=== PATIENT | female | born 1930 | race African-American/Black ===

== ENCOUNTER → 2016-08-26 | Outpatient (CLI) | payer MEDICARE, OTHER ==
--- NOTE | 2016-08-27 07:06 | US ---
EXAMINATION TYPE: US kidneys/renal and bladder DATE OF EXAM: 08/26/2016 4:49 PM COMPARISON: NONE CLINICAL HISTORY: ABN RENAL FUNCTIONS R94.4. EXAM MEASUREMENTS: Right Kidney: 10.4 x 5.1 x 5.6 cm Left Kidney: 10.2 x 5.6 x 5.0 cm TECHNOLOGIST IMPRESSION: wnl Right Kidney: multiple cysts, largest is complex, midpole measuring 4.4 x 4.6 x 3.4 cm Left Kidney: multiple cysts, largest is lateral and measures 3.1 x 2.6 x 2.4 cm Bladder: wnl There is no evidence for hydronephrosis at this point in time. The urinary bladder is anechoic. Jorge L ateral ureteral jets are not seen. There are multiple cysts of varying size and shape scattered throu ghout both kidneys, some have thin septations. No suspicious solid component or nodularity is clearly seen. Some loss of normal cortical echogenicity is present. IMPRESSION: No hydronephrosis is evident bilaterally. 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
== END | disposition home or self-care (01) ==
LOC: RADUSWWP 16:34
PROVIDERS: ATTEND Internal Medicine Geriatric Medicine
DX: R94.4 Abnormal results of kidney function studies (principal)
CPT/HCPCS: 76770

== ENCOUNTER 2018-01-08 12:42 | Inpatient (IN) | payer MEDICARE, OTHER ==
[2018-01-08] MEDS ORDERED: SODIUM CHLORIDE 0.9% 500 ML IV STA (13:03)
--- NOTE | 2018-01-08 13:07 | ED ---
General Adult HPI - General Chief complaint: Dizziness Stated complaint: Confusion Time Seen by Provider: 01/08/18 12:45 Source: family, RN notes reviewed Mode of arrival: wheelchair Limitations: altered mental status - History of Present Illness Initial comments: This is an 87-year-old female presents emergency department with altered mental status and a sensation of lightheadedness. Patient complained of being lightheaded her caregiver and she was then brought to the emergency department. Nephew came with her and nephew stated that she was slow to respond and not acting like herself. Patient denies any chest pain patient denies shortness of breath patient denies any visual disturbance. Patient denies headache. Patient states she just feels cloudy in her head. Patient denies abdominal pain patient denies nausea vomiting diarrhea. Patient denies any recent fever chills or cough. - Related Data Home Medications Medication Instructions Recorded Confirmed Atenolol [Tenormin] 50 mg PO BID 02/21/15 01/08/18 Gabapentin [Neurontin] 300 mg PO BID 02/21/15 01/08/18 Potassium Chloride [Klor-Con 10] 10 meq PO DAILY 02/21/15 01/08/18 amLODIPine BESYLATE [Norvasc] 10 mg PO DAILY 02/21/15 01/08/18 glipiZIDE XL [Glucotrol XL] 2.5 mg PO AC-BID 02/22/15 01/08/18 Multivitamins, Thera [Multivitamin] 1 tab PO DAILY 01/23/16 01/08/18 Oxybutynin Chloride 5 mg PO HS 01/23/16 01/08/18 Furosemide [Lasix] 20 mg PO BID 05/09/16 01/08/18 Citalopram Hydrobromide [CeleXA] 20 mg PO DAILY 01/08/18 01/08/18 Lisinopril [Zestril] 20 mg PO DAILY 01/08/18 01/08/18 Omeprazole 20 mg PO DAILY 01/08/18 01/08/18 cloNIDine HCL [Catapres] 0.1 mg PO DAILY 01/08/18 01/08/18 Allergies Allergy/AdvReac Type Severity Reaction Status Date / Time aspirin Allergy Unknown Verified 01/08/18 12:52 milk AdvReac Unknown Verified 01/08/18 12:52 Review of Systems ROS Statement: Those systems with pertinent positive or pertinent negative responses have been documented in the HPI. ROS Other: All systems not noted in ROS Statement are negative. Past Medical History Past Medical History: Heart Failure, Diabetes Mellitus, Hypertension History of Any Multi-Drug Resistant Organisms: None Reported Past Surgical History: Orthopedic Surgery Additional Past Surgical History / Comment(s): Rt Shoulder, brain stent Past Psychological History: No Psychological Hx Reported Smoking Status: Former smoker Past Alcohol Use History: None Reported Past Drug Use History: None Reported General Exam - General Exam Comments Initial Comments: GENERAL: Patient is well-developed and well-nourished. Patient is nontoxic and well- hydrated and is in no acute distress. ENT: Neck is soft and supple. No significant lymphadenopathy is noted. Oropharynx is clear. Moist mucous membranes. Neck has full range of motion without eliciting any pain. EYES: The sclera were anicteric and conjunctiva were pink and moist. Extraocular movements were intact and pupils were equal round and reactive to light. Eyelids were unremarkable. PULMONARY: Unlabored respirations. Good breath sounds bilaterally. No audible rales rhonchi or wheezing was noted. CARDIOVASCULAR: Patient is bradycardic down to 35 beats a minute ABDOMEN: Soft and nontender with normal bowel sounds. No palpable organomegaly was noted. There is no palpable pulsatile mass. SKIN: Skin is clear with no lesions or rashes and otherwise unremarkable. NEUROLOGIC: Patient is alert and oriented 2. Cranial nerves II through XII are grossly intact. Motor and sensory are also intact. Normal speech, volume and content. Symmetrical smile. MUSCULOSKELETAL: Normal extremities with adequate strength and full range of motion. No lower extremity swelling or edema. No calf tenderness. LYMPHATICS: No significant lymphadenopathy is noted PSYCHIATRIC: Normal psychiatric evaluation. Limitations: altered mental status Course Vital Signs 01/08/18 01/08/18 01/08/18 12:46 12:54 13:49 Temperature 97.6 F Pulse Rate 32 L 47 L 60 Respiratory 18 18 18 Rate Blood Pressure 183/77 180/80 O2 Sat by Pulse 98 100 100 Oximetry Medical Decision Making - Medical Decision Making EKG shows sinus bradycardia at 47 bpm LA interval is 180 QRSs 86 QT interval is 526 QTC is 465. EKG shows no ST segment elevation however there is some inverted T waves in V6 and leads 3 and aVF there is no old EKG to compare. Chest x-ray shows an enlarged heart. Patient's heart rate would dip down to 30 beats a minute. Patient did respond to atropine however. I spoke with Dr. Roe she accepts the patient I admitted the patient I wrote admitting orders I kept the patient based on the patient atropine by the bedside and I consult to cardiology. - Lab Data Result diagrams: 01/08/18 13:01 01/08/18 13:01 Lab Results 01/08/18 01/08/18 01/08/18 Range/Units 13: 13: 13:01 WBC 5.5 (3.8-10.6) k/uL RBC 3.18 L (3.80-5.40) m/uL Hgb 9.5 L (11.4-16.0) gm/dL Hct 30.2 L (34.0-46.0) % MCV 94.9 (80.0-100.0) fL MCH 30.0 (25.0-35.0) pg MCHC 31.6 (31.0-37.0) g/dL RDW 16.3 H (11.5-15.5) % Plt Count 206 (150-450) k/uL Neutrophils % 52 % Lymphocytes % 30 % Monocytes % 7 % Eosinophils % 6 % Basophils % 1 % Neutrophils # 2.9 (1.3-7.7) k/uL Lymphocytes # 1.7 (1.0-4.8) k/uL Monocytes # 0.4 (0-1.0) k/uL Eosinophils # 0.3 (0-0.7) k/uL Basophils # 0.0 (0-0.2) k/uL Anisocytosis Slight PT (9.0-12.0) sec INR (<1.2) APTT (22.0-30.0) sec Sodium 142 (137-145) mmol/L Potassium 5.0 (3.5-5.1) mmol/L Chloride 108 H (98-107) mmol/L Carbon Dioxide 23 (22-30) mmol/L Anion Gap 11 mmol/L BUN 34 H (7-17) mg/dL Creatinine 2.26 H (0.52-1.04) mg/dL Est GFR (CKD-EPI)AfAm 22 (>60 ml/min/1.73 sqM) Est GFR (CKD-EPI)NonAf 19 (>60 ml/min/1.73 sqM) Glucose 169 H (74-99) mg/dL Calcium 10.8 H (8.4-10.2) mg/dL Magnesium 2.0 (1.6-2.3) mg/dL Total Bilirubin 0.3 (0.2-1.3) mg/dL AST 14 (14-36) U/L ALT 23 (9-52) U/L Alkaline Phosphatase 131 H (38-126) U/L Total Creatine Kinase 49 (30-135) U/L CK-MB (CK-2) 0.3 (0.0-2.4) ng/mL CK-MB (CK-2) Rel Index 0.6 Troponin I 0.026 (0.000-0.034) ng/mL Total Protein 7.1 (6.3-8.2) g/dL Albumin 4.0 (3.5-5.0) g/dL 01/08/18 Range/Units 13:01 WBC (3.8-10.6) k/uL RBC (3.80-5.40) m/uL Hgb (11.4-16.0) gm/dL Hct (34.0-46.0) % MCV (80.0-100.0) fL MCH (25.0-35.0) pg MCHC (31.0-37.0) g/dL RDW (11.5-15.5) % Plt Count (150-450) k/uL Neutrophils % % Lymphocytes % % Monocytes % % Eosinophils % % Basophils % % Neutrophils # (1.3-7.7) k/uL Lymphocytes # (1.0-4.8) k/uL Monocytes # (0-1.0) k/uL Eosinophils # (0-0.7) k/uL Basophils # (0-0.2) k/uL Anisocytosis PT 10.4 (9.0-12.0) sec INR 1.1 (<1.2) APTT 20.8 L (22.0-30.0) sec Sodium (137-145) mmol/L Potassium (3.5-5.1) mmol/L Chloride (98-107) mmol/L Carbon Dioxide (22-30) mmol/L Anion Gap mmol/L BUN (7-17) mg/dL Creatinine (0.52-1.04) mg/dL Est GFR (CKD-EPI)AfAm (>60 ml/min/1.73 sqM) Est GFR (CKD-EPI)NonAf (>60 ml/min/1.73 sqM) Glucose (74-99) mg/dL Calcium (8.4-10.2) mg/dL Magnesium (1.6-2.3) mg/dL Total Bilirubin (0.2-1.3) mg/dL AST (14-36) U/L ALT (9-52) U/L Alkaline Phosphatase (38-126) U/L Total Creatine Kinase (30-135) U/L CK-MB (CK-2) (0.0-2.4) ng/mL CK-MB (CK-2) Rel Index Troponin I (0.000-0.034) ng/mL Total Protein (6.3-8.2) g/dL Albumin (3.5-5.0) g/dL Critical Care Time Critical Care Time: Yes Total Critical Care Time: 35 Disposition Clinical Impression: Light headed, Symptomatic bradycardia Disposition: ADMITTED IP TO THIS HOSP Referrals: Chad Guzmán MD [Primary Care Provider] - 1-2 days Time of Disposition: 14:47
[2018-01-08] MEDS ORDERED: ATROPINE SULFATE 0.1 MG/ML 10ML SYRINGE IV STA (13:26)
--- NOTE | 2018-01-08 13:36 | XR ---
EXAMINATION TYPE: XR chest 2V DATE OF EXAM: 01/08/2018 COMPARISON: NONE HISTORY: Chest pain, hypotension TECHNIQUE: Frontal and lateral views of the chest are obtained. FINDINGS: There is no focal air space opacity, pleural effusion, or pneumothorax seen. The cardiac silhouette size is possibly accentuated due to patient rotation. 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 Aorta is dense. There are overlying cardiac leads. The osseo us structures are intact. IMPRESSION: Heart may be borderline enlarged. Rotated exam. Postprocedural changes. Follow-up as ind icated.
[2018-01-08 13:37] LABS: Calcium 10.8 mg/dL (8.4-10.2); Total Bilirubin 0.3 mg/dL (0.2-1.3); Total Protein 7.1 g/dL (6.3-8.2)
[2018-01-08 13:40] LABS: Anisocytosis Slight; Basophils % (A) 1 %; Eosinophils # (A) 0.3 k/uL (0-0.7); Eosinophils % (A) 6 %; HCT 30.2 % (34.0-46.0); HGB 9.5 gm/dL (11.4-16.0); Lymphocytes # (A) 1.7 k/uL (1.0-4.8); Lymphocytes % (A) 30 %; MCHC 31.6 g/dL (31.0-37.0); MCV 94.9 fL (80.0-100.0); Mean Platelet Volume 6.7; Monocytes # (A) 0.4 k/uL (0-1.0); Monocytes % (A) 7 %; Neutrophils # (A) 2.9 k/uL (1.3-7.7); Neutrophils % (A) 52 %; Platelet Count 206 k/uL (150-450); RBC 3.18 m/uL (3.80-5.40); RDW 16.3 % (11.5-15.5); WBC 5.5 k/uL (3.8-10.6)
[2018-01-08 14:03] LABS: Creatine Kinase MB 0.3 ng/mL (0.0-2.4); Troponin I 0.026 ng/mL (0.000-0.034)
[2018-01-08 14:04] LABS: INR 1.1 (<1.2); Prothrombin Time 10.4 sec (9.0-12.0)
[2018-01-08 14:22] LABS: Partial Thromboplastin Time 20.8 sec (22.0-30.0)
[2018-01-08] MEDS ORDERED: NITROGLYCERIN SL TABS 0.4 MG TAB SUBLINGUAL PRN (14:47)
[2018-01-08 17:06] LABS: Glucose,Whole Blood 163 mg/dL (75-99)
--- NOTE | 2018-01-08 19:12 | P.HPIM ---
History of Present Illness H&P Date: 01/08/18 Chief Complaint: Weakness found to be significantly bradycardic This is an 87-year-old pleasant lady patient of Dr. Guzmán. She has underlying history of diabetes mellitus type 2, CK D stage III, GERD, anemia, gout, hyperparathyroidism, admitted to the emergency room secondary to weakness. Also mentioned as per the caregiver nephew that the patient was not acting her usual baseline self, was sleeping more. Patient denies any vagovagal spells, no chest pain or palpitations no lightheadedness, no dysuria however other symptoms are difficult to address to the patient secondary to advanced age. He was subsequently sent to the emergency room she was found to be profoundly bradycardic, patient is on metoprolol and was discontinued, atropine was given, with good response to this. Heart rate came up from the low 30s to 60, we've discussed this with Dr. Hylton ER physician, patient deemed stable to be in the selective medical floor rather in ICU. Consult to cardiology, metoprolol is currently held. Creatinine is also elevated at 2.26, from a baseline of 1.May Review of Systems Constitutional: Reports as per HPI, Reports anorexia, Reports poor appetite, Reports weakness, Denies chills, Denies chronic headaches, Denies chronic pain, Denies daytime sleepiness, Denies fatigue, Denies fever, Denies lethargy, Denies malaise, Denies night sweats, Denies sweats, Denies weight gain, Denies weight loss Ears, nose, mouth and throat: Reports as per HPI Cardiovascular: Reports as per HPI, Reports decreased exercise tolerance, Reports lightheadedness Respiratory: Reports as per HPI, Denies congestion, Denies cough, Denies cough with sputum, Denies dyspnea, Denies excessive sputum, Denies hemoptysis, Denies home oxygen, Denies pain, Denies pain on inspiration, Denies pleurisy, Denies respiratory infections, Denies sleep apnea, Denies snoring, Denies wheezing Gastrointestinal: Reports as per HPI Genitourinary: Reports as per HPI Menstruation: Reports as per HPI, Reports postmenopausal Musculoskeletal: Reports as per HPI, Reports gait dysfunction Integumentary: Reports as per HPI, Denies acne, Denies boils, Denies brittle nails, Denies change in hair/nails, Denies color changes, Denies darkening of skin, Denies depigmentation, Denies dryness, Denies foot/leg ulcers, Denies growths, Denies hirsutism, Denies lesions, Denies onychomycosis, Denies pruritus , Denies rash, Denies sores, Denies striae, Denies unusual bruising, Denies wounds Neurological: Reports as per HPI, Denies aphasia, Denies ataxia, Denies balance difficulties, Denies burning pain, Denies change in mentation, Denies change in smell/taste, Denies change in speech, Denies confusion, Denies convulsions, Denies double vision, Denies gait dysfunction, Denies head injury, Denies headaches, Denies hearing difficulties, Denies lack of coordination, Denies loss of vision, Denies memory loss, Denies migraines, Denies motor disturbance, Denies numbness, Denies paralysis, Denies paresthesias, Denies seizures, Denies sensory deficit, Denies spasticity, Denies syncope, Denies tic, Denies tingling , Denies transient paralysis, Denies tremors, Denies vertigo, Denies weakness, Denies visual changes Psychiatric: Reports as per HPI Endocrine: Reports as per HPI, Denies cold intolerance, Denies deepening of the voice, Denies excessive sweating, Denies excessive thirst, Denies fatigue, Denies flushing, Denies heat intolerance, Denies high blood sugars, Denies increase in ring/shoe/hat size, Denies low blood sugars, Denies nocturia, Denies palpitations, Denies polydipsia, Denies polyphagia, Denies polyuria, Denies proptosis, Denies recent glucocorticoid use, Denies thyroid mass, Denies weight change Hematologic/Lymphatic: Reports as per HPI Allergic/Immunologic: Reports as per HPI Past Medical History Past Medical History: Heart Failure, Dementia, Diabetes Mellitus, Eye Disorder, GERD/Reflux, Hypertension, Memory Impairment, Renal Disease Additional Past Medical History / Comment(s): macular degeneration, incont of urine wears a depends, occ gout, past fall, concussion History of Any Multi-Drug Resistant Organisms: None Reported Past Surgical History: Orthopedic Surgery Additional Past Surgical History / Comment(s): Rt Shoulder, "brain shunt", lesion on labia removed. Past Anesthesia/Blood Transfusion Reactions: No Reported Reaction Smoking Status: Former smoker - Past Family History Mother History Unknown: Yes Father Additional Family Medical History / Comment(s): " young- had heart disease Medications and Allergies Home Medications Medication Instructions Recorded Confirmed Type Atenolol [Tenormin] 50 mg PO BID 02/21/15 01/08/18 History Gabapentin [Neurontin] 300 mg PO BID 02/21/15 01/08/18 History Potassium Chloride [Klor-Con 10] 10 meq PO DAILY 02/21/15 01/08/18 History amLODIPine BESYLATE [Norvasc] 10 mg PO DAILY 02/21/15 01/08/18 History glipiZIDE XL [Glucotrol XL] 2.5 mg PO AC-BID 02/22/15 01/08/18 History Multivitamins, Thera [Multivitamin] 1 tab PO DAILY 01/23/16 01/08/18 History Oxybutynin Chloride 5 mg PO HS 01/23/16 01/08/18 History Furosemide [Lasix] 20 mg PO BID 05/09/16 01/08/18 History Citalopram Hydrobromide [CeleXA] 20 mg PO DAILY 01/08/18 01/08/18 History Lisinopril [Zestril] 20 mg PO DAILY 01/08/18 01/08/18 History Omeprazole 20 mg PO DAILY 01/08/18 01/08/18 History cloNIDine HCL [Catapres] 0.1 mg PO DAILY 01/08/18 01/08/18 History Allergies Allergy/AdvReac Type Severity Reaction Status Date / Time aspirin Allergy Unknown Verified 01/08/18 12:52 milk AdvReac Unknown Verified 01/08/18 12:52 Physical Exam Vitals: Vital Signs Temp Pulse Resp BP Pulse Ox 01/08/18 16:00 97.6 F 01/08/18 15:22 52 L 18 177/79 100 01/08/18 14:48 48 L 18 167/76 98 01/08/18 13:49 60 18 180/80 100 01/08/18 12:54 47 L 18 183/77 100 01/08/18 12:46 97.6 F 32 L 18 98 Intake and Output 01/08/18 01/08/18 01/08/18 06:59 14:59 22:59 Other: Weight 66.678 kg - Constitutional General appearance: average body habitus, cooperative, no acute distress - EENT Eyes: anicteric sclerae, EOMI, PERRLA, dentition normal - Neck Neck: normal ROM - Respiratory Respiratory: bilateral: CTA, negative: diminished, dullness, wheezing - Cardiovascular Heart rate: 52 (Bradycardic regular) Heart sounds: normal: S1 Abnormal Heart Sounds: systolic murmur, no diastolic murmur, no rub, no S3 Gallop, no S4 Gallop, no click, no other - Gastrointestinal General gastrointestinal: decreased bowel sounds, soft - Integumentary Integumentary: decreased turgor, normal - Neurologic Neurologic: CNII-XII intact - Musculoskeletal Musculoskeletal: gait normal - Psychiatric Psychiatric: A&O x's 3, appropriate affect, intact judgment & insight Results CBC & Chem 7: 01/08/18 13:01/08/18 13:01 Labs: Abnormal Lab Results - Last 24 Hours (Table) 01/08/18 01/08/18 01/08/18 Range/Units 13:01 13:01 13:01 RBC 3.18 L (3.80-5.40) m/uL Hgb 9.5 L (11.4-16.0) gm/dL Hct 30.2 L (34.0-46.0) % RDW 16.3 H (11.5-15.5) % APTT 20.8 L (22.0-30.0) sec Chloride 108 H (98-107) mmol/L BUN 34 H (7-17) mg/dL Creatinine 2.26 H (0.52-1.04) mg/dL Glucose 169 H (74-99) mg/dL POC Glucose (mg/dL) (75-99) mg/dL Calcium 10.8 H (8.4-10.2) mg/dL Alkaline Phosphatase 131 H (38-126) U/L 01/08/18 Range/Units 17:05 RBC (3.80-5.40) m/uL Hgb (11.4-16.0) gm/dL Hct (34.0-46.0) % RDW (11.5-15.5) % APTT (22.0-30.0) sec Chloride (98-107) mmol/L BUN (7-17) mg/dL Creatinine (0.52-1.04) mg/dL Glucose (74-99) mg/dL POC Glucose (mg/dL) 163 H (75-99) mg/dL Calcium (8.4-10.2) mg/dL Alkaline Phosphatase (38-126) U/L Laboratory Results WBC 5.5 k/uL (3.8-10.6) 01/08/18 13:01 RBC 3.18 m/uL (3.80-5.40) L 01/08/18 13:01 Hgb 9.5 gm/dL (11.4-16.0) L 01/08/18 13:01 Hct 30.2 % (34.0-46.0) L 01/08/18 13:01 MCV 94.9 fL (80.0-100.0) 01/08/18 13:01 MCH 30.0 pg (25.0-35.0) 01/08/18 13:01 MCHC 31.6 g/dL (31.0-37.0) 01/08/18 13:01 RDW 16.3 % (11.5-15.5) H 01/08/18 13:01 Plt Count 206 k/uL (150-450) 01/08/18 13:01 Neutrophils % 52 % 01/08/18 13:01 Lymphocytes % 30 % 01/08/18 13:01 Monocytes % 7 % 01/08/18 13:01 Eosinophils % 6 % 01/08/18 13:01 Basophils % 1 % 01/08/18 13:01 Neutrophils # 2.9 k/uL (1.3-7.7) 01/08/18 13:01 Lymphocytes # 1.7 k/uL (1.0-4.8) 01/08/18 13:01 Monocytes # 0.4 k/uL (0-1.0) 01/08/18 13:01 Eosinophils # 0.3 k/uL (0-0.7) 01/08/18 13:01 Basophils # 0.0 k/uL (0-0.2) 01/08/18 13:01 Anisocytosis Slight 01/08/18 13:01 PT 10.4 sec (9.0-12.0) 01/08/18 13:01 INR 1.1 (<1.2) 01/08/18 13:01 APTT 20.8 sec (22.0-30.0) L 01/08/18 13:01 Sodium 142 mmol/L (137-145) 01/08/18 13:01 Potassium 5.0 mmol/L (3.5-5.1) 01/08/18 13:01 Chloride 108 mmol/L (98-107) H 01/08/18 13:01 Carbon Dioxide 23 mmol/L (22-30) 01/08/18 13:01 Anion Gap 11 mmol/L 01/08/18 13:01 BUN 34 mg/dL (7-17) H 01/08/18 13:01 Creatinine 2.26 mg/dL (0.52-1.04) H 01/08/18 13:01 Est GFR (CKD-EPI)AfAm 22 (>60 ml/min/1.73 sqM) 01/08/18 13:01 Est GFR (CKD-EPI)NonAf 19 (>60 ml/min/1.73 sqM) 01/08/18 13:01 Glucose 169 mg/dL (74-99) H 01/08/18 13:01 POC Glucose (mg/dL) 163 mg/dL (75-99) H 01/08/18 17:05 POC Glu [employer] Operator Enma Hanna 01/08/18 17:05 Calcium 10.8 mg/dL (8.4-10.2) H 01/08/18 13:01 Magnesium 2.0 mg/dL (1.6-2.3) 01/08/18 13:01 Total Bilirubin 0.3 mg/dL (0.2-1.3) 01/08/18 13:01 AST 14 U/L (14-36) 01/08/18 13:01 ALT 23 U/L (9-52) 01/08/18 13:01 Alkaline Phosphatase 131 U/L (38-126) H 01/08/18 13:01 Total Creatine Kinase 49 U/L (30-135) 01/08/18 13:01 CK-MB (CK-2) 0.3 ng/mL (0.0-2.4) 01/08/18 13:01 CK-MB (CK-2) Rel Index 0.6 01/08/18 13:01 Troponin I 0.026 ng/mL (0.000-0.034) 01/08/18 13:01 Total Protein 7.1 g/dL (6.3-8.2) 01/08/18 13:01 Albumin 4.0 g/dL (3.5-5.0) 01/08/18 13:01 Thrombosis Risk Factor Assmnt - Choose All That Apply Each Risk Factor Represents 3 Points: Age 75 years or older Thrombosis Risk Factor Assessment Total Risk Factor Score: 3 Thrombosis Risk Factor Assessment Level: Moderate Risk Assessment and Plan Plan: 1. Symptomatic bradycardia possibly from Tenormin, other malignant arrhythmias would be entertained, secondary to her multiple risk Tenormin is discontinued, patient would have a thyroid function test to be done with a TSH free T4, troponins to be done and consult with cardiology. Patient would be in a telemetry unit, echocardiogram requested 2. Diabetes mellitus type 2 on Glucotrol 2.5 mg twice a day, monitor for Accu- Cheks before meals and at bedtime, 3. Hypertension on amlodipine 10 mg daily 4. History of hyperparathyroidism this was investigated in the past, monitor for calcium, currently stable calcium at 10.8 5. CK D stage III on the basis off ATN, mild dehydration, monitor creatinine avoid nephrotoxins 6.. History of gout asymptomatic 6. Anemia, iron levels be obtained, no acute symptoms of GI losses DVT prophylaxis next GI prophylaxis
[2018-01-08 19:56] LABS: Creatine Kinase MB 0.4 ng/mL (0.0-2.4); Troponin I 0.023 ng/mL (0.000-0.034)
[2018-01-08 20:54] LABS: Glucose,Whole Blood 147 mg/dL (75-99)
[2018-01-08] MEDS: OXYBUTYNIN CHLORIDE 5 MG TAB PO SCH (21:27)
[2018-01-09 02:19] LABS: Creatine Kinase MB 0.3 ng/mL (0.0-2.4); Troponin I 0.024 ng/mL (0.000-0.034)
[2018-01-09 05:24] LABS: Appearance,Urine Clear (Clear); Bilirubin,Urine Negative (Negative); Blood,Urine Negative (Negative); Color,Urine Light Yellow; Glucose,Urine (UA) Negative (Negative); Ketones,Urine Negative (Negative); Leukocyte Esterase,Urine Negative (Negative); Mucus,Urine Rare /hpf; Nitrite,Urine Negative (Negative); PH, Urine 5.5 (5.0-8.0); Protein,Urine 1+ (Negative); RBC,Urine <1 /hpf (0-5); Urobilinogen,Urine <2.0 mg/dL (<2.0)
[2018-01-09 06:06] LABS: Glucose,Whole Blood 158 mg/dL (75-99)
[2018-01-09] MEDS: PANTOPRAZOLE 40 MG TABLET PO SCH (06:29)
[2018-01-09 08:12] LABS: Calcium 10.7 mg/dL (8.4-10.2); Potassium 4.8 mmol/L (3.5-5.1)
[2018-01-09] MEDS: amLODIPine 10 MG TAB PO SCH (09:13)
[2018-01-09] MEDS: CITALOPRAM HYDROBROMIDE 20 MG TAB PO SCH (09:13)
[2018-01-09] MEDS: POTASSIUM CITRATE 10 MEQ TABLET.ER PO SCH (09:13)
[2018-01-09] MEDS: ASPIRIN 325 MG TAB PO SCH (09:13)
[2018-01-09] MEDS: MULTIVITAMINS, THERA 1 EACH TAB PO SCH (09:14)
[2018-01-09] MEDS: GABAPENTIN 300 MG CAP PO SCH (09:14)
--- NOTE | 2018-01-09 11:10 | P.CRDCN ---
History of Present Illness Consult date: 01/09/18 Requesting physician: Jen Roe Reason for Consult (text): Bradycardia Chief complaint: Weakness, mental status changes History of present illness: This is a pleasant 87-year-old female who has a known history of diabetes, chronic kidney disease, anemia, GERD, hyperparathyroidism, hypertension, admitted to the hospital because of weakness and mental status changes. According to the patient, she couldn't remember things that she normally does, and she was feeling weak and tired. She denies any dizziness or lightheadedness, no chest discomfort. Her caregiver was concerned about these symptoms, and for this reason recommended she come to the hospital for further evaluation. Home medications include Glucotrol 2-1/2 mg twice a day, Catapres 0.1 mg daily, Norvasc 10 mg daily, potassium 10 mEq daily, omeprazole 20 mg daily, multivitamin, Zestril 20 mg daily, Neurontin 300 mg twice a day, Lasix 20 mg twice a day, Celexa 20 mg daily, atenolol 50 mg IV. Her EKG on arrival here showed a sinus bradycardia with 2 second positive and nonspecific ST-T wave changes. Blood pressure on arrival here 182/70, heart rate in the 40s, 100 % on 2 L of oxygen. Blood pressure this morning 192/90 with a heart rate in the 40s, 99% on 2 L of oxygen. Chest x-ray on admission revealed borderline heart enlargement. White blood cell count 5.5, hemoglobin 9.5, platelet count 206. Sodium 143, potassium 4.8, BUN 34, creatinine 2.0. BUN on admission 34 and creatinine 2.2, magnesium 2.0, troponins 0.026, 0.0-3, 0.024. TSH 1.8. At the time of my examination this morning, patient does state that she feels stronger, she also feels more like herself. She denies any dizziness or lightheadedness. EKG performed this morning showed a sinus bradycardia with nonspecific ST-T wave changes in the inferior leads. Catapres and atenolol have been placed on hold. Past Medical History Past Medical History: Heart Failure, Dementia, Diabetes Mellitus, Eye Disorder, GERD/Reflux, Hypertension, Memory Impairment, Renal Disease Additional Past Medical History / Comment(s): macular degeneration, incont of urine wears a depends, occ gout, past fall, concussion History of Any Multi-Drug Resistant Organisms: None Reported Past Surgical History: Orthopedic Surgery Additional Past Surgical History / Comment(s): Rt Shoulder, "brain shunt", lesion on labia removed. Past Anesthesia/Blood Transfusion Reactions: No Reported Reaction Smoking Status: Former smoker - Past Family History Mother History Unknown: Yes Father Additional Family Medical History / Comment(s): " young- had heart disease Medications and Allergies Home Medications Medication Instructions Recorded Confirmed Type Atenolol [Tenormin] 50 mg PO BID 02/21/15 01/08/18 History Gabapentin [Neurontin] 300 mg PO BID 02/21/15 01/08/18 History Potassium Chloride [Klor-Con 10] 10 meq PO DAILY 02/21/15 01/08/18 History amLODIPine BESYLATE [Norvasc] 10 mg PO DAILY 02/21/15 01/08/18 History glipiZIDE XL [Glucotrol XL] 2.5 mg PO AC-BID 02/22/15 01/08/18 History Multivitamins, Thera [Multivitamin] 1 tab PO DAILY 01/23/16 01/08/18 History Oxybutynin Chloride 5 mg PO HS 01/23/16 01/08/18 History Furosemide [Lasix] 20 mg PO BID 05/09/16 01/08/18 History Citalopram Hydrobromide [CeleXA] 20 mg PO DAILY 01/08/18 01/08/18 History Lisinopril [Zestril] 20 mg PO DAILY 01/08/18 01/08/18 History Omeprazole 20 mg PO DAILY 01/08/18 01/08/18 History cloNIDine HCL [Catapres] 0.1 mg PO DAILY 01/08/18 01/08/18 History Allergies Allergy/AdvReac Type Severity Reaction Status Date / Time aspirin Allergy Unknown Verified 01/08/18 12:52 milk AdvReac Unknown Verified 01/08/18 12:52 Physical Exam Vitals: Vital Signs Temp Pulse Pulse Pulse Resp BP BP 01/09/18 08:40 98.6 F 42 L 18 193/91 01/09/18 03:40 98.3 F 57 L 18 181/65 01/09/18 00:00 98.3 F 52 L 18 188/67 01/08/18 20:20 98.2 F 46 L 16 171/73 01/08/18 16:00 98 F 63 16 172/61 01/08/18 15:22 52 L 18 177/79 01/08/18 14:48 48 L 18 167/76 01/08/18 13:49 60 18 180/80 01/08/18 12:54 47 L 18 183/77 01/08/18 12:46 97.6 F 32 L 18 Pulse Ox 01/09/18 08:40 99 01/09/18 03:40 100 01/09/18 00:00 96 01/08/18 20:20 100 01/08/18 16:00 94 L 01/08/18 15:22 100 01/08/18 14:48 98 01/08/18 13:49 100 01/08/18 12:54 100 01/08/18 12:46 98 Intake and Output 01/08/18 01/09/18 01/09/18 22:59 06:59 14:59 Intake Total 240 Balance 240 Intake: Oral 240 Other: Voiding Method Bedside Commode Bedside Commode Bedside Commode Diaper Diaper Diaper Incontinent Incontinent Incontinent # Voids 1 Weight 64.1 kg PHYSICAL EXAMINATION: GENERAL: 87-year-old -[place] female in no acute distress at the time of my examination HEENT: Head is atraumatic, normocephalic. Pupils equal, round. Sclera anicteric. Conjunctiva are clear. Mucous membranes of the mouth are moist. Neck is supple. There is no elevated jugular venous pressure.] Bilateral carotid bruit is heard. HEART EXAMINATION: Heart S1, S2 normal. No murmur or gallop heard. CHEST EXAMINATION: Lungs are clear to auscultation and precussion. No chest wall tenderness is noted on palpation or with deep breathing. ABDOMEN: Soft, nontender. Bowel sounds are heard. No organomegaly noted. EXTREMITIES: 2+ peripheral pulses with no evidence of peripheral edema and no calf tenderness noted. NEUROLOGIC patient is awake, alert and oriented OX3. . Results 01/08/18 13:01 01/09/18 05:59 Cardiac Enzymes 01/08/18 01/08/18 01/08/18 Range/Units 13:01 13:01 19:01 AST 14 (14-36) U/L CK-MB (CK-2) 0.3 0.4 (0.0-2.4) ng/mL Troponin I 0.026 0.023 (0.000-0.034) ng/mL 01/09/18 Range/Units 01:20 AST (14-36) U/L CK-MB (CK-2) 0.3 (0.0-2.4) ng/mL Troponin I 0.024 (0.000-0.034) ng/mL Coagulation 01/08/18 Range/Units 13:01 PT 10.4 (9.0-12.0) sec APTT 20.8 L (22.0-30.0) sec Lipids 01/09/18 Range/Units 05:59 Triglycerides 125 (<150) mg/dL Cholesterol 189 (<200) mg/dL HDL Cholesterol 26 L (40-60) mg/dL CBC 01/08/18 Range/Units 13:01 WBC 5.5 (3.8-10.6) k/uL RBC 3.18 L (3.80-5.40) m/uL Hgb 9.5 L (11.4-16.0) gm/dL Hct 30.2 L (34.0-46.0) % Plt Count 206 (150-450) k/uL Comprehensive Metabolic Panel 01/08/18 01/09/18 Range/Units 13:01 05:59 Sodium 142 143 (137-145) mmol/L Potassium 5.0 4.8 (3.5-5.1) mmol/L Chloride 108 H 110 H (98-107) mmol/L Carbon Dioxide 23 24 (22-30) mmol/L BUN 34 H 34 H (7-17) mg/dL Creatinine 2.26 H 2.05 H (0.52-1.04) mg/dL Glucose 169 H 149 H (74-99) mg/dL Calcium 10.8 H 10.7 H (8.4-10.2) mg/dL AST 14 (14-36) U/L ALT 23 (9-52) U/L Alkaline Phosphatase 131 H (38-126) U/L Total Protein 7.1 (6.3-8.2) g/dL Albumin 4.0 (3.5-5.0) g/dL Current Medications Generic Name Dose Route Start Last Admin Trade Name Freq PRN Reason Stop Dose Admin Amlodipine Besylate 10 mg 01/09/18 09:00 01/09/18 09:13 Norvasc PO 10 mg DAILY RIANA Administration Aspirin 325 mg 01/09/18 09:00 01/09/18 09:13 Aspirin PO 325 mg DAILY RIANA Administration Citalopram Hydrobromide 20 mg 01/09/18 09:00 01/09/18 09:13 Celexa PO 20 mg DAILY RIANA Administration Gabapentin 300 mg 01/09/18 09:00 01/09/18 09:14 Neurontin PO 300 mg DAILY RIANA Administration Glipizide 2.5 mg 01/09/18 07:30 01/09/18 06:29 Glucotrol PO 2.5 mg AC-BID RIANA Administration Multivitamins 1 each 01/09/18 12:00 01/09/18 09:14 Theragran PO 1 each DAILY@1200 RIANA Administration Nitroglycerin 0.4 mg 01/08/18 14:47 Nitrostat SUBLINGUAL Q5M PRN Chest Pain Oxybutynin Chloride 5 mg 01/08/18 21:00 01/08/18 21:27 Ditropan PO 5 mg HS RIANA Administration Pantoprazole Sodium 40 mg 01/09/18 07:30 01/09/18 06:29 Protonix PO 40 mg AC-BRKFST RIANA Administration Potassium Citrate 10 meq 01/09/18 09:00 01/09/18 09:13 Urocit-K PO 10 meq DAILY RIANA Administration Intake and Output 01/08/18 01/09/18 01/09/18 22:59 06:59 14:59 Intake Total 240 Balance 240 Intake: Oral 240 Other: Voiding Method Bedside Commode Bedside Commode Bedside Commode Diaper Diaper Diaper Incontinent Incontinent Incontinent # Voids 1 Weight 64.1 kg 01/08/18 13:01 01/09/18 05:59 EKG Interpretations (text) EKG on admission showed a sinus bradycardia with [address]-T wave changes Assessment and Plan Plan: Assessment and plan #1 bradycardia, patient had been on Tenormin and Catapres at home which are both currently on hold. TSH normal. #2 diabetes, type2 #3 hypertension, uncontrolled #4 chronic kidney disease stage III #5 anemia #6 history of hyperparathyroidism Plan We will obtain an echocardiogram with Doppler study, continue to hold Tenormin and Catapres, continue to monitor for any significant bradycardia or pauses. Add hydralazine to her current medication regime for more optimal blood pressure control. Further recommendations to follow. DNP note has been reviewed, I agree with a documented findings and plan of care. Patient was seen and examined.
[2018-01-09 11:49] LABS: Glucose,Whole Blood 278 mg/dL (75-99)
[2018-01-09] MEDS: hydrALAZINE HCL 50 MG TAB PO SCH ×3 (12:26→20:54)
[2018-01-09] MEDS: diphenhydrAMINE 2% CREAM 28.4 GM TUBE TOPICAL SCH ×3 (12:26→20:54)
[2018-01-09 13:59] LABS: Hemoglobin A1C 6.9 % (4.0-6.0)
[2018-01-09] MEDS: SODIUM CHLORIDE 0.9% 1,000 ML IV SCH ×2 (14:21→20:53)
--- NOTE | 2018-01-09 14:26 | ECHOF ---
Referral Reason:bradycarida, weakness MEASUREMENTS -------- HEIGHT: 160.0 cm WEIGHT: 64.0 kg BP: RVIDd: 3.0 cm (< 3.3) IVSd: 1.1 cm (0.6 - 1.1) LVIDd: 5.3 cm (3.9 - 5.3) LVPWd: 1.3 cm (0.6 - 1.1) IVSs: 1.4 cm LVIDs: 3.8 cm LVPWs: 1.6 cm LAESV Index (A-L): 50.97 ml/m Ao Diam: 3.0 cm (2.0 - 3.7) AV Cusp: 1.6 cm (1.5 - 2.6) LA Diam: 3.6 cm (2.7 - 3.8) MV E Johnathan: 1.21 m/s MV DecT: 204 ms MV A Johnathan: 1.55 m/s MV E/A Ratio: 0.78 RAP: 5.00 mmHg RVSP: 34.78 mmHg FINDINGS -------- Resting bradycardia (HR<60bpm). This was a technically good study. The left ventricular size is normal. There is mild concentric left ventricular hypertrophy. Overa ll left ventricular systolic function is normal with, an EF between 55 - 60 %. The right ventricle is normal in size and function. LA is severely dilated >40 ml/m2 The right atrium is normal in size. Aortic valve is trileaflet and is mildly thickened. There is no evidence of aortic regurgitation. There is no evidence of aortic stenosis. The mitral valve leaflets are mildly thickened. [id number] mitral regurgitation is present. Mild tricuspid regurgitation present. There is borderline pulmonary hypertension. The right ventr icular systolic pressure, as measured by Doppler, is 34.78mmHg. The pulmonic valve was not well visualized. The aortic root size is normal. Normal inferior vena cava with normal inspiratory collapse consistent with estimated right atrial pre ssure of 5 mmHg. There is no pericardial effusion. CONCLUSIONS -------- 1. Resting bradycardia (HR<60bpm). 2. This was a technically good study. 3. The left ventricular size is normal. 4. There is mild concentric left ventricular hypertrophy. 5. Overall left ventricular systolic function is normal with, an EF between 55 - 60 %. 6. LA is severely dilated >40 ml/m2 7. Aortic valve is trileaflet and is mildly thickened. 8. The mitral valve leaflets are mildly thickened. 9. Aket-vz-jusazznf mitral regurgitation is present. 10. Mild tricuspid regurgitation present. 11. There is borderline pulmonary hypertension. 12. The right ventricular systolic pressure, as measured by Doppler, is 34.78mmHg. 13. The pulmonic valve was not well visualized. 14. The aortic root size is normal. 15. There is no pericardial effusion. PARTNER CCO: Armand Weaver RDCS
--- NOTE | 2018-01-09 14:52 | P.PN ---
Subjective Progress Note Date: 01/09/18 This is an 87-year-old pleasant lady patient of Dr. Guzmán. She has underlying history of diabetes mellitus type 2, CK D stage III, GERD, anemia, gout, hyperparathyroidism, admitted to the emergency room secondary to weakness. Also mentioned as per the caregiver nephew that the patient was not acting her usual baseline self, was sleeping more. Patient denies any vagovagal spells, no chest pain or palpitations no lightheadedness, no dysuria however other symptoms are difficult to address to the patient secondary to advanced age. He was subsequently sent to the emergency room she was found to be profoundly bradycardic, patient is on metoprolol and was discontinued, atropine was given, with good response to this. Heart rate came up from the low 30s to 60, we've discussed this with Dr. Hylton ER physician, patient deemed stable to be in the selective medical floor rather in ICU. Consult to cardiology, metoprolol is currently held. Creatinine is also elevated at 2.26, from a baseline of 1.May01/09 patient examined bedside. Complains of knee and no significant abnormality. Blood pressure 195/87 with pulse 42 and stop hold Catapres and atenolol. No plan for pacemaker placement. Echocardiogram pending. EKG with sinus bradycardia with nonspecific ST or T-wave changes. Objective - Vital Signs Vital signs: Vital Signs Temp 97.9 F 01/09/18 12:00 Pulse 63 01/09/18 12:00 Resp 18 01/09/18 12:00 BP 195/87 01/09/18 12:00 Pulse Ox 100 01/09/18 12:00 Intake & Output 01/08/18 01/09/18 01/09/18 18:59 06:59 18:59 Intake Total 480 Balance 480 Weight 66.678 kg 64.1 kg Intake: Oral 480 Other: Voiding Method Bedside Commode Bedside Commode Bedside Commode Diaper Diaper Diaper Incontinent Incontinent Incontinent # Voids 1 - Exam - Constitutional General appearance: cooperative, no acute distress, thin-appearing oriented 2 - EENT Eyes: anicteric sclerae, PERRLA, normal appearance ENT: hearing grossly normal - Neck Neck: no lymphadenopathy, normal ROM, no other, no rigidity, no stridor, no thyromegaly - Respiratory Respiratory: bilateral: CTA, negative: diminished, dullness, rales, rhonchi - Cardiovascular Rhythm: regular Heart sounds: normal: S1, S2 Abnormal Heart Sounds: no systolic murmur, no diastolic murmur - Gastrointestinal General gastrointestinal: normal bowel sounds, soft, nontender - Integumentary Integumentary: Right ankle with signs of itching - Neurologic Neurologic: CNII-XII intact - Musculoskeletal Musculoskeletal: strength equal bilaterally - Psychiatric Psychiatric: A&O x's 2, appropriate affect - Labs CBC & Chem 7: 01/08/18 13:01 01/09/18 05:59 Labs: Abnormal Lab Results - Last 24 Hours (Table) 01/08/18 01/08/18 01/09/18 Range/Units 17:05 20:52 04:26 Chloride (98-107) mmol/L BUN (7-17) mg/dL Creatinine (0.52-1.04) mg/dL Glucose (74-99) mg/dL POC Glucose (mg/dL) 163 H 147 H (75-99) mg/dL Calcium (8.4-10.2) mg/dL LDL Cholesterol, Calc (0-99) mg/dL HDL Cholesterol (40-60) mg/dL Urine Protein 1+ H (Negative) Urine Mucus Rare H (None) /hpf 01/09/18 01/09/18 01/09/18 Range/Units 05:59 05:59 06:02 Chloride 110 H (98-107) mmol/L BUN 34 H (7-17) mg/dL Creatinine 2.05 H (0.52-1.04) mg/dL Glucose 149 H (74-99) mg/dL POC Glucose (mg/dL) 158 H (75-99) mg/dL Calcium 10.7 H (8.4-10.2) mg/dL LDL Cholesterol, Calc 138 H (0-99) mg/dL HDL Cholesterol 26 L (40-60) mg/dL Urine Protein (Negative) Urine Mucus (None) /hpf 01/09/18 Range/Units 11:26 Chloride (98-107) mmol/L BUN (7-17) mg/dL Creatinine (0.52-1.04) mg/dL Glucose (74-99) mg/dL POC Glucose (mg/dL) 278 H (75-99) mg/dL Calcium (8.4-10.2) mg/dL LDL Cholesterol, Calc (0-99) mg/dL HDL Cholesterol (40-60) mg/dL Urine Protein (Negative) Urine Mucus (None) /hpf Microbiology - Last 24 Hours (Table) 01/09/18 04:26 Urine Culture - Preliminary Urine,Voided Assessment and Plan Plan: 1. Symptomatic bradycardia possibly from Tenormin, and Catapres o patient would have a thyroid function test to be done with a TSH free T4, troponins to be done and consult with cardiology. Patient would be in a telemetry unit, echocardiogram requested 2. Diabetes mellitus type 2 on Glucotrol 2.5 mg twice a day, monitor for Accu- Cheks before meals and at bedtime, 3. Hypertension on amlodipine 10 mg daily and hydralazine 50 mg 3 times a day added by cardiology 4. History of hyperparathyroidism this was investigated in the past, monitor for calcium, currently stable calcium at 10.8. Continue fluids at 100 mL per hour for dehydration. PTH and vitamin D level ordered 5. CK D stage III on the basis off ATN, mild dehydration, monitor creatinine avoid nephrotoxins 6.. History of gout asymptomatic 6. Anemia, iron levels be obtained, no acute symptoms of GI losses DVT prophylaxis heparin every 12 GI prophylaxis Protonix 40 mg with breakfast Disposition likely discharge tomorrow
[2018-01-09 16:46] LABS: Glucose,Whole Blood 176 mg/dL (75-99)
[2018-01-09] MEDS: HEPARIN SODIUM,PORCINE 5,000 UNIT/ML 1 ML VIAL SQ SCH (20:52)
[2018-01-09] MEDS: OXYBUTYNIN CHLORIDE 5 MG TAB PO SCH (20:53)
[2018-01-09 21:27] LABS: Glucose,Whole Blood 140 mg/dL (75-99)
[2018-01-10 05:41] LABS: Glucose,Whole Blood 148 mg/dL (75-99)
[2018-01-10] MEDS: SODIUM CHLORIDE 0.9% 1,000 ML IV SCH (06:55)
[2018-01-10] MEDS: PANTOPRAZOLE 40 MG TABLET PO SCH (06:55)
[2018-01-10 07:42] LABS: Calcium 10.7 mg/dL (8.4-10.2); Potassium 4.4 mmol/L (3.5-5.1)
[2018-01-10] MEDS: diphenhydrAMINE 2% CREAM 28.4 GM TUBE TOPICAL SCH ×3 (09:03→21:40)
[2018-01-10] MEDS: amLODIPine 10 MG TAB PO SCH (09:04)
[2018-01-10] MEDS: ASPIRIN 325 MG TAB PO SCH (09:04)
[2018-01-10] MEDS: POTASSIUM CITRATE 10 MEQ TABLET.ER PO SCH (09:04)
[2018-01-10] MEDS: hydrALAZINE HCL 50 MG TAB PO SCH ×3 (09:04→21:40)
[2018-01-10] MEDS: HEPARIN SODIUM,PORCINE 5,000 UNIT/ML 1 ML VIAL SQ SCH ×2 (09:04→21:40)
[2018-01-10] MEDS: GABAPENTIN 300 MG CAP PO SCH (09:05)
[2018-01-10] MEDS: MULTIVITAMINS, THERA 1 EACH TAB PO SCH (09:05)
[2018-01-10] MEDS: CITALOPRAM HYDROBROMIDE 20 MG TAB PO SCH (09:05)
--- NOTE | 2018-01-10 09:44 | P.PN ---
Subjective Progress Note Date: 01/10/18 Principal diagnosis: Symptomatic bradycardia This is a pleasant 87-year-old female patient with a past medical history significant for hypertension who was admitted to the hospital with symptomatic bradycardia. She was receiving as an outpatient atenolol as well as Coumadin. Both were stopped and the patient was started on Norvasc. I'll follow with her today, she is feeling overall better. Denies having any chest pain or discomfort or shortness of breath. No dizziness or lightheadedness. She continues to be severe lead hypertensive with a systolic blood pressure 180 millimeters mercury. I'm going to increase the dose of hydralazine to 75 mg by mouth 3 times a day. The heart rate has improved significantly. The echocardiogram revealed normal LV function. Objective - Vital Signs Vital signs: Vital Signs Temp 98.1 F 01/10/18 03:10 Pulse 70 01/10/18 03:10 Resp 18 01/10/18 03:10 BP 188/80 01/10/18 03:10 Pulse Ox 99 01/10/18 08:12 Intake & Output 01/09/18 01/10/18 01/10/18 18:59 06:59 18:59 Intake Total 720 Balance 720 Weight 66.1 kg Intake: Oral 720 Other: Voiding Method Bedside Commode Bedside Commode Diaper Diaper Incontinent Incontinent # Voids 2 4 # Bowel Movements 1 - Constitutional General appearance: Present: no acute distress - Respiratory Respiratory: bilateral: CTA - Cardiovascular Rhythm: regular Heart sounds: normal: S1, S2 - Labs CBC & Chem 7: 01/08/18 13:01 01/10/18 05:52 Labs: Abnormal Lab Results - Last 24 Hours (Table) 01/09/18 01/09/18 01/09/18 Range/Units 11:26 16:43 21:26 Chloride (98-107) mmol/L BUN (7-17) mg/dL Creatinine (0.52-1.04) mg/dL Glucose (74-99) mg/dL POC Glucose (mg/dL) 278 H 176 H 140 H (75-99) mg/dL Calcium (8.4-10.2) mg/dL 01/10/18 01/10/18 Range/Units 05:40 05:52 Chloride 112 H (98-107) mmol/L BUN 30 H (7-17) mg/dL Creatinine 2.05 H (0.52-1.04) mg/dL Glucose 151 H (74-99) mg/dL POC Glucose (mg/dL) 148 H (75-99) mg/dL Calcium 10.7 H (8.4-10.2) mg/dL Microbiology - Last 24 Hours (Table) 01/09/18 04:26 Urine Culture - Preliminary Urine,Voided Assessment and Plan Assessment: Assessment #1 symptomatic bradycardia #2 uncontrolled hypertension Plan #1 continue holding the atenolol and clonidine #2 continue Norvasc with the current dose #3 increase the dose of hydralazine #4 follow-up with the patient.
[2018-01-10 12:24] LABS: Glucose,Whole Blood 226 mg/dL (75-99)
--- NOTE | 2018-01-10 14:56 | P.PN ---
Subjective Progress Note Date: 01/10/18 This is an 87-year-old pleasant lady patient of Dr. Guzmán. She has underlying history of diabetes mellitus type 2, CK D stage III, GERD, anemia, gout, hyperparathyroidism, admitted to the emergency room secondary to weakness. Also mentioned as per the caregiver nephew that the patient was not acting her usual baseline self, was sleeping more. Patient denies any vagovagal spells, no chest pain or palpitations no lightheadedness, no dysuria however other symptoms are difficult to address to the patient secondary to advanced age. He was subsequently sent to the emergency room she was found to be profoundly bradycardic, patient is on metoprolol and was discontinued, atropine was given, with good response to this. Heart rate came up from the low 30s to 60, we've discussed this with Dr. Hylton ER physician, patient deemed stable to be in the selective medical floor rather in ICU. Consult to cardiology, metoprolol is currently held. Creatinine is also elevated at 2.26, from a baseline of 1.May01/09 patient examined bedside. Complains of knee and no significant abnormality. Blood pressure 195/87 with pulse 42 and stop hold Catapres and atenolol. No plan for pacemaker placement. Echocardiogram pending. EKG with sinus bradycardia with nonspecific ST or T-wave changes. 01/10. Patient doing well. Is able to answer all the questions appropriately. She did have some confusion overnight where she ripped off her IV line and was found wandering in the james. Blood pressure 220/78. Pulse rate 72 he had been 2.0 for BUN 30. Appears to be patient's new baseline. Abdominal ultrasound ordered Objective - Vital Signs Vital signs: Vital Signs Temp 97.7 F 01/10/18 08:50 Pulse 72 01/10/18 08:50 Resp 18 01/10/18 08:50 BP 220/78 01/10/18 08:50 Pulse Ox 99 01/10/18 08:50 Intake & Output 01/09/18 01/10/18 01/10/18 18:59 06:59 18:59 Intake Total 720 Balance 720 Weight 66.1 kg Intake: Oral 720 Other: Voiding Method Bedside Commode Bedside Commode Bedside Commode Diaper Diaper Diaper Incontinent Incontinent Incontinent # Voids 2 4 # Bowel Movements 1 - Exam - Constitutional General appearance: cooperative, no acute distress, thin-appearing oriented 2 - EENT Eyes: anicteric sclerae, PERRLA, normal appearance ENT: hearing grossly normal - Neck Neck: no lymphadenopathy, normal ROM, no other, no rigidity, no stridor, no thyromegaly - Respiratory Respiratory: bilateral: CTA, negative: diminished, dullness, rales, rhonchi - Cardiovascular Rhythm: regular Heart sounds: normal: S1, S2 Abnormal Heart Sounds: no systolic murmur, no diastolic murmur - Gastrointestinal General gastrointestinal: normal bowel sounds, soft, nontender - Integumentary Integumentary: Right ankle with signs of itching - Neurologic Neurologic: CNII-XII intact - Musculoskeletal Musculoskeletal: strength equal bilaterally - Psychiatric Psychiatric: A&O x's 2, appropriate affect - Labs CBC & Chem 7: 01/08/18 13:01 01/10/18 05:52 Labs: Abnormal Lab Results - Last 24 Hours (Table) 01/09/18 01/09/18 01/10/18 Range/Units 16:43 21:26 05:40 Chloride (98-107) mmol/L BUN (7-17) mg/dL Creatinine (0.52-1.04) mg/dL Glucose (74-99) mg/dL POC Glucose (mg/dL) 176 H 140 H 148 H (75-99) mg/dL Calcium (8.4-10.2) mg/dL 01/10/18 01/10/18 Range/Units 05:52 12:07 Chloride 112 H (98-107) mmol/L BUN 30 H (7-17) mg/dL Creatinine 2.05 H (0.52-1.04) mg/dL Glucose 151 H (74-99) mg/dL POC Glucose (mg/dL) 226 H (75-99) mg/dL Calcium 10.7 H (8.4-10.2) mg/dL Microbiology - Last 24 Hours (Table) 01/09/18 04:26 Urine Culture - Preliminary Urine,Voided Presumptive Staph aureus Assessment and Plan Plan: 1. Symptomatic bradycardia possibly from Tenormin, and Catapres o patient would have a thyroid function test to be done with a TSH free T4, troponins to be done and consult with cardiology. Patient would be in a telemetry unit, echocardiogram requested 2. Diabetes mellitus type 2 on Glucotrol 2.5 mg twice a day, monitor for Accu- Cheks before meals and at bedtime, 3. Hypertension on amlodipine 10 mg daily . Blood pressure uncontrolled with increased hydralazine 100 mg 3 times a day. Renal ultrasound ordered to rule out renal artery stenosis 4. History of hyperparathyroidism this was investigated in the past, monitor for calcium, currently stable calcium at 10.8. Continue fluids at 100 mL per hour for dehydration. PTH and vitamin D level ordered 5. CK D stage III with acute kidney injury on the basis off ATN, mild dehydration, monitor creatinine avoid nephrotoxins. No improvement in creatinine. 6.. History of gout asymptomatic 6. Anemia, iron levels be obtained, no acute symptoms of GI losses DVT prophylaxis heparin every 12 GI prophylaxis Protonix 40 mg with breakfast Disposition likely discharge tomorrow
[2018-01-10] MEDS ORDERED: hydrALAZINE HCL 25 MG TAB PO SCH (16:00)
[2018-01-10] MEDS ORDERED: hydrALAZINE HCL 50 MG TAB PO SCH (16:00)
[2018-01-10 16:50] LABS: Glucose,Whole Blood 210 mg/dL (75-99)
[2018-01-10 21:10] LABS: Glucose,Whole Blood 242 mg/dL (75-99)
[2018-01-11] MEDS ORDERED: cloNIDine HCL 0.2 MG TAB PO STA (00:25)
[2018-01-11 06:16] LABS: Glucose,Whole Blood 218 mg/dL (75-99)
[2018-01-11] MEDS: PANTOPRAZOLE 40 MG TABLET PO SCH (06:27)
[2018-01-11] MEDS: diphenhydrAMINE 2% CREAM 28.4 GM TUBE TOPICAL SCH ×3 (08:18→20:33)
[2018-01-11] MEDS: CITALOPRAM HYDROBROMIDE 20 MG TAB PO SCH (08:18)
[2018-01-11] MEDS: amLODIPine 10 MG TAB PO SCH (08:18)
[2018-01-11] MEDS: POTASSIUM CITRATE 10 MEQ TABLET.ER PO SCH (08:18)
[2018-01-11] MEDS: ASPIRIN 325 MG TAB PO SCH (08:18)
[2018-01-11] MEDS: MULTIVITAMINS, THERA 1 EACH TAB PO SCH (08:18)
[2018-01-11] MEDS: GABAPENTIN 300 MG CAP PO SCH (08:18)
[2018-01-11] MEDS: hydrALAZINE HCL 50 MG TAB PO SCH ×3 (08:18→20:32)
[2018-01-11] MEDS: HEPARIN SODIUM,PORCINE 5,000 UNIT/ML 1 ML VIAL SQ SCH ×2 (08:18→20:33)
[2018-01-11 09:41] LABS: Vitamin D 25 Hydroxy 22.7 ng/mL (30.0-100.0)
[2018-01-11 10:18] LABS: Parathyroid Hormone Intact 342.8 pg/mL (14.0-72.0)
[2018-01-11 12:09] LABS: Glucose,Whole Blood 115 mg/dL (75-99)
--- NOTE | 2018-01-11 13:02 | P.PN ---
Subjective Progress Note Date: 01/11/18 This is a pleasant 87-year-old female who has a known history of diabetes, chronic kidney disease, anemia, GERD, hyperparathyroidism, hypertension, admitted to the hospital because of weakness and mental status changes. According to the patient, she couldn't remember things that she normally does, and she was feeling weak and tired. She denies any dizziness or lightheadedness, no chest discomfort. Her caregiver was concerned about these symptoms, and for this reason recommended she come to the hospital for further evaluation. Home medications include Glucotrol 2-1/2 mg twice a day, Catapres 0.1 mg daily, Norvasc 10 mg daily, potassium 10 mEq daily, omeprazole 20 mg daily, multivitamin, Zestril 20 mg daily, Neurontin 300 mg twice a day, Lasix 20 mg twice a day, Celexa 20 mg daily, atenolol 50 mg IV. Her EKG on arrival here showed a sinus bradycardia with 2 second positive and nonspecific ST-T wave changes. Blood pressure on arrival here 182/70, heart rate in the 40s, 100 % on 2 L of oxygen. Blood pressure this morning 192/90 with a heart rate in the 40s, 99% on 2 L of oxygen. Chest x-ray on admission revealed borderline heart enlargement. White blood cell count 5.5, hemoglobin 9.5, platelet count 206. Sodium 143, potassium 4.8, BUN 34, creatinine 2.0. BUN on admission 34 and creatinine 2.2, magnesium 2.0, troponins 0.026, 0.0-3, 0.024. TSH 1.8. At the time of my examination this morning, patient does state that she feels stronger, she also feels more like herself. She denies any dizziness or lightheadedness. EKG performed this morning showed a sinus bradycardia with nonspecific ST-T wave changes in the inferior leads. Catapres and atenolol have been placed on hold. 01/11/2018 Patient was seen and examined, down for an abdominal ultrasound earlier today. Alert and oriented. Through the night last night she did have an episode of confusion where she pulled her IV out. The Catapres and atenolol, heart rate is in the 70s today. Blood pressure 182/87, 98% on room air. We will add hydrochlorothiazide to her medication regime. Echocardiogram with Doppler study revealed an ejection fraction of 55-60%. Mild to moderate mitral regurg. Objective - Vital Signs Vital signs: Vital Signs Temp 98 F 01/11/18 12:00 Pulse 67 01/11/18 12:00 Resp 18 01/11/18 12:00 BP 178/74 01/11/18 12:00 Pulse Ox 98 01/11/18 12:00 Intake & Output 01/10/18 01/11/18 01/11/18 18:59 06:59 18:59 Intake Total 380 490 Output Total 800 300 Balance -420 190 Weight 64.3 kg Intake: Intake, IV Titration 10 Amount Sodium Chloride 0.9% 1, 10 000 ml @ 100 mls/hr IV . Q10H [facility] Rx#:[id number] Oral 380 480 Output: Urine 800 300 Other: Voiding Method Bedside Commode Bedside Commode Diaper Diaper Incontinent Incontinent # Voids 1 1 - Exam PHYSICAL EXAMINATION: GENERAL: 87-year-old -[place] female in no acute distress at the time of my examination HEENT: Head is atraumatic, normocephalic. Pupils equal, round. Sclera anicteric. Conjunctiva are clear. Mucous membranes of the mouth are moist. Neck is supple. There is no elevated jugular venous pressure.] Bilateral carotid bruit is heard. HEART EXAMINATION: Heart S1, S2 systolic murmur heard . CHEST EXAMINATION: Lungs are clear to auscultation and precussion. No chest wall tenderness is noted on palpation or with deep breathing. ABDOMEN: Soft, nontender. Bowel sounds are heard. No organomegaly noted. EXTREMITIES: 2+ peripheral pulses with no evidence of peripheral edema and no calf tenderness noted. NEUROLOGIC patient is awake, alert and oriented OX3. - Labs CBC & Chem 7: 01/08/18 13:01 01/10/18 05:52 Labs: Abnormal Lab Results - Last 24 Hours (Table) 01/09/18 01/10/18 01/10/18 Range/Units 05:59 16:31 20:55 POC Glucose (mg/dL) 210 H 242 H (75-99) mg/dL Hemoglobin A1c 6.9 H (4.0-6.0) % 01/11/18 01/11/18 Range/Units 06:10 11:44 POC Glucose (mg/dL) 218 H 115 H (75-99) mg/dL Hemoglobin A1c (4.0-6.0) % Microbiology - Last 24 Hours (Table) 01/09/18 04:26 Urine Culture - Preliminary Urine,Voided Presumptive Staph aureus Assessment and Plan Plan: Assessment and plan #1 bradycardia, patient had been on Tenormin and Catapres at home which are both currently on hold. TSH normal. #2 diabetes, type2 #3 hypertension, uncontrolled #4 chronic kidney disease stage III #5 anemia #6 history of hyperparathyroidism Plan From cardiology's perspective, we will add hydrochlorothiazide to her medication regime for more optimal blood pressure control. Heart rate is stable. Echocardiogram with Doppler study revealed a normal left ventricular systolic function with mild to moderate mitral regurgitation. Creatinine 2.05 today, renal ultrasound ordered. We will continue to follow. DNP note has been reviewed, I agree with a documented findings and plan of care. Patient was seen and examined.
--- NOTE | 2018-01-11 13:04 | US ---
EXAMINATION TYPE: US renal artery duplex complete DATE OF EXAM: 01/11/2018 COMPARISON: Ultrasound 08/26/2016 CLINICAL HISTORY: 87-year-old female renal hypertension ; renal cysts TECHNIQUE: Multiple sonographic images of the kidneys are obtained. Color Doppler and spectral wavefo rm analysis of the aorta and renal arteries. FINDINGS: OUTSIDE PHYSICAL DAMAGE APPRAISER NOTES: The exam is technically limited by by patient's inability to suspend respirations and also for assessment of the renal artery waveforms due to overlying bowel gas. MEASUREMENTS: RENAL SIZE: Rt Kidney: 12.1 x 5.8 x 5.5cm Lt Kidney: 10.5 x 4.1 x 4.8cm No hydronephrosis on either side. Bilateral renal cysts were better characterized on the patient's pr ior 08/26/2016 ultrasound. Aortic velocity: 56.9 cm/s RESISTANCE INDEX Right: 1.03 Left: 0.98 Elevated bilaterally. RA/AO RATIO (< 3.5 ) Right: 9.2 Left: 3.2 RA VELOCITY ( < 180 cm/s) Right: 522.6cm/sec proximally and unable to replicate due to above patient conditions Left: 182.8cm/sec mid Abnormally elevated RI, Right RA /AO Velocity and RA velocities bilaterally with intimal wall changes noted in aorta. Multiple renal cysts are also noted bilaterally. IMPRESSION: 1. Technically limited exam as noted above. The measured renal artery velocities are increased on bot h sides, right greater than left and the RA/AO ratio is markedly elevated on the right. However, the measurement on the right could not be replicated due to exam limitations. 2. Given the elevated resistive indices as well, bilateral right greater than left renal artery steno sis is not excluded.
[2018-01-11] MEDS: HYDROCHLOROTHIAZIDE 25 MG TAB PO SCH (13:15)
[2018-01-11] MEDS: cloNIDine HCL 0.1 MG TAB PO SCH ×3 (13:15→20:32)
--- NOTE | 2018-01-11 14:40 | P.PN ---
Subjective Progress Note Date: 01/11/18 This is an 87-year-old pleasant lady patient of Dr. Guzmán. She has underlying history of diabetes mellitus type 2, CK D stage III, GERD, anemia, gout, hyperparathyroidism, admitted to the emergency room secondary to weakness. Also mentioned as per the caregiver nephew that the patient was not acting her usual baseline self, was sleeping more. Patient denies any vagovagal spells, no chest pain or palpitations no lightheadedness, no dysuria however other symptoms are difficult to address to the patient secondary to advanced age. He was subsequently sent to the emergency room she was found to be profoundly bradycardic, patient is on metoprolol and was discontinued, atropine was given, with good response to this. Heart rate came up from the low 30s to 60, we've discussed this with Dr. Hylton ER physician, patient deemed stable to be in the selective medical floor rather in ICU. Consult to cardiology, metoprolol is currently held. Creatinine is also elevated at 2.26, from a baseline of 1.May01/09 patient examined bedside. Complains of knee and no significant abnormality. Blood pressure 195/87 with pulse 42 and stop hold Catapres and atenolol. No plan for pacemaker placement. Echocardiogram pending. EKG with sinus bradycardia with nonspecific ST or T-wave changes. 01/10. Patient doing well. Is able to answer all the questions appropriately. She did have some confusion overnight where she ripped off her IV line and was found wandering in the james. Blood pressure 220/78. Pulse rate 72 he had been 2.0 for BUN 30. Appears to be patient's new baseline. Abdominal ultrasound ordered 01/11: Echocardiogram reveals EF of 55-60%, mild to moderate mitral regurgitation. Renal artery ultrasound reveals renal artery velocities increased on both sides with the right greater than left and are/80 ratio is markedly elevated on the right. Measurement on the right could not be replicated due to exam limitations. Renal artery stenosis is not excluded. Parathyroid intact is high at 342.8. Vitamin D 22.7. Triglycerides 125, cholesterol 189, LDL 138, HDL 26. TSH was 1.800. Urine culture is showing 10- 49,000 colonies of presumptive staph aureus. POA at the bedside and states that patient goes to [facility] treatment during the week. She has paid caregivers that are at her apartment for 2 hours in the morning and 2 hours in the evening. PT and OT have been ordered. Blood pressure remains elevated and hydrochlorothiazide was added by cardiology and we have also added and clonidine 0.1 mg 3 times daily. Objective - Vital Signs Vital signs: Vital Signs Temp 98 F 01/11/18 12:00 Pulse 67 01/11/18 12:00 Resp 18 01/11/18 12:00 BP 178/74 01/11/18 12:00 Pulse Ox 98 01/11/18 12:00 Intake & Output 01/10/18 01/11/18 01/11/18 18:59 06:59 18:59 Intake Total 380 490 240 Output Total 800 300 Balance -420 190 240 Weight 64.3 kg Intake: Intake, IV Titration 10 Amount Sodium Chloride 0.9% 1, 10 000 ml @ 100 mls/hr IV . Q10H [facility] Rx#:[id number] Oral 380 480 240 Output: Urine 800 300 Other: Voiding Method Bedside Commode Bedside Commode Bedside Commode Diaper Diaper Diaper Incontinent Incontinent Incontinent # Voids 1 1 # Bowel Movements 0 - Exam - Constitutional General appearance: cooperative, no acute distress, thin-appearing oriented 2 - EENT Eyes: anicteric sclerae, PERRLA, normal appearance ENT: hearing grossly normal - Neck Neck: no lymphadenopathy, normal ROM, no other, no rigidity, no stridor, no thyromegaly - Respiratory Respiratory: bilateral: CTA, negative: diminished, dullness, rales, rhonchi - Cardiovascular Rhythm: regular Heart sounds: normal: S1, S2 Abnormal Heart Sounds: no systolic murmur, no diastolic murmur - Gastrointestinal General gastrointestinal: normal bowel sounds, soft, nontender - Integumentary Integumentary: Right ankle with signs of itching - Neurologic Neurologic: CNII-XII intact - Musculoskeletal Musculoskeletal: strength equal bilaterally - Psychiatric Psychiatric: A&O x's 2, appropriate affect - Labs CBC & Chem 7: 01/08/18 13:01 01/10/18 05:52 Labs: Abnormal Lab Results - Last 24 Hours (Table) 01/09/18 01/10/18 01/10/18 Range/Units 05:59 05:52 16:31 POC Glucose (mg/dL) 210 H (75-99) mg/dL Hemoglobin A1c 6.9 H (4.0-6.0) % Vitamin D 25-Hydroxy 22.7 L (30.0-100.0) ng/mL PTH Intact 342.8 H (14.0-72.0) pg/mL 01/10/18 01/11/18 01/11/18 Range/Units 20:55 06:10 11:44 POC Glucose (mg/dL) 242 H 218 H 115 H (75-99) mg/dL Hemoglobin A1c (4.0-6.0) % Vitamin D 25-Hydroxy (30.0-100.0) ng/mL PTH Intact (14.0-72.0) pg/mL Microbiology - Last 24 Hours (Table) 01/09/18 04:26 Urine Culture - Preliminary Urine,Voided Presumptive Staph aureus Assessment and Plan Plan: 1. Symptomatic bradycardia possibly from Tenormin, and Catapres. Cardiology consult is appreciated. Heart rate is currently running in the 60s. 2. Diabetes mellitus type 2 on Glucotrol 2.5 mg twice a day, monitor for Accu- Cheks before meals and at bedtime, 3. Hypertension. Continue Norvasc 10 mg daily, hydralazine 100 mg 3 times daily , hydrochlorothiazide 25 mg daily, clonidine 0.1 mg 3 times daily has been resumed. 4. History of hyperparathyroidism this was investigated in the past, monitor for calcium, currently stable calcium at 10.8. PTH and vitamin D level as above. 5. CKD stage III with acute kidney injury on the basis of ATN, mild dehydration , monitor creatinine avoid nephrotoxins. 6.. History of gout asymptomatic 7. Anemia, chronic kidney disease DVT prophylaxis heparin every 12 GI prophylaxis Protonix 40 mg with breakfast Discharge plan: Home with [facility] Impression and plan of care have been directed as dictated by the signing physician. Tiffani Corrigan nurse practitioner acting as scribe for signing physician.
[2018-01-11 17:09] LABS: Glucose,Whole Blood 423 mg/dL (75-99)
[2018-01-11] MEDS ORDERED: ERGOCALCIFEROL 50,000 UNIT CAP PO SCH (19:00)
[2018-01-11 20:33] LABS: Glucose,Whole Blood 277 mg/dL (75-99)
[2018-01-11] MEDS: CINACALCET 30 MG TAB PO SCH (20:38)
--- NOTE | 2018-01-11 21:00 | CONS ---
CONSULTATION DATE OF SERVICE: 01/11/2018. REASON FOR CONSULT: Renal failure. HISTORY OF PRESENT ILLNESS: Patient is an 87-year-old lady with history of type 2 diabetes, hypertension, and gout. It looks like she also has chronic kidney disease. The patient was admitted with complaints of dizziness, weakness, lightheadedness. Her creatinine was 2.26 on admission. Review of previous labs shows a serum creatinine of 1.7 and 1.39, that was in 2016 and 2015. The patient is not aware of previous kidney disease. Her heart rate was significantly low when she came into the hospital. It was in the 40s. Blood pressure was actually high. The patient was maintained on diuretics at home. She denied use of any nonsteroidal anti-inflammatory agents. She was also on ALMA ROSA inhibitors. Currently, patient is not on any IV fluids. Her serum creatinine has been staying at about 2 mg/dL. The patient has been incontinent. PAST MEDICAL HISTORY: Significant for type 2 diabetes, hypertension, CKD stage 3 with previous creatinine 1.7 in 2015 and 1.3 in 2015, gastroesophageal reflux disease, dementia, macular degeneration. PAST SURGICAL HISTORY: Right shoulder surgery, possible PYROMETALLURGICAL ENGINEER shunt, history is not clear. SOCIAL HISTORY: Positive for patient being a former smoker. No history of drug abuse or alcohol abuse. MEDICATIONS: At home, prior to admission: 1. Tenormin. 2. Neurontin. 3. Potassium. 4. Norvasc. 5. Glucotrol. 6. Multivitamins. 7. Lasix. 8. Celexa. 9. Zestril. 10.Omeprazole. 11.Clonidine. ALLERGIES: ASPIRIN, MILK. EXAMINATION: Patient is currently comfortable. She is awake. She is alert and oriented x3, not in any acute distress. Blood pressure is 167/76, heart rate 48 per minute, patient is afebrile, O2 sats 98% on 2 L. HEENT atraumatic, normocephalic. Pupils are equal, round. JVP is not elevated. Lymph nodes are not palpable. Thyroid is not enlarged. Examination of the heart S1, S2. Examination lungs, bilateral breath sounds are heard. Abdomen is soft, nontender. Examination of lower extremities shows no evidence of edema. DRIER OPERATOR HELPER exam is grossly intact. LAB: Sodium of 144 from yesterday, potassium 4.4, serum creatinine 2.05, calcium 10.7. PTH is elevated at 342, vitamin D was low at 22.7. ASSESSMENT: 1. Acute kidney injury secondary to hypercalcemia. There could be a prerenal component as well. The patient has been eating fairly. At this time, her blood pressure is elevated. I will hold off on saline administration. She may be close to her baseline. We need to rule out urine retention. I will check a postvoid residual. The UA was fairly benign with evidence of 1+ protein, but there was no blood or cells. 2. Hypercalcemia with elevated PTH levels suggesting underlying primary hyperparathyroidism. I will start the patient on Sensipar. I do not believe she is an ideal candidate for surgery given her advanced age. 3. Nutrition vitamin D deficiency which should be replaced. 4. History of dementia. 5. Chronic kidney disease. Previous creatinine 1.7 in 2015 and another creatinine of 1.0 and 1.3 in 2014. The etiology is likely nephrosclerosis. The patient does have 1+ protein. This will need to be quantified. Patient will need followup as outpatient. 6. Hypertension, currently uncontrolled. Patient has been started on clonidine. She remains bradycardic. Therefore, I would be cautious in increasing the dose of clonidine. Currently patient is on Norvasc and max dose of hydralazine. We can add minoxidil, although it is also a vasodilator, if her blood pressure remains uncontrolled. PLAN: 1. Check postvoid residual. 2. Start Sensipar for hypercalcemia. 3. Replace vitamin D. 4. If blood pressure remains uncontrolled, I will add minoxidil. Thank you for this consultation. We will continue to follow the patient with you during her hospitalization. MMODL / IJN: [id number] /
[2018-01-12 06:01] LABS: Glucose,Whole Blood 215 mg/dL (75-99)
[2018-01-12] MEDS: PANTOPRAZOLE 40 MG TABLET PO SCH (06:24)
[2018-01-12 07:37] LABS: Calcium 10.2 mg/dL (8.4-10.2); Potassium 5.2 mmol/L (3.5-5.1)
[2018-01-12] MEDS ORDERED: ASPIRIN 81 MG PO SCH (09:00)
--- NOTE | 2018-01-12 09:49 | CDI ---
Last Revision, June 2017 Documentation Clarification Form Date: 01/12/2018 9:31:00 AM From: Karmen MaloneANANT, CCDS Admit Date: 01/08/2018 2:48:00 PM Patient Name: Anabelle Villar Visit Number: [id number] Discharge Date: ATTENTION: The Clinical Documentation Specialists (CDI) and [facility] Coding Staff appreciate your assistance in clarifying documentation. Please respond to the clarification below the line at the bottom and electronically sign. The CDI & [facility] Coding staff will review the response and follow-up if needed. Please note: Queries are made part of the Legal Health Record. If you have any questions, please contact the author of this message via ITS. Dr. Patel Erwin: Heart Failure is documented in the patient's history in the ED note, the H/P & the cardiology consult. Patient also has a documented history of Hypertension and Chronic Kidney Disease stage III. History/Risk Factors: CHF, Dementia, DM, Hypertension, CKD III, former smoker. Clinical indicators: Presented with bradycardia, weakness & mental status changes, no peripheral edema. VS: BP 182/70, HR 40s, PO 100 2Lnc. Chest X Ray 01/08: Heart may be borderline enlarged. Labs: BUN 34, Cr 2.26, Gluc 169, Calcium 10.8, Alk Phos 131. ECHO 01/09: Resting bradycardia HR <60 bpm; Mild LVH, Left ventricular systolic function normal w/EF between 55-60%, Mild-mod MR, Mild TR, borderline pulmonary hypertension. Home Rx: Glucotrol, Catapres, Norvasc, Zestril, Neurontin, Lasix 20 mg BID, Celexa. Treatment: IV fl, Nitro sl, IV Atropine, Heparin sc. In your professional opinion, can you please clarify the acuity and type of CHF if known? Chronic Diastolic Heart Failure: Unable to Determine Other, please specify Please continue to document in your progress notes and discharge summary in order to capture severity of illness and risk of mortality. Include clinical findings that support your diagnosis. JAMESD
[2018-01-12] MEDS ORDERED: SODIUM CHLORIDE 0.45% 1,000 ML IV SCH (10:15)
[2018-01-12] MEDS: CITALOPRAM HYDROBROMIDE 20 MG TAB PO SCH (10:24)
[2018-01-12] MEDS: diphenhydrAMINE 2% CREAM 28.4 GM TUBE TOPICAL SCH (10:24)
[2018-01-12] MEDS: hydrALAZINE HCL 50 MG TAB PO SCH ×2 (10:25→16:56)
[2018-01-12] MEDS: cloNIDine HCL 0.1 MG TAB PO SCH ×2 (10:25→16:56)
[2018-01-12] MEDS: CINACALCET 30 MG TAB PO SCH (10:25)
[2018-01-12] MEDS: amLODIPine 10 MG TAB PO SCH (10:25)
[2018-01-12] MEDS: HEPARIN SODIUM,PORCINE 5,000 UNIT/ML 1 ML VIAL SQ SCH (10:26)
[2018-01-12] MEDS: HYDROCHLOROTHIAZIDE 25 MG TAB PO SCH (10:26)
[2018-01-12] MEDS: POTASSIUM CITRATE 10 MEQ TABLET.ER PO SCH (10:26)
[2018-01-12] MEDS: GABAPENTIN 300 MG CAP PO SCH (10:26)
[2018-01-12] MEDS ORDERED: POLYETHYLENE GLYCOL 3350 17 GM POWD.PACK PO STA (10:27)
[2018-01-12] MEDS: MULTIVITAMINS, THERA 1 EACH TAB PO SCH (10:27)
--- NOTE | 2018-01-12 11:12 | P.PN ---
Subjective Progress Note Date: 01/12/18 This is a pleasant 87-year-old female who has a known history of diabetes, chronic kidney disease, anemia, GERD, hyperparathyroidism, hypertension, admitted to the hospital because of weakness and mental status changes. According to the patient, she couldn't remember things that she normally does, and she was feeling weak and tired. She denies any dizziness or lightheadedness, no chest discomfort. Her caregiver was concerned about these symptoms, and for this reason recommended she come to the hospital for further evaluation. Home medications include Glucotrol 2-1/2 mg twice a day, Catapres 0.1 mg daily, Norvasc 10 mg daily, potassium 10 mEq daily, omeprazole 20 mg daily, multivitamin, Zestril 20 mg daily, Neurontin 300 mg twice a day, Lasix 20 mg twice a day, Celexa 20 mg daily, atenolol 50 mg IV. Her EKG on arrival here showed a sinus bradycardia with 2 second positive and nonspecific ST-T wave changes. Blood pressure on arrival here 182/70, heart rate in the 40s, 100 % on 2 L of oxygen. Blood pressure this morning 192/90 with a heart rate in the 40s, 99% on 2 L of oxygen. Chest x-ray on admission revealed borderline heart enlargement. White blood cell count 5.5, hemoglobin 9.5, platelet count 206. Sodium 143, potassium 4.8, BUN 34, creatinine 2.0. BUN on admission 34 and creatinine 2.2, magnesium 2.0, troponins 0.026, 0.0-3, 0.024. TSH 1.8. At the time of my examination this morning, patient does state that she feels stronger, she also feels more like herself. She denies any dizziness or lightheadedness. EKG performed this morning showed a sinus bradycardia with nonspecific ST-T wave changes in the inferior leads. Catapres and atenolol have been placed on hold. 01/11/2018 Patient was seen and examined, down for an abdominal ultrasound earlier today. Alert and oriented. Through the night last night she did have an episode of confusion where she pulled her IV out. The Catapres and atenolol, heart rate is in the 70s today. Blood pressure 182/87, 98% on room air. We will add hydrochlorothiazide to her medication regime. Echocardiogram with Doppler study revealed an ejection fraction of 55-60%. Mild to moderate mitral regurg. 01/12/2018 Patient seen and examined this morning, denies any dizziness or lightheadedness. Heart rate in the 60s to 70s today. Low-grade temperature on nights. Blood pressure 164/80. Objective - Vital Signs Vital signs: Vital Signs Temp 98.6 F 01/12/18 04:00 Pulse 69 01/12/18 04:00 Resp 15 01/12/18 04:00 BP 165/87 01/12/18 04:00 Pulse Ox 97 01/12/18 04:00 Intake & Output 01/11/18 01/12/18 01/12/18 18:59 06:59 18:59 Intake Total 360 10 Output Total 300 Balance 360 -290 Weight 66.9 kg Intake: IV 10 Invasive Line 3 10 Oral 360 Output: Urine 300 Other: Voiding Method Bedside Commode Bedside Commode Diaper Diaper Incontinent Incontinent # Voids 1 1 # Bowel Movements 0 - Exam PHYSICAL EXAMINATION: GENERAL: 87-year-old -[place] female in no acute distress at the time of my examination HEENT: Head is atraumatic, normocephalic. Pupils equal, round. Sclera anicteric. Conjunctiva are clear. Mucous membranes of the mouth are moist. Neck is supple. There is no elevated jugular venous pressure.] Bilateral carotid bruit is heard. HEART EXAMINATION: Heart S1, S2 systolic murmur heard . CHEST EXAMINATION: Lungs are clear to auscultation and precussion. No chest wall tenderness is noted on palpation or with deep breathing. ABDOMEN: Soft, nontender. Bowel sounds are heard. No organomegaly noted. EXTREMITIES: 2+ peripheral pulses with no evidence of peripheral edema and no calf tenderness noted. NEUROLOGIC patient is awake, alert and oriented OX3. - Labs CBC & Chem 7: 01/08/18 13:01 01/12/18 06:44 Labs: Abnormal Lab Results - Last 24 Hours (Table) 01/10/18 01/11/18 01/11/18 Range/Units 05:52 11:44 16:54 Potassium (3.5-5.1) mmol/L BUN (7-17) mg/dL Creatinine (0.52-1.04) mg/dL Glucose (74-99) mg/dL POC Glucose (mg/dL) 115 H 423 H (75-99) mg/dL Vitamin D 25-Hydroxy 22.7 L (30.0-100.0) ng/mL PTH Intact 342.8 H (14.0-72.0) pg/mL 01/11/18 01/12/18 01/12/18 Range/Units 20:31 05:59 06:44 Potassium 5.2 H (3.5-5.1) mmol/L BUN 37 H (7-17) mg/dL Creatinine 2.34 H (0.52-1.04) mg/dL Glucose 142 H (74-99) mg/dL POC Glucose (mg/dL) 277 H 215 H (75-99) mg/dL Vitamin D 25-Hydroxy (30.0-100.0) ng/mL PTH Intact (14.0-72.0) pg/mL Microbiology - Last 24 Hours (Table) 01/09/18 04:26 Urine Culture - Final Urine,Voided Staphylococcus aureus Assessment and Plan Plan: Assessment and plan #1 bradycardia, patient had been on Tenormin and Catapres at home which are both currently on hold. TSH normal. #2 diabetes, type2 #3 hypertension, uncontrolled #4 chronic kidney disease stage III #5 anemia #6 history of hyperparathyroidism Plan From cardiology's perspective, we will increase hydrochlorothiazide to 50 mg daily for more optimal blood pressure control. Heart rate is stable. Echocardiogram with Doppler study revealed a normal left ventricular systolic function with mild to moderate mitral regurgitation. DNP note has been reviewed, I agree with a documented findings and plan of care. Patient was seen and examined.
[2018-01-12] MEDS ORDERED: HYDROCHLOROTHIAZIDE 25 MG TAB PO SCH (11:15)
[2018-01-12] MEDS ORDERED: PIOGLITAZONE 15 MG TAB PO SCH (11:30)
[2018-01-12] MEDS ORDERED: glipiZIDE 5 MG TAB PO SCH (11:30)
[2018-01-12 11:36] LABS: Glucose,Whole Blood 164 mg/dL (75-99)
--- NOTE | 2018-01-12 12:31 | PN ---
PROGRESS NOTE Patient is seen for followup of acute kidney injury. This morning she is comfortable. Patient states she has not had a bowel movement. She has been incontinent. Oral intake is fair. Serum creatinine is higher at 2.3 from 2.0 on 01/10. Previous creatinine in 2005 was 1.79. There is no evidence of hydronephrosis on the renal ultrasound. PHYSICAL EXAMINATION: On examination today, blood pressure is 165/87, heart rate 69 per minute. Patient did have low-grade temp at 100 degrees Fahrenheit. EXAMINATION OF THE HEART: S1 and S2. EXAMINATION OF THE LUNGS: Bilateral breath sounds are heard. Abdomen is soft, nontender. Examination of the lower extremities shows no evidence of edema. CERTIFIED BENCH JEWELER TECHNICIAN exam is grossly intact. LABS: Labs show sodium of 139, potassium 5.2, BUN 37, serum creatinine 2.34, calcium of 10.2 mg/dL. ASSESSMENT: 1. Acute kidney injury associated with hypercalcemia and possibly prerenal component. I will start gentle IV hydration with half-normal saline given the hypertension. 2. Hypercalcemia associated with primary hyperparathyroidism given the significantly elevated PTH. Patient is not a candidate for surgery. She has been started on Sensipar. Calcium is slightly better. 3. Mild hyperkalemia associated with acute kidney injury. Discontinue the Urocit-K for now. 4. Hypertension, not at goal. Maintained on max doses of hydralazine, hydrochlorothiazide. Patient is on clonidine and Norvasc. Her heart rate had been slightly on the lower side. Therefore, we would like to hold off on further increasing the clonidine. The patient is not on any beta blockers. She will benefit from ALMA ROSA inhibitors. However, given this acute kidney injury we are holding off on the ALMA ROSA inhibitors. Once her creatinine stabilizes, I will add low- dose lisinopril. The renal artery duplex did suggest renal artery stenosis, however, this is not an accurate test to rule out renal artery stenosis. There is no significant asymmetry noted on the ultrasound of the kidneys. There is suggestion of more elevated resistive index on the right side as compared to the left and the right kidney 12.1, therefore it is not atrophied. PLAN: Check postvoid residual to rule out urine retention. Add half-normal saline at 50. I will add lisinopril once the creatinine is slightly lower and we will start that tomorrow. Continue with the current antihypertensive regimen for now as blood pressure is slightly better controlled as compared to yesterday. MMODL / IJN: [id number] /
--- NOTE | 2018-01-12 13:52 | XR ---
EXAMINATION TYPE: XR chest 1V DATE OF EXAM: 01/12/2018 HISTORY: Shortness of breath. COMPARISON: 01/08/2018 TECHNIQUE: Single view of the chest is submitted. FINDINGS: Demonstrated are scattered senescent parenchymal change. There is no evidence for focal infiltrate. The heart is stable. Hilar and mediastinal structures are within normal limits. Degenerative changes are seen of the dorsal spine. IMPRESSION: 1. Chronic changes without evidence for acute pulmonary disease.
[2018-01-12 13:53] VITALS: PULSE 65; RESP 18
[2018-01-12 13:55] VITALS: BP 141/62; TEMP 97.8
--- NOTE | 2018-01-14 10:31 | CDI ---
Last Revision, June 2017 Documentation Clarification Form Date: 01/14/2018 10:30:05 AM From: Dana Yoon Phone: If you have a question regarding this query, please contact Angeline Mcintyre at [phone] between 8am and 5pm. Admit Date: 01/08/2018 2:48:00 PM Patient Name: Anabelle Villar Visit Number: [id number] Discharge Date: 01/12/18 ATTENTION: The Clinical Documentation Specialists (CDI) and [facility] Coding Staff appreciate your assistance in clarifying documentation. Please respond to the clarification below the line at the bottom and electronically sign. The CDI & [facility] Coding staff will review the response and follow-up if needed. Please note: Queries are made part of the Legal Health Record. If you have any questions, please contact the author of this message via ITS. Dr. Linda Hahn Uncontrolled hypertension is document in your progress notes and in cardiology progress notes and consult note. History/Risk Factors: The patient was admitted for bradycardia due to Tenormin. Patient has a history of hypertension, CHF and CKD. BP readings: Systolic 149 - 232, Diasolic 61 - 93 Please specify the type how the hypertension is uncontrolled: Emergency Urgency Other (please specify in the medical record) Clinically unable to further specify Unknown MTDD
--- NOTE | 2018-01-19 14:56 | P.DS ---
Providers Date of admission: 01/08/18 14:48 Expected date of discharge: 01/12/18 Attending physician: Jen Roe Consults: 01/08/18 14:48 Consult Physician Urgent Consulting Provider: [facility] Consult Reason/Comments: Bradycardia Do you want consulting provider notified?: Yes 01/10/18 14:52 Consult Physician Routine Consulting Provider: Mauro Casper Consult Reason/Comments: AMARIS on CKD Do you want consulting provider notified?: Yes Primary care physician: Chad Ramirez [facility] Course: This is an 87-year-old pleasant lady patient of Dr. Guzmán. She has underlying history of diabetes mellitus type 2, CK D stage III, GERD, anemia, gout, hyperparathyroidism, admitted to the emergency room secondary to weakness. Also mentioned as per the caregiver nephew that the patient was not acting her usual baseline self, was sleeping more. Patient denies any vagovagal spells, no chest pain or palpitations no lightheadedness, no dysuria however other symptoms are difficult to address to the patient secondary to advanced age. He was subsequently sent to the emergency room she was found to be profoundly bradycardic, patient is on metoprolol and was discontinued, atropine was given, with good response to this. Heart rate came up from the low 30s to 60, we've discussed this with Dr. Hylton ER physician, patient deemed stable to be in the selective medical floor rather in ICU. Consult to cardiology, metoprolol is currently held. Creatinine is also elevated at 2.26, from a baseline of 1.May01/09 patient examined bedside. Complains of knee and no significant abnormality. Blood pressure 195/87 with pulse 42 and stop hold Catapres and atenolol. No plan for pacemaker placement. Echocardiogram pending. EKG with sinus bradycardia with nonspecific ST or T-wave changes. 01/10. Patient doing well. Is able to answer all the questions appropriately. She did have some confusion overnight where she ripped off her IV line and was found wandering in the james. Blood pressure 220/78. Pulse rate 72 he had been 2.0 for BUN 30. Appears to be patient's new baseline. Abdominal ultrasound ordered 01/11: Echocardiogram reveals EF of 55-60%, mild to moderate mitral regurgitation. Renal artery ultrasound reveals renal artery velocities increased on both sides with the right greater than left and are/80 ratio is markedly elevated on the right. Measurement on the right could not be replicated due to exam limitations. Renal artery stenosis is not excluded. Parathyroid intact is high at 342.8. Vitamin D 22.7. Triglycerides 125, cholesterol 189, LDL 138, HDL 26. TSH was 1.800. Urine culture is showing 10- 49,000 colonies of presumptive staph aureus. POA at the bedside and states that patient goes to [facility] treatment during the week. She has paid caregivers that are at her apartment for 2 hours in the morning and 2 hours in the evening. PT and OT have been ordered. Blood pressure remains elevated and hydrochlorothiazide was added by cardiology and we have also added and clonidine 0.1 mg 3 times daily. 01/12: Hypercalcemia is improved with a level of 10.2, potassium is 5.2, BUN 37 creatinine 2.34. Patient is anxious to be discharged. Physical therapy is recommended home with homecare or subacute rehab.v [facility]NA has been arranged. Patient will be discharged home today in stable condition. Discharge diagnoses: 1. Symptomatic bradycardia possibly from Tenormin, and Catapres. 2. Diabetes mellitus type 2 3. Hypertension, uncontrolled. 4. History of hyperparathyroidism this was investigated in the past 5. CKD stage III with acute kidney injury on the basis of ATN, mild dehydration, 6. History of gout asymptomatic 7. Anemia, chronic kidney disease Discharge plan: Home with VNA Impression and plan of care have been directed as dictated by the signing physician. Tiffani Corrigan nurse practitioner acting as scribe for signing physician. Patient Condition at Discharge: Good Plan - Discharge Summary Discharge Rx Participant: No New Discharge Prescriptions: New Aspirin 81 mg PO DAILY chew Cinacalcet [Sensipar] 30 mg PO DAILY #30 tab cloNIDine HCL [Catapres] 0.1 mg PO TID #90 tab Ergocalciferol [Vitamin D2 (DRISDOL)] 50,000 unit PO Q7D #4 cap glipiZIDE [Glucotrol] 5 mg PO AC-BID #60 tab hydrALAZINE HCL [Apresoline] 100 mg PO TID #90 tab Hydrochlorothiazide [Hydrodiuril] 50 mg PO DAILY #30 tab Pioglitazone [Actos] 15 mg PO DAILY #30 tab Continue amLODIPine BESYLATE [Norvasc] 10 mg PO DAILY Gabapentin [Neurontin] 300 mg PO BID Multivitamins, Thera [Multivitamin (formulary)] 1 tab PO DAILY Citalopram Hydrobromide [CeleXA] 20 mg PO DAILY Omeprazole 20 mg PO DAILY Discontinued Potassium Chloride [Klor-Con 10] 10 meq PO DAILY Atenolol [Tenormin] 50 mg PO BID glipiZIDE XL [Glucotrol XL] 2.5 mg PO AC-BID Oxybutynin Chloride 5 mg PO HS Furosemide [Lasix] 20 mg PO BID cloNIDine HCL [Catapres] 0.1 mg PO DAILY Lisinopril [Zestril] 20 mg PO DAILY Discharge Medication List Gabapentin [Neurontin] 300 mg PO BID 02/21/15 [History] amLODIPine BESYLATE [Norvasc] 10 mg PO DAILY 02/21/15 [History] Multivitamins, Thera [Multivitamin (formulary)] 1 tab PO DAILY 01/23/16 [History ] Citalopram Hydrobromide [CeleXA] 20 mg PO DAILY 01/08/18 [History] Omeprazole 20 mg PO DAILY 01/08/18 [History] Aspirin 81 mg PO DAILY chew 01/12/18 [Rx] Cinacalcet [Sensipar] 30 mg PO DAILY #30 tab 01/12/18 [Rx] Ergocalciferol [Vitamin D2 (DRISDOL)] 50,000 unit PO Q7D #4 cap 01/12/18 [Rx] Hydrochlorothiazide [Hydrodiuril] 50 mg PO DAILY #30 tab 01/12/18 [Rx] Pioglitazone [Actos] 15 mg PO DAILY #30 tab 01/12/18 [Rx] cloNIDine HCL [Catapres] 0.1 mg PO TID #90 tab 01/12/18 [Rx] glipiZIDE [Glucotrol] 5 mg PO AC-BID #60 tab 01/12/18 [Rx] hydrALAZINE HCL [Apresoline] 100 mg PO TID #90 tab 01/12/18 [Rx] Follow up Appointment(s)/Referral(s): Rosemary Hawkins MD [STAFF PHYSICIAN] - 02/02/18 12:20 pm () Patel Erwin MD [STAFF PHYSICIAN] - 01/26/18 2:15 pm Chad Guzmán MD [Primary Care Provider] - 01/19/18 1:00 pm (With Stephanie FLOYD) [facility] Visiting Nurse, [NON-STAFF] - As Needed Patient Instructions/Handouts: Iron Rich Diet (DC), Bradycardia (DC), DASH Eating Plan (DC), Hypertension (DC) Discharge Disposition: HOME WITH HOME HEALTH SERVICES
== END 2018-01-12 17:59 | disposition home health service (06) | DRG 308 ==
LOC: EC 12:42 → 6SEL 14:48
PROVIDERS: ADMIT Family Medicine; ATTEND Family Medicine
DX: R00.1 Bradycardia, unspecified (principal); N17.0 Acute kidney failure with tubular necrosis; I13.0 Hypertensive heart and chronic kidney disease with heart failure and stage 1 through stage 4 chronic kidney disease, or unspecified chronic kidney disease; I50.9 Heart failure, unspecified; E11.22 Type 2 diabetes mellitus with diabetic chronic kidney disease; E86.0 Dehydration; E87.5 Hyperkalemia; N18.3 Chronic kidney disease, stage 3 (moderate); D63.1 Anemia in chronic kidney disease; F03.90 Unspecified dementia, unspecified severity, without behavioral disturbance, psychotic disturbance, mood disturbance, and anxiety; I34.0 Nonrheumatic mitral (valve) insufficiency; T44.7X5A Adverse effect of beta-adrenoreceptor antagonists, initial encounter; M10.9 Gout, unspecified; E21.0 Primary hyperparathyroidism; E55.9 Vitamin D deficiency, unspecified; H35.30 Unspecified macular degeneration; K21.9 Gastro-esophageal reflux disease without esophagitis; R32 Unspecified urinary incontinence; Z79.84 Long term (current) use of oral hypoglycemic drugs; Z79.899 Other long term (current) drug therapy; Z87.891 Personal history of nicotine dependence; Z91.83 Wandering in diseases classified elsewhere; Z88.6 Allergy status to analgesic agent; Z91.011 Allergy to milk products; Z91.81 History of falling; Y92.009 Unspecified place in unspecified non-institutional (private) residence as the place of occurrence of the external cause
CPT/HCPCS: 36415; 71045; 71046; 80048; 80053; 80061; 81001; 82306; 82550; 82553; 83036; 83735; 83970; 84443; 84480; 84484; 85025; 85610; 85730; 87077; 87086; 87186; 93005; 93306; 93975; 94760; 96374; 99285

== ENCOUNTER 2018-09-06 22:42 | Emergency (ER) | payer MEDICARE, OTHER ==
[2018-09-06 23:04] VITALS: RESP 16
[2018-09-06] MEDS ORDERED: SODIUM CHLORIDE 0.9% 500 ML 500 ML IV ONE (23:41)
--- NOTE | 2018-09-06 23:53 | ED ---
Altered Mental Status HPI - General Chief Complaint: Altered Mental Status Stated Complaint: Altered Mental Status Time Seen by Provider: 09/06/18 23:20 Source: family, EMS Mode of arrival: EMS Limitations: altered mental status - History of Present Illness Initial Comments: This patient is an 88-year-old woman who comes to the hospital to be evaluated for worsening of altered mental status. The patient is not able to provide any history due to her condition. The patient does have 2 nephews who accompany her. They state that they were informed by the patient's sister that she has been getting worse over the past couple of days. She has not been taking anything to eat or drink. For the past 1-2 days she has not gotten out of bed. She was not able to recognize her nephews when they went to get her at home today. The patient usually is conversive they tell me but she is not speaking with me. The patient does shake her head when asked if she is having any pains. Similarly she denies dyspnea. MD Complaint: altered mental status Onset/Timin -: days(s) Severity: moderate Consistency of Symptoms: getting worse - Related Data Home Medications Medication Instructions Recorded Confirmed Gabapentin [Neurontin] 300 mg PO BID 02/21/15 09/06/18 amLODIPine BESYLATE [Norvasc] 10 mg PO DAILY 02/21/15 09/06/18 Multivitamins, Thera [Multivitamin 1 tab PO DAILY 01/23/16 09/06/18 (formulary)] Citalopram Hydrobromide [CeleXA] 20 mg PO DAILY 01/08/18 09/06/18 Omeprazole 20 mg PO DAILY 01/08/18 09/06/18 Aspirin EC [Ecotrin Low Dose] 81 mg PO DAILY 09/06/18 09/06/18 Oxybutynin Chloride [Ditropan] 5 mg PO HS 09/06/18 09/06/18 Previous Rx's Medication Instructions Recorded Cinacalcet [Sensipar] 30 mg PO DAILY #30 tab 01/12/18 Ergocalciferol [Vitamin D2 50,000 unit PO Q7D #4 cap 01/12/18 (DRISDOL)] Hydrochlorothiazide [Hydrodiuril] 50 mg PO DAILY #30 tab 01/12/18 Pioglitazone [Actos] 15 mg PO DAILY #30 tab 01/12/18 cloNIDine HCL [Catapres] 0.1 mg PO TID #90 tab 01/12/18 glipiZIDE [Glucotrol] 5 mg PO AC-BID #60 tab 01/12/18 hydrALAZINE HCL [Apresoline] 100 mg PO TID #90 tab 01/12/18 Allergies Allergy/AdvReac Type Severity Reaction Status Date / Time aspirin Allergy Unknown Verified 09/06/18 22:53 milk AdvReac Unknown Verified 09/06/18 22:53 Review of Systems ROS Statement: Those systems with pertinent positive or pertinent negative responses have been documented in the HPI. ROS Other: All systems not noted in ROS Statement are negative. Limitations: ROS unobtainable due to patients medical condition Constitutional: Reports: weakness (Generalized) Respiratory: Denies: dyspnea Cardiovascular: Denies: chest pain Gastrointestinal: Denies: abdominal pain, vomiting Neurological: Denies: headache Past Medical History Past Medical History: Heart Failure, Dementia, Diabetes Mellitus, Eye Disorder, GERD/Reflux, Hypertension, Memory Impairment, Renal Disease Additional Past Medical History / Comment(s): macular degeneration, incont of urine wears a depends, occ gout, past fall, concussion History of Any Multi-Drug Resistant Organisms: None Reported Past Surgical History: Orthopedic Surgery Additional Past Surgical History / Comment(s): Rt Shoulder, "brain shunt", lesion on labia removed. Past Anesthesia/Blood Transfusion Reactions: No Reported Reaction Past Psychological History: No Psychological Hx Reported Smoking Status: Former smoker Past Alcohol Use History: None Reported Past Drug Use History: None Reported - Past Family History Mother History Unknown: Yes Father Additional Family Medical History / Comment(s): " young- had heart disease General Exam Limitations: altered mental status General appearance: alert Head exam: Present: atraumatic, normocephalic Eye exam: Present: normal appearance, PERRL, EOMI. Absent: scleral icterus, conjunctival injection, nystagmus ENT exam: Present: mucous membranes dry Neck exam: Present: full ROM. Absent: tenderness, meningismus Respiratory exam: Present: normal lung sounds bilaterally. Absent: respiratory distress, wheezes, rales, rhonchi, stridor Cardiovascular Exam: Present: tachycardia, normal heart sounds. Absent: systolic murmur, diastolic murmur, rubs, gallop GI/Abdominal exam: Present: soft. Absent: tenderness, guarding, rebound, rigid Extremities exam: Present: normal inspection, normal capillary refill. Absent: pedal edema, calf tenderness Back exam: Present: normal inspection. Absent: vertebral tenderness Neurological exam: Present: alert, other (Patient is able to follow simple one step commands. She is not responding verbally, but she does seem to shake her head appropriately. She is able to move 4 extremities to command.) Skin exam: Present: warm, dry, intact, normal color. Absent: rash Course Vital Signs 09/06/18 09/07/18 22:44 01:37 Temperature 98.6 F 98.8 F Pulse Rate 128 H 115 H Respiratory 16 16 Rate Blood Pressure 222/118 196/121 O2 Sat by Pulse 97 98 Oximetry - Reevaluation(s) Reevaluation #1: 09/07/18 01:14 As I was reviewing the patient's studies, I did receive a call from the radiologist and we discussed the findings of subdural hematomas. I did go and reevaluate the patient was condition is unchanged. Discussed the findings with the patient's family members, now including the patient's niece. They do request transfer to the nearest facility with neurosurgical coverage, and discussed this being [facility]. The family is in agreement with transfer there. 09/07/18 01:19 I discussed the case with Dr. Hernández who will accept transfer. Medical Decision Making - Lab Data Result diagrams: 09/06/18 22:50 09/06/18 22:50 Lab Results 09/06/18 09/06/18 09/06/18 Range/Units 22:50 22:50 22:50 WBC 13.4 H (3.8-10.6) k/uL RBC 3.50 L (3.80-5.40) m/uL Hgb 10.4 L (11.4-16.0) gm/dL Hct 33.6 L (34.0-46.0) % MCV 95.9 (80.0-100.0) fL MCH 29.6 (25.0-35.0) pg MCHC 30.9 L (31.0-37.0) g/dL RDW 17.2 H (11.5-15.5) % Plt Count 286 (150-450) k/uL Neutrophils % 90 % Lymphocytes % 4 % Monocytes % 4 % Eosinophils % 1 % Basophils % 0 % Neutrophils # 12.1 H (1.3-7.7) k/uL Lymphocytes # 0.5 L (1.0-4.8) k/uL Monocytes # 0.6 (0-1.0) k/uL Eosinophils # 0.1 (0-0.7) k/uL Basophils # 0.0 (0-0.2) k/uL Hypochromasia Moderate Anisocytosis Slight PT 10.4 (9.0-12.0) sec INR 1.0 (<1.2) APTT 19.7 L (22.0-30.0) sec Sodium 146 H (137-145) mmol/L Potassium 4.3 (3.5-5.1) mmol/L Chloride 111 H (98-107) mmol/L Carbon Dioxide 20 L (22-30) mmol/L Anion Gap 15 mmol/L BUN 53 H (7-17) mg/dL Creatinine 2.55 H (0.52-1.04) mg/dL Est GFR (CKD-EPI)AfAm 19 (>60 ml/min/1.73 sqM) Est GFR (CKD-EPI)NonAf 16 (>60 ml/min/1.73 sqM) Glucose 303 H (74-99) mg/dL Plasma Lactic Acid Daniel (0.7-2.0) mmol/L Calcium 11.9 H (8.4-10.2) mg/dL Total Bilirubin 0.8 (0.2-1.3) mg/dL AST 19 (14-36) U/L ALT 21 (9-52) U/L Alkaline Phosphatase 93 (38-126) U/L Troponin I (0.000-0.034) ng/mL Total Protein 8.7 H (6.3-8.2) g/dL Albumin 4.7 (3.5-5.0) g/dL Urine Color Urine Appearance (Clear) Urine pH (5.0-8.0) Ur Specific [place] (1.001-1.035) Urine Protein (Negative) Urine Glucose (UA) (Negative) Urine Ketones (Negative) Urine Blood (Negative) Urine Nitrite (Negative) Urine Bilirubin (Negative) Urine Urobilinogen (<2.0) mg/dL Ur Leukocyte Esterase (Negative) Urine RBC (0-5) /hpf Urine WBC (0-5) /hpf Ur Squamous Epith Cells (0-4) /hpf Amorphous Sediment (None) /hpf Urine Bacteria (None) /hpf 09/06/18 09/06/18 09/06/18 Range/Units 22:50 22:50 22:50 WBC (3.8-10.6) k/uL RBC (3.80-5.40) m/uL Hgb (11.4-16.0) gm/dL Hct (34.0-46.0) % MCV (80.0-100.0) fL MCH (25.0-35.0) pg MCHC (31.0-37.0) g/dL RDW (11.5-15.5) % Plt Count (150-450) k/uL Neutrophils % % Lymphocytes % % Monocytes % % Eosinophils % % Basophils % % Neutrophils # (1.3-7.7) k/uL Lymphocytes # (1.0-4.8) k/uL Monocytes # (0-1.0) k/uL Eosinophils # (0-0.7) k/uL Basophils # (0-0.2) k/uL Hypochromasia Anisocytosis PT (9.0-12.0) sec INR (<1.2) APTT (22.0-30.0) sec Sodium (137-145) mmol/L Potassium (3.5-5.1) mmol/L Chloride (98-107) mmol/L Carbon Dioxide (22-30) mmol/L Anion Gap mmol/L BUN (7-17) mg/dL Creatinine (0.52-1.04) mg/dL Est GFR (CKD-EPI)AfAm (>60 ml/min/1.73 sqM) Est GFR (CKD-EPI)NonAf (>60 ml/min/1.73 sqM) Glucose (74-99) mg/dL Plasma Lactic Acid Daniel 1.8 (0.7-2.0) mmol/L Calcium (8.4-10.2) mg/dL Total Bilirubin (0.2-1.3) mg/dL AST (14-36) U/L ALT (9-52) U/L Alkaline Phosphatase (38-126) U/L Troponin I 0.091 H* (0.000-0.034) ng/mL Total Protein (6.3-8.2) g/dL Albumin (3.5-5.0) g/dL Urine Color Yellow Urine Appearance Cloudy H (Clear) Urine pH 6.0 (5.0-8.0) Ur Specific [place] 1.016 (1.001-1.035) Urine Protein 3+ H (Negative) Urine Glucose (UA) Negative (Negative) Urine Ketones Trace H (Negative) Urine Blood Trace H (Negative) Urine Nitrite Negative (Negative) Urine Bilirubin Negative (Negative) Urine Urobilinogen <2.0 (<2.0) mg/dL Ur Leukocyte Esterase Trace H (Negative) Urine RBC 6 H (0-5) /hpf Urine WBC 1 (0-5) /hpf Ur Squamous Epith Cells 2 (0-4) /hpf Amorphous Sediment Rare H (None) /hpf Urine Bacteria Moderate H (None) /hpf - EKG Data -: EKG Interpreted by In EKG shows normal: sinus rhythm, axis (Normal), intervals (Normal), QRS complexes (LVH) Rate: tachycardia (Rate is approximately 126 bpm) Interpretation: nonspecific ST-T wave changes, LVH Critical Care Time Critical Care Time: Yes (40 minutes) Disposition Clinical Impression: Altered mental status, Subdural hematoma, Acute on chronic kidney failure, Elevated troponin I measurement Disposition: OTHER INSTITUTION NOT DEFINED Condition: Serious Is patient prescribed a controlled substance at d/c from ED?: No Referrals: Chad Guzmán MD [Primary Care Provider] - 1-2 days - Out of Hospital Transfer - Req. Specs Out of Hospital Transfer - Requested Specifics: Other Emergency Center
[2018-09-07 00:01] LABS: Anisocytosis Slight; Basophils % (A) 0 %; Eosinophils # (A) 0.1 k/uL (0-0.7); Eosinophils % (A) 1 %; HCT 33.6 % (34.0-46.0); HGB 10.4 gm/dL (11.4-16.0); Hypochromasia Moderate; Lymphocytes # (A) 0.5 k/uL (1.0-4.8); Lymphocytes % (A) 4 %; MCH 29.6 pg (25.0-35.0); MCHC 30.9 g/dL (31.0-37.0); MCV 95.9 fL (80.0-100.0); Mean Platelet Volume 6.9; Monocytes # (A) 0.6 k/uL (0-1.0); Monocytes % (A) 4 %; Neutrophils # (A) 12.1 k/uL (1.3-7.7); Neutrophils % (A) 90 %; Platelet Count 286 k/uL (150-450); RDW 17.2 % (11.5-15.5); WBC 13.4 k/uL (3.8-10.6)
[2018-09-07 00:06] LABS: Amorphous Sediment,Urine Rare /hpf; Appearance,Urine Cloudy (Clear); Bacteria,Urine Moderate /hpf; Bilirubin,Urine Negative (Negative); Blood,Urine Trace (Negative); Color,Urine Yellow; Glucose,Urine (UA) Negative (Negative); Ketones,Urine Trace (Negative); Leukocyte Esterase,Urine Trace (Negative); Nitrite,Urine Negative (Negative); Protein,Urine 3+ (Negative); RBC,Urine 6 /hpf (0-5); Specific Gravity,Urine 1.016 (1.001-1.035); Squamous Epithelial Cell,Urine 2 /hpf (0-4); Urobilinogen,Urine <2.0 mg/dL (<2.0)
[2018-09-07 00:15] LABS: Prothrombin Time 10.4 sec (9.0-12.0)
[2018-09-07 00:19] LABS: Albumin 4.7 g/dL (3.5-5.0); Calcium 11.9 mg/dL (8.4-10.2); Potassium 4.3 mmol/L (3.5-5.1); Total Bilirubin 0.8 mg/dL (0.2-1.3); Total Protein 8.7 g/dL (6.3-8.2)
[2018-09-07 00:36] LABS: Partial Thromboplastin Time 19.7 sec (22.0-30.0)
--- NOTE | 2018-09-07 00:45 | XR ---
EXAM: XR Chest, 1 View CLINICAL HISTORY: altered mental status TECHNIQUE: Frontal view of the chest. COMPARISON: 01/12/18 FINDINGS: Lungs: Unremarkable. No consolidation. Pleural space: Unremarkable. No pneumothorax. Heart: Unremarkable. No cardiomegaly. Mediastinum: Unremarkable. Bones/joints: Unremarkable. IMPRESSION: No acute abnormality the chest. No change from prior study
--- NOTE | 2018-09-07 00:56 | CT ---
EXAM: CT Head Without Intravenous Contrast CLINICAL HISTORY: altered mental status TECHNIQUE: Axial computed tomography images of the head/brain without intravenous contrast. CTDI is 50.7 mGy and DLP is 1075.4 mGy-cm. This CT exam was performed using one or more of the following dose reduction techniques: automated exposure control, adjustment of the mA and/or kV according to patient size, and/or use of iterative reconstruction technique. COMPARISON: 02/21/15 FINDINGS: Brain: Intraventricular shunt appears identical in location to prior study. There is persistent ventriculomegaly and there is persistent prominence of subarachnoid space. Interval development of multiple subdural collections. There are bilateral posterior subdural collections. The left collection measures approximately 7 mm thick with a dimension of 4.1 cm x 5.2 cm the orthogonal transverse and craniocaudal planes. The right collection measures approximately 6 mm thick and approximately 3.2 x 2.9 cm in the orthogonal AP and in craniocaudal dimension there is a left frontal subdural collection that measures approximately 6.9 mm in thickness and approximately 5 cm greatest AP length and 4 cm greatest craniocaudal length. There is no midline shift. These appear to be subacute to chronic subdural collections, hypodense to brain Ventricles: Unremarkable. No ventriculomegaly. Bones/joints: Unremarkable. No acute fracture. Soft tissues: Unremarkable. Sinuses: Unremarkable as visualized. No acute sinusitis. Mastoid air cells: Unremarkable as visualized. No mastoid effusion. IMPRESSION: Bilateral posterior subdural collections in left frontal subdural collection these generate no significant midline shift due to extensive involutional changes. No change in the ventriculostomy catheter. Persistent prominence of the ventricular system <MYCVCSECTION> Critical Value Communications 09/07/18 00:59 Call Doctor Regarding Intracranial Hemorrhage, called Dr. Negrete on 09/07 00:58 (-05:00)
[2018-09-07] MEDS ORDERED: INSULIN REGULAR 100 UNIT/ML VIAL SQ STA (01:05)
[2018-09-07] MEDS ORDERED: cloNIDine HCL 0.1 MG TAB PO STA (01:22)
[2018-09-07] MEDS ORDERED: hydrALAZINE HCL 50 MG TAB PO STA (01:23)
[2018-09-07 01:38] VITALS: BP 196/121; PULSE 115; TEMP 98.8
== END 2018-09-07 01:47 | disposition other institution (70) ==
LOC: EC 22:42 → SUPCPDRO 22:42 → EC 09-07 01:47
DX: I62.00 Nontraumatic subdural hemorrhage, unspecified (principal); E11.22 Type 2 diabetes mellitus with diabetic chronic kidney disease; I13.0 Hypertensive heart and chronic kidney disease with heart failure and stage 1 through stage 4 chronic kidney disease, or unspecified chronic kidney disease; I50.9 Heart failure, unspecified; N18.9 Chronic kidney disease, unspecified; N17.9 Acute kidney failure, unspecified; R41.82 Altered mental status, unspecified; R79.89 Other specified abnormal findings of blood chemistry; F03.90 Unspecified dementia, unspecified severity, without behavioral disturbance, psychotic disturbance, mood disturbance, and anxiety; K21.9 Gastro-esophageal reflux disease without esophagitis; Z87.891 Personal history of nicotine dependence; Z79.82 Long term (current) use of aspirin; Z79.899 Other long term (current) drug therapy; Z88.6 Allergy status to analgesic agent; Z91.011 Allergy to milk products
CPT/HCPCS: 36415; 70450; 71045; 80053; 81001; 83605; 84484; 85025; 85610; 85730; 87040; 93005; 99291

== ENCOUNTER 2018-12-29 13:12 | Inpatient (IN) | payer MEDICARE, OTHER ==
[2018-12-29] MEDS ORDERED: ONDANSETRON 4 MG/2 ML VIAL IVP STA (14:10)
[2018-12-29] MEDS ORDERED: SODIUM CHLORIDE 0.9% 500 ML 500 ML IV STA (14:10)
[2018-12-29] MEDS ORDERED: MORPHINE SULFATE 4 MG/ML SYRINGE IV STA (14:10)
[2018-12-29] MEDS ORDERED: PANTOPRAZOLE 40 MG/10 ML VIAL IVP STA (14:15)
--- NOTE | 2018-12-29 14:17 | ED ---
Fall HPI - General Chief Complaint: Fall Stated Complaint: Fall poss hip injury Time Seen by Provider: 12/29/18 14:02 Source: patient, EMS, RN notes reviewed Mode of arrival: EMS Limitations: no limitations - History of Present Illness Initial Comments: 88-year-old female presents emergency Department chief complaint of a fall. Patient unsure how she fell. Patient did present emergency from via EMS from [facility]. It is unclear if she had any head injury though they believe she did she did initially complain of head pain and left hip pain. Denies neck pain, chest pain, shortness of breath. Patient also found to have black stool on the patient. Patient has no complaint of abdominal pain, dizziness, blurred vision, focal weakness. Patient denies any prior orthopedic surgeries no prior fractures. Patient unable to bear weight and left hip. - Related Data Home Medications Medication Instructions Recorded Confirmed amLODIPine BESYLATE [Norvasc] 10 mg PO DAILY@0800 02/21/15 12/29/18 Multivitamins, Thera [Multivitamin 1 tab PO DAILY@1700 01/23/16 12/29/18 (formulary)] Citalopram Hydrobromide [CeleXA] 20 mg PO DAILY@0800 01/08/18 12/29/18 Oxybutynin Chloride [Ditropan] 5 mg PO HS 09/06/18 12/29/18 Acetaminophen Tab [Tylenol] 650 mg PO Q4H PRN 12/29/18 12/29/18 Allopurinol [Zyloprim] 100 mg PO DAILY@0800 12/29/18 12/29/18 Atorvastatin [Lipitor] 40 mg PO HS@209912/29/18 12/29/18 Bisacodyl [Dulcolax] 10 mg RECTAL DAILY PRN 12/29/18 12/29/18 Carvedilol [Coreg] 25 mg PO BID@0800,2100 12/29/18 12/29/18 Chlorthalidone 25 mg PO DAILY@0812/29/18 12/29/18 Cinacalcet [Sensipar] 30 mg PO DAILY@0800 12/29/18 12/29/18 Famotidine 20 mg PO DAILY@0700 12/29/18 12/29/18 Ferrous Sulfate [Feosol] 325 mg PO DAILY@1700 12/29/18 12/29/18 INSULIN LISPRO (HumaLOG) [HumaLOG] See Protocol SQ ACHS 12/29/18 12/29/18 Lactose-Reduced Food [Ensure Plus] 1 can PO DAILY@0800 12/29/18 12/29/18 Lisinopril [Zestril] 20 mg PO BID@0800,2100 12/29/18 12/29/18 Magnesium Hydroxide [Milk of 2,400 mg PO DAILY PRN 12/29/18 12/29/18 Magnesia] Menthol-Zinc Oxide Oint 1 applic TOPICAL Q12H PRN 12/29/18 12/29/18 [Calmoseptine Oint] Na Phos,M-B/Na Phos,Di-Ba [Fleet 133 ml RECTAL DAILY PRN 12/29/18 12/29/18 Adult] Spironolactone 50 mg PO DAILY@0800 12/29/18 12/29/18 hydrALAZINE HCL [Apresoline] 50 mg PO BID@0800,2100 12/29/18 12/29/18 Allergies Allergy/AdvReac Type Severity Reaction Status Date / Time aspirin Allergy Unknown Verified 12/29/18 13:34 milk AdvReac Unknown Verified 12/29/18 13:34 Review of Systems ROS Statement: Those systems with pertinent positive or pertinent negative responses have been documented in the HPI. ROS Other: All systems not noted in ROS Statement are negative. Past Medical History Past Medical History: Heart Failure, Dementia, Diabetes Mellitus, Eye Disorder, GERD/Reflux, Hypertension, Memory Impairment, Renal Disease Additional Past Medical History / Comment(s): macular degeneration, incont of urine wears a depends, occ gout, past fall, concussion History of Any Multi-Drug Resistant Organisms: None Reported Past Surgical History: Orthopedic Surgery Additional Past Surgical History / Comment(s): Rt Shoulder, "brain shunt", lesion on labia removed. Past Anesthesia/Blood Transfusion Reactions: No Reported Reaction Past Psychological History: No Psychological Hx Reported Smoking Status: Former smoker Past Alcohol Use History: None Reported Past Drug Use History: None Reported - Past Family History Mother History Unknown: Yes Father Additional Family Medical History / Comment(s): " young- had heart disease General Exam Limitations: altered mental status, physical limitation General appearance: alert, in no apparent distress Head exam: Present: atraumatic, normocephalic, normal inspection Eye exam: Present: normal appearance, PERRL, EOMI. Absent: scleral icterus, conjunctival injection, periorbital swelling ENT exam: Present: normal exam, normal oropharynx, mucous membranes moist Neck exam: Present: normal inspection, full ROM. Absent: tenderness, meningismus, lymphadenopathy Respiratory exam: Present: normal lung sounds bilaterally. Absent: respiratory distress, wheezes, rales, rhonchi, stridor Cardiovascular Exam: Present: regular rate, normal rhythm, normal heart sounds. Absent: systolic murmur, diastolic murmur, rubs, gallop, clicks GI/Abdominal exam: Present: soft, normal bowel sounds. Absent: distended, tenderness, guarding, rebound, rigid Extremities exam: Present: other (Shortening rotation noted to the left hip, diffuse tenderness neurovascular intact) Neurological exam: Present: alert, oriented X3, CN II-XII intact, reflexes normal. Absent: motor sensory deficit Skin exam: Present: warm, dry, intact, normal color. Absent: rash Course Vital Signs 12/29/18 12/29/18 13:29 14:42 Temperature 97.5 F L Pulse Rate 85 47 L Respiratory 19 22 Rate Blood Pressure 157/64 188/64 O2 Sat by Pulse 98 97 Oximetry Medical Decision Making - Medical Decision Making 88-year-old female presented for a fall. Patient found to have left hip fracture will be admitted or so with consult to hospitalist for surgical clearance, acute renal failure, hyperkalemia - Lab Data Result diagrams: 12/29/18 14:40 12/29/18 15:57 Lab Results 12/29/18 12/29/18 12/29/18 Range/Units 14:40 14:40 14:40 WBC 8.1 (3.8-10.6) k/uL RBC 2.54 L (3.80-5.40) m/uL Hgb 8.0 L (11.4-16.0) gm/dL Hct 24.8 L (34.0-46.0) % MCV 97.6 (80.0-100.0) fL MCH 31.6 (25.0-35.0) pg MCHC 32.4 (31.0-37.0) g/dL RDW 17.2 H (11.5-15.5) % Plt Count 201 (150-450) k/uL Neutrophils % 79 % Lymphocytes % 11 % Monocytes % 5 % Eosinophils % 3 % Basophils % 0 % Neutrophils # 6.4 (1.3-7.7) k/uL Lymphocytes # 0.9 L (1.0-4.8) k/uL Monocytes # 0.4 (0-1.0) k/uL Eosinophils # 0.3 (0-0.7) k/uL Basophils # 0.0 (0-0.2) k/uL Anisocytosis Slight Macrocytosis Slight PT 10.2 (9.0-12.0) sec INR 0.9 (<1.2) APTT 22.1 (22.0-30.0) sec Sodium 128 L (137-145) mmol/L Potassium 7.1 H* (3.5-5.1) mmol/L Chloride 99 (98-107) mmol/L Carbon Dioxide 13 L (22-30) mmol/L Anion Gap 16 mmol/L BUN 67 H (7-17) mg/dL Creatinine 5.62 H (0.52-1.04) mg/dL Est GFR (CKD-EPI)AfAm 7 (>60 ml/min/1.73 sqM) Est GFR (CKD-EPI)NonAf 6 (>60 ml/min/1.73 sqM) Glucose 148 H (74-99) mg/dL Calcium 9.2 (8.4-10.2) mg/dL Total Bilirubin 0.3 (0.2-1.3) mg/dL AST 11 L (14-36) U/L ALT 15 (9-52) U/L Alkaline Phosphatase 94 (38-126) U/L Troponin I (0.000-0.034) ng/mL Total Protein 6.6 (6.3-8.2) g/dL Albumin 4.0 (3.5-5.0) g/dL Lipase 162 (23-300) U/L Urine Color Urine Appearance (Clear) Urine pH (5.0-8.0) Ur Specific [place] (1.001-1.035) Urine Protein (Negative) Urine Glucose (UA) (Negative) Urine Ketones (Negative) Urine Blood (Negative) Urine Nitrite (Negative) Urine Bilirubin (Negative) Urine Urobilinogen (<2.0) mg/dL Ur Leukocyte Esterase (Negative) Stool Occult Blood (Negative) Blood Type Blood Type Confirm Blood Type Recheck Antibody Screen Spec Expiration Date 12/29/18 12/29/18 12/29/18 Range/Units 14:40 14:40 15:56 WBC (3.8-10.6) k/uL RBC (3.80-5.40) m/uL Hgb (11.4-16.0) gm/dL Hct (34.0-46.0) % MCV (80.0-100.0) fL MCH (25.0-35.0) pg MCHC (31.0-37.0) g/dL RDW (11.5-15.5) % Plt Count (150-450) k/uL Neutrophils % % Lymphocytes % % Monocytes % % Eosinophils % % Basophils % % Neutrophils # (1.3-7.7) k/uL Lymphocytes # (1.0-4.8) k/uL Monocytes # (0-1.0) k/uL Eosinophils # (0-0.7) k/uL Basophils # (0-0.2) k/uL Anisocytosis Macrocytosis PT (9.0-12.0) sec INR (<1.2) APTT (22.0-30.0) sec Sodium (137-145) mmol/L Potassium (3.5-5.1) mmol/L Chloride (98-107) mmol/L Carbon Dioxide (22-30) mmol/L Anion Gap mmol/L BUN (7-17) mg/dL Creatinine (0.52-1.04) mg/dL Est GFR (CKD-EPI)AfAm (>60 ml/min/1.73 sqM) Est GFR (CKD-EPI)NonAf (>60 ml/min/1.73 sqM) Glucose (74-99) mg/dL Calcium (8.4-10.2) mg/dL Total Bilirubin (0.2-1.3) mg/dL AST (14-36) U/L ALT (9-52) U/L Alkaline Phosphatase (38-126) U/L Troponin I 0.020 (0.000-0.034) ng/mL Total Protein (6.3-8.2) g/dL Albumin (3.5-5.0) g/dL Lipase (23-300) U/L Urine Color Urine Appearance (Clear) Urine pH (5.0-8.0) Ur Specific [place] (1.001-1.035) Urine Protein (Negative) Urine Glucose (UA) (Negative) Urine Ketones (Negative) Urine Blood (Negative) Urine Nitrite (Negative) Urine Bilirubin (Negative) Urine Urobilinogen (<2.0) mg/dL Ur Leukocyte Esterase (Negative) Stool Occult Blood Negative (Negative) Blood Type O Positive Blood Type Confirm Blood Type Recheck CABO Indicated Antibody Screen NEGATIVE Spec Expiration Date 01/01/2019233912/29/18 12/29/18 12/29/18 Range/Units 15:57 15:57 15:57 WBC (3.8-10.6) k/uL RBC (3.80-5.40) m/uL Hgb (11.4-16.0) gm/dL Hct (34.0-46.0) % MCV (80.0-100.0) fL MCH (25.0-35.0) pg MCHC (31.0-37.0) g/dL RDW (11.5-15.5) % Plt Count (150-450) k/uL Neutrophils % % Lymphocytes % % Monocytes % % Eosinophils % % Basophils % % Neutrophils # (1.3-7.7) k/uL Lymphocytes # (1.0-4.8) k/uL Monocytes # (0-1.0) k/uL Eosinophils # (0-0.7) k/uL Basophils # (0-0.2) k/uL Anisocytosis Macrocytosis PT (9.0-12.0) sec INR (<1.2) APTT (22.0-30.0) sec Sodium (137-145) mmol/L Potassium 7.0 H* (3.5-5.1) mmol/L Chloride (98-107) mmol/L Carbon Dioxide (22-30) mmol/L Anion Gap mmol/L BUN (7-17) mg/dL Creatinine (0.52-1.04) mg/dL Est GFR (CKD-EPI)AfAm (>60 ml/min/1.73 sqM) Est GFR (CKD-EPI)NonAf (>60 ml/min/1.73 sqM) Glucose (74-99) mg/dL Calcium (8.4-10.2) mg/dL Total Bilirubin (0.2-1.3) mg/dL AST (14-36) U/L ALT (9-52) U/L Alkaline Phosphatase (38-126) U/L Troponin I (0.000-0.034) ng/mL Total Protein (6.3-8.2) g/dL Albumin (3.5-5.0) g/dL Lipase (23-300) U/L Urine Color Yellow Urine Appearance Clear (Clear) Urine pH 5.5 (5.0-8.0) Ur Specific [place] 1.012 (1.001-1.035) Urine Protein Trace H (Negative) Urine Glucose (UA) Negative (Negative) Urine Ketones Negative (Negative) Urine Blood Negative (Negative) Urine Nitrite Negative (Negative) Urine Bilirubin Negative (Negative) Urine Urobilinogen <2.0 (<2.0) mg/dL Ur Leukocyte Esterase Negative (Negative) Stool Occult Blood (Negative) Blood Type Blood Type Confirm O Positive Blood Type Recheck Antibody Screen Spec Expiration Date - EKG Data EKG Comments: EKG performed at 13:40 sinus bradycardia rate of 54 DC 120 QRS 74 QT/QTC 42/457 nonspecific T-wave changes, Critical Care Time Critical Care Time: Yes Total Critical Care Time: 35 Critical Care Time: 35 minutes of critical care time were used to initially evaluate patient, reviewed vitals, reviewed past medical history. Patient's found to have a left IT fracture. Patient also found to be dehydrated with acute renal failure and hyperkalemia. Patient did have black stool which is Hemoccult negative any hemoglobin of 8.0. This is typically where hemoglobin has been in the past. Patient did have CT of head and neck which is negative for acute abnormality. Patient was given Protonix, IV fluid hydration. I did discuss case with or fell for trauma with hip fracture. Patient will be consult to medicine for acute renal failure and anemia. Patient will be stabilized medical floor for surgery Disposition Clinical Impression: Fall, Anemia, Trochanteric fracture of left femur, Acute renal failure, Hyperkalemia Disposition: ADMITTED IP TO THIS HOSP Condition: Fair Is patient prescribed a controlled substance at d/c from ED?: No Referrals: Chad Guzmán MD [Primary Care Provider] - 1-2 days Time of Disposition: 16:11
[2018-12-29 14:54] LABS: Anisocytosis Slight; Basophils % (A) 0 %; Eosinophils # (A) 0.3 k/uL (0-0.7); Eosinophils % (A) 3 %; HCT 24.8 % (34.0-46.0); Lymphocytes # (A) 0.9 k/uL (1.0-4.8); Lymphocytes % (A) 11 %; MCH 31.6 pg (25.0-35.0); MCHC 32.4 g/dL (31.0-37.0); MCV 97.6 fL (80.0-100.0); Macrocytosis Slight; Mean Platelet Volume 8.4; Monocytes # (A) 0.4 k/uL (0-1.0); Monocytes % (A) 5 %; Neutrophils # (A) 6.4 k/uL (1.3-7.7); Neutrophils % (A) 79 %; Platelet Count 201 k/uL (150-450); RBC 2.54 m/uL (3.80-5.40); RDW 17.2 % (11.5-15.5); WBC 8.1 k/uL (3.8-10.6)
[2018-12-29 15:03] LABS: INR 0.9 (<1.2); Partial Thromboplastin Time 22.1 sec (22.0-30.0); Prothrombin Time 10.2 sec (9.0-12.0)
[2018-12-29 15:04] LABS: Calcium 9.2 mg/dL (8.4-10.2); Total Bilirubin 0.3 mg/dL (0.2-1.3); Total Protein 6.6 g/dL (6.3-8.2)
--- NOTE | 2018-12-29 15:09 | XR ---
EXAMINATION TYPE: XR chest 1V DATE OF EXAM: 12/29/2018 COMPARISON: 09/06/2018 HISTORY: 88-year-old female with pain, found down on the floor. TECHNIQUE: Single frontal view of the chest is obtained. FINDINGS: Heart mildly enlarged. Atherosclerotic arch calcifications. Diffuse interstitial prominence of the ch ronic appearance. Right-sided [employer] shunt catheter. No consolidation or effusion seen. IMPRESSION: Mild cardiomegaly and chronic appearing changes. No definite acute process.
--- NOTE | 2018-12-29 15:14 | XR ---
EXAMINATION TYPE: XR Hip LT and AP Pelvis DATE OF EXAM: 12/29/2018 COMPARISON: 01/23/2016 HISTORY: 88-year-old female found down on the floor, pain TECHNIQUE: AP view pelvis and 2 views left hip FINDINGS: Osteopenia. [employer] shunt catheter terminates in the right lower quadrant. Mild to moderate degenerative c hange of both hips. There is a mildly comminuted, angulated intertrochanteric fracture of the proxima l left femur with destruction of the lateral wall. IMPRESSION: Angulated and mildly comminuted intertrochanteric fracture proximal left femur with lateral wall disr uption.
[2018-12-29 15:21] LABS: Potassium 7.1 mmol/L (3.5-5.1)
--- NOTE | 2018-12-29 15:29 | CT ---
EXAMINATION TYPE: CT brain jaja wo con DATE OF EXAM: 12/29/2018 COMPARISON: 09/06/2018 HISTORY: Fall and head injury. CT DLP: 1386.4 mGycm, Automated exposure control for dose reduction was used. CONTRAST: Patient injected with 0 mL of Isovue 300. CT of the brain is performed utilizing 3 mm thick sections through the posterior fossa and 3 mm thick sections through the remaining calvarium. Study is performed within 24 hours of arrival to the hospital. No abnormal hyperdensity is present to suggest an acute intracranial hemorrhage. No mass lesion is evident. No acute infarcts are evident. There is a shunt catheter present on the right with the tip in the ri ght lateral ventricle. Mild prominence of the ventricles is present without rounding of the temporal horn to suggest hydrocephalus. Ventricles and sulci are appropriate for the patient age. Paranasal sinuses and mastoid air cells within the [id number] are clear. IMPRESSIONS: 1. Shunted ventricles without hydrocephalus. Ventricles appear stable from comparison. 2. No acute intracranial process. CT cervical spine. COMPARISON: None CT of the cervical spine is performed in the axial plane at 2 mm thick sections. Reconstructed image s in the coronal, and sagittal plane are reviewed on the computer. No acute fractures are evident. Vertebral body alignment is normal. Large dense flowing anterior vertebral body calcification is pres ent. Correlate for DISH. Disc heights are preserved. Vertebral body heights are preserved. No spinal canal stenosis is evident. No neural foraminal stenosis is evident. IMPRESSIONS: 1. No acute osseous abnormality cervical spine
[2018-12-29] MEDS: SODIUM CHLORIDE 0.9% 1,000 ML IV SCH (16:01)
[2018-12-29 16:10] LABS: Appearance,Urine Clear (Clear); Bilirubin,Urine Negative (Negative); Blood,Urine Negative (Negative); Color,Urine Yellow; Glucose,Urine (UA) Negative (Negative); Ketones,Urine Negative (Negative); Leukocyte Esterase,Urine Negative (Negative); Nitrite,Urine Negative (Negative); PH, Urine 5.5 (5.0-8.0); Protein,Urine Trace (Negative); Specific Gravity,Urine 1.012 (1.001-1.035); Urobilinogen,Urine <2.0 mg/dL (<2.0)
[2018-12-29] MEDS ORDERED: SODIUM POLYSTYRENE SULFONATE 15 GM/60 ML BOTTLE PO ONE (16:38)
[2018-12-29] MEDS ORDERED: ALBUTEROL NEB (CONC) 2.5 MG/0.5 ML INHALATION ONE (16:38)
[2018-12-29] MEDS ORDERED: INSULIN REGULAR 100 UNIT/ML VIAL IV ONE (16:38)
[2018-12-29] MEDS ORDERED: DEXTROSE 50% SYRINGE 50 ML IVP ONE (16:38)
[2018-12-29] MEDS ORDERED: NALOXONE 0.4 MG/ML 1 ML VIAL IV PRN (16:53)
[2018-12-29] MEDS: HYDROcodone/APAP 5-325MG 1 EACH TAB PO PRN (17:33)
[2018-12-29] MEDS: HYDROmorphone 1 MG/ML 1 ML SYRINGE IVP PRN (18:39)
[2018-12-29] MEDS: HYDROmorphone 0.5 MG/0.5 ML SYRINGE IVP PRN (23:32)
[2018-12-30] MEDS: SODIUM CHLORIDE 0.9% 1,000 ML IV SCH (03:19)
[2018-12-30] MEDS: HYDROmorphone 1 MG/ML 1 ML SYRINGE IVP PRN ×5 (05:04→20:51)
[2018-12-30 06:18] LABS: Calcium 9.1 mg/dL (8.4-10.2)
[2018-12-30 06:53] LABS: Anisocytosis Slight; Basophils % (A) 0 %; Eosinophils % (A) 0 %; HCT 21.3 % (34.0-46.0); HGB 7.2 gm/dL (11.4-16.0); Lymphocytes # (A) 0.9 k/uL (1.0-4.8); Lymphocytes % (A) 12 %; MCHC 33.8 g/dL (31.0-37.0); MCV 97.7 fL (80.0-100.0); Macrocytosis Slight; Mean Platelet Volume 7.7; Monocytes # (A) 0.6 k/uL (0-1.0); Monocytes % (A) 7 %; Neutrophils # (A) 5.8 k/uL (1.3-7.7); Neutrophils % (A) 78 %; Platelet Count 206 k/uL (150-450); RBC 2.18 m/uL (3.80-5.40); RDW 17.2 % (11.5-15.5); WBC 7.5 k/uL (3.8-10.6)
--- NOTE | 2018-12-30 09:28 | P.HPOR ---
History of Present Illness H&P Date: 12/29/18 Chief Complaint: Left hip pain This is an 88-year-old female who had an on witnessed fall at [facility] yesterday. She was brought to the emergency department for evaluation. On x- rays and evaluation in the emergency department she is found to have a displaced intertrochanteric fracture of the left hip. She is also found to have anemia, hyperkalemia and renal failure. The patient is admitted to orthopedics for surgical intervention and care. The patient is a poor historian. She has history of dementia. Past Medical History Past Medical History: Heart Failure, Dementia, Diabetes Mellitus, Eye Disorder, GERD/Reflux, Hypertension, Memory Impairment, Renal Disease Additional Past Medical History / Comment(s): macular degeneration, incont of urine wears a depends, occ gout, past fall, concussion History of Any Multi-Drug Resistant Organisms: None Reported Past Surgical History: Orthopedic Surgery Additional Past Surgical History / Comment(s): Rt Shoulder, "brain shunt", lesion on labia removed. Past Anesthesia/Blood Transfusion Reactions: No Reported Reaction Past Psychological History: No Psychological Hx Reported Additional Psychological History / Comment(s): pt lives at [facility]. has [employer] [facility]. has caregivers 2 times a day and is in [employer] program that provides activities. pt has a walker, shower chair. Smoking Status: Former smoker Past Alcohol Use History: None Reported Additional Past Alcohol Use History / Comment(s): started smoking at age 17, quit 2014. a pack would last 1 week. no alcohol now. Past Drug Use History: None Reported - Past Family History Mother History Unknown: Yes Father Additional Family Medical History / Comment(s): " young- had heart disease Medications and Allergies Home Medications Medication Instructions Recorded Confirmed Type amLODIPine BESYLATE [Norvasc] 10 mg PO DAILY@0800 02/21/12/29/18 History Multivitamins, Thera [Multivitamin 1 tab PO DAILY@1700 01/23/16 12/29/18 History (formulary)] Citalopram Hydrobromide [CeleXA] 20 mg PO DAILY@0800 01/08/18 12/29/18 History Oxybutynin Chloride [Ditropan] 5 mg PO HS 09/06/18 12/29/18 History Acetaminophen Tab [Tylenol] 650 mg PO Q4H PRN 12/29/18 12/29/18 History Allopurinol [Zyloprim] 100 mg PO DAILY@0800 12/29/18 12/29/18 History Atorvastatin [Lipitor] 40 mg PO HS@209912/29/18 12/29/18 History Bisacodyl [Dulcolax] 10 mg RECTAL DAILY PRN 12/29/18 12/29/18 History Carvedilol [Coreg] 25 mg PO BID@0800,209912/29/18 12/29/18 History Chlorthalidone 25 mg PO DAILY@0812/29/18 12/29/18 History Cinacalcet [Sensipar] 30 mg PO DAILY@0800 12/29/18 12/29/18 History Famotidine 20 mg PO DAILY@0700 12/29/18 12/29/18 History Ferrous Sulfate [Feosol] 325 mg PO DAILY@1700 12/29/18 12/29/18 History INSULIN LISPRO (HumaLOG) [HumaLOG] See Protocol SQ ACHS 12/29/18 12/29/18 History Lactose-Reduced Food [Ensure Plus] 1 can PO DAILY@0812/29/18 12/29/18 History Lisinopril [Zestril] 20 mg PO BID@0800,209912/29/18 12/29/18 History Magnesium Hydroxide [Milk of 2,400 mg PO DAILY PRN 12/29/18 12/29/18 History Magnesia] Menthol-Zinc Oxide Oint 1 applic TOPICAL Q12H PRN 12/29/18 12/29/18 History [Calmoseptine Oint] Na Phos,M-B/Na Phos,Di-Ba [Fleet 133 ml RECTAL DAILY PRN 12/29/18 12/29/18 History Adult] Spironolactone 50 mg PO DAILY@0800 12/29/18 12/29/18 History hydrALAZINE HCL [Apresoline] 50 mg PO BID@0800,209912/29/18 12/29/18 History Allergies Allergy/AdvReac Type Severity Reaction Status Date / Time aspirin Allergy Unknown Verified 12/29/18 13:34 milk AdvReac Unknown Verified 12/29/18 13:34 Physical Examination This is a pleasantly confused 88-year-old female in no acute distress. She is alert and oriented to person only. Exam of the head neck reveal no obvious deformity. She has fairly good cervical spine motion without difficulty or pain. No pain with palpation about cervical spine or paraspinal musculature. Exam of the upper extremities is unremarkable. Exam of the lower extremities reveals external rotation to the left leg. There is pain with any motion of the left hip. She is able to wiggle her toes bilater ally. Neurovascular status to the lower extremities is intact. Results X-rays of the left hip and pelvis reveal a comminuted and shortened intertrochanteric fracture of the left hip. - Labs Labs: Abnormal Lab Results - Last 24 Hours (Table) 12/29/18 12/29/18 12/29/18 Range/Units 14:40 14:40 15:57 RBC 2.54 L (3.80-5.40) m/uL Hgb 8.0 L (11.4-16.0) gm/dL Hct 24.8 L (34.0-46.0) % RDW 17.2 H (11.5-15.5) % Lymphocytes # 0.9 L (1.0-4.8) k/uL Sodium 128 L (137-145) mmol/L Potassium 7.1 H* (3.5-5.1) mmol/L Carbon Dioxide 13 L (22-30) mmol/L BUN 67 H (7-17) mg/dL Creatinine 5.62 H (0.52-1.04) mg/dL Glucose 148 H (74-99) mg/dL AST 11 L (14-36) U/L Urine Protein Trace H (Negative) 12/29/18 12/30/18 12/30/18 Range/Units 15:57 05:55 05:55 RBC 2.18 L (3.80-5.40) m/uL Hgb 7.2 L (11.4-16.0) gm/dL Hct 21.3 L (34.0-46.0) % RDW 17.2 H (11.5-15.5) % Lymphocytes # 0.9 L (1.0-4.8) k/uL Sodium 131 L (137-145) mmol/L Potassium 7.0 H* 6.0 H (3.5-5.1) mmol/L Carbon Dioxide 15 L (22-30) mmol/L BUN 65 H (7-17) mg/dL Creatinine 4.84 H (0.52-1.04) mg/dL Glucose 114 H (74-99) mg/dL AST (14-36) U/L Urine Protein (Negative) H & H 12/29/18 12/30/18 Range/Units 14:40 05:55 Hgb 8.0 L 7.2 L (11.4-16.0) gm/dL Hct 24.8 L 21.3 L (34.0-46.0) % Coagulation 12/29/18 Range/Units 14:40 INR 0.9 (<1.2) Result Diagrams: 12/30/18 05:55 12/30/18 05:55 Assessment and Plan (1) Acute renal failure Current Visit: Yes Status: Acute Code(s): N17.9 - ACUTE KIDNEY FAILURE, UNSPECIFIED SNOMED Code(s): 93030661 (2) Anemia Current Visit: Yes Status: Acute Code(s): D64.9 - ANEMIA, UNSPECIFIED SNOMED Code(s): 611150302 (3) Fall Current Visit: Yes Status: Acute Code(s): W19.XXXA - UNSPECIFIED FALL, INITIAL ENCOUNTER SNOMED Code(s): 3760562 (4) Hyperkalemia Current Visit: Yes Status: Acute Code(s): E87.5 - HYPERKALEMIA SNOMED Code(s): 22690997 (5) Trochanteric fracture of left femur Current Visit: Yes Status: Acute Code(s): S72.102A - UNSP TROCHANTERIC FRACTURE OF LEFT FEMUR, INIT FOR CLOS FX SNOMED Code(s): 91059566 Plan: The clinical and x-ray findings are discussed with the patient and her nurse. It is recommended she undergo closed reduction with insertion of inter trochanteric nail of the left hip. The patient is currently not cleared for surgery. We'll tentatively schedule her for tomorrow afternoon. We will continue to follow.
[2018-12-30] MEDS ORDERED: BISACODYL 10 MG SUPP RECTAL PRN (10:20)
[2018-12-30] MEDS ORDERED: SODIUM BICARB 8.4% 50 ML SYR (1 MEQ/ML) IV STA (10:52)
[2018-12-30] MEDS ORDERED: DEXTROSE 50% SYRINGE 50 ML IVP STA ×3 (10:53→12:14)
[2018-12-30] MEDS ORDERED: INSULIN REGULAR 100 UNIT/ML VIAL IV ONE (10:54)
--- NOTE | 2018-12-30 11:40 | P.NPCON ---
History of Present Illness - Reason for Consult acute renal failure, hyperkalemia - History of Present Illness Reason for consultation: Acute kidney injury on chronic kidney disease History of present illness: Patient is a 88-year-old female seen in renal consultation for acute kidney injury on chronic kidney disease. Patient appears to have chronic kidney disease stage IIIB/4 with baseline creatinine in the range of 2-2.5 over the last 1 year or so. This admission the creatinine was 5.62 and is 4.84 today. Patient is not a reliable historian. She does not follow with us in the office. Patient's of the potassium was 7 on admission which was medically treated. Repeat potassium level this morning was 6.0. She is noted to be acidotic with a bicarbonate level of 15. She has been voiding. Patient presented to the hospital after sustaining a fall. She is noted to have intertrochanteric fra cture of the proximal left femur. She is awaiting surgical clearance. Hemodynamically she is stable. Blood pressure was high this morning which is partially due to pain. She was taking Aldactone and lisinopril at home which is currently held. I don't see any nonsteroidals and her home medications. Vital signs are stable. General: The patient appeared well nourished and normally developed. HEENT: Head exam is unremarkable. Neck is without jugular venous distension. LUNGS: Lungs are clear to auscultation and percussion. Breath sounds decreased. HEART: Rate and Rhythm are regular. First and second heart sounds normal. No murmurs, rubs or gallops. ABDOMEN: Abdominal exam reveals normal bowel sounds. Non-tender and non- distended. No evidence of peritonitis. EXTREMITITES: No clubbing, cyanosis, or edema. Past Medical History Past Medical History: Heart Failure, Dementia, Diabetes Mellitus, Eye Disorder, GERD/Reflux, Hypertension, Memory Impairment, Renal Disease Additional Past Medical History / Comment(s): macular degeneration, incont of urine wears a depends, occ gout, past fall, concussion History of Any Multi-Drug Resistant Organisms: None Reported Past Surgical History: Orthopedic Surgery Additional Past Surgical History / Comment(s): Rt Shoulder, "brain shunt", lesion on labia removed. Past Anesthesia/Blood Transfusion Reactions: No Reported Reaction Past Psychological History: No Psychological Hx Reported Additional Psychological History / Comment(s): pt lives at [facility]. has [employer] system. has caregivers 2 times a day and is in [employer] program that provides activities. pt has a walker, shower chair. Smoking Status: Former smoker Past Alcohol Use History: None Reported Additional Past Alcohol Use History / Comment(s): started smoking at age 17, quit 2014. a pack would last 1 week. no alcohol now. Past Drug Use History: None Reported - Past Family History Mother History Unknown: Yes Father Additional Family Medical History / Comment(s): " young- had heart disease Medications and Allergies Home Medications Medication Instructions Recorded Confirmed Type amLODIPine BESYLATE [Norvasc] 10 mg PO DAILY@0800 02/21/12/29/18 History Multivitamins, Thera [Multivitamin 1 tab PO DAILY@0 01/23/16 12/29/18 History (formulary)] Citalopram Hydrobromide [CeleXA] 20 mg PO DAILY@0800 01/08/18 12/29/18 History Oxybutynin Chloride [Ditropan] 5 mg PO HS 09/06/18 12/29/18 History Acetaminophen Tab [Tylenol] 650 mg PO Q4H PRN 12/29/18 12/29/18 History Allopurinol [Zyloprim] 100 mg PO DAILY@0812/29/18 12/29/18 History Atorvastatin [Lipitor] 40 mg PO HS@209912/29/18 12/29/18 History Bisacodyl [Dulcolax] 10 mg RECTAL DAILY PRN 12/29/18 12/29/18 History Carvedilol [Coreg] 25 mg PO BID@0800,209912/29/18 12/29/18 History Chlorthalidone 25 mg PO DAILY@0812/29/18 12/29/18 History Cinacalcet [Sensipar] 30 mg PO DAILY@0800 12/29/18 12/29/18 History Famotidine 20 mg PO DAILY@0712/29/18 12/29/18 History Ferrous Sulfate [Feosol] 325 mg PO DAILY@1700 12/29/18 12/29/18 History INSULIN LISPRO (HumaLOG) [HumaLOG] See Protocol SQ ACHS 12/29/18 12/29/18 History Lactose-Reduced Food [Ensure Plus] 1 can PO DAILY@0800 12/29/18 12/29/18 History Lisinopril [Zestril] 20 mg PO BID@0800,2100 12/29/18 12/29/18 History Magnesium Hydroxide [Milk of 2,400 mg PO DAILY PRN 12/29/18 12/29/18 History Magnesia] Menthol-Zinc Oxide Oint 1 applic TOPICAL Q12H PRN 12/29/18 12/29/18 History [Calmoseptine Oint] Na Phos,M-B/Na Phos,Di-Ba [Fleet 133 ml RECTAL DAILY PRN 12/29/18 12/29/18 History Adult] Spironolactone 50 mg PO DAILY@0800 12/29/18 12/29/18 History hydrALAZINE HCL [Apresoline] 50 mg PO BID@0800,2100 12/29/18 12/29/18 History Allergies Allergy/AdvReac Type Severity Reaction Status Date / Time aspirin Allergy Unknown Verified 12/29/18 13:34 milk AdvReac Unknown Verified 12/29/18 13:34 Physical Exam Vitals: Vital Signs Temp Pulse Pulse Resp BP BP Pulse Ox 12/30/18 08:00 98.3 F 100 24 183/73 100 12/30/18 04:00 97.8 F 85 18 145/72 98 12/30/18 02:54 83 12/30/18 00:00 82 18 152/75 99 12/29/18 20:00 98 F 72 18 139/61 100 12/29/18 18:55 97.9 F 83 18 145/64 99 12/29/18 17:46 67 18 188/71 99 12/29/18 17:23 59 L 12/29/18 17:13 60 12/29/18 14:42 47 L 22 188/64 97 12/29/18 13:29 97.5 F L 85 19 157/64 98 Intake and Output 12/29/18 12/30/18 12/30/18 22:59 06:59 14:59 Intake Total 222 300 0 Output Total 800 Balance 222 -500 0 Intake: Intake, IV Titration 300 Amount Sodium Chloride 0.9% 1, 300 000 ml @ 75 mls/hr IV . [id number] [facility] Rx#:[id number] Oral 222 0 Output: Urine 800 Other: Weight 56 kg Results - Lab Results Most recent lab results Calcium 9.1 mg/dL (8.4-10.2) 12/30/18 05:55 12/30/18 05:55 12/30/18 05:55 Assessment and Plan Plan: Assessment: 1. Acute kidney injury mostly prerenal secondary to diuretics and poor oral intake. Creatinine was 5.6 on admission and is 4.84 today. Urinalysis is quite benign. 2. Chronic kidney disease stage IIIB/4 secondary to nephrosclerosis with base line creatinine in the range of 2-2.5. 3. Status post fall with intertrochanteric fracture of the proximal left femur. 4. Hyperkalemia secondary to acute kidney injury, metabolic acidosis as well as from the use of spironolactone and lisinopril. Improved with medical management. 5. Anemia. Chronic kidney disease. Rule out iron deficiency. 6. Hypertension with chronic kidney disease. Partially exacerbated by pain. Plan: 10 units of IV insulin with an amp of D50 now. 3 A of IV bicarbonate now. I will also change IV fluids to isotonic sodium bicarbonate drip to be run at 75 mL an hour. Repeat potassium level this afternoon. Continue to hold diuretics. Check iron studies. Repeat electrolytes in the morning. Once potassium level is less than 5.5, she can be cleared for hip surgery. Thank you for the consultation. I will continue to follow the patient with you during her hospital stay.
[2018-12-30] MEDS: DEXTROSE 5% IN WATER 1,000 ML with SODIUM BICARB (1 MEQ/ML) 150 ML IV SCH (13:02)
--- NOTE | 2018-12-30 14:53 | P.CONS ---
History of Present Illness - Reason for Consult Consult date: 12/30/18 Medical management - History of Present Illness This is an 88-year-old female patient residing at [facility] is a long-term re sident under the care of Dr. Guzmán with past mental history of diabetes mellitus type 2, chronic kidney disease stage III, gastroesophageal reflux disease, anemia of chronic disease, gout, hyper parathyroidism, hypertension, hyperlipidemia, recurrent depression, hydrocephalus status post shunt. Patient had a fall while in the bathroom at [facility] and developed pain in the left hip and head pain. She was transferred to [facility] emergency center for evaluation. CAT scan of the brain and C-spine showed shunted ventricles without hydrocephalus. Ventricles appear stable from comparison. No acute intracranial process. No acute osseous abnormality of the cervical spine. Chest x-ray shows mild cardiomegaly and chronic appearing changes. No definite acute process. Hip and pelvic x-ray showed angulated and mildly comminuted intratrochanteric fracture proximal left femur with lateral wall disruption. Initial lab work revealed sodium 128, potassium 7.1, BUN 67 creatinine 5.6 to, hemoglobin 8. The patient was admitted to the cardiac stepdown unit. We have subsequently added on consult for nephrology. Review of Systems All systems: negative Constitutional: Denies chills, Denies fatigue, Denies fever, Denies malaise, Denies poor appetite, Denies weakness, Denies weight loss Eyes: denies blurred vision, denies pain Ears, nose, mouth and throat: Denies dysphagia, Denies headache, Denies sore throat, Denies vertigo Cardiovascular: Denies chest pain, Denies dyspnea on exertion, Denies edema, Denies leg edema, Denies lightheadedness, Denies orthopnea, Denies shortness of breath, Denies syncope Respiratory: Denies cough, Denies cough with sputum, Denies dyspnea, Denies excessive sputum, Denies hemoptysis, Denies home oxygen, Denies wheezing Gastrointestinal: Denies abdominal pain, Denies diarrhea, Denies nausea, Denies vomiting Genitourinary: Denies dysuria, Denies hematuria, Denies urinary frequency Musculoskeletal: Reports muscle weakness, Denies frequent falls, Denies gait dysfunction, Denies myalgias Integumentary: Denies pruritus, Denies rash, Denies wounds Neurological: Denies change in mentation, Denies change in speech, Denies numbness, Denies seizures, Denies weakness Psychiatric: Denies anxiety, Denies depression Endocrine: Denies fatigue, Denies weight change Past Medical History Past Medical History: Heart Failure, Dementia, Diabetes Mellitus, Eye Disorder, GERD/Reflux, Hypertension, Memory Impairment, Renal Disease Additional Past Medical History / Comment(s): macular degeneration, incont of urine wears a depends, occ gout, past fall, concussion History of Any Multi-Drug Resistant Organisms: None Reported Past Surgical History: Orthopedic Surgery Additional Past Surgical History / Comment(s): Rt Shoulder, "brain shunt", lesion on labia removed. Past Anesthesia/Blood Transfusion Reactions: No Reported Reaction Past Psychological History: No Psychological Hx Reported Additional Psychological History / Comment(s): pt lives at [facility]. has [employer] system. has caregivers 2 times a day and is in [employer] program that provides activities. pt has a walker, shower chair. Smoking Status: Former smoker Past Alcohol Use History: None Reported Additional Past Alcohol Use History / Comment(s): started smoking at age 17, quit 2014. a pack would last 1 week. no alcohol now. Past Drug Use History: None Reported - Past Family History Mother History Unknown: Yes Additional Family Medical History / Comment(s): Patient does not know her mother's medical history. Father Additional Family Medical History / Comment(s): " young- had heart disease Brother(s) Additional Family Medical History / Comment(s): Patient has one brother and patient does not know his history. Patient does not have any sisters. Patient has 2 children. Medications and Allergies Home Medications Medication Instructions Recorded Confirmed Type amLODIPine BESYLATE [Norvasc] 10 mg PO DAILY@0800 02/21/15 12/29/18 History Multivitamins, Thera [Multivitamin 1 tab PO DAILY@1700 01/23/16 12/29/18 History (formulary)] Citalopram Hydrobromide [CeleXA] 20 mg PO DAILY@0800 /12/2112/29/18 History Oxybutynin Chloride [Ditropan] 5 mg PO HS 09/06/18 12/29/18 History Acetaminophen Tab [Tylenol] 650 mg PO Q4H PRN 12/29/18 12/29/18 History Allopurinol [Zyloprim] 100 mg PO DAILY@0800 12/29/18 12/29/18 History Atorvastatin [Lipitor] 40 mg PO HS@209912/29/18 12/29/18 History Bisacodyl [Dulcolax] 10 mg RECTAL DAILY PRN 12/29/18 12/29/18 History Carvedilol [Coreg] 25 mg PO BID@0800,209912/29/18 12/29/18 History Chlorthalidone 25 mg PO DAILY@0800 12/29/18 12/29/18 History Cinacalcet [Sensipar] 30 mg PO DAILY@0800 12/29/18 12/29/18 History Famotidine 20 mg PO DAILY@0700 12/29/18 12/29/18 History Ferrous Sulfate [Feosol] 325 mg PO DAILY@1700 12/29/18 12/29/18 History INSULIN LISPRO (HumaLOG) [HumaLOG] See Protocol SQ ACHS 12/29/18 12/29/18 History Lactose-Reduced Food [Ensure Plus] 1 can PO DAILY@0800 12/29/18 12/29/18 History Lisinopril [Zestril] 20 mg PO BID@0800,209912/29/18 12/29/18 History Magnesium Hydroxide [Milk of 2,400 mg PO DAILY PRN 12/29/18 12/29/18 History Magnesia] Menthol-Zinc Oxide Oint 1 applic TOPICAL Q12H PRN 12/29/18 12/29/18 History [Calmoseptine Oint] Na Phos,M-B/Na Phos,Di-Ba [Fleet 133 ml RECTAL DAILY PRN 12/29/18 12/29/18 History Adult] Spironolactone 50 mg PO DAILY@0800 12/29/18 12/29/18 History hydrALAZINE HCL [Apresoline] 50 mg PO BID@0800,209912/29/18 12/29/18 History Allergies Allergy/AdvReac Type Severity Reaction Status Date / Time aspirin Allergy Unknown Verified 12/29/18 13:34 milk AdvReac Unknown Verified 12/29/18 13:34 Physical Exam Vitals: Vital Signs Temp Pulse Pulse Resp BP BP Pulse Ox 12/30/18 08:00 98.3 F 100 24 183/73 100 06/27/19 04:00 97.8 F 85 18 145/72 98 12/30/18 02:54 83 12/30/18 00:00 82 18 152/75 99 12/29/18 20:00 98 F 72 18 139/61 100 12/29/18 18:55 97.9 F 83 18 145/64 99 12/29/18 17:46 67 18 188/71 99 12/29/18 17:23 59 L 12/29/18 17:13 60 12/29/18 14:42 47 L 22 188/64 97 12/29/18 13:29 97.5 F L 85 19 157/64 98 Intake and Output 12/29/18 12/30/18 12/30/18 22:59 06:59 14:59 Intake Total 222 300 0 Output Total 800 Balance 222 -500 0 Intake: Intake, IV Titration 300 Amount Sodium Chloride 0.9% 1, 300 000 ml @ 75 mls/hr IV . [id number] [facility] Rx#:[id number] Oral 222 0 Output: Urine 800 Other: Weight 56 kg Gen: This is a 88-year-old -[place] female. She is in bed and appears to be uncontrolled secondary to pain to the left hip. HEENT: Head is atraumatic, normocephalic. Pupils equal, round. Sclerae is anicteric. NECK: Supple. No JVD. No lymphadenopathy. No thyromegaly. LUNGS: Clear to auscultation. No wheezes or rhonchi. No intercostal retractions. HEART: Regular rate and rhythm. Systolic murmur. ABDOMEN: Soft. Bowel sounds are present. No masses. No tenderness. EXTREMITIES: No pedal edema. No calf tenderness. NEUROLOGICAL: Patient is awake, alert and oriented x2. Cranial nerves 2 through 12 are grossly intact. Results CBC & Chem 7: 12/30/18 05:55 12/30/18 05:55 Labs: Abnormal Lab Results - Last 24 Hours (Table) 12/29/18 12/29/18 12/29/18 Range/Units 14:40 14:40 15:57 RBC 2.54 L (3.80-5.40) m/uL Hgb 8.0 L (11.4-16.0) gm/dL Hct 24.8 L (34.0-46.0) % RDW 17.2 H (11.5-15.5) % Lymphocytes # 0.9 L (1.0-4.8) k/uL Sodium 128 L (137-145) mmol/L Potassium 7.1 H* (3.5-5.1) mmol/L Carbon Dioxide 13 L (22-30) mmol/L BUN 67 H (7-17) mg/dL Creatinine 5.62 H (0.52-1.04) mg/dL Glucose 148 H (74-99) mg/dL AST 11 L (14-36) U/L Urine Protein Trace H (Negative) 12/29/18 12/30/18 12/30/18 Range/Units 15:57 05:55 05:55 RBC 2.18 L (3.80-5.40) m/uL Hgb 7.2 L (11.4-16.0) gm/dL Hct 21.3 L (34.0-46.0) % RDW 17.2 H (11.5-15.5) % Lymphocytes # 0.9 L (1.0-4.8) k/uL Sodium 131 L (137-145) mmol/L Potassium 7.0 H* 6.0 H (3.5-5.1) mmol/L Carbon Dioxide 15 L (22-30) mmol/L BUN 65 H (7-17) mg/dL Creatinine 4.84 H (0.52-1.04) mg/dL Glucose 114 H (74-99) mg/dL AST (14-36) U/L Urine Protein (Negative) Assessment and Plan Plan: 1. Left intertrochanteric fracture of the left hip secondary to fall. Orthopedics planning for intertrochanteric nail of the left hip for tomorrow afternoon. Continue current pain management 2. Acute kidney injury with hyperkalemia secondary to diuretic use and poor oral intake. Consult with Dr. Casper appreciated. Patient is to receive another 10 units of regular insulin, amp of D50 and 3 A of IV bicarbonate. IV to isotonic sodium bicarb at 75 mL per hour. Diuretics on hold. Patient has been cleared by Dr. Casper for surgery once potassium is less than 5.5. 3. Chronic kidney disease stage IIIB/4. 4. Anemia of chronic kidney disease. 5. Hypertension, hypertensive cardiovascular disease. Continue Coreg 25 mg twice daily, Norvasc 10 mg daily, hydralazine 50 mg twice daily. Hold spironolactone, chlorthalidone. 6. Diabetes mellitus type 2. Continue insulin scale. 7. Hyperlipidemia. Continue Lipitor 40 mg at bedtime. 8. Gastroesophageal reflux disease and GI prophylaxis. Continue Pepcid. 9. Gout. Continue allopurinol 100 mg daily. 10. Hyperparathyroidism. Continue Sensipar 30 mg daily. 11. Recurrent depression. Continue citalopram 20 mg daily. 12. History of hydrocephalus status post shunt, stable. Patient will be admitted to the hospital for a minimum of 2 night stay. Discharge plan: Return to [facility] Impression and plan of care have been directed as dictated by the signing physician. Tiffani Corrigan nurse practitioner acting as scribe for signing physician.
[2018-12-30] MEDS: FERROUS SULFATE 325 MG TAB PO SCH (16:36)
[2018-12-30] MEDS: MULTIVITAMINS, THERA 1 EACH TAB PO SCH (16:36)
[2018-12-30 16:45] LABS: Glucose,Whole Blood 201 mg/dL (75-99)
[2018-12-30] MEDS: INSULIN ASPART (NovoLOG) 100 UNIT/ML VIAL SQ SCH ×2 (16:59→20:47)
[2018-12-30] MEDS ORDERED: HYDROmorphone 0.5 MG/0.5 ML SYRINGE IVP PRN (17:54)
[2018-12-30] MEDS ORDERED: LACTATED RINGERS 1,000 ML IV SCH (18:00)
[2018-12-30 20:18] LABS: Glucose,Whole Blood 234 mg/dL (75-99)
[2018-12-30] MEDS: ATORVASTATIN 40 MG TAB PO SCH (20:47)
[2018-12-30] MEDS: hydrALAZINE HCL 50 MG TAB PO SCH (20:47)
[2018-12-30] MEDS: CARVEDILOL 12.5 MG TAB PO SCH (20:47)
[2018-12-31] MEDS: HYDROmorphone 1 MG/ML 1 ML SYRINGE IVP PRN ×4 (02:03→23:13)
[2018-12-31] MEDS: DEXTROSE 5% IN WATER 1,000 ML with SODIUM BICARB (1 MEQ/ML) 150 ML IV SCH (04:39)
[2018-12-31 06:25] LABS: Glucose,Whole Blood 203 mg/dL (75-99)
[2018-12-31] MEDS: FAMOTIDINE 20 MG TAB PO SCH (06:26)
[2018-12-31] MEDS: INSULIN ASPART (NovoLOG) 100 UNIT/ML VIAL SQ SCH ×4 (06:28→20:48)
[2018-12-31 07:22] LABS: Calcium 8.9 mg/dL (8.4-10.2); Magnesium 1.6 mg/dL (1.6-2.3); Potassium 5.2 mmol/L (3.5-5.1)
[2018-12-31] MEDS ORDERED: NON-FORMULARY DRUG (Lactose-Reduced Food [Ensure Plus] 1 CAN) PO SCH (08:00)
[2018-12-31] MEDS: CARVEDILOL 12.5 MG TAB PO SCH ×2 (08:50→20:47)
[2018-12-31] MEDS: hydrALAZINE HCL 50 MG TAB PO SCH ×2 (08:50→20:47)
[2018-12-31] MEDS: CITALOPRAM HYDROBROMIDE 20 MG TAB PO SCH (08:50)
[2018-12-31] MEDS: ALLOPURINOL 100 MG TAB PO SCH (08:50)
--- NOTE | 2018-12-31 09:27 | P.PN ---
Subjective Patient is seen in follow-up for acute kidney injury on chronic kidney disease. Patient appears to have chronic kidney disease stage IIIB/4 with baseline creatinine in the range of 2-2.5 over the last 1 year. Creatinine was 5.6-1 admission and is down to 3.73 today. Potassium level has normalized. Acidosis has resolved. She is noted to have left femur fracture and is scheduled for surgical intervention today. Patient is resting in bed. She is not a reliable historian. Vital signs are stable. General: The patient appeared well nourished and normally developed. HEENT: Head exam is unremarkable. Neck is without jugular venous distension. LUNGS: Lungs are clear to auscultation and percussion. Breath sounds decreased. HEART: Rate and Rhythm are regular. First and second heart sounds normal. No murmurs, rubs or gallops. ABDOMEN: Abdominal exam reveals normal bowel sounds. Non-tender and non- distended. No evidence of peritonitis. EXTREMITITES: No clubbing, cyanosis, or edema. Objective - Vital Signs Vital signs: Vital Signs Temp 98.4 F 12/31/18 08:00 Pulse 96 12/31/18 08:00 Resp 16 12/31/18 08:00 BP 148/64 12/31/18 08:00 Pulse Ox 99 12/31/18 08:00 Intake & Output 12/30/18 12/31/18 12/31/18 18:59 06:59 18:59 Intake Total 820 0 Output Total 500 Balance 820 -500 0 Weight 51.5 kg Intake: IV 600 Dextrose 5% in Water 1, 300 000 ml @ 75 mls/hr IV . [id number] [facility] with Sodium Bicarb (1 Meq/ml) 150 ml Rx#:[id number] Sodium Chloride 0.9% 1, 300 000 ml @ 75 mls/hr IV . [id number] [facility] Rx#:[id number] Oral 220 0 Output: Urine 500 Other: Voiding Method Indwelling Catheter Indwelling Catheter - Labs CBC & Chem 7: 12/30/18 05:55 12/31/18 06:46 Labs: Abnormal Lab Results - Last 24 Hours (Table) 12/30/18 12/30/18 12/30/18 Range/Units 15:09 16:43 20:16 Sodium (137-145) mmol/L Potassium 5.3 H (3.5-5.1) mmol/L Chloride (98-107) mmol/L BUN (7-17) mg/dL Creatinine (0.52-1.04) mg/dL Glucose (74-99) mg/dL POC Glucose (mg/dL) 201 H 234 H (75-99) mg/dL 12/31/18 12/31/18 Range/Units 06:23 06:46 Sodium 129 L (137-145) mmol/L Potassium 5.2 H (3.5-5.1) mmol/L Chloride 95 L (98-107) mmol/L BUN 59 H (7-17) mg/dL Creatinine 3.73 H (0.52-1.04) mg/dL Glucose 153 H (74-99) mg/dL POC Glucose (mg/dL) 203 H (75-99) mg/dL Assessment and Plan Plan: Assessment: 1. Acute kidney injury mostly prerenal secondary to diuretics and poor oral intake. Creatinine was 5.6 on admission and is 3.73 today. Urinalysis is quite benign. 2. 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 3. Status post fall with intertrochanteric fracture of the proximal left femur. 4. Hyperkalemia secondary to acute kidney injury, metabolic acidosis as well as from the use of spironolactone and lisinopril. Improved with medical management. 5. Anemia. Chronic kidney disease. Rule out iron deficiency. 6. Hypertension with chronic kidney disease. Partially exacerbated by pain. Better. 7. Hyponatremia secondary to acute kidney injury. Patient appears euvolemic. Plan: Discontinue bicarbonate drip. Start normal saline at 75 mL an hour. Continue to hold diuretics. Check iron studies. Check serum osmolality, urine osmolality and urine sodium. Repeat electrolytes in the morning. Cleared for hip surgery from nephrology standpoint.
[2018-12-31] MEDS: SODIUM CHLORIDE 0.9% 1,000 ML IV SCH ×2 (09:36→17:55)
[2018-12-31] MEDS ORDERED: HYDROmorphone 1 MG/ML 1 ML SYRINGE IVP STA (10:29)
[2018-12-31] MEDS ORDERED: Magnesium Replacement Protocol 1 EACH MISC MISCELLANE PRN (11:01)
[2018-12-31 11:48] LABS: Glucose,Whole Blood 131 mg/dL (75-99)
[2018-12-31] MEDS: MAGNESIUM SULFATE-D5W PMX 1 GM in DEXTROSE/WATER 1 100ML.BAG IVPB SCH ×2 (12:13→13:43)
--- NOTE | 2018-12-31 13:15 | P.PN ---
Subjective Progress Note Date: 12/31/18 This is an 88-year-old female patient residing at [facility] is a long-term resident under the care of Dr. Guzmán with past mental history of diabetes mellitus type 2, chronic kidney disease stage III, gastroesophageal reflux disease, anemia of chronic disease, gout, hyper parathyroidism, hypertension, hyperlipidemia, recurrent depression, hydrocephalus status post shunt. Patient had a fall while in the bathroom at [facility] and developed pain in the left hip and head pain. She was transferred to [facility] emergency center for evaluation. CAT scan of the brain and C-spine showed shunted ventricles without hydrocephalus. Ventricles appear stable from comparison. No acute intracranial process. No acute osseous abnormality of the cervical spine. Chest x-ray shows mild cardiomegaly and chronic appearing changes. No definite acute process. Hip and pelvic x-ray showed angulated and mildly comminuted intratrochanteric fracture proximal left femur with lateral wall disruption. Initial lab work revealed sodium 128, potassium 7.1, BUN 67 creatinine 5.6 to, hemoglobin 8. The patient was admitted to the cardiac stepdown unit. We have subsequently added on consult for nephrology. 12/31: Patient has just undergone Hibiclens scrub for surgery which is scheduled for this afternoon. She is moaning in pain and an additional dose of IV Dilaudid will be given. Magnesium is 1.6 and will be replaced today. Blood sugars running between 153 and 234. Sodium 129, potassium 5.2, chloride 95, BUN 59 creatinine 3.73. Patient is been afebrile, blood pressure 140/64, heart rate 96, blood pressure 99% on room air. Patient has been seen by Dr. Casper and started bicarbonate drip yesterday which was ordered to be discontinued today and start normal saline at 75 mL per hour. Diuretics remain on hold. Iron studies in progress as well as serum osmolality, urine osmolality and urine sodium. Patient will be transferred to [facility] floor following surgery. Anticipate return to [facility] on Thursday Objective - Vital Signs Vital signs: Vital Signs Temp 98.4 F 12/31/18 08:00 Pulse 96 12/31/18 08:00 Resp 16 12/31/18 08:00 BP 148/64 12/31/18 08:00 Pulse Ox 99 12/31/18 08:00 Intake & Output 0612/31/18 12/31/18 18:59 06:59 18:59 Intake Total 820 0 Output Total 500 Balance 820 -500 0 Weight 51.5 kg Intake: IV 600 Dextrose 5% in Water 1, 300 000 ml @ 75 mls/hr IV . [id number] RIANA with Sodium Bicarb (1 Meq/ml) 150 ml Rx#:[id number] Sodium Chloride 0.9% 1, 300 000 ml @ 75 mls/hr IV . [id number] RIANA Rx#:[id number] Oral 220 0 Output: Urine 500 Other: Voiding Method Indwelling Catheter Indwelling Catheter - Exam Review of Systems Constitutional: Denies chills, reports fatigue, Denies fever, Denies malaise, reports poor appetite, reports weaknessDenies weight loss Eyes: denies blurred vision, denies pain Ears, nose, mouth and throat: Denies dysphagia, Denies headache, Denies sore throat, Denies vertigo Cardiovascular: Denies chest pain, Denies dyspnea on exertion, Denies edema, Denies leg edema, Denies lightheadedness, Denies orthopnea, Denies shortness of breath, Denies syncope Respiratory: Denies cough, Denies cough with sputum, Denies dyspnea, Denies excessive sputum, Denies hemoptysis, Denies home oxygen, Denies wheezing Gastrointestinal: Denies abdominal pain, Denies diarrhea, Denies nausea, Denies vomiting Genitourinary: Denies dysuria, Denies hematuria, Denies urinary frequency Musculoskeletal: Reports muscle weakness, Denies frequent falls, Denies gait dysfunction, Denies myalgias, reports pain right hip Integumentary: Denies pruritus, Denies rash, Denies wounds Neurological: Denies change in mentation, Denies change in speech, Denies numbness, Denies seizures, Denies weakness Psychiatric: Denies anxiety, Denies depression Endocrine: Denies fatigue, Denies weight change Physical exam: Gen: This is a 88-year-old -[place] female. She is in bed and appears to be uncomfortable secondary to pain to the left hip. HEENT: Head is atraumatic, normocephalic. Pupils equal, round. Sclerae is anicteric. NECK: Supple. No JVD. No lymphadenopathy. No thyromegaly. LUNGS: Clear to auscultation. No wheezes or rhonchi. No intercostal retractions. HEART: Regular rate and rhythm. Systolic murmur. ABDOMEN: Soft. Bowel sounds are present. No masses. No tenderness. Munguia ca theter draining clear chelsea urine EXTREMITIES: No pedal edema. No calf tenderness. NEUROLOGICAL: Patient is awake, alert and oriented x2. Cranial nerves 2 through 12 are grossly intact. - Labs CBC & Chem 7: 12/30/18 05:55 12/31/18 06:46 Labs: Abnormal Lab Results - Last 24 Hours (Table) 12/30/18 12/30/18 12/30/18 Range/Units 15:09 16:43 20:16 Sodium (137-145) mmol/L Potassium 5.3 H (3.5-5.1) mmol/L Chloride (98-107) mmol/L BUN (7-17) mg/dL Creatinine (0.52-1.04) mg/dL Glucose (74-99) mg/dL POC Glucose (mg/dL) 201 H 234 H (75-99) mg/dL 12/31/18 12/31/18 Range/Units 06:23 06:46 Sodium 129 L (137-145) mmol/L Potassium 5.2 H (3.5-5.1) mmol/L Chloride 95 L (98-107) mmol/L BUN 59 H (7-17) mg/dL Creatinine 3.73 H (0.52-1.04) mg/dL Glucose 153 H (74-99) mg/dL POC Glucose (mg/dL) 203 H (75-99) mg/dL Assessment and Plan Plan: 1. Left intertrochanteric fracture of the left hip secondary to fall. Orthopedics planning for intertrochanteric nail of the left hip this afternoon. Continue current pain management 2. Acute kidney injury with hyperkalemia secondary to diuretic use and poor oral intake. Consult with Dr. Casper appreciated. Continue IV fluids 0.9 normal saline at 75 mL per hour. Bicarb drip has been discontinued. Diuretics on hold. Patient has been cleared by Dr. Casper for surgery once potassium is less than 5.5. Repeat lab work in the morning. 3. Chronic kidney disease stage IIIB/4. Continue as in #2. 4. Anemia of chronic kidney disease. 5. Hypertension, hypertensive cardiovascular disease. Continue Coreg 25 mg twice daily, Norvasc 10 mg daily, hydralazine 50 mg twice daily. Hold spironolactone, chlorthalidone. 6. Diabetes mellitus type 2. Continue insulin scale. 7. Hyperlipidemia. Continue Lipitor 40 mg at bedtime. 8. Gastroesophageal reflux disease and GI prophylaxis. Continue Pepcid. 9. Gout. Continue allopurinol 100 mg daily. 10. Hyperparathyroidism. Continue Sensipar 30 mg daily. 11. Recurrent depression. Continue citalopram 20 mg daily. 12. History of hydrocephalus status post shunt, stable. Discharge plan: Return to [facility] on Thursday. Impression and plan of care have been directed as dictated by the signing physician. Tiffani Corrigan nurse practitioner acting as scribe for signing adelaidei an.
[2018-12-31] MEDS ORDERED: IV FLUID CONTINUATION 1,000 ML IV ONE ×2 (14:35)
[2018-12-31] MEDS ORDERED: ONDANSETRON 4 MG/2 ML VIAL IVP ONE (14:35)
[2018-12-31] MEDS: IV FLUID CONTINUATION 1,000 ML IV ONE ×2 (14:35→18:07)
[2018-12-31] MEDS ORDERED: ACETAMINOPHEN TAB 325 MG TAB PO PRN (15:03)
[2018-12-31] MEDS ORDERED: PROPOFOL 10 MG/ML 20 ML VIAL IV ONE (15:18)
[2018-12-31] MEDS ORDERED: KETAMINE 10 MG/ML 20 ML VIAL ONE (15:18)
[2018-12-31] MEDS ORDERED: MIDAZOLAM 2 MG/2 ML VIAL ONE (15:18)
[2018-12-31] MEDS ORDERED: PHENYLEPHRINE-0.9% NACL SYG 1 MG/10 ML SYRINGE ONE (15:18)
[2018-12-31] MEDS ORDERED: ePHEDrine SULFATE/0.9% NACL/PF 50 MG/5 ML SYRINGE IV ONE (15:18)
[2018-12-31] MEDS ORDERED: SODIUM CHLORIDE 0.9% 50 ML with ceFAZolin 2,000 MG IV ONE ×4 (16:09)
[2018-12-31] MEDS ORDERED: LACTATED RINGERS 1,000 ML IV ONE (16:29)
[2018-12-31] MEDS ORDERED: ceFAZolin 1,000 MG in SODIUM CHLORIDE 0.9% 1,000 ML IRRIGATION ONE (16:30)
--- NOTE | 2018-12-31 16:38 | P.OP ---
Date of Procedure: 12/31/18 Procedure(s) Performed: PREOPERATIVE DIAGNOSIS: Left hip intertrochanteric fracture. POSTOPERATIVE DIAGNOSIS: Left hip intertrochanteric fracture. OPERATION: Left hip intertrochanteric fracture closed reduction and intramedullary nailing using Synthes IT nail. PRINCIPAL TECHNICAL ARCHITECT: none ANESTHESIA: spinal ESTIMATED BLOOD LOSS: 100 mL. COMPLICATIONS: None OPERATIVE FINDINGS: See dictation INDICATIONS: Ms. Villar is an 88 year old female with a history of comminuted left intertrochanteric fracture. She has a history of dementia, and a more recent history of anemia, renal failure, and hyperkalemia. She has been optimized over the last 24 hours and is now cleared for surgery. The patient presents to the operating room today for closed reduction and intramedullary nailing. I discussed the risks of surgery in detail as being inclusive of but not limited to: Bleeding, infection, scarring, discomfort, blood vessel and/or nerve damage, need for further surgery, malunion, nonunion, gait disturbance including persistent or permanent limp, limb length inequality, arthritis, hardware failure, blood clot, pulmonary embolism, , and other risks. The consent form has been signed. PROCEDURE: After appropriate consent was obtained, the patient was taken to the operating room and placed in supine position. Spinal anesthetic was administered and after confirmation of adequate anesthesia, the patient was carefully placed in the supine position on the operating room table in the fracture table. The patient was placed up against a well-padded peroneal post. Care was taken to make sure about that all pressure points were adequately padded. The affected leg was placed in boot traction and the unaffected leg was placed in a well leg hinton. Using gentle longitudinal distraction as well as adduction and internal rotation, the fracture was reduced as assessed by AP and lateral C-arm imaging. Once a satisfactory reduction had been obtained, the thigh was prepped and draped in the usual aseptic fashion using ChloraPrep. Ioban drape was used for the case and the patient received intravenous antibiotics prior to incision. Timeout was called, confirming patient identity, side, procedure, and administration of antibiotics. The incision was then created with a #10 blade just proximal to the greater trochanter laterally. It was carried down through skin into the subcutaneous tissues and through fascia. Hemostasis was obtained using electrocautery. The tip of the greater trochanter was palpated and a guide pin was placed at the tip and directed into the femoral shaft as assessed with C-arm imaging. Once optimal pin position had been obtained, a 17 mm reamer was used over the guide pin to create a path for the IT nail. IT nail selected was assembled to the insertion jig on the back table and bushings were checked for accuracy. The nail was then inserted using gentle mallet taps until it was fully deployed. The amount of rotation of the implant was assessed based on the amount of anteversion of the femoral neck. This was rotated to match the patient's femoral neck anteversion and the helical blade guide was placed through the insertion jig and through an incision on the lateral side of the thigh more distal than the first. Once this guide was placed against the lateral cortex of the femur, a guide pin was drilled into the central region of the femoral head and neck as based on AP and lateral C-arm imaging. Once optimal pin position had been obtained, the guide wire was measured and appropriately sized helical blade was selected. The path for the helical blade was prepared using a tapered reamer. The helical blade was then inserted using gentle mallet taps along the guidewire until it was fully deployed. There was no displacement of the fracture during this step. The anti- rotation screw was locked down and the insertion apparatus for the helical blade was removed. The guide pin was then removed. Traction was then removed from the leg and the distal interlock was placed through the jig using standard technique. Finally, the insertion jig for the nail was removed and final C-arm images were taken and saved in both AP and lateral planes. The final x-rays showed satisfactory positioning of the implant and good reduction of the fracture. The top of the nail was plugged with a small quantity of bone wax and the incisions were then thoroughly irrigated with normal saline. Final hemostasis was obtained using electrocautery and closure of the fascia was performed using 0-Vicryl suture. 2-0 Vicryl suture was used in the subcutaneous tissues and simone were used for the skin. Sterile dressing was then applied and the patient was carefully removed from the fracture table frame and placed onto the stretcher. The patient tolerated the procedure well. There were no complications and 100 cc of blood loss. The patient was then subsequently transferred to recovery room in stable condition. Sponge and needle counts were correct.
--- NOTE | 2018-12-31 17:35 | XR ---
PROCEDURE: XR Hip Limited LT - one view DATE AND TIME: 12/31/2018 5:04 PM CLINICAL INDICATION: PHH; POST OP TECHNIQUE: Department protocol COMPARISON: None FINDINGS: Left intertrochanteric mildly-displaced hip fracture redemonstrated. Orthopedic hardware position and alignment documented. Postprocedural changes appreciated. IMPRESSION: Postoperative AP view.
[2018-12-31] MEDS: amLODIPine 10 MG TAB PO SCH ×2 (18:04→18:26)
[2018-12-31 18:05] LABS: Glucose,Whole Blood 151 mg/dL (75-99)
[2018-12-31] MEDS: CINACALCET 30 MG TAB PO SCH (18:26)
[2018-12-31] MEDS: FERROUS SULFATE 325 MG TAB PO SCH (18:27)
[2018-12-31] MEDS: MULTIVITAMINS, THERA 1 EACH TAB PO SCH (18:27)
[2018-12-31] MEDS: ONDANSETRON 4 MG/2 ML VIAL IVP PRN (19:20)
[2018-12-31] MEDS: HYDROmorphone 0.5 MG/0.5 ML SYRINGE IVP PRN (19:46)
[2018-12-31 20:36] LABS: Glucose,Whole Blood 168 mg/dL (75-99)
[2018-12-31] MEDS: ATORVASTATIN 40 MG TAB PO SCH (20:47)
[2018-12-31] MEDS: SENNOSIDES-DOCUSATE SODIUM 1 EACH TAB PO SCH (20:47)
[2018-12-31] MEDS: HYDROcodone/APAP 5-325MG 1 EACH TAB PO PRN (20:49)
[2018-12-31] MEDS: ceFAZolin IN SWFI 2 GM/20 ML SYRINGE IVP SCH (23:12)
[2019-01-01] MEDS: HYDROmorphone 1 MG/ML 1 ML SYRINGE IVP PRN ×2 (01:58→19:29)
[2019-01-01] MEDS: HYDROcodone/APAP 5-325MG 1 EACH TAB PO PRN ×3 (05:36→17:47)
[2019-01-01] MEDS: FAMOTIDINE 20 MG TAB PO SCH (05:36)
[2019-01-01] MEDS: INSULIN ASPART (NovoLOG) 100 UNIT/ML VIAL SQ SCH ×4 (05:56→21:00)
[2019-01-01 06:02] LABS: Glucose,Whole Blood 124 mg/dL (75-99)
[2019-01-01 07:15] LABS: Calcium 8.9 mg/dL (8.4-10.2); Potassium 4.8 mmol/L (3.5-5.1)
[2019-01-01 07:36] LABS: Anisocytosis Slight; Basophils % (A) 0 %; Eosinophils # (A) 0.2 k/uL (0-0.7); Eosinophils % (A) 3 %; Lymphocytes # (A) 0.8 k/uL (1.0-4.8); Lymphocytes % (A) 10 %; MCH 31.6 pg (25.0-35.0); MCHC 32.4 g/dL (31.0-37.0); MCV 97.5 fL (80.0-100.0); Macrocytosis Slight; Mean Platelet Volume 7.7; Monocytes # (A) 0.7 k/uL (0-1.0); Monocytes % (A) 8 %; Neutrophils % (A) 76 %; Platelet Count 176 k/uL (150-450); RBC 1.63 m/uL (3.80-5.40); RDW 17.4 % (11.5-15.5); WBC 7.9 k/uL (3.8-10.6)
[2019-01-01 08:08] LABS: HGB 5.2 gm/dL (11.4-16.0)
[2019-01-01 08:10] LABS: HCT 15.9 % (34.0-46.0)
[2019-01-01] MEDS: hydrALAZINE HCL 50 MG TAB PO SCH ×2 (08:20→21:00)
[2019-01-01] MEDS: CARVEDILOL 12.5 MG TAB PO SCH ×2 (08:20→21:00)
[2019-01-01] MEDS: ALLOPURINOL 100 MG TAB PO SCH (08:20)
[2019-01-01] MEDS: CINACALCET 30 MG TAB PO SCH (08:20)
[2019-01-01] MEDS: amLODIPine 10 MG TAB PO SCH (08:20)
[2019-01-01] MEDS: CITALOPRAM HYDROBROMIDE 20 MG TAB PO SCH (08:20)
[2019-01-01] MEDS: ceFAZolin IN SWFI 2 GM/20 ML SYRINGE IVP SCH (08:20)
--- NOTE | 2019-01-01 09:31 | P.PN ---
Subjective Progress Note Date: 01/01/19 Seen and examined for the follow-up of acute kidney injury. No acute issues. Objective - Vital Signs Vital signs: Vital Signs Temp 98.5 F 01/01/19 07:55 Pulse 99 01/01/19 07:55 Resp 18 01/01/19 07:55 BP 146/66 01/01/19 07:55 Pulse Ox 100 01/01/19 07:55 Intake & Output 12/31/18 01/01/19 01/01/19 18:59 06:59 18:59 Intake Total 2000 840 Output Total 225 800 Balance 1776 -800 840 Weight 49 kg Intake: IV 2000 600 Dextrose 5% in Water 1, 150 000 ml @ 75 mls/hr IV . [id number] RIANA with Sodium Bicarb (1 Meq/ml) 150 ml Rx#:[id number] Sodium Chloride 0.9% 1, 450 600 000 ml @ 75 mls/hr IV . [id number] RIANA Rx#:[id number] Oral 0 240 Output: Urine 125 800 Estimated Blood Loss 100 Other: Voiding Method Indwelling Catheter Indwelling Catheter Indwelling Catheter # Voids 180 - Exam No acute distress S1-S2 heard Lungs clear Munguia catheter No edema - Labs CBC & Chem 7: 01/01/19 06:21 01/01/19 06:21 Labs: Abnormal Lab Results - Last 24 Hours (Table) 12/29/18 12/31/18 12/31/18 Range/Units 14:40 11:37 17:53 RBC (3.80-5.40) m/uL Hgb (11.4-16.0) gm/dL Hct (34.0-46.0) % RDW (11.5-15.5) % Lymphocytes # (1.0-4.8) k/uL Sodium (137-145) mmol/L BUN (7-17) mg/dL Creatinine (0.52-1.04) mg/dL Glucose (74-99) mg/dL POC Glucose (mg/dL) 131 H 151 H (75-99) mg/dL Crossmatch See Detail 12/31/18 01/01/19 01/01/19 Range/Units 20:25 05:56 06:21 RBC (3.80-5.40) m/uL Hgb (11.4-16.0) gm/dL Hct (34.0-46.0) % RDW (11.5-15.5) % Lymphocytes # (1.0-4.8) k/uL Sodium 131 L (137-145) mmol/L BUN 48 H (7-17) mg/dL Creatinine 3.13 H (0.52-1.04) mg/dL Glucose 105 H (74-99) mg/dL POC Glucose (mg/dL) 168 H 124 H (75-99) mg/dL Crossmatch 01/01/19 Range/Units 06:21 RBC 1.63 L (3.80-5.40) m/uL Hgb 5.2 L* D (11.4-16.0) gm/dL Hct 15.9 L* (34.0-46.0) % RDW 17.4 H (11.5-15.5) % Lymphocytes # 0.8 L (1.0-4.8) k/uL Sodium (137-145) mmol/L BUN (7-17) mg/dL Creatinine (0.52-1.04) mg/dL Glucose (74-99) mg/dL POC Glucose (mg/dL) (75-99) mg/dL Crossmatch Assessment and Plan Assessment: #1 acute kidney injury secondary to ischemic ATN. 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 #3 hyperkalemia resolved #4 status post intertrochanteric fracture with surgery #5 acute blood loss anemia #6 hypertension with chronic kidney disease Plan: #1 creatinine improving. Continue with IV fluids #2 maintain hemoglobin more than 8. Consider transfusion, check iron studies in the morning #3 avoid nephrotoxic agents and hypotensive episodes
--- NOTE | 2019-01-01 11:38 | P.PN ---
Subjective Progress Note Date: 01/01/19 This patient is an 88-year-old female with multiple medical comorbities that presented to [facility] ED on 12/29/18 due to a witnessed fall at [facility]. She was found to have a displaced intertrochanteric fracture of the left hip. The patient was admitted under the care of Dr. Hernandez for surgical intervention and care. Patient underwent a left hip intertrochanteric fracture closed reduction and intramedullary nailing with an IT nail on 12/31/[address] Hernandez. Today's postoperative day #1. The patient denies any significant pain in the left hip. She states she has not been up with physical therapy yet today. She is a poor historian. She has no new complaints. She denies chest pain, shortness of breath, nausea, vomiting, numbness or tingling of the left lower extremity. Hgb is 5.2 this morning, per nursing, PRBCs are ordered, per medicine, and patient is awaiting transfusion. Objective - Vital Signs Vital signs: Vital Signs Temp 98.5 F 01/01/19 07:55 Pulse 99 01/01/19 07:55 Resp 18 01/01/19 07:55 BP 146/66 01/01/19 07:55 Pulse Ox 100 01/01/19 07:55 Intake & Output 12/31/18 01/01/19 01/01/19 18:59 06:59 18:59 Intake Total 2000 1080 Output Total 225 800 Balance 1776 -800 1080 Weight 49 kg Intake: IV 2000 600 Dextrose 5% in Water 1, 150 000 ml @ 75 mls/hr IV . [id number] RIANA with Sodium Bicarb (1 Meq/ml) 150 ml Rx#:[id number] Sodium Chloride 0.9% 1, 450 600 000 ml @ 75 mls/hr IV . [id number] RIANA Rx#:[id number] Oral 0 480 Output: Urine 125 800 Estimated Blood Loss 100 Other: Voiding Method Indwelling Catheter Indwelling Catheter Indwelling Catheter # Voids 180 - Exam On exam, the patient is sitting up in bed in no acute distress. Patient is able to answer questions. On inspection of the left hip, there are two surgical dr essings in place which are clean, dry, and intact. Dressing is taken down, and the surgical incisions show no signs of infection; there is no erythema or drainage. Lower extremity compression cuffs in place. Calves are soft and nontender bilaterally. Patient has good motion of the left foot and ankle with no pain or issue. Neurovascular and circulatory status is intact of the left lower extremity. - Labs CBC & Chem 7: 01/01/19 06:21 01/01/19 06:21 Labs: Abnormal Lab Results - Last 24 Hours (Table) 12/29/18 12/31/18 12/31/18 Range/Units 14:40 11:37 17:53 RBC (3.80-5.40) m/uL Hgb (11.4-16.0) gm/dL Hct (34.0-46.0) % RDW (11.5-15.5) % Lymphocytes # (1.0-4.8) k/uL Sodium (137-145) mmol/L BUN (7-17) mg/dL Creatinine (0.52-1.04) mg/dL Glucose (74-99) mg/dL POC Glucose (mg/dL) 131 H 151 H (75-99) mg/dL Crossmatch See Detail 12/31/18 01/01/19 01/01/19 Range/Units 20:25 05:56 06:21 RBC (3.80-5.40) m/uL Hgb (11.4-16.0) gm/dL Hct (34.0-46.0) % RDW (11.5-15.5) % Lymphocytes # (1.0-4.8) k/uL Sodium 131 L (137-145) mmol/L BUN 48 H (7-17) mg/dL Creatinine 3.13 H (0.52-1.04) mg/dL Glucose 105 H (74-99) mg/dL POC Glucose (mg/dL) 168 H 124 H (75-99) mg/dL Crossmatch 01/01/19 Range/Units 06:21 RBC 1.63 L (3.80-5.40) m/uL Hgb 5.2 L* D (11.4-16.0) gm/dL Hct 15.9 L* (34.0-46.0) % RDW 17.4 H (11.5-15.5) % Lymphocytes # 0.8 L (1.0-4.8) k/uL Sodium (137-145) mmol/L BUN (7-17) mg/dL Creatinine (0.52-1.04) mg/dL Glucose (74-99) mg/dL POC Glucose (mg/dL) (75-99) mg/dL Crossmatch Assessment and Plan Assessment: Left hip intertrochanteric fracture status-post closed reduction and IT nail insertion on 12/31/[address] Hernandez. Post-operative day #1. Plan: - Toe-touch weight bearing of the left lower extremity. Up with therapy, up with a walker. - Hgb 5.7 post-operatively, patient is currently awaiting transfusion, per medicine. - Continue current pain management. Will defer post-operative anticoagulation to medicine. - 2 doses of post-operative antibiotics complete. - Physical therapy for gait and balance training. - Appreciate internal medicine consult for medical management. - Anticipate discharge to [facility].
[2019-01-01 12:13] LABS: Glucose,Whole Blood 162 mg/dL (75-99)
[2019-01-01] MEDS: SODIUM CHLORIDE 0.9% 1,000 ML IV SCH (12:30)
[2019-01-01] MEDS: MAGNESIUM HYDROXIDE 2,400 MG/10 ML CUP PO PRN (13:32)
--- NOTE | 2019-01-01 14:00 | FL ---
EXAMINATION TYPE: FL guidance operating room, XR Hip Complete LT DATE OF EXAM: 12/31/2018 CLINICAL HISTORY: Left hip arthroplasty TECHNIQUE: Fluoroscopy. COMPARISON: None. FINDINGS: Fluoroscopic guidance was provided during procedure performed by Dr. Hernandez. A total of 58 seconds of fluoroscopic time was utilized during the procedure and 1 spot images was acquired. IMPRESSION: As Above.
[2019-01-01 16:55] LABS: Glucose,Whole Blood 184 mg/dL (75-99)
[2019-01-01] MEDS: MULTIVITAMINS, THERA 1 EACH TAB PO SCH (17:13)
[2019-01-01] MEDS: FERROUS SULFATE 325 MG TAB PO SCH (17:13)
--- NOTE | 2019-01-01 17:37 | P.PN ---
Subjective Progress Note Date: 01/01/19 This is an 88-year-old female patient residing at [facility] is a long-term resident under the care of Dr. Guzmán with past mental history of diabetes mellitus type 2, chronic kidney disease stage III, gastroesophageal reflux disease, anemia of chronic disease, gout, hyper parathyroidism, hypertension, hyperlipidemia, recurrent depression, hydrocephalus status post shunt. Patient had a fall while in the bathroom at [facility] and developed pain in the left hip and head pain. She was transferred to [facility] emergency center for evaluation. CAT scan of the brain and C-spine showed shunted ventricles without hydrocephalus. Ventricles appear stable from comparison. No acute intracranial process. No acute osseous abnormality of the cervical spine. Chest x-ray shows mild cardiomegaly and chronic appearing changes. No definite acute process. Hip and pelvic x-ray showed angulated and mildly comminuted intratrochanteric fracture proximal left femur with lateral wall disruption. Initial lab work revealed sodium 128, potassium 7.1, BUN 67 creatinine 5.6 to, hemoglobin 8. The patient was admitted to the cardiac stepdown unit. We have subsequently added on consult for nephrology. 12/31: Patient has just undergone Hibiclens scrub for surgery which is scheduled for this afternoon. She is moaning in pain and an additional dose of IV Dilaudid will be given. Magnesium is 1.6 and will be replaced today. Blood sugars running between 153 and 234. Sodium 129, potassium 5.2, chloride 95, BUN 59 creatinine 3.73. Patient is been afebrile, blood pressure 140/64, heart rate 96, blood pressure 99% on room air. Patient has been seen by Dr. Casper and started bicarbonate drip yesterday which was ordered to be discontinued today and start normal saline at 75 mL per hour. Diuretics remain on hold. Iron studies in progress as well as serum osmolality, urine osmolality and urine sodium. Patient will be transferred to [facility] floor following surgery. Anticipate return to [facility] on Monday 01/01: Patient had left hip closed reduction and IM nailing for left intertrochanteric fracture estimated blood loss 100 mL through spinal anesthesia yesterday by Dr. Hernandez, hemoglobin dropped down to 5.2, 2 units of packed red blood cells ordered to be given lindsey, patient has chronic anemia,blood losses are most likely secondary to hematoma formation in the left hip, Hemoccult is negative, iron studies has been obtained, patient might need iron infusion, depending on iron studies Review of Systems Constitutional: Denies chills, reports fatigue, Denies fever, Denies malaise, reports poor appetite, reports weaknessDenies weight loss Eyes: denies blurred vision, denies pain Ears, nose, mouth and throat: Denies dysphagia, Denies headache, Denies sore throat, Denies vertigo Cardiovascular: Denies chest pain, Denies dyspnea on exertion, Denies edema, Denies leg edema, Denies lightheadedness, Denies orthopnea, Denies shortness of breath, Denies syncope Respiratory: Denies cough, Denies cough with sputum, Denies dyspnea, Denies excessive sputum, Denies hemoptysis, Denies home oxygen, Denies wheezing Gastrointestinal: Denies abdominal pain, Denies diarrhea, Denies nausea, Denies vomiting Genitourinary: Denies dysuria, Denies hematuria, Denies urinary frequency Musculoskeletal: Reports muscle weakness, Denies frequent falls, Denies gait dys function, Denies myalgias, reports pain right hip Integumentary: Denies pruritus, Denies rash, Denies wounds Neurological: Denies change in mentation, Denies change in speech, Denies numbness, Denies seizures, Denies weakness Psychiatric: Denies anxiety, Denies depression Endocrine: Denies fatigue, Denies weight change Objective - Vital Signs Vital signs: Vital Signs Temp 98.7 F 01/01/19 16:56 Pulse 87 01/01/19 16:56 Resp 18 01/01/19 16:56 BP 158/75 01/01/19 16:56 Pulse Ox 100 01/01/19 16:56 Intake & Output 12/31/18 01/01/19 01/01/19 18:59 06:59 18:59 Intake Total 2000 1969 Output Total 225 800 Balance 1776 -800 1969 Weight 49 kg Intake: IV 2000 600 Dextrose 5% in Water 1, 150 000 ml @ 75 mls/hr IV . [id number] [facility] with Sodium Bicarb (1 Meq/ml) 150 ml Rx#:[id number] Sodium Chloride 0.9% 1, 450 600 000 ml @ 75 mls/hr IV . [id number] [facility] Rx#:[id number] Oral 0 1060 Blood Product 310 Rc As-1 Unit 310 [id number] As-3 Unit 0 [id number] Output: Urine 125 800 Estimated Blood Loss 100 Other: Voiding Method Indwelling Catheter Indwelling Catheter Indwelling Catheter # Voids 180 - Constitutional General appearance: Present: cooperative, no acute distress - EENT Eyes: Present: anicteric sclerae, EOMI, PERRLA (pale conjunctiva), normal appearance ENT: Present: NA/AT, normal oropharynx - Neck Neck: Present: normal ROM - Respiratory Respiratory: bilateral: CTA, negative: diminished, dullness - Cardiovascular Rhythm: regular Heart sounds: normal: S1, S2 Abnormal Heart Sounds: Absent: systolic murmur, diastolic murmur, rub, S3 Gallop, S4 Gallop, click, other - Gastrointestinal General gastrointestinal: Present: normal bowel sounds, soft - Integumentary Integumentary: Present: decreased turgor, normal - Musculoskeletal Musculoskeletal Comment(s): left hip, swelling without any significantvisible bruise, however hematomais suspected incision is clean, surgical wound intact, Musculoskeletal: Present: strength equal bilaterally - Psychiatric Psychiatric: Present: A&O x's 3, appropriate affect, intact judgment & insight - Labs CBC & Chem 7: 01/01/19 06:21 01/01/19 06:21 Labs: Abnormal Lab Results - Last 24 Hours (Table) 12/29/18 12/31/18 12/31/18 Range/Units 14:40 17:53 20:25 RBC (3.80-5.40) m/uL Hgb (11.4-16.0) gm/dL Hct (34.0-46.0) % RDW (11.5-15.5) % Lymphocytes # (1.0-4.8) k/uL Sodium (137-145) mmol/L BUN (7-17) mg/dL Creatinine (0.52-1.04) mg/dL Glucose (74-99) mg/dL POC Glucose (mg/dL) 151 H 168 H (75-99) mg/dL Crossmatch See Detail 01/01/19 01/01/19 01/01/19 Range/Units 05:56 06:21 06:21 RBC 1.63 L (3.80-5.40) m/uL Hgb 5.2 L* D (11.4-16.0) gm/dL Hct 15.9 L* (34.0-46.0) % RDW 17.4 H (11.5-15.5) % Lymphocytes # 0.8 L (1.0-4.8) k/uL Sodium 131 L (137-145) mmol/L BUN 48 H (7-17) mg/dL Creatinine 3.13 H (0.52-1.04) mg/dL Glucose 105 H (74-99) mg/dL POC Glucose (mg/dL) 124 H (75-99) mg/dL Crossmatch 01/01/19 01/01/19 Range/Units 12:03 16:53 RBC (3.80-5.40) m/uL Hgb (11.4-16.0) gm/dL Hct (34.0-46.0) % RDW (11.5-15.5) % Lymphocytes # (1.0-4.8) k/uL Sodium (137-145) mmol/L BUN (7-17) mg/dL Creatinine (0.52-1.04) mg/dL Glucose (74-99) mg/dL POC Glucose (mg/dL) 162 H 184 H (75-99) mg/dL Crossmatch Assessment and Plan Plan: 1. Left intertrochanteric fracture of the left hip secondary to fall. Orthopedics planning for intertrochanteric nail of the left hip this afternoon. Continue current pain management 2. Acute kidney injury with hyperkalemia secondary to diuretic use and poor oral intake. Consult with Dr. Casper appreciated. Continue IV fluids 0.9 normal saline at 75 mL per hour. Bicarb drip has been discontinued. Diuretics on hold. Patient has been cleared by Dr. Casper for surgery once potassium is less than 5.5. Repeat lab work in the morning. 3. 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 Continue asabove, Aldactone has been discontinued and lisinopril has been discontinued, .surgeon bicarb drip was given, diuretics are on hold, 4. significant Anemia of chronic kidney disease with suspected blood loss is 2 contusion from the fall, Hemoccult-negative, 2 units packed red blood cells given 01/01/2019, iron studies to be done, might need iron infusion or Procrit. 5. Hypertension, hypertensive cardiovascular disease. Continue Coreg 25 mg twice daily, Norvasc 10 mg daily, hydralazine 50 mg twice daily. Hold spironolactone, chlorthalidone. 6. Diabetes mellitus type 2the complications. Continue insulin scale. 7. Hyperlipidemia. Continue Lipitor 40 mg at bedtime. 8. Gastroesophageal reflux disease and GI prophylaxis. Continue Pepcid. 9. Gout. Continue allopurinol 100 mg daily. 10. Hyperparathyroidism. Continue Sensipar 30 mg daily. 11. Recurrent depression. Continue citalopram 20 mg daily. 12. History of hydrocephalus status post shunt, stable. Discharge plan: Return to [facility] on Thursday.
[2019-01-01 20:13] LABS: Glucose,Whole Blood 127 mg/dL (75-99)
[2019-01-01] MEDS: SENNOSIDES-DOCUSATE SODIUM 1 EACH TAB PO SCH (20:59)
[2019-01-01] MEDS: HEPARIN SODIUM,PORCINE 5,000 UNIT/ML 1 ML VIAL SQ SCH (20:59)
[2019-01-01] MEDS: ATORVASTATIN 40 MG TAB PO SCH (21:06)
[2019-01-02] MEDS: SODIUM CHLORIDE 0.9% 1,000 ML IV SCH (01:27)
[2019-01-02] MEDS: HYDROmorphone 1 MG/ML 1 ML SYRINGE IVP PRN ×3 (01:50→12:07)
[2019-01-02 07:53] LABS: Anisocytosis Slight; HCT 24.4 % (34.0-46.0); MCH 32.3 pg (25.0-35.0); MCHC 33.8 g/dL (31.0-37.0); MCV 95.4 fL (80.0-100.0); Mean Platelet Volume 7.8; Platelet Count 168 k/uL (150-450); RBC 2.56 m/uL (3.80-5.40); RDW 16.2 % (11.5-15.5); WBC 8.8 k/uL (3.8-10.6)
[2019-01-02] MEDS: CITALOPRAM HYDROBROMIDE 20 MG TAB PO SCH (07:53)
[2019-01-02] MEDS: hydrALAZINE HCL 50 MG TAB PO SCH ×2 (07:53→22:20)
[2019-01-02] MEDS: HEPARIN SODIUM,PORCINE 5,000 UNIT/ML 1 ML VIAL SQ SCH ×2 (07:54→22:21)
[2019-01-02] MEDS: CARVEDILOL 12.5 MG TAB PO SCH ×2 (07:54→22:20)
[2019-01-02] MEDS: CINACALCET 30 MG TAB PO SCH (07:54)
[2019-01-02] MEDS: INSULIN ASPART (NovoLOG) 100 UNIT/ML VIAL SQ SCH ×4 (07:54→22:20)
[2019-01-02] MEDS: ALLOPURINOL 100 MG TAB PO SCH (07:54)
[2019-01-02] MEDS: FAMOTIDINE 20 MG TAB PO SCH (07:59)
[2019-01-02 08:06] LABS: HGB 8.3 gm/dL (11.4-16.0)
[2019-01-02 08:08] LABS: Calcium 8.2 mg/dL (8.4-10.2); Potassium 5.1 mmol/L (3.5-5.1)
[2019-01-02 08:12] LABS: Glucose,Whole Blood 143 mg/dL (75-99)
[2019-01-02] MEDS: amLODIPine 10 MG TAB PO SCH (09:36)
--- NOTE | 2019-01-02 10:17 | P.PN ---
Subjective Progress Note Date: 01/02/19 Seen and examined for the follow-up of acute kidney injury. No acute issues. Objective - Vital Signs Vital signs: Vital Signs Temp 98.3 F 01/02/19 05:00 Pulse 80 01/02/19 05:00 Resp 16 01/02/19 05:00 BP 171/73 01/02/19 05:00 Pulse Ox 96 01/02/19 05:00 Intake & Output 01/01/19 01/02/19 01/02/19 18:59 06:59 18:59 Intake Total 1970 1665 Output Total 980 Balance 1969 685 Intake: IV 600 Sodium Chloride 0.9% 1, 600 000 ml @ 75 mls/hr IV . [id number] [facility] Rx#:[id number] Intake, IV Titration 875 Amount Sodium Chloride 0.9% 1, 875 000 ml @ 75 mls/hr IV . [id number] [facility] Rx#:[id number] Oral 1060 480 Blood Product 310 310 Rc As-1 Unit 310 [id number] Rc As-3 Unit 0 310 [id number] Output: Urine 980 Other: Voiding Method Indwelling Catheter Indwelling Catheter Indwelling Catheter # Voids 180 - Exam No acute distress S1-S2 heard Lungs clear Munguia catheter No edema - Labs CBC & Chem 7: 01/02/19 07:26 01/02/19 07:26 Labs: Abnormal Lab Results - Last 24 Hours (Table) 12/29/18 01/01/19 01/01/19 Range/Units 14:40 12:03 16:53 RBC (3.80-5.40) m/uL Hgb (11.4-16.0) gm/dL Hct (34.0-46.0) % RDW (11.5-15.5) % Sodium (137-145) mmol/L BUN (7-17) mg/dL Creatinine (0.52-1.04) mg/dL Glucose (74-99) mg/dL POC Glucose (mg/dL) 162 H 184 H (75-99) mg/dL Calcium (8.4-10.2) mg/dL Crossmatch See Detail 01/01/19 01/02/19 01/02/19 Range/Units 20:12 07:26 07:26 RBC 2.56 L (3.80-5.40) m/uL Hgb 8.3 L D (11.4-16.0) gm/dL Hct 24.4 L (34.0-46.0) % RDW 16.2 H (11.5-15.5) % Sodium 128 L (137-145) mmol/L BUN 44 H (7-17) mg/dL Creatinine 2.58 H (0.52-1.04) mg/dL Glucose 121 H (74-99) mg/dL POC Glucose (mg/dL) 127 H (75-99) mg/dL Calcium 8.2 L (8.4-10.2) mg/dL Crossmatch 01/02/19 Range/Units 07:52 RBC (3.80-5.40) m/uL Hgb (11.4-16.0) gm/dL Hct (34.0-46.0) % RDW (11.5-15.5) % Sodium (137-145) mmol/L BUN (7-17) mg/dL Creatinine (0.52-1.04) mg/dL Glucose (74-99) mg/dL POC Glucose (mg/dL) 143 H (75-99) mg/dL Calcium (8.4-10.2) mg/dL Crossmatch Assessment and Plan Assessment: #1 acute kidney injury secondary to ischemic ATN. 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 #3 hyperkalemia resolved #4 status post intertrochanteric fracture with surgery #5 acute blood loss anemia #6 hypertension with chronic kidney disease Plan: #1 creatinine improving. Continue with IV fluids #2 maintain hemoglobin more than 8. Iron studies pending #3 avoid nephrotoxic agents and hypotensive episodes
[2019-01-02 11:03] LABS: Glucose,Whole Blood 177 mg/dL (75-99)
--- NOTE | 2019-01-02 13:36 | P.PN ---
Subjective Progress Note Date: 01/02/19 This patient is an 88-year-old female with multiple medical comorbities that presented to [facility] ED on 12/29/18 due to a witnessed fall at [facility]. She was found to have a displaced intertrochanteric fracture of the left hip. The patient was admitted under the care of Dr. Hernandez for surgical intervention and care. Patient underwent a left hip intertrochanteric fracture closed reduction and intramedullary nailing with an IT nail on 12/31/[address] Hernandez. Today's postoperative day #2. Patient does not answer questions bedside today. Per nursing, patient has not answered questions since being transferred to the unit. She was up with physical therapy today, with maximum assist. Per nursing, she has been receiving IV diluadid for pain control. Patient was transfused two units of packed red blood cells yesterday due to hemoglobin of 5.2, hemoglobin up to 8.3 today. Objective - Vital Signs Vital signs: Vital Signs Temp 97.3 F L 01/02/19 11:20 Pulse 80 01/02/19 12:03 Resp 18 01/02/19 12:03 BP 148/70 01/02/19 12:03 Pulse Ox 100 01/02/19 11:20 Intake & Output 01/01/19 01/02/19 01/02/19 18:59 06:59 18:59 Intake Total 1970 1665 600 Output Total 980 Balance 1969 685 600 Intake: IV 600 600 Sodium Chloride 0.9% 1, 600 600 000 ml @ 75 mls/hr IV . [id number] [facility] Rx#:[id number] Intake, IV Titration 875 Amount Sodium Chloride 0.9% 1, 875 000 ml @ 75 mls/hr IV . [id number] [facility] Rx#:[id number] Oral 1060 480 Blood Product 310 310 Rc As-1 Unit 310 [id number] Rc As-3 Unit 0 310 [id number] Output: Urine 980 Other: Voiding Method Indwelling Catheter Indwelling Catheter Indwelling Catheter # Voids 180 - Exam On exam, the patient is sitting up in bed in no acute distress. Patient is not answering questions. On inspection of the left hip, there are two surgical dressings in place which are clean, dry, and intact. Dressing is taken down, and the surgical incisions show no signs of infection; there is no erythema or drainage. Lower extremity compression cuffs in place. Calves are soft and nontender bilaterally. Dorsalis pedis pulse +2. Neurovascular and circulatory status is intact of the left lower extremity. - Labs CBC & Chem 7: 01/02/19 07:26 01/02/19 07:26 Labs: Abnormal Lab Results - Last 24 Hours (Table) 12/29/18 01/01/19 01/01/19 Range/Units 14:40 16:53 20:12 RBC (3.80-5.40) m/uL Hgb (11.4-16.0) gm/dL Hct (34.0-46.0) % RDW (11.5-15.5) % Sodium (137-145) mmol/L BUN (7-17) mg/dL Creatinine (0.52-1.04) mg/dL Glucose (74-99) mg/dL POC Glucose (mg/dL) 184 H 127 H (75-99) mg/dL Calcium (8.4-10.2) mg/dL Crossmatch See Detail 01/02/19 01/02/19 01/02/19 Range/Units 07:26 07:26 07:52 RBC 2.56 L (3.80-5.40) m/uL Hgb 8.3 L D (11.4-16.0) gm/dL Hct 24.4 L (34.0-46.0) % RDW 16.2 H (11.5-15.5) % Sodium 128 L (137-145) mmol/L BUN 44 H (7-17) mg/dL Creatinine 2.58 H (0.52-1.04) mg/dL Glucose 121 H (74-99) mg/dL POC Glucose (mg/dL) 143 H (75-99) mg/dL Calcium 8.2 L (8.4-10.2) mg/dL Crossmatch 01/02/19 Range/Units 11:01 RBC (3.80-5.40) m/uL Hgb (11.4-16.0) gm/dL Hct (34.0-46.0) % RDW (11.5-15.5) % Sodium (137-145) mmol/L BUN (7-17) mg/dL Creatinine (0.52-1.04) mg/dL Glucose (74-99) mg/dL POC Glucose (mg/dL) 177 H (75-99) mg/dL Calcium (8.4-10.2) mg/dL Crossmatch Assessment and Plan Assessment: Left hip intertrochanteric fracture status-post closed reduction and IT nail insertion on 12/31/[address] Hernandez. Post-operative day #2. Plan: - Toe-touch weight bearing of the left lower extremity. Up with therapy, up with a walker. - Internal medicine notified of patient's change in status today. Per medicine, code stroke has been initiated. - Continue current pain management. Will defer post-operative anticoagulation to medicine. - 2 doses of post-operative antibiotics complete. - Physical therapy for gait and balance training. - Appreciate internal medicine consult for medical management. - Anticipate discharge to [facility].
--- NOTE | 2019-01-02 14:24 | CT ---
EXAMINATION TYPE: CT brain wo con for TPA DATE OF EXAM: 01/02/2019 COMPARISON: 12/29/2018 HISTORY: 88-year-old female confusion, altered mental status TECHNIQUE: Examination was done in axial plane without intravenous contrast. Coronal and sagittal r econstructions performed. CT DLP: 1064.2 mGycm Automated exposure control for dose reduction was used. FINDINGS: There Mild generalized supratentorial volume loss and moderate patchy white matter hypodensities in both ce rebral hemispheres appear unchanged. Left thalamic hypodensity also unchanged. Prominent streak and beam hardening artifact from patient's right-sided shunt. The [facility] [employer]ATIONS REPRESENTATIVE shunt catheter's tip is in the anterior third ventricle region. Allowing for streak artifact limitations, there is no evidence of acute intracranial hemorrhage, acu te ischemic changes, mass, mass-effect, or extra-axial fluid collection. There is no effacement of c erebral sulci or basal subarachnoid cisterns. There is no hydrocephalus. There is no midline shift. [place]-white matter distinction is preserved. Paranasal sinuses and mastoid air cells are well pneumatized. IMPRESSION: No large vascular territory infarct or definite acute intracranial hemorrhage is seen allowing for mi ld artifacts related to the patient's right frontal approach PASS[employer]GER [employer]ATIONS REPRESENTATIVE shunt catheter. Follow-up CT or MRI i f indicated.
--- NOTE | 2019-01-02 15:17 | CT ---
EXAMINATION TYPE: CT angio head neck DATE OF EXAM: 01/02/2019 COMPARISON: Correlation CT same day HISTORY: 88-year-old female with confusion, possible stroke, altered mental status TECHNIQUE: Contiguous axial scanning of the head and neck performed with IV Contrast, patient injecte d with 50 mL of Isovue 370. Coronal/sagittal MIP reconstructions performed. 3-D reconstructions gener ated on a dedicated independent workstation. CT DLP: 197.6 mGycm Automated exposure control for dose reduction was used. FINDINGS: Neck: Emphysematous change in the visualized upper lungs. Moderate atherosclerotic arch calcifications. Arch vessel origins are excluded from the [id number] . There seems to be variant direct takeoff of the left vertebral artery directly from the aortic arch . There may be severe atherosclerotic calcifications at the left vertebral artery origin. [id number] atherosclerotic narrowing at the origin of the right vertebral artery. Additional variant anatomy with both common carotid arteries arising from the brachiocephalic artery. Scattered mild atherosclerotic calcifications in the right common carotid artery, more moderate at th e carotid bifurcation ON short segment focal severe atherosclerotic narrowing approximately 70% at th e distal bulb, located 1.6 cm above the bifurcation. The bifurcation occurs approximately 1 cm below the angle of mandible. Scattered mild atherosclerotic calcifications left common carotid artery and more moderate at the car otid bifurcation. Moderate to severe prostatic calcifications in the left carotid bulb with focal severe, greater than 70% narrowing at the upper carotid bulb located 1.3 cm above the bifurcation. The bifurcation occurs approximately 1 cm below the angle of mandible. Head: Moderate atherosclerotic calcifications at the bilateral carotid siphons. There is a short segment fenestration of the V4 segment left vertebral artery and mild focal narrowin g just beyond, refer to sagittal images 37 and 39. Scattered moderate atherosclerotic irregularity and scattered narrowing of both anterior and posterio r circulation vessels but no large vessel intracranial arterial occlusion seen. No aneurysmal changes identified. IMPRESSION: NECK: 1. VARIANT ANATOMY WITH LEFT VERTEBRAL ARTERY HAVING A DIRECT TAKEOFF FROM THE AORTIC ARCH. THERE MAY BE A SEVERE ATHEROSCLEROTIC STENOSIS AT THE VESSEL ORIGIN. 2. 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 3. MODERATE TO SEVERE ATHEROSCLEROTIC CALCIFICATIONS AT BOTH CAROTID BULBS WITH FOCAL 70% OR GREATER STENOSES AT THE BILATERAL DISTAL BULBS/PROXIMAL ICA's. HEAD: 1. THERE APPEARS TO BE A SHORT SEGMENT FENESTRATION OF THE LEFT VERTEBRAL ARTERY. 2. OTHERWISE, THERE IS MODERATE ATHEROSCLEROTIC IRREGULARITY AND NARROWING OF BOTH POSTERIOR AND ANTE RIOR CIRCULATIONS. 3. NO LARGE VESSEL INTRACRANIAL ARTERIAL OCCLUSION OR ANEURYSMAL CHANGE IDENTIFIED.
--- NOTE | 2019-01-02 16:21 | P.PN ---
Subjective Progress Note Date: 01/02/19 This is an 88-year-old female patient residing at [facility] is a long-term resident under the care of Dr. Guzmán with past mental history of diabetes mellitus type 2, chronic kidney disease stage III, gastroesophageal reflux disease, anemia of chronic disease, gout, hyper parathyroidism, hypertension, hyperlipidemia, recurrent depression, hydrocephalus status post shunt. Patient had a fall while in the bathroom at [facility] and developed pain in the left hip and head pain. She was transferred to [facility] emergency center for evaluation. CAT scan of the brain and C-spine showed shunted ventricles without hydrocephalus. Ventricles appear stable from comparison. No acute intracranial process. No acute osseous abnormality of the cervical spine. Chest x-ray shows mild cardiomegaly and chronic appearing changes. No definite acute process. Hip and pelvic x-ray showed angulated and mildly comminuted intratrochanteric fracture proximal left femur with lateral wall disruption. Initial lab work revealed sodium 128, potassium 7.1, BUN 67 creatinine 5.6 to, hemoglobin 8. The patient was admitted to the cardiac stepdown unit. We have subsequently added on consult for nephrology. 12/31: Patient has just undergone Hibiclens scrub for surgery which is scheduled for this afternoon. She is moaning in pain and an additional dose of IV Dilaudid will be given. Magnesium is 1.6 and will be replaced today. Blood sugars running between 153 and 234. Sodium 129, potassium 5.2, chloride 95, BUN 59 creatinine 3.73. Patient is been afebrile, blood pressure 140/64, heart rate 96, blood pressure 99% on room air. Patient has been seen by Dr. Casper and started bicarbonate drip yesterday which was ordered to be discontinued today and start normal saline at 75 mL per hour. Diuretics remain on hold. Iron studies in progress as well as serum osmolality, urine osmolality and urine sodium. Patient will be transferred to [facility] floor following surgery. Anticipate return to [facility] on Monday 01/01: Patient had left hip closed reduction and IM nailing for left intertrochanteric fracture estimated blood loss 100 mL through spinal anesthesia yesterday by Dr. Hernandez, hemoglobin dropped down to 5.2, 2 units of packed red blood cells ordered to be given lindsey, patient has chronic anemia,blood losses are most likely secondary to hematoma formation in the left hip, Hemoccult is negative, iron studies has been obtained, patient might need iron infusion, depending on iron studies 01/02:, Nursing staff was concerned about patient's condition, since midnight, patient is requiring more assistance including feedings, which is new compared to her baseline which is independent to feedings, and 1 person standby on ambulation. Nursing staff has spoken to me early these afternoon around 1 p.m. today, that the patient requires a dysphagia 2 diet, which is new compared to her baseline at [facility]. Patient was there after monitored through a cold stroke, consults were done with telemetry neurology, with no recommendations for TPA, CAT scan of the brain will be done along with carotid imaging studies. Creatinine is elevated, precludes to study using contrast dye. Upon my evaluation, patient can follow verbal commands, has limited verbal responses, can answer to name and date of , and can follow commands, however patient cannot lift lower extremities bilaterally. Patient has good strength in supervisor hydrochloric area and upper extremities. Cranial nerves are okay without any ocular deficits, no facial symmetry, speech is clear, patient oriented 1. There is no neurology online journalist for this weekend except for tele-neurology patient started on aspirin, statin, troponins to be done, carotid Dopplers EEG of the brain, we will discontinue all narcotics, use Tylenol for pain, unable to get NSAIDs Review of Systems Constitutional: Denies chills, reports fatigue, Denies fever, Denies malaise, reports poor appetite, reports weaknessDenies weight loss Eyes: denies blurred vision, denies pain Ears, nose, mouth and throat: Denies dysphagia, Denies headache, Denies sore throat, Denies vertigo Cardiovascular: Denies chest pain, Denies dyspnea on exertion, Denies edema, Denies leg edema, Denies lightheadedness, Denies orthopnea, Denies shortness of breath, Denies syncope Respiratory: Denies cough, Denies cough with sputum, Denies dyspnea, Denies excessive sputum, Denies hemoptysis, Denies home oxygen, Denies wheezing Gastrointestinal: Denies abdominal pain, Denies diarrhea, Denies nausea, Denies vomiting Genitourinary: Denies dysuria, Denies hematuria, Denies urinary frequency Musculoskeletal: Reports muscle weakness, Denies frequent falls, Denies gait dysfunction, Denies myalgias, reports pain right hip Integumentary: Denies pruritus, Denies rash, Denies wounds Neurological: Denies change in mentation, Denies change in speech, Denies numbness, Denies seizures, Denies weakness Psychiatric: Denies anxiety, Denies depression Endocrine: Denies fatigue, Denies weight change Objective - Vital Signs Vital signs: Vital Signs Temp 98.3 F 01/02/19 05:00 Pulse 80 01/02/19 05:00 Resp 16 01/02/19 05:00 BP 171/73 01/02/19 05:00 Pulse Ox 96 01/02/19 05:00 Intake & Output 01/01/19 01/02/19 01/02/19 18:59 06:59 18:59 Intake Total 1970 1665 Output Total 980 Balance 1970 685 Intake: IV 600 Sodium Chloride 0.9% 1, 600 000 ml @ 75 mls/hr IV . [id number] [facility] Rx#:[id number] Intake, IV Titration 875 Amount Sodium Chloride 0.9% 1, 875 000 ml @ 75 mls/hr IV . [id number] [facility] Rx#:[id number] Oral 1060 480 Blood Product 310 310 Rc As-1 Unit 310 [id number] Rc As-3 Unit 0 310 [id number] Output: Urine 980 Other: Voiding Method Indwelling Catheter Indwelling Catheter Indwelling Catheter # Voids 180 - Constitutional General appearance: Present: cooperative, no acute distress - EENT Eyes: Present: anicteric sclerae, EOMI, poor dentition, normal appearance ENT: Present: NA/AT - Neck Neck: Present: normal ROM - Respiratory Respiratory: bilateral: CTA, negative: diminished, dullness - Cardiovascular Rhythm: regular Heart sounds: normal: S1, S2 Abnormal Heart Sounds: Absent: systolic murmur, diastolic murmur, rub, S3 Gallop, S4 Gallop, click, other - Gastrointestinal General gastrointestinal: Present: soft - Musculoskeletal Musculoskeletal: Present: strength equal bilaterally (Upper extremity unable to elevate lower extremity on command) - Psychiatric Psychiatric Comment(s): Oriented 1 speech is clear, simple sentences to his sentences, no facial droop - Labs CBC & Chem 7: 01/02/19 07:26 01/02/19 07:26 Labs: Abnormal Lab Results - Last 24 Hours (Table) 12/29/18 01/01/1901/01/19 Range/Units 14:40 12:03 16:53 RBC (3.80-5.40) m/uL Hgb (11.4-16.0) gm/dL Hct (34.0-46.0) % RDW (11.5-15.5) % Sodium (137-145) mmol/L BUN (7-17) mg/dL Creatinine (0.52-1.04) mg/dL Glucose (74-99) mg/dL POC Glucose (mg/dL) 162 H 184 H (75-99) mg/dL Calcium (8.4-10.2) mg/dL Crossmatch See Detail 01/01/19 01/02/19 01/02/19 Range/Units 20:12 07:26 07:26 RBC 2.56 L (3.80-5.40) m/uL Hgb 8.3 L D (11.4-16.0) gm/dL Hct 24.4 L (34.0-46.0) % RDW 16.2 H (11.5-15.5) % Sodium 128 L (137-145) mmol/L BUN 44 H (7-17) mg/dL Creatinine 2.58 H (0.52-1.04) mg/dL Glucose 121 H (74-99) mg/dL POC Glucose (mg/dL) 127 H (75-99) mg/dL Calcium 8.2 L (8.4-10.2) mg/dL Crossmatch 01/02/19 01/02/19 Range/Units 07:52 11:01 RBC (3.80-5.40) m/uL Hgb (11.4-16.0) gm/dL Hct (34.0-46.0) % RDW (11.5-15.5) % Sodium (137-145) mmol/L BUN (7-17) mg/dL Creatinine (0.52-1.04) mg/dL Glucose (74-99) mg/dL POC Glucose (mg/dL) 143 H 177 H (75-99) mg/dL Calcium (8.4-10.2) mg/dL Crossmatch Assessment and Plan Plan: 1. Left intertrochanteric fracture of the left hip secondary to fall. Orthoped ics planning for intertrochanteric nail of the left hip this afternoon. Continue current pain management 2. Acute kidney injury with hyperkalemia secondary to diuretic use and poor oral intake. Consult with Dr. Casper appreciated. Continue IV fluids 0.9 normal saline at 75 mL per hour. Bicarb drip has been discontinued. Diuretics on hold. Patient has been cleared by Dr. Casper for surgery once potassium is less than 5.5. Repeat lab work in the morning. 3. Acute encephalopathy, without and diminished motor responses, suspect TIA cannot rule out CVA, patient has declined from baseline, now requiring 1-1 feeding assistance, PT has been following patient, we'll going to add OT pat ient, and speech evaluation. EEG of the brain to be done, CAT scan of the brain failed to reveal any acute focal deficits, carotid Dopplers to be done, discontinue opiate narcotics use Tylenol for pain patient cannot undergo MRI of the brain secondary to recent orthopedic surgery requiring metal implants start asa cont lipitor 4. Mild hyponatremia, patient is being followed closely by nephrology, on 0.9 saline 5 Elevated troponin, echocardiogram to be done, cardiology to see EKG requested 3 sets of cardiac biomarkers 3. 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 Continue asabove, Aldactone has been discontinued and lisinopril has been discontinued, .surgeon bicarb drip was given, diuretics are on hold, 4. significant Anemia of chronic kidney disease with suspected blood loss is 2 contusion from the fall, Hemoccult-negative, 2 units packed red blood cells given 01/01/2019, iron studies to be done, might need iron infusion or Procrit. 5. Hypertension, hypertensive cardiovascular disease. Continue Coreg 25 mg twice daily, Norvasc 10 mg daily, hydralazine 50 mg twice daily. Hold spironolactone, chlorthalidone. 6. Diabetes mellitus type 2the complications. Continue insulin scale. 7. Hyperlipidemia. Continue Lipitor 40 mg at bedtime. 8. Gastroesophageal reflux disease and GI prophylaxis. Continue Pepcid. 9. Gout. Continue allopurinol 100 mg daily. 10. Hyperparathyroidism. Continue Sensipar 30 mg daily. 11. Recurrent depression. Continue citalopram 20 mg daily. 12. History of hydrocephalus status post shunt, stable. Discharge plan: Return to [facility] on Thursday or Thursday once neurologically stable.
[2019-01-02 17:35] LABS: Glucose,Whole Blood 109 mg/dL (75-99)
[2019-01-02] MEDS: FERROUS SULFATE 325 MG TAB PO SCH (18:35)
[2019-01-02] MEDS: MULTIVITAMINS, THERA 1 EACH TAB PO SCH (18:35)
[2019-01-02] MEDS ORDERED: hydrALAZINE HCL 20 MG/ML 1 ML VIAL IVP PRN (19:05)
[2019-01-02 20:55] LABS: Glucose,Whole Blood 143 mg/dL (75-99)
[2019-01-02] MEDS: SENNOSIDES-DOCUSATE SODIUM 1 EACH TAB PO SCH (22:20)
[2019-01-02] MEDS: ATORVASTATIN 40 MG TAB PO SCH (22:20)
[2019-01-03 05:46] LABS: Glucose,Whole Blood 128 mg/dL (75-99)
[2019-01-03] MEDS: INSULIN ASPART (NovoLOG) 100 UNIT/ML VIAL SQ SCH ×4 (08:20→21:03)
[2019-01-03] MEDS: FAMOTIDINE 20 MG TAB PO SCH (08:21)
--- NOTE | 2019-01-03 08:30 | P.PN ---
Subjective Progress Note Date: 01/03/19 Principal diagnosis: Intertrochanteric fracture left hip. Anemia. Multiple medical comorbidities. Possible TIA. This is an 88-year-old female who we're following regarding her inte rtrochanteric fracture left hip. She had a suspected TIA over the weekend. She is stable from orthopedic standpoint at this time. She has no new complaints or concerns today. Vital signs are stable. Hemoglobin is up to 8.2. Objective - Vital Signs Vital signs: Vital Signs Temp 98.5 F 01/03/19 04:00 Pulse 83 01/03/19 04:00 Resp 17 01/03/19 04:00 BP 173/72 01/03/19 04:00 Pulse Ox 99 01/03/19 04:00 Intake & Output 01/02/19 01/03/19 01/03/19 18:59 06:59 18:59 Intake Total 600 Output Total 300 1200 Balance 300 -1200 Intake: IV 600 Sodium Chloride 0.9% 1, 600 000 ml @ 75 mls/hr IV . [id number] Rx#:[id number] Output: Urine 300 1200 Other: Voiding Method Indwelling Catheter Indwelling Catheter - Exam This is an 88-year-old female in no acute distress. She is alert but confused. She will follow verbal commands on exam. Exam of the left hip reveals that her dressing is clean, dry and intact. She is able to wiggle toes. Pedal pulses are +1/4 bilaterally. Neurovascular status to the lower extremities is intact. - Labs CBC & Chem 7: 01/02/19 07:26 01/02/19 07:26 Labs: Abnormal Lab Results - Last 24 Hours (Table) 01/02/19 01/02/19 01/02/19 Range/Units 11:01 14:09 17:32 POC Glucose (mg/dL) 177 H 109 H (75-99) mg/dL Troponin I 0.070 H* (0.000-0.034) ng/mL 01/02/19 01/02/19 01/03/19 Range/Units 19:46 20:54 01:55 POC Glucose (mg/dL) 143 H (75-99) mg/dL Troponin I 0.054 H* 0.059 H* (0.000-0.034) ng/mL 01/03/19 Range/Units 05:45 POC Glucose (mg/dL) 128 H (75-99) mg/dL Troponin I (0.000-0.034) ng/mL Assessment and Plan (1) Acute renal failure Current Visit: Yes Status: Acute Code(s): N17.9 - ACUTE KIDNEY FAILURE, UNSPECIFIED SNOMED Code(s): 31336203 (2) Anemia Current Visit: Yes Status: Acute Code(s): D64.9 - ANEMIA, UNSPECIFIED SNOMED Code(s): 593445642 (3) Fall Current Visit: Yes Status: Acute Code(s): W19.XXXA - UNSPECIFIED FALL, INITIAL ENCOUNTER SNOMED Code(s): 2879447 (4) Hyperkalemia Current Visit: Yes Status: Acute Code(s): E87.5 - HYPERKALEMIA SNOMED Code(s): 39267778 (5) Trochanteric fracture of left femur Current Visit: Yes Status: Acute Code(s): S72.102A - UNSP TROCHANTERIC FRACTURE OF LEFT FEMUR, INIT FOR CLOS FX SNOMED Code(s): 92530480 Plan: The clinical findings are discussed with the patient and her nurse. I recommend transferring care to internal medicine. She may be discharged from an orthopedic standpoint. She is to follow-up in 3 weeks for x-ray and evaluation. Skin clips may be removed 2 weeks postoperatively. She is toe-touch weightbearing to the left lower extremity.
[2019-01-03] MEDS: CINACALCET 30 MG TAB PO SCH (08:48)
[2019-01-03] MEDS: hydrALAZINE HCL 50 MG TAB PO SCH ×2 (08:48→21:02)
[2019-01-03] MEDS: CARVEDILOL 12.5 MG TAB PO SCH ×2 (08:48→21:02)
[2019-01-03] MEDS: amLODIPine 10 MG TAB PO SCH (08:48)
[2019-01-03] MEDS: CITALOPRAM HYDROBROMIDE 20 MG TAB PO SCH (08:48)
[2019-01-03] MEDS: ALLOPURINOL 100 MG TAB PO SCH (08:48)
[2019-01-03] MEDS: HEPARIN SODIUM,PORCINE 5,000 UNIT/ML 1 ML VIAL SQ SCH ×2 (08:49→21:03)
[2019-01-03 09:25] LABS: Anisocytosis Slight; Basophils % (A) 0 %; Eosinophils # (A) 0.3 k/uL (0-0.7); Eosinophils % (A) 3 %; HCT 24.4 % (34.0-46.0); HGB 8.2 gm/dL (11.4-16.0); Lymphocytes # (A) 0.6 k/uL (1.0-4.8); Lymphocytes % (A) 8 %; MCH 32.5 pg (25.0-35.0); MCHC 33.5 g/dL (31.0-37.0); MCV 96.9 fL (80.0-100.0); Mean Platelet Volume 7.4; Monocytes # (A) 0.6 k/uL (0-1.0); Monocytes % (A) 8 %; Neutrophils # (A) 5.7 k/uL (1.3-7.7); Neutrophils % (A) 78 %; Platelet Count 199 k/uL (150-450); RBC 2.51 m/uL (3.80-5.40); RDW 16.3 % (11.5-15.5); WBC 7.4 k/uL (3.8-10.6)
[2019-01-03 09:29] LABS: Potassium 5.1 mmol/L (3.5-5.1)
[2019-01-03] MEDS: CLOPIDOGREL 75 MG TAB PO SCH (11:28)
[2019-01-03] MEDS: ACETAMINOPHEN TAB 500 MG TAB PO SCH ×3 (11:28→23:24)
[2019-01-03] MEDS: SODIUM CHLORIDE 0.9% 1,000 ML IV SCH ×3 (11:33→19:09)
[2019-01-03 11:40] LABS: Glucose,Whole Blood 136 mg/dL (75-99)
--- NOTE | 2019-01-03 13:51 | P.CNNES ---
History of Present Illness Consult date: 01/03/19 Requesting physician: Jen Roe Reason for Consult: AMS Chief complaint: Patient cannot provide meaningful history History of Present Illness: This is an 88 yo female h/o HTN, DM, HL and hydrocephalus s/p shunt who sustained a fall and found to have a left hip fracture. She did undergo hip medina rgery while hospitalized. Neurology was consulted because she was noted to be requiring more assistance with feeding and BLE weakness. In fact, a code stroke was called. CT Head showed nil acute. CTA Head/Neck shows possibly severe atherosclerotic stenosis at the origin of the left vertebral artery, moderate to severe atherosclerotic calcifications at both carotid bulbs with focal 70 or greater stenosis at the bilateral distal bulb/proximal internal carotid arteries. Intracranially, there is a short segment fenestration of the left vertebral artery, moderate atherosclerotic irregularity and narrowing of the both posterior and anterior circulations but no evidence of large vessel occlusion. No acute vascular intervention was recommended. She was started on aspirin and statin therapy. She has been receiving pain meds due to her orthopedic issues. No witnessed seizure-like activity. Patient cannot provide any meaningful history. My historical information was obtained by reviewing available medical records in patient's chart and discussing the case with nursing staff and the primary team. Review of Systems Unable to obtain due to AMS. Past Medical History Past Medical History: Heart Failure, Dementia, Diabetes Mellitus, Eye Disorder, GERD/Reflux, Hypertension, Memory Impairment, Renal Disease Additional Past Medical History / Comment(s): macular degeneration, incont of urine wears a depends, occ gout, past fall, concussion History of Any Multi-Drug Resistant Organisms: None Reported Past Surgical History: Orthopedic Surgery Additional Past Surgical History / Comment(s): Rt Shoulder, "brain shunt", lesion on labia removed. Past Anesthesia/Blood Transfusion Reactions: No Reported Reaction Past Psychological History: No Psychological Hx Reported Additional Psychological History / Comment(s): pt lives at [facility]. has [employer] system. has caregivers 2 times a day and is in [employer] program that provides activities. pt has a walker, shower chair. Smoking Status: Former smoker Past Alcohol Use History: None Reported Additional Past Alcohol Use History / Comment(s): started smoking at age 17, quit 2014. a pack would last 1 week. no alcohol now. Past Drug Use History: None Reported - Past Family History Mother History Unknown: Yes Additional Family Medical History / Comment(s): Patient does not know her mother's medical history. Father Additional Family Medical History / Comment(s): " young- had heart disease Brother(s) Additional Family Medical History / Comment(s): Patient has one brother and patient does not know his history. Patient does not have any sisters. Patient has 2 children. Medications and Allergies Home Medications Medication Instructions Recorded Confirmed Type amLODIPine BESYLATE [Norvasc] 10 mg PO DAILY@0800 02/21/12/29/18 History Multivitamins, Thera [Multivitamin 1 tab PO DAILY@1700 01/23/16 12/29/18 History (formulary)] Citalopram Hydrobromide [CeleXA] 20 mg PO DAILY@0800 01/08/18 12/29/18 History Oxybutynin Chloride [Ditropan] 5 mg PO HS 09/06/18 12/29/18 History Acetaminophen Tab [Tylenol] 650 mg PO Q4H PRN 12/29/18 12/29/18 History Allopurinol [Zyloprim] 100 mg PO DAILY@0800 12/29/18 12/29/18 History Atorvastatin [Lipitor] 40 mg PO HS@209912/29/18 12/29/18 History Bisacodyl [Dulcolax] 10 mg RECTAL DAILY PRN 12/29/18 12/29/18 History Carvedilol [Coreg] 25 mg PO BID@0800,2100 12/29/18 12/29/18 History Chlorthalidone 25 mg PO DAILY@0812/29/18 12/29/18 History Cinacalcet [Sensipar] 30 mg PO DAILY@0800 12/29/18 12/29/18 History Famotidine 20 mg PO DAILY@0700 12/29/18 12/29/18 History Ferrous Sulfate [Feosol] 325 mg PO DAILY@1700 12/29/18 12/29/18 History INSULIN LISPRO (HumaLOG) [HumaLOG] See Protocol SQ ACHS 12/29/18 12/29/18 History Lactose-Reduced Food [Ensure Plus] 1 can PO DAILY@0800 12/29/18 12/29/18 History Lisinopril [Zestril] 20 mg PO BID@0800,2100 12/29/18 12/29/18 History Magnesium Hydroxide [Milk of 2,400 mg PO DAILY PRN 12/29/18 12/29/18 History Magnesia] Menthol-Zinc Oxide Oint 1 applic TOPICAL Q12H PRN 12/29/18 12/29/18 History [Calmoseptine Oint] Na Phos,M-B/Na Phos,Di-Ba [Fleet 133 ml RECTAL DAILY PRN 12/29/18 12/29/18 History Adult] Spironolactone 50 mg PO DAILY@0800 12/29/18 12/29/18 History hydrALAZINE HCL [Apresoline] 50 mg PO BID@0800,2100 12/29/18 12/29/18 History HYDROcodone/APAP 5-325MG [[place] 1 - 2 each PO Q4-6H PRN #50 tab 01/03/19 Rx 5-325] Allergies Allergy/AdvReac Type Severity Reaction Status Date / Time aspirin Allergy Unknown Verified 12/29/18 13:34 milk AdvReac Unknown Verified 12/29/18 13:34 Physical Examination - Vital Signs Vital Signs: Vital Signs Temp Pulse Pulse Resp BP Pulse Ox 01/03/19 08:00 82 01/03/19 04:00 98.5 F 83 17 173/72 99 01/03/19 00:00 97.9 F 74 74 17 159/94 95 01/02/19 20:05 98.2 F 88 17 171/74 100 01/02/19 20:00 87 16 01/02/19 16:55 87 16 Intake and Output 01/02/19 01/03/19 01/03/19 22:59 06:59 14:59 Intake Total 440 Output Total 300 1200 75 Balance -300 -1200 365 Intake: Oral 440 Output: Urine 300 1200 75 Uretheral ([place]) 75 Other: Voiding Method Indwelling Catheter Indwelling Catheter Indwelling Catheter Weight 49 kg Gen NAD HEENT NCAT Sclera without icterus O/P clear Neck Supple no carotid bruit Cor RRR no m/r/g Lungs Coarse BS bilaterally Abd Soft NTND +BS Ext Warm to touch No edema Neuro MS GCS [id number] Able to squeeze and release hand and wiggle toes on command and give thumbs up Able to state name but otherwise not oriented to place or time Scant verbal output CN PERRL Blinks to threat bilaterally +Corneal's +Grimace to nostril stim bilaterally +Gag Motor Normal bulk Bilateral [place] No tremors, asterixis, myoclonus or other adventitious movements MCKENZIE x4 Sens W/D to nailbed stim x4 No obvious neglect Coord Cannot test due to AMS DTRs 2+/4 sym throughout Toes downgoing bilaterally No ankle clonus Gait Cannot test due to AMS Results - Laboratory Findings CBC and BMP: 01/03/19 08:17 01/03/19 08:17 Abnormal Lab Findings: Abnormal Labs 12/29/18 12/29/18 12/29/18 14:40 14:40 14:40 RBC 2.54 L Hgb 8.0 L Hct 24.8 L RDW 17.2 H Lymphocytes # 0.9 L Sodium 128 L Potassium 7.1 H* Chloride Carbon Dioxide 13 L BUN 67 H Creatinine 5.62 H Glucose 148 H POC Glucose (mg/dL) Calcium AST 11 L Troponin I Urine Protein Crossmatch See Detail 12/29/18 12/29/18 12/30/18 15:57 15:57 05:55 RBC 2.18 L Hgb 7.2 L Hct 21.3 L RDW 17.2 H Lymphocytes # 0.9 L Sodium Potassium 7.0 H* Chloride Carbon Dioxide BUN Creatinine Glucose POC Glucose (mg/dL) Calcium AST Troponin I Urine Protein Trace H Crossmatch 12/30/18 12/30/18 12/30/18 05:55 15:09 16:43 RBC Hgb Hct RDW Lymphocytes # Sodium 131 L Potassium 6.0 H 5.3 H Chloride Carbon Dioxide 15 L BUN 65 H Creatinine 4.84 H Glucose 114 H POC Glucose (mg/dL) 201 H Calcium AST Troponin I Urine Protein Crossmatch 12/30/18 12/31/18 12/31/18 20:16 06:23 06:46 RBC Hgb Hct RDW Lymphocytes # Sodium 129 L Potassium 5.2 H Chloride 95 L Carbon Dioxide BUN 59 H Creatinine 3.73 H Glucose 153 H POC Glucose (mg/dL) 234 H 203 H Calcium AST Troponin I Urine Protein Crossmatch 12/31/18 12/31/18 12/31/18 11:37 17:53 20:25 RBC Hgb Hct RDW Lymphocytes # Sodium Potassium Chloride Carbon Dioxide BUN Creatinine Glucose POC Glucose (mg/dL) 131 H 151 H 168 H Calcium AST Troponin I Urine Protein Crossmatch 01/01/19 01/01/19 01/01/19 05:56 06:21 06:21 RBC 1.63 L Hgb 5.2 L* D Hct 15.9 L* RDW 17.4 H Lymphocytes # 0.8 L Sodium 131 L Potassium Chloride Carbon Dioxide BUN 48 H Creatinine 3.13 H Glucose 105 H POC Glucose (mg/dL) 124 H Calcium AST Troponin I Urine Protein Crossmatch 01/01/19 01/01/19 01/01/19 12:03 16:53 20:12 RBC Hgb Hct RDW Lymphocytes # Sodium Potassium Chloride Carbon Dioxide BUN Creatinine Glucose POC Glucose (mg/dL) 162 H 184 H 127 H Calcium AST Troponin I Urine Protein Crossmatch 01/02/19 01/02/19 01/02/19 07:26 07:26 07:52 RBC 2.56 L Hgb 8.3 L D Hct 24.4 L RDW 16.2 H Lymphocytes # Sodium 128 L Potassium Chloride Carbon Dioxide BUN 44 H Creatinine 2.58 H Glucose 121 H POC Glucose (mg/dL) 143 H Calcium 8.2 L AST Troponin I Urine Protein Crossmatch 01/02/19 01/02/19 01/02/19 11:01 14:09 17:32 RBC Hgb Hct RDW Lymphocytes # Sodium Potassium Chloride Carbon Dioxide BUN Creatinine Glucose POC Glucose (mg/dL) 177 H 109 H Calcium AST Troponin I 0.070 H* Urine Protein Crossmatch 01/02/19 01/02/19 01/03/19 19:46 20:54 01:55 RBC Hgb Hct RDW Lymphocytes # Sodium Potassium Chloride Carbon Dioxide BUN Creatinine Glucose POC Glucose (mg/dL) 143 H Calcium AST Troponin I 0.054 H* 0.059 H* Urine Protein Crossmatch 01/03/19 01/03/19 01/03/19 05:45 08:17 08:17 RBC 2.51 L Hgb 8.2 L Hct 24.4 L RDW 16.3 H Lymphocytes # 0.6 L Sodium 130 L Potassium Chloride Carbon Dioxide 19 L BUN 44 H Creatinine 2.25 H Glucose POC Glucose (mg/dL) 128 H Calcium AST Troponin I Urine Protein Crossmatch 01/03/19 11:38 RBC Hgb Hct RDW Lymphocytes # Sodium Potassium Chloride Carbon Dioxide BUN Creatinine Glucose POC Glucose (mg/dL) 136 H Calcium AST Troponin I Urine Protein Crossmatch - Diagnostic Findings Additional findings: CT head without contrast 01/02/19. No large vascular territory infarct or definite acute intracranial abnormalities seen. Evidence of right frontal approach EMR SPECIALIST shunt catheter. CT head and neck 01/02/19. Variant anatomy with the left vertebral artery having a direct takeoff from the aortic arch. There may be severe atherosclerotic stenosis at the vessel origin. Moderate to severe atherosclerotic calcifications at both carotid bulbs with focal 70 or greater stenoses at the bilateral distal bulbs/proximal internal carotid arteries. Additional variant anatomy with both common carotid arteries arising from the brachial cephalic artery. There appears to be a short segment fenestration of the left vertebral artery. Otherwise there is moderate atherosclerotic irregularity and narrowing of both posterior and anterior circulations. No large vessel intracranial arterial occlusion or aneurysm identified. I have reviewed neuroimages myself. Assessment and Plan Assessment: AMS- clinical presentation is consistent with metabolic encephalopathy. 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 Evidence of old right frontal approach EMR SPECIALIST shunt placement without evidence of hydrocephalus. Plan: -EEG to r/o the low likelihood of subclinical seizure. -CT and CTA Head/Neck reviewed. -Given she does have large vessel atherosclerotic disease, agree with aspirin and statin therapy. -May treat BP to normotensive range. -Goals BP <130, hga1c <7.0 and LDL <70 -TSH and vitamin B12 to complete delirium work-up -PT/OT/SP per protocol -DVT prophylaxis: Heparin SC -d/w primary team and staff in detail. All questions answered. Thank you for this consultation. Please call with ?. Time with Patient: Greater than 30 (Time spent in direct patient care and coordination: 70 minutes.)
[2019-01-03] MEDS: HYDROcodone/APAP 5-325MG 1 EACH TAB PO PRN (14:23)
[2019-01-03 16:55] LABS: Glucose,Whole Blood 144 mg/dL (75-99)
[2019-01-03] MEDS: MULTIVITAMINS, THERA 1 EACH TAB PO SCH (17:07)
[2019-01-03] MEDS: HYDROmorphone 0.5 MG/0.5 ML SYRINGE IVP PRN ×2 (17:07→23:23)
--- NOTE | 2019-01-03 18:51 | PN ---
PROGRESS NOTE Patient is seen for followup for acute kidney injury. Renal function continues to improve. Creatinine is down from 5.6 on initial admission to 2.25 now. The patient denies any significant complaints this morning. She was maintained on saline, which is currently not being given. PHYSICAL EXAMINATION: This morning, blood pressure was 173/72, heart rate 83 per minute. She was afebrile. Examination of the heart S1, S2. Examination of the lungs, bilateral breath sounds are heard. Abdomen is soft, nontender. Examination of lower extremities shows trace edema bilaterally. LOAN PROCESSOR examination lower extremities shows trace edema. LAB: Show sodium 130, potassium 5.1, chloride 19, BUN 44, serum creatinine 2.25, hemoglobin 8.2 g/dL. Troponin 0.059. ASSESSMENT: 1. Acute kidney injury, significantly improved, etiology ischemic acute tubular necrosis. 2. 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 Baseline creatinine 2-2.5 mg/dL. 3. Hyperkalemia on initial admission, currently resolved. 4. Acute blood loss anemia. 5. Status post intertrochanteric fracture and status post surgery. 6. Anemia. No active bleeding noted. Iron studies. I do not see any iron profile and we will order that. 7. Mild hyponatremia, currently improved from yesterday. Continue off of normal saline. PLAN: Encourage increased oral intake. Check iron studies. Repeat labs in a.m. CRISTINA / KAYE: [id number] /
--- NOTE | 2019-01-03 19:21 | P.CRDCN ---
History of Present Illness Consult date: 01/03/19 Reason for Consult (text): elevated troponin Chief complaint: elevated troponin History of present illness: HISTORY OF PRESENT ILLNESS AND PLAN: This is a [88]-year-old [female] with history of CKD3, heart failure, diabetes, GERD, hypertension, dementia, hyperparathyroid, brain shunt/concussion and former smoker. Patient presents in the emergency department with compaints of [witnessed fall at [facility]. Patient found to have displaced intertrochanteric fracture of the left hip. I am seeing patient s/p closed reduction intertrochanter nailing of left hip. Patient currently lying in bed with left hip pain. No current complaints of chest pain, chest pressure, shortness of breath or palpitations. BP remains high 173/72 secondary to probable pain. Troponin level 0.054, 0.059. Mild troponin elevation not the results of acute cardiac event. Hemoglobin 8.2 HCT 24.4. BUN 44 CR 2.25] Patient confused at baseline. SIGNIFICANT PAST MEDICAL HISTORY: [ CKD3, heart failure, diabetes, GERD, hypertension, dementia, hyperparathyroid, brain shunt/concussion and former smoker.] PAST SURGICAL HISTORY: See list. EKG shows [sinus bradycardia], heart rate [54] bpm. Troponins positive x [2]. Troponin level 0.054, 0.059. SIGNIFICANT LABORATORY VALUES: [Troponin level 0.054, 0.059. Hemoglobin 8.2 HCT 24.4. BUN 44 CR 2.25]. echo 03/12/2018 EF 55-60%, LA severely dilated. Mild to moderate MR. Mild TR. Borderline pulmonary hypertension. REVIEW OF SYSTEMS: CONSTITUTIONAL: [Denies fever. Denies chills. Patient confused at baseline. Complains of left hip pain.] EYES: Denies blurred vision. [Denies blurred vision or vision changes. Denies eye pain.] EARS, NOSE, MOUTH & THROAT: [Denies headache. Denies sore throat. Denies ear pain Denies hemoptysis.] CARDIOVASCULAR: [Denies chest pain. Denies shortness of breath. Denies orthopnea. Denies PND. Denies palpitations.] RESPIRATORY: [Denies cough. Denies shortness of breath. ] GASTROINTESTINAL: [Denies abdominal pain or distention. Denies diarrhea. Denies constipation. Denies nausea. Denies vomiting.] MUSCULOSKELETAL: [c/o myalgias.] INTEGUMENTARY: [Denies pruitis. Denies rash.] ENDOCRINE: [Denies fatigue. Denies weight change. Denies polydipsia. Denies polyurina Denies heat/cold intolerance.] GENITOURINARY:[ Denies burning, hematuria or urgency with micturation.] HEMATOLOGIC: [Denies history of anemia. Denies bleeding.] NEUROLOGIC: [Denies numbness. Denies tingling. Denies weakness.] PSYCHIATRIC: [Denies anxiety. Denies depression.] PHYSICAL EXAM: VITAL SIGNS: WNL. GENERAL: Well developed, in no acute distress. HEENT: Head is atraumatic, normocephalic. Pupils are equal, round. Extra ocular movements intact. Mucous membranes moist. Neck supple. No JVD. No carotid bruit. No thyromegaly. LUNGS: Clear to auscultation no wheezes, rales or rhonchi. No chest wall tenderness on palpation or with deep breathing. HEART: Regular rate and rhythm, no rubs or gallops. S1 and S2 heard. No murmur. ABDOMEN: Abdominal exam, WNL. Bowel sounds x4 quads. Soft, non-tender, without masses, organomegaly, or abdominal aorta enlargement. EXTREMITIES/VASCULAR: Extremities have easily palpable radial, femoral, dorsalis pedis and posterior tibial pulses. No cyanosis, calf tenderness. No BLE edema. NEUROLOGIC: Patient is awake, alert and oriented x3. No focal neurologic a bnormalities. FINAL IMPRESSION: 1. [Trochanter nailing of left hip]. 2. [No acute cardiac event with mild troponin elevation, secondary to trauma]. 3. [CKD3]. 4. [Sinus bradycardia]. 5. [Dementia]. PLAN: [Mild troponin elevation not secondary to acute cardiac event. Probably secondary to trauma. Hyperkalemia due to CK D3 nephrology following along, resolved. Okay from cardiology standpoint for discharge back to rehab facility/ECF. No beta william use with sinus bradycardia. Thank you kindly for this consult] Nurse Practitioner note has been reviewed by the Physician. Signing provider agrees with the documented findings, assessment and plan of care. Past Medical History Past Medical History: Heart Failure, Dementia, Diabetes Mellitus, Eye Disorder, GERD/Reflux, Hypertension, Memory Impairment, Renal Disease Additional Past Medical History / Comment(s): macular degeneration, incont of u rine wears a depends, occ gout, past fall, concussion History of Any Multi-Drug Resistant Organisms: None Reported Past Surgical History: Orthopedic Surgery Additional Past Surgical History / Comment(s): Rt Shoulder, "brain shunt", lesion on labia removed. Past Anesthesia/Blood Transfusion Reactions: No Reported Reaction Past Psychological History: No Psychological Hx Reported Additional Psychological History / Comment(s): pt lives at [facility]. has [employer] system. has caregivers 2 times a day and is in [employer] that provides activities. pt has a walker, shower chair. Smoking Status: Former smoker Past Alcohol Use History: None Reported Additional Past Alcohol Use History / Comment(s): started smoking at age 17, quit 2014. a pack would last 1 week. no alcohol now. Past Drug Use History: None Reported - Past Family History Mother History Unknown: Yes Additional Family Medical History / Comment(s): Patient does not know her mother's medical history. Father Additional Family Medical History / Comment(s): " young- had heart disease Brother(s) Additional Family Medical History / Comment(s): Patient has one brother and patient does not know his history. Patient does not have any sisters. Patient has 2 children. Medications and Allergies Home Medications Medication Instructions Recorded Confirmed Type amLODIPine BESYLATE [Norvasc] 10 mg PO DAILY@0800 02/21/12/29/18 History Multivitamins, Thera [Multivitamin 1 tab PO DAILY@1700 01/23/16 12/29/18 History (formulary)] Citalopram Hydrobromide [CeleXA] 20 mg PO DAILY@0800 01/08/18 12/29/18 History Oxybutynin Chloride [Ditropan] 5 mg PO HS 09/06/18 12/29/18 History Acetaminophen Tab [Tylenol] 650 mg PO Q4H PRN 12/29/18 12/29/18 History Allopurinol [Zyloprim] 100 mg PO DAILY@0800 12/29/18 12/29/18 History Atorvastatin [Lipitor] 40 mg PO HS@2100 12/29/18 12/29/18 History Bisacodyl [Dulcolax] 10 mg RECTAL DAILY PRN 12/29/18 12/29/18 History Carvedilol [Coreg] 25 mg PO BID@0800,209912/29/18 12/29/18 History Chlorthalidone 25 mg PO DAILY@0800 12/29/18 12/29/18 History Cinacalcet [Sensipar] 30 mg PO DAILY@0800 12/29/18 12/29/18 History Famotidine 20 mg PO DAILY@0700 12/29/18 12/29/18 History Ferrous Sulfate [Feosol] 325 mg PO DAILY@1700 12/29/18 12/29/18 History INSULIN LISPRO (HumaLOG) [HumaLOG] See Protocol SQ ACHS 12/29/18 12/29/18 History Lactose-Reduced Food [Ensure Plus] 1 can PO DAILY@0800 12/29/18 12/29/18 History Lisinopril [Zestril] 20 mg PO BID@0800,209912/29/18 12/29/18 History Magnesium Hydroxide [Milk of 2,400 mg PO DAILY PRN 12/29/18 12/29/18 History Magnesia] Menthol-Zinc Oxide Oint 1 applic TOPICAL Q12H PRN 12/29/18 12/29/18 History [Calmoseptine Oint] Na Phos,M-B/Na Phos,Di-Ba [Fleet 133 ml RECTAL DAILY PRN 12/29/18 12/29/18 History Adult] Spironolactone 50 mg PO DAILY@0800 12/29/18 12/29/18 History hydrALAZINE HCL [Apresoline] 50 mg PO BID@0800,209912/29/18 12/29/18 History HYDROcodone/APAP 5-325MG [[place] 1 - 2 each PO Q4-6H PRN #50 tab 01/03/19 Rx 5-325] Allergies Allergy/AdvReac Type Severity Reaction Status Date / Time aspirin Allergy Unknown Verified 12/29/18 13:34 Physical Exam Vitals: Vital Signs Temp Pulse Pulse Resp BP Pulse Ox 01/03/19 16:00 98.9 F 82 80 16 166/72 100 01/03/19 08:00 82 01/03/19 04:00 98.5 F 83 17 173/72 99 01/03/19 00:00 97.9 F 74 74 17 159/94 95 01/02/19 20:05 98.2 F 88 17 171/74 100 01/02/19 20:00 87 16 Intake and Output 01/03/19 01/03/19 01/03/19 06:59 14:59 22:59 Intake Total 440 Output Total 1200 325 Balance -1200 115 Intake: Oral 440 Output: Urine 1200 325 Uretheral (Munguia) 75 Other: Voiding Method Indwelling Catheter Indwelling Catheter Indwelling Catheter Weight 49 kg Results 01/03/19 08:17 01/03/19 08:17 Cardiac Enzymes 01/02/19 01/03/19 Range/Units 19:46 01:55 Troponin I 0.054 H* 0.059 H* (0.000-0.034) ng/mL CBC 01/03/19 Range/Units 08:17 WBC 7.4 (3.8-10.6) k/uL RBC 2.51 L (3.80-5.40) m/uL Hgb 8.2 L (11.4-16.0) gm/dL Hct 24.4 L (34.0-46.0) % Plt Count 199 (150-450) k/uL Comprehensive Metabolic Panel 01/03/19 Range/Units 08:17 Sodium 130 L (137-145) mmol/L Potassium 5.1 (3.5-5.1) mmol/L Chloride 100 (98-107) mmol/L Carbon Dioxide 19 L (22-30) mmol/L BUN 44 H (7-17) mg/dL Creatinine 2.25 H (0.52-1.04) mg/dL Glucose 99 (74-99) mg/dL Calcium 9.0 (8.4-10.2) mg/dL Current Medications Generic Name Dose Route Start Last Admin Trade Name Freq PRN Reason Stop Dose Admin Acetaminophen 650 mg 12/31/18 15:03 Tylenol Tab PO Q4HR PRN Pain Scale 1 to 5 Acetaminophen 500 mg 01/03/19 12:00 01/03/19 11:28 Tylenol Tab PO 500 mg Q6HR RIANA Administration Hydrocodone Bitart/Acetaminophen 1 each 12/29/18 16:53 01/03/19 14:23 [place] 5-325 PO 1 each Q4HR PRN Administration Moderate Pain Allopurinol 100 mg 12/31/18 08:00 01/03/19 08:48 Zyloprim PO 100 mg DAILY@0800 [facility] Administration Amlodipine Besylate 10 mg 12/31/18 08:00 01/03/19 08:48 Norvasc PO 10 mg DAILY@0800 [facility] Administration Atorvastatin Calcium 40 mg 12/30/18 21:00 01/02/19 22:20 Lipitor PO 40 mg HS@2100 [facility] Administration Bisacodyl 10 mg 12/30/18 10:20 Dulcolax RECTAL DAILY PRN Constipation Carvedilol 25 mg 12/30/18 21:00 01/03/19 08:48 Coreg PO 25 mg BID@0800,2100 [facility] Administration Cinacalcet 30 mg 12/31/18 08:00 01/03/19 08:48 Sensipar PO 30 mg DAILY@0800 [facility] Administration Citalopram Hydrobromide 20 mg 12/31/18 08:00 01/03/19 08:48 Celexa PO 20 mg DAILY@0800 [facility] Administration Clopidogrel Bisulfate 75 mg 01/03/19 11:00 01/03/19 11:28 Plavix PO 75 mg DAILY [facility] Administration Famotidine 20 mg 12/31/18 07:00 01/03/19 08:21 Pepcid PO Not Given DAILY@0700 [facility] Ferrous Sulfate 325 mg 12/30/18 17:00 01/02/19 18:35 Feosol PO 325 mg DAILY@1700 [facility] Administration Heparin Sodium (Porcine) 5,000 unit 01/01/19 21:00 01/03/19 08:49 Heparin SQ 5,000 unit Q12HR [facility] Administration Hydralazine HCl 50 mg 12/30/18 21:00 01/03/19 08:48 Apresoline PO 50 mg BID@0800,2100 [facility] Administration Hydralazine HCl 10 mg 01/02/19 19:05 Apresoline IVP Q4HR PRN Blood Pressure - High Hydromorphone HCl 0.5 mg 12/29/18 16:53 01/03/19 17:07 Dilaudid IVP 0.5 mg Q3HR PRN Administration Moderate Pain Hydromorphone HCl 1 mg 12/29/18 16:53 01/02/19 12:07 Dilaudid IVP 1 mg Q3HR PRN Administration Severe Pain Sodium Chloride 1,000 mls @ 75 mls/hr 12/31/18 09:30 01/03/19 12:49 Saline 0.9% IV Not Given .[id number] RIANA Insulin Aspart 0 unit 12/30/18 17:30 01/03/19 17:07 Novolog SQ 1 unit ACHS RIANA Administration Protocol Magnesium Hydroxide 2,400 mg 12/30/18 10:20 01/01/19 13:32 Milk Of Magnesia PO 2,400 mg DAILY PRN Administration Constipation Miscellaneous Information 1 each 12/31/18 11:01 Magnesium Per Protocol MISCELLANE DAILY PRN Per Protocol Protocol Multivitamins 1 each 12/30/18 17:00 01/03/19 17:07 Theragran PO 1 each DAILY@1700 RIANA Administration Naloxone HCl 0.2 mg 12/29/18 16:53 Narcan IV Q2M PRN Opioid Reversal Ondansetron HCl 4 mg 12/29/18 16:53 12/31/18 19:20 Zofran IVP 4 mg Q8HR PRN Administration Nausea And Vomiting Senna/Docusate Sodium 2 each 12/31/18 21:00 01/02/19 22:20 Senokot-S PO 2 each HS RINAA Administration Intake and Output 01/03/19 01/03/19 01/03/19 06:59 14:59 22:59 Intake Total 440 Output Total 1200 325 Balance -1200 115 Intake: Oral 440 Output: Urine 1200 325 Uretheral (Munguia) 75 Other: Voiding Method Indwelling Catheter Indwelling Catheter Indwelling Catheter Weight 49 kg Patient Weight 01/04/19 06:59 Weight 49 kg 01/03/19 08:17 01/03/19 08:17
[2019-01-03 20:42] LABS: Glucose,Whole Blood 207 mg/dL (75-99)
[2019-01-03] MEDS: FERROUS SULFATE 325 MG TAB PO SCH (21:02)
[2019-01-03] MEDS: ATORVASTATIN 40 MG TAB PO SCH (21:03)
[2019-01-03] MEDS: SENNOSIDES-DOCUSATE SODIUM 1 EACH TAB PO SCH (21:03)
--- NOTE | 2019-01-03 21:18 | EEG ---
ELECTROENCEPHALOGRAM REPORT DATE OF SERVICE: 01/03/2019. PREAMBLE: The patient was originally admitted to the hospital with left hip fracture and acute renal failure. A code stroke was called due to increasing weakness. She was also noted to have altered mental status. EEG is performed to rule out any epileptiform activity. TYPE OF RECORDING: A routine 21 channel awake digital EEG recording was accomplished utilizing the 10-20 international electrode placement system. No sedation was given prior to the beginning of this recording. FINDINGS: The background of this tracing is seen with a polymorphic theta slowing. There are scattered EMG and eye blink artifacts. Photic stimulation elicits a symmetric driving response. Hyperventilation was not performed in this recording. There is no definitive sleep architecture seen. There is no background asymmetry, ictal, or interictal patterns appreciated. IMPRESSION: This is a mildly abnormal electroencephalogram with excessive background slowing but without asymmetry or epileptiform discharges. This can be seen in cerebral dysfunction of any cause. Clinical correlation is advised. CRISTINA / ANDERSONN: [id number] / DOREEN
[2019-01-04 03:51] LABS: Iron Saturation 6.78 (12.00-45.00)
[2019-01-04] MEDS: HYDROmorphone 0.5 MG/0.5 ML SYRINGE IVP PRN ×2 (04:46→21:49)
[2019-01-04 06:13] LABS: Glucose,Whole Blood 137 mg/dL (75-99)
[2019-01-04] MEDS: ACETAMINOPHEN TAB 500 MG TAB PO SCH ×4 (06:35→23:21)
[2019-01-04] MEDS: FAMOTIDINE 20 MG TAB PO SCH (06:35)
[2019-01-04] MEDS: INSULIN ASPART (NovoLOG) 100 UNIT/ML VIAL SQ SCH ×4 (06:35→20:47)
[2019-01-04] MEDS: SODIUM CHLORIDE 0.9% 1,000 ML IV SCH ×2 (06:35→08:30)
[2019-01-04 07:14] LABS: Anisocytosis Slight; HCT 23.2 % (34.0-46.0); HGB 7.5 gm/dL (11.4-16.0); MCH 31.9 pg (25.0-35.0); MCHC 32.2 g/dL (31.0-37.0); MCV 98.9 fL (80.0-100.0); Macrocytosis Slight; Mean Platelet Volume 7.1; Platelet Count 210 k/uL (150-450); RBC 2.35 m/uL (3.80-5.40); RDW 16.2 % (11.5-15.5); WBC 7.9 k/uL (3.8-10.6)
[2019-01-04 07:31] LABS: Calcium 8.8 mg/dL (8.4-10.2); Potassium 4.8 mmol/L (3.5-5.1)
[2019-01-04 07:57] LABS: Glucose,Whole Blood 146 mg/dL (75-99)
[2019-01-04] MEDS: CINACALCET 30 MG TAB PO SCH (08:24)
[2019-01-04] MEDS: MAGNESIUM HYDROXIDE 2,400 MG/10 ML CUP PO PRN (08:24)
[2019-01-04] MEDS: CITALOPRAM HYDROBROMIDE 20 MG TAB PO SCH (08:24)
[2019-01-04] MEDS: CARVEDILOL 12.5 MG TAB PO SCH ×2 (08:24→20:32)
[2019-01-04] MEDS: hydrALAZINE HCL 50 MG TAB PO SCH ×2 (08:24→20:33)
[2019-01-04] MEDS: amLODIPine 10 MG TAB PO SCH (08:25)
[2019-01-04] MEDS: ALLOPURINOL 100 MG TAB PO SCH (08:25)
[2019-01-04] MEDS: CLOPIDOGREL 75 MG TAB PO SCH (08:25)
[2019-01-04] MEDS: HEPARIN SODIUM,PORCINE 5,000 UNIT/ML 1 ML VIAL SQ SCH ×2 (08:25→20:33)
[2019-01-04] MEDS ORDERED: SODIUM FERRIC GLUCONAT-SUCROSE 125 MG in SODIUM CHLORIDE 0.9% 100 ML IVPB ONE (10:00)
--- NOTE | 2019-01-04 10:10 | P.PN ---
Subjective Progress Note Date: 01/04/19 Principal diagnosis: Intertrochanteric fracture left hip. Anemia. Multiple medical comorbidities. Encephalopathy. This is an 88-year-old female who we're following regarding her in tertrochanteric fracture left hip. She has been seen by neurology who suspects an encephalopathy. Her vital signs are stable. Hemoglobin is down a bit today at 7.5. Objective - Vital Signs Vital signs: Vital Signs Temp 98.1 F 01/04/19 08:00 Pulse 81 01/04/19 08:00 Resp 16 01/04/19 08:00 BP 156/72 01/04/19 08:00 Pulse Ox 100 01/04/19 08:00 Intake & Output 01/03/19 01/04/19 01/04/19 18:59 06:59 18:59 Intake Total 440 480 Output Total 325 1000 Balance 115 -1000 480 Weight 49 kg 49.5 kg Intake: Oral 440 480 Output: Urine 325 1000 Uretheral (Munguia) 75 Other: Voiding Method Indwelling Catheter Indwelling Catheter Indwelling Catheter # Bowel Movements 1 1 - Exam This is an 88-year-old female in no acute distress. She is alert but confused. She will follow verbal commands on exam. Exam of the left hip reveals that her dressing is clean, dry and intact. Minimal drainage from incisions. Minimal swelling. She is able to wiggle toes. Pedal pulses are +1/4 bilaterally. Neurovascular status to the lower extremities is intact. - Labs CBC & Chem 7: 01/04/19 06:03 01/04/19 06:03 Labs: Abnormal Lab Results - Last 24 Hours (Table) 01/02/19 01/03/19 01/03/19 Range/Units 07:26 11:38 16:53 RBC (3.80-5.40) m/uL Hgb (11.4-16.0) gm/dL Hct (34.0-46.0) % RDW (11.5-15.5) % Sodium (137-145) mmol/L Carbon Dioxide (22-30) mmol/L BUN (7-17) mg/dL Creatinine (0.52-1.04) mg/dL Glucose (74-99) mg/dL POC Glucose (mg/dL) 136 H 144 H (75-99) mg/dL Iron 12 L (50-170) ug/dL TIBC 177 L (228-460) ug/dL Iron Saturation 6.78 L (12.00-45.00) 01/03/19 01/04/19 01/04/19 Range/Units 20:40 06:03 06:03 RBC 2.35 L (3.80-5.40) m/uL Hgb 7.5 L (11.4-16.0) gm/dL Hct 23.2 L (34.0-46.0) % RDW 16.2 H (11.5-15.5) % Sodium 128 L (137-145) mmol/L Carbon Dioxide 19 L (22-30) mmol/L BUN 41 H (7-17) mg/dL Creatinine 2.09 H (0.52-1.04) mg/dL Glucose 105 H (74-99) mg/dL POC Glucose (mg/dL) 207 H (75-99) mg/dL Iron (50-170) ug/dL TIBC (228-460) ug/dL Iron Saturation (12.00-45.00) 01/04/19 01/04/19 Range/Units 06:12 07:55 RBC (3.80-5.40) m/uL Hgb (11.4-16.0) gm/dL Hct (34.0-46.0) % RDW (11.5-15.5) % Sodium (137-145) mmol/L Carbon Dioxide (22-30) mmol/L BUN (7-17) mg/dL Creatinine (0.52-1.04) mg/dL Glucose (74-99) mg/dL POC Glucose (mg/dL) 137 H 146 H (75-99) mg/dL Iron (50-170) ug/dL TIBC (228-460) ug/dL Iron Saturation (12.00-45.00) Assessment and Plan (1) Acute renal failure Current Visit: Yes Status: Acute Code(s): N17.9 - ACUTE KIDNEY FAILURE, UNSP ECIFIED SNOMED Code(s): 38468744 (2) Anemia Current Visit: Yes Status: Acute Code(s): D64.9 - ANEMIA, UNSPECIFIED SNOMED Code(s): 779884375 (3) Fall Current Visit: Yes Status: Acute Code(s): W19.XXXA - UNSPECIFIED FALL, INITIAL ENCOUNTER SNOMED Code(s): 7617003 (4) Hyperkalemia Current Visit: Yes Status: Acute Code(s): E87.5 - HYPERKALEMIA SNOMED Code(s): 75181248 (5) Trochanteric fracture of left femur Current Visit: Yes Status: Acute Code(s): S72.102A - UNSP TROCHANTERIC FRACTURE OF LEFT FEMUR, INIT FOR CLOS FX SNOMED Code(s): 59449690 Plan: The clinical findings are discussed with the patient and her nurse. I have transferred attending to internal medicine. She may be discharged from an orthopedic standpoint. She is to follow-up in 3 weeks for x-ray and evaluation. Skin clips may be removed 2 weeks postoperatively. She is toe-touch weightbearing to the left lower extremity.
--- NOTE | 2019-01-04 10:51 | CDI ---
Documentation Clarification Form Date: 01/04/2019 10:41:27 AM From: Karmen McintyreMaloneANANT, CCDS Admit Date: 12/29/2018 3:46:00 PM Patient Name: Anabelle Villar Visit Number: [id number] Discharge Date: ATTENTION: The Clinical Documentation Specialists (CDI) and [facility] Coding Staff appreciate your assistance in clarifying documentation. Please respond to the clarification below the line at the bottom and electronically sign. The CDI & [facility] Coding staff will review the response and follow-up if needed. Please note: Queries are made part of the Legal Health Record. If you have any questions, please contact the author of this message via ITS. Dr. Jen Roe: 01/02 Attending PN (Jyothi): "Patient had left hip closed reduction and IM nailing for left intertrochanteric fracture estimated blood loss 100 mL through spinal anesthesia yesterday by Dr. Hernandez, hemoglobin dropped down to 5.2, 2 units of packed red blood cells ordered to be given today, patient has chronic anemia, blood losses are most likely secondary to hematoma formation in the left hip, Hemoccult is negative, iron studies has been obtained, patient might need iron infusion, depending on iron studies." Patients Admitting Diagnosis: Fall & IT fracture after a fall at the [place] [facility] Diagnosis: Same & Left hip IT fracture closed reduction & IT nailing using Synthes IT nail. History/Risk Factors: Hypertension, CKD III, Anemia of CKD. Clinical Indicators: Presented after fall as above status post hip surgery, Hgb dropped 8.0 - 7.2 - 5.2. Transfused 2 units PRBCs, Hgb up to 8.3 - 8.2 - 7.5*. Treatment: Blood transfusion, IV Ms, IV Zofran, IV fluid bolus, IV Protonix, IV fl 75, INH Albuterol, IV Dextrose/Water, IV Insulin, IV MagSulf. IV Cefazolin Na In order to accurately reflect this patients severity of illness, please clarify if the post-operative diagnosis of acute blood loss anemia is a complication of the patient's surgery: ____ Yes ____ No ____ Undetermined or unknown ____ Other, please explain (Last Revision: October 2018) MTDD
--- NOTE | 2019-01-04 10:59 | CDI ---
Documentation Clarification Form Date: 01/04/2019 10:53:19 AM From: Karmen Malone CCS, CCDS Admit Date: 12/29/2018 3:46:00 PM Patient Name: Anabelle Villar Visit Number: [id number] Discharge Date: ATTENTION: The Clinical Documentation Specialists (CDI) and [facility] Coding Staff appreciate your assistance in clarifying documentation. Please respond to the clarification below the line at the bottom and electronically sign. The CDI & [facility] Coding staff will review the response and follow-up if needed. Please note: Queries are made part of the Legal Health Record. If you have any questions, please contact the author of this message via ITS. Dr. Jen Roe: Per the attending documentation: "Patient had left hip closed reduction and IM nailing for left intertrochanteric fracture estimated blood loss 100 mL through spinal anesthesia yesterday by Dr. Hernandez, hemoglobin dropped down to 5.2, 2 units of packed red blood cells ordered to be given lindsey, patient has chronic anemia,blood losses are most likely secondary to hematoma formation in the left hip, Hemoccult is negative, iron studies has been obtained, patient might need iron infusion, depending on iron studies.: Patients Admitting Diagnosis: Fall with IT fracture of left hip. Post-Operative Diagnosis: Same with documented hematoma & ABLA. Procedure performed: Lt IT fracture closed reduction & nailing. History/Risk Factors: Hypertension, CKD III, anemia of CKD. Clinical Indicators: Presented with fall as above status post hip surgery & development of hematoma postoperatively. Treatment: Blood transfusion for drop in hgb to 5.2, IV pain meds, IV antibiotics, IV fluids. In order to accurately reflect this patients severity of illness, please clarify if the hematoma to left hip is the result of the surgical procedure? o ___ Yes o ___ No o ___ Other, please specify o ___ Unable to determine (Last Revision: October 2017) MTDD
[2019-01-04] MEDS: CHOLECALCIFEROL 1,000 UNIT TAB PO SCH (11:11)
[2019-01-04] MEDS: CYANOCOBALAMIN 500 MCG TAB PO SCH (11:12)
[2019-01-04] MEDS: HYDROcodone/APAP 5-325MG 1 EACH TAB PO PRN ×2 (11:12→15:25)
[2019-01-04] MEDS: buPROPion 100 MG TAB PO SCH (11:13)
[2019-01-04] MEDS ORDERED: FUROSEMIDE 10 MG/ML 2 ML VIAL IV ONE (11:20)
--- NOTE | 2019-01-04 11:54 | P.PN ---
Subjective Progress Note Date: 01/04/19 This is a [88]-year-old [female] with history of CKD3, heart failure, diabetes, GERD, hypertension, dementia, hyperparathyroid, brain shunt/concussion and former smoker. Patient presents in the emergency department with compaints of [witnessed fall at [facility]. Patient found to have displaced intertr ochanteric fracture of the left hip. I am seeing patient s/p closed reduction intertrochanter nailing of left hip. Patient currently lying in bed with left hip pain. No current complaints of chest pain, chest pressure, shortness of breath or palpitations. BP remains high 173/72 secondary to probable pain. Troponin level 0.054, 0.059. Mild troponin elevation not the results of acute cardiac event. Hemoglobin 8.2 HCT 24.4. BUN 44 CR 2.25] Patient confused at baseline. echo 03/12/2018 EF 55-60%, LA severely dilated. Mild to moderate MR. Mild TR. Borderline pulmonary hypertension. Progress Note 01/04/2019 Patient continues stable. Continues sinus rhythm, heart rate 76. VSS. Patient has no current complaint of chest pain, chest pressure, shortness of breath or palpitations. Hgb 7.5, HCT 23.2. Sodium low at 128. BUN 41, CR 2.09. Patient stable from a cardiology perspective will follow along on PRN basis. Continue Coreg 25 mg twice daily. Cautious IV fluid and blood pressure monitoring advised. PHYSICAL EXAM: VITAL SIGNS: WNL GENERAL: Well developed, in no acute distress. Does c/o LEFT hip pain. HEENT: Head is atraumatic, normocephalic. Pupils are equal, round. Extra ocular movements intact. Mucous membranes moist. Neck supple. No JVD. No carotid bruit. No thyromegaly. LUNGS: Clear to auscultation no wheezes, rales or rhonchi. No chest wall tenderness on palpation or with deep breathing. HEART: Regular rate and rhythm, no rubs or gallops. S1 and S2 heard. No murmur. ABDOMEN: Abdominal exam, WNL. Bowel sounds x4 quads. Soft, non-tender, without masses, organomegaly, or abdominal aorta enlargement. EXTREMITIES/VASCULAR: Extremities have easily palpable radial, femoral, dorsalis pedis and posterior tibial pulses. No cyanosis, calf tenderness. Scant BLE edema. NEUROLOGIC: Patient is awake, alert and oriented x3. No focal neurologic abnormalities. FINAL IMPRESSION: 1. [Trochanter nailing of left hip]. 2. [No acute cardiac event with mild troponin elevation, secondary to trauma]. 3. [CKD3]. 4. [Sinus bradycardia - resolved]. 5. [Dementia, ongoing]. Objective - Vital Signs Vital signs: Vital Signs Temp 98.1 F 01/04/19 08:00 Pulse 81 01/04/19 08:00 Resp 16 01/04/19 08:00 BP 156/72 01/04/19 08:00 Pulse Ox 100 01/04/19 08:00 Intake & Output 01/03/19 01/04/19 01/04/19 18:59 06:59 18:59 Intake Total 440 480 Output Total 325 1000 Balance 115 -1000 480 Weight 49 kg 49.5 kg Intake: Oral 440 480 Output: Urine 325 1000 Uretheral ([place]unguia) 75 Other: Voiding Method Indwelling Catheter Indwelling Catheter Indwelling Catheter # Bowel Movements 1 1 - Labs CBC & Chem 7: 01/04/19 06:03 01/04/19 06:03 Labs: Abnormal Lab Results - Last 24 Hours (Table) 01/02/19 01/03/19 01/03/19 Range/Units 07:26 16:53 20:40 RBC (3.80-5.40) m/uL Hgb (11.4-16.0) gm/dL Hct (34.0-46.0) % RDW (11.5-15.5) % Sodium (137-145) mmol/L Carbon Dioxide (22-30) mmol/L BUN (7-17) mg/dL Creatinine (0.52-1.04) mg/dL Glucose (74-99) mg/dL POC Glucose (mg/dL) 144 H 207 H (75-99) mg/dL Iron 12 L (50-170) ug/dL TIBC 177 L (228-460) ug/dL Iron Saturation 6.78 L (12.00-45.00) 01/04/19 01/04/19 01/04/19 Range/Units 06:03 06:03 06:12 RBC 2.35 L (3.80-5.40) m/uL Hgb 7.5 L (11.4-16.0) gm/dL Hct 23.2 L (34.0-46.0) % RDW 16.2 H (11.5-15.5) % Sodium 128 L (137-145) mmol/L Carbon Dioxide 19 L (22-30) mmol/L BUN 41 H (7-17) mg/dL Creatinine 2.09 H (0.52-1.04) mg/dL Glucose 105 H (74-99) mg/dL POC Glucose (mg/dL) 137 H (75-99) mg/dL Iron (50-170) ug/dL TIBC (228-460) ug/dL Iron Saturation (12.00-45.00) 01/04/19 Range/Units 07:55 RBC (3.80-5.40) m/uL Hgb (11.4-16.0) gm/dL Hct (34.0-46.0) % RDW (11.5-15.5) % Sodium (137-145) mmol/L Carbon Dioxide (22-30) mmol/L BUN (7-17) mg/dL Creatinine (0.52-1.04) mg/dL Glucose (74-99) mg/dL POC Glucose (mg/dL) 146 H (75-99) mg/dL Iron (50-170) ug/dL TIBC (228-460) ug/dL Iron Saturation (12.00-45.00)
[2019-01-04 12:25] LABS: Glucose,Whole Blood 173 mg/dL (75-99)
--- NOTE | 2019-01-04 13:13 | P.PN ---
Subjective Progress Note Date: 01/04/19 Principal diagnosis: AMS Patient more awake and alert this am. No new neuro c/o. Objective - Vital Signs Vital signs: Vital Signs Temp 98.1 F 01/04/19 08:00 Pulse 81 01/04/19 12:00 Resp 16 01/04/19 12:00 BP 156/72 01/04/19 08:00 Pulse Ox 100 01/04/19 08:00 Intake & Output 01/03/19 01/04/19 01/04/19 18:59 06:59 18:59 Intake Total 440 480 Output Total 325 1000 Balance 115 -1000 480 Weight 49 kg 49.5 kg Intake: Oral 440 480 Output: Urine 325 1000 Uretheral ([place]) 75 Other: Voiding Method Indwelling Catheter Indwelling Catheter Indwelling Catheter # Bowel Movements 1 1 - Exam Gen NAD Pleasant and cooperative MS Awake and alert to self and hospital Does not know year but knows her year Able to follow one-step commands more consistently CN II-XII grossly intact no nystagmus Motor Normal bulk/tone No tremors MCKENZIE x4 Sens Intact to LT x4 Coord Not tested DTRs 2+/4 sym throughout Gait Deferred - Labs CBC & Chem 7: 01/04/19 06:03 01/04/19 06:03 Labs: Abnormal Lab Results - Last 24 Hours (Table) 01/02/19 01/03/19 01/03/19 Range/Units 07:26 16:53 20:40 RBC (3.80-5.40) m/uL Hgb (11.4-16.0) gm/dL Hct (34.0-46.0) % RDW (11.5-15.5) % Sodium (137-145) mmol/L Carbon Dioxide (22-30) mmol/L BUN (7-17) mg/dL Creatinine (0.52-1.04) mg/dL Glucose (74-99) mg/dL POC Glucose (mg/dL) 144 H 207 H (75-99) mg/dL Iron 12 L (50-170) ug/dL TIBC 177 L (228-460) ug/dL Iron Saturation 6.78 L (12.00-45.00) 01/04/19 01/04/19 01/04/19 Range/Units 06:03 06:03 06:12 RBC 2.35 L (3.80-5.40) m/uL Hgb 7.5 L (11.4-16.0) gm/dL Hct 23.2 L (34.0-46.0) % RDW 16.2 H (11.5-15.5) % Sodium 128 L (137-145) mmol/L Carbon Dioxide 19 L (22-30) mmol/L BUN 41 H (7-17) mg/dL Creatinine 2.09 H (0.52-1.04) mg/dL Glucose 105 H (74-99) mg/dL POC Glucose (mg/dL) 137 H (75-99) mg/dL Iron (50-170) ug/dL TIBC (228-460) ug/dL Iron Saturation (12.00-45.00) 01/04/19 01/04/19 Range/Units 07:55 11:56 RBC (3.80-5.40) m/uL Hgb (11.4-16.0) gm/dL Hct (34.0-46.0) % RDW (11.5-15.5) % Sodium (137-145) mmol/L Carbon Dioxide (22-30) mmol/L BUN (7-17) mg/dL Creatinine (0.52-1.04) mg/dL Glucose (74-99) mg/dL POC Glucose (mg/dL) 146 H 173 H (75-99) mg/dL Iron (50-170) ug/dL TIBC (228-460) ug/dL Iron Saturation (12.00-45.00) Assessment and Plan Assessment: AMS- clinical presentation is consistent with metabolic encephalopathy. 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 Plan: -EEG findings consistent with metabolic encephalopathy. -CT and CTA Head/Neck reviewed. -Given she does have large vessel atherosclerotic disease, agree with aspirin and statin therapy. -May treat BP to normotensive range. -Goals BP <130, hga1c <7.0 and LDL <70 -TSH and vitamin B12 sent. -PT/OT/SP per protocol -DVT prophylaxis: Heparin SC -d/w primary team and staff in detail. All questions answered. Thank you again for this consultation. Please call with ?. Time with Patient: Less than 30 (Time spent in direct patient care, greater than 50% of which was spent in [id number] counseling and coordination of care: 25 minutes.)
--- NOTE | 2019-01-04 15:20 | P.PN ---
Subjective Progress Note Date: 01/03/19 This is an 88-year-old female patient residing at [facility] is a long-term resident under the care of Dr. Guzmán with past mental history of diabetes mellitus type 2, chronic kidney disease stage III, gastroesophageal reflux disease, anemia of chronic disease, gout, hyper parathyroidism, hypertension, hyperlipidemia, recurrent depression, hydrocephalus status post shunt. Patient had a fall while in the bathroom at [facility] and developed pain in the left hip and head pain. She was transferred to [facility] emergency center for evaluation. CAT scan of the brain and C-spine showed shunted ventricles without hydrocephalus. Ventricles appear stable from comparison. No acute intracranial process. No acute osseous abnormality of the cervical spine. Chest x-ray shows mild cardiomegaly and chronic appearing changes. No definite acute process. Hip and pelvic x-ray showed angulated and mildly comminuted intratrochanteric fracture proximal left femur with lateral wall disruption. Initial lab work revealed sodium 128, potassium 7.1, BUN 67 creatinine 5.6 to, hemoglobin 8. The patient was admitted to the cardiac stepdown unit. We have subsequently added on consult for nephrology. 12/31: Patient has just undergone Hibiclens scrub for surgery which is scheduled for this afternoon. She is moaning in pain and an additional dose of IV Dilaudid will be given. Magnesium is 1.6 and will be replaced today. Blood sugars running between 153 and 234. Sodium 129, potassium 5.2, chloride 95, BUN 59 creatinine 3.73. Patient is been afebrile, blood pressure 140/64, heart rate 96, blood pressure 99% on room air. Patient has been seen by Dr. Casper and started bicarbonate drip yesterday which was ordered to be discontinued today and start normal saline at 75 mL per hour. Diuretics remain on hold. Iron studies in progress as well as serum osmolality, urine osmolality and urine sodium. Patient will be transferred to [facility] floor following surgery. Anticipate return to [facility] on Monday 01/01: Patient had left hip closed reduction and IM nailing for left intertrochanteric fracture estimated blood loss 100 mL through spinal anesthesia yesterday by Dr. Hernandez, hemoglobin dropped down to 5.2, 2 units of packed red blood cells ordered to be given lindsey, patient has chronic anemia,blood losses are most likely secondary to hematoma formation in the left hip, Hemoccult is negative, iron studies has been obtained, patient might need iron infusion, depending on iron studies 01/02:, Nursing staff was concerned about patient's condition, since midnight, patient is requiring more assistance including feedings, which is new compared to her baseline which is independent to feedings, and 1 person standby on ambulation. Nursing staff has spoken to me early these afternoon around 1 p.m. today, that the patient requires a dysphagia 2 diet, which is new compared to her baseline at [facility]. Patient was there after monitored through a cold stroke, consults were done with telemetry neurology, with no recommendations for TPA, CAT scan of the brain will be done along with carotid imaging studies. Creatinine is elevated, precludes to study using contrast dye. Upon my evaluation, patient can follow verbal commands, has limited verbal responses, can answer to name and date of , and can follow commands, however patient cannot lift lower extremities bilaterally. 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 Cranial nerves are okay without any ocular deficits, no facial symmetry, speech is clear, patient oriented 1. There is no neurology fashion supervisor for this weekend except for tele-neurology patient started on aspirin, statin, troponins to be done, carotid Dopplers EEG of the brain, we will discontinue all narcotics, use Tylenol for pain, unable to get NSAIDs 01/03: Patient has been evaluated by Dr. Soto with acute mental status changes consistent with metabolic encephalopathy. EEG is mildly abnormal without epileptiform discharges. He recommends aspirin and statin therapy and treatment of hypertension. TSH and vitamin B12. Patient has been evaluated by cardiology for mild troponin elevation without acute coronary event. Patient was cleared for discharge by cardiology. No beta william due to sinus bradycardia. Patient is also followed by Dr. Hawkins for acute kidney injury with ischemic acute tubular necrosis she is recommending stopping saline IV fluids and encourage oral intake. Iron studies. Orthopedics has changed admission over to medical services. Objective - Vital Signs Vital signs: Vital Signs Temp 98.5 F 01/03/19 04:00 Pulse 82 01/03/19 08:00 Resp 17 01/03/19 04:00 BP 173/72 01/03/19 04:00 Pulse Ox 99 01/03/19 04:00 Intake & Output 01/02/19 01/03/19 01/03/19 18:59 06:59 18:59 Intake Total 600 440 Output Total 300 1200 75 Balance 300 -1200 365 Intake: IV 600 Sodium Chloride 0.9% 1, 600 000 ml @ 75 mls/hr IV . [id number] Rx#:[id number] Oral 440 Output: Urine 300 1200 75 Uretheral ([place]ia) 75 Other: Voiding Method Indwelling Catheter Indwelling Catheter Indwelling Catheter - Exam Review of Systems Constitutional: Denies chills, reports fatigue, Denies fever, Denies malaise, reports poor appetite, reports weakness Eyes: denies blurred vision, denies pain Ears, nose, mouth and throat: Denies dysphagia, Denies headache, Denies sore throat, Denies vertigo Cardiovascular: Denies chest pain, Denies dyspnea on exertion, Denies edema, Denies leg edema, Denies lightheadedness, Denies orthopnea, Denies shortness of breath, Denies syncope Respiratory: Denies cough, Denies cough with sputum, Denies dyspnea, Denies excessive sputum, Denies hemoptysis, Denies home oxygen, Denies wheezing Gastrointestinal: Denies abdominal pain, Denies diarrhea, Denies nausea, Denies vomiting Genitourinary: Denies dysuria, Denies hematuria, Denies urinary frequency Musculoskeletal: Reports muscle weakness, Denies frequent falls, Denies gait dysfunction, Denies myalgias, reports pain right hip Integumentary: Denies pruritus, Denies rash, Denies wounds Neurological: Denies change in mentation, Denies change in speech, Denies numbness, Denies seizures, Denies weakness Psychiatric: Denies anxiety, Denies depression Endocrine: Denies fatigue, Denies weight change Physical exam: - Constitutional General appearance: Present: cooperative, no acute distress - EENT Eyes: Present: anicteric sclerae, EOMI, poor dentition, normal appearance ENT: Present: NA/AT - Neck Neck: Present: normal ROM - Respiratory Respiratory: bilateral: CTA, negative: diminished, dullness - Cardiovascular Rhythm: regular Heart sounds: normal: S1, S2 Abnormal Heart Sounds: Absent: systolic murmur, diastolic murmur, rub, S3 Gallop, S4 Gallop, click, other - Gastrointestinal General gastrointestinal: Present: soft - Musculoskeletal Musculoskeletal: Present: strength equal bilaterally (Upper extremity unable to elevate lower extremity on command) - Psychiatric Psychiatric Comment(s): Oriented 1 speech is clear, simple sentences to his sentences, no facial droop, patient able to follow commands. - Labs CBC & Chem 7: 01/04/19 06:03 01/04/19 06:03 Labs: Abnormal Lab Results - Last 24 Hours (Table) 01/02/19 01/02/19 01/02/19 Range/Units 11:01 14:09 17:32 RBC (3.80-5.40) m/uL Hgb (11.4-16.0) gm/dL Hct (34.0-46.0) % RDW (11.5-15.5) % Lymphocytes # (1.0-4.8) k/uL Sodium (137-145) mmol/L Carbon Dioxide (22-30) mmol/L BUN (7-17) mg/dL Creatinine (0.52-1.04) mg/dL POC Glucose (mg/dL) 177 H 109 H (75-99) mg/dL Troponin I 0.070 H* (0.000-0.034) ng/mL 01/02/19 01/02/19 01/03/19 Range/Units 19:46 20:54 01:55 RBC (3.80-5.40) m/uL Hgb (11.4-16.0) gm/dL Hct (34.0-46.0) % RDW (11.5-15.5) % Lymphocytes # (1.0-4.8) k/uL Sodium (137-145) mmol/L Carbon Dioxide (22-30) mmol/L BUN (7-17) mg/dL Creatinine (0.52-1.04) mg/dL POC Glucose (mg/dL) 143 H (75-99) mg/dL Troponin I 0.054 H* 0.059 H* (0.000-0.034) ng/mL 01/03/19 01/03/19 01/03/19 Range/Units 05:45 08:17 08:17 RBC 2.51 L (3.80-5.40) m/uL Hgb 8.2 L (11.4-16.0) gm/dL Hct 24.4 L (34.0-46.0) % RDW 16.3 H (11.5-15.5) % Lymphocytes # 0.6 L (1.0-4.8) k/uL Sodium 130 L (137-145) mmol/L Carbon Dioxide 19 L (22-30) mmol/L BUN 44 H (7-17) mg/dL Creatinine 2.25 H (0.52-1.04) mg/dL POC Glucose (mg/dL) 128 H (75-99) mg/dL Troponin I (0.000-0.034) ng/mL Assessment and Plan Plan: 1. Left intertrochanteric fracture of the left hip secondary to fall. Orthopedics planning for intertrochanteric nail of the left hip this afternoon. Continue current pain management 2. Acute kidney injury with hyperkalemia secondary to diuretic use and poor oral intake. Consult with Dr. Casper appreciated. Continue IV fluids 0.9 normal saline at 75 mL per hour. Bicarb drip has been discontinued. Diuretics on hold. Patient has been cleared by Dr. Casper for surgery once potassium is less than 5.5. Repeat lab work in the morning. 3. Acute metabolic encephalopathy. Consult with neurology appreciated. Opiates were discontinued and continue Tylenol for pain. 4. Chronic kidney disease stage IIIB/4. Continue as in #2. 5. Elevated troponin. Acute coronary syndrome has been ruled out by cardiology . Cardiology consult appreciated. 6. Anemia of chronic kidney disease and acute blood loss anemia status post 2 units of packed RBCs. 7. Hypertension, hypertensive cardiovascular disease. Continue Coreg 25 mg twice daily, Norvasc 10 mg daily, hydralazine 50 mg twice daily. Hold spironolactone, chlorthalidone. 8. Diabetes mellitus type 2. Continue insulin scale. 9. Hyperlipidemia. Continue Lipitor 40 mg at bedtime. 10. Gastroesophageal reflux disease and GI prophylaxis. Continue Pepcid. 11. Gout. Continue allopurinol 100 mg daily. 12. Hyperparathyroidism. Continue Sensipar 30 mg daily. 13. Recurrent depression. Continue citalopram 20 mg daily. 14. History of hydrocephalus status post shunt, stable. 15. Mild hyponatremia, patient is being followed closely by nephrology, on 0.9 saline 16. Bilateral lower extremity weakness. Consult with Dr. Randhawa. Discharge plan: Return to [facility] on Thursday. Impression and plan of care have been directed as dictated by the signing physician. Tiffani Corrigan nurse practitioner acting as scribe for signing physician.
[2019-01-04] MEDS ORDERED: MAG HYDROX/AL HYDROX/SIMETH 30 ML CUP PO PRN (15:24)
--- NOTE | 2019-01-04 15:25 | P.PN ---
Subjective Progress Note Date: 01/04/19 This is an 88-year-old female patient residing at [facility] is a long-term resident under the care of Dr. Guzmán with past mental history of diabetes mellitus type 2, chronic kidney disease stage III, gastroesophageal reflux disease, anemia of chronic disease, gout, hyper parathyroidism, hypertension, hyperlipidemia, recurrent depression, hydrocephalus status post shunt. Patient had a fall while in the bathroom at [facility] and developed pain in the left hip and head pain. She was transferred to [facility] emergency center for evaluation. CAT scan of the brain and C-spine showed shunted ventricles without hydrocephalus. Ventricles appear stable from comparison. No acute intracranial process. No acute osseous abnormality of the cervical spine. Chest x-ray shows mild cardiomegaly and chronic appearing changes. No definite acute process. Hip and pelvic x-ray showed angulated and mildly comminuted intratrochanteric fracture proximal left femur with lateral wall disruption. Initial lab work revealed sodium 128, potassium 7.1, BUN 67 creatinine 5.6 to, hemoglobin 8. The patient was admitted to the cardiac stepdown unit. We have subsequently added on consult for nephrology. 12/31: Patient has just undergone Hibiclens scrub for surgery which is scheduled for this afternoon. She is moaning in pain and an additional dose of IV Dilaudid will be given. Magnesium is 1.6 and will be replaced today. Blood sugars running between 153 and 234. Sodium 129, potassium 5.2, chloride 95, BUN 59 creatinine 3.73. Patient is been afebrile, blood pressure 140/64, heart rate 96, blood pressure 99% on room air. Patient has been seen by Dr. Casper and started bicarbonate drip yesterday which was ordered to be discontinued today and start normal saline at 75 mL per hour. Diuretics remain on hold. Iron studies in progress as well as serum osmolality, urine osmolality and urine sodium. Patient will be transferred to [facility] floor following surgery. Anticipate return to [facility] on Monday 01/01: Patient had left hip closed reduction and IM nailing for left intertrochanteric fracture estimated blood loss 100 mL through spinal anesthesia yesterday by Dr. Hernandez, hemoglobin dropped down to 5.2, 2 units of packed red blood cells ordered to be given lindsey, patient has chronic anemia,blood losses are most likely secondary to hematoma formation in the left hip, Hemoccult is negative, iron studies has been obtained, patient might need iron infusion, depending on iron studies 01/02:, Nursing staff was concerned about patient's condition, since midnight, patient is requiring more assistance including feedings, which is new compared to her baseline which is independent to feedings, and 1 person standby on ambulation. Nursing staff has spoken to me early these afternoon around 1 p.m. today, that the patient requires a dysphagia 2 diet, which is new compared to her baseline at [facility]. Patient was there after monitored through a cold stroke, consults were done with telemetry neurology, with no recommendations for TPA, CAT scan of the brain will be done along with carotid imaging studies. Creatinine is elevated, precludes to study using contrast dye. Upon my evaluation, patient can follow verbal commands, has limited verbal responses, can answer to name and date of , and can follow commands, however patient cannot lift lower extremities bilaterally. Patient has good strength in senior category manager and upper extremities. Cranial nerves are okay without any ocular deficits, no facial symmetry, speech is clear, patient oriented 1. There is no neurology supervisor dehydrogenation for this weekend except for tele-neurology patient started on aspirin, statin, troponins to be done, carotid Dopplers EEG of the brain, we will discontinue all narcotics, use Tylenol for pain, unable to get NSAIDs 01/03: Patient has been evaluated by Dr. Soto with acute mental status changes consistent with metabolic encephalopathy. EEG is mildly abnormal without epileptiform discharges. He recommends aspirin and statin therapy and treatment of hypertension. TSH and vitamin B12. Patient has been evaluated by cardiology for mild troponin elevation without acute coronary event. Patient was cleared for discharge by cardiology. No beta william due to sinus bradycardia. Patient is also followed by Dr. Hawkins for acute kidney injury with ischemic acute tubular necrosis she is recommending stopping saline IV fluids and encourage oral intake. Iron studies. Orthopedics has changed admission over to medical services. 01/04: The patient states that her pain is not bad today. She was changed yesterday to scheduled Tylenol. Ferrlecit ordered. Vitamin D and B12 added. IV fluids currently running at 75 which will be discontinued. Hemoglobin is 7.5. Patient has abdominal distention secondary to constipation for which a suppository will be given. She did have a bowel movement this morning after milk of magnesia. Maalox plus still be added. Munguia catheter will be discontinued today in anticipation of discharge to [facility] tomorrow. Objective - Vital Signs Vital signs: Vital Signs Temp 98.1 F 01/04/19 08:00 Pulse 81 01/04/19 08:00 Resp 16 01/04/19 08:00 BP 156/72 01/04/19 08:00 Pulse Ox 100 01/04/19 08:00 Intake & Output 01/03/19 01/04/19 01/04/19 18:59 06:59 18:59 Intake Total 440 480 Output Total 325 1000 Balance 115 -1000 480 Weight 49 kg 49.5 kg Intake: Oral 440 480 Output: Urine 325 1000 Uretheral (Munguia) 75 Other: Voiding Method Indwelling Catheter Indwelling Catheter Indwelling Catheter # Bowel Movements 1 1 - Exam Review of Systems Constitutional: Denies chills, reports fatigue, Denies fever, Denies malaise, reports poor appetite, reports weakness Eyes: denies blurred vision, denies pain Ears, nose, mouth and throat: Denies dysphagia, Denies headache, Denies sore throat, Denies vertigo Cardiovascular: Denies chest pain, Denies dyspnea on exertion, Denies edema, Denies leg edema, Denies lightheadedness, Denies orthopnea, Denies shortness of breath, Denies syncope Respiratory: Denies cough, Denies cough with sputum, Denies dyspnea, Denies excessive sputum, Denies hemoptysis, Denies home oxygen, Denies wheezing Gastrointestinal: Denies abdominal pain, Denies diarrhea, Denies nausea, Denies vomiting Genitourinary: Denies dysuria, Denies hematuria, Denies urinary frequency Musculoskeletal: Reports muscle weakness, Denies frequent falls, Denies gait dysfunction, Denies myalgias, reports pain left hip is controlled Integumentary: Denies pruritus, Denies rash, Denies wounds Neurological: Denies change in mentation, Denies change in speech, Denies numbness, Denies seizures, Denies weakness Psychiatric: Denies anxiety, Denies depression Endocrine: Denies fatigue, Denies weight change Physical exam: - Constitutional General appearance: Present: cooperative, no acute distress - EENT Eyes: Present: anicteric sclerae, EOMI, poor dentition, normal appearance ENT: Present: NA/AT - Neck Neck: Present: normal ROM - Respiratory Respiratory: bilateral: CTA, negative: diminished, dullness - Cardiovascular Rhythm: regular Heart sounds: normal: S1, S2 Abnormal Heart Sounds: Absent: systolic murmur, diastolic murmur, rub, S3 Gallop, S4 Gallop, click, other - Gastrointestinal General gastrointestinal: Present: soft - Musculoskeletal Musculoskeletal: Present: strength equal bilaterally (Upper extremity unable to elevate lower extremity on command) - Psychiatric Psychiatric Comment(s): Oriented 1 speech is clear, simple sentences to his sentences, no facial droop, patient able to follow commands. - Labs CBC & Chem 7: 01/04/19 06:03 01/04/19 06:03 Labs: Abnormal Lab Results - Last 24 Hours (Table) 01/02/19 01/03/19 01/03/19 Range/Units 07:26 11:38 16:53 RBC (3.80-5.40) m/uL Hgb (11.4-16.0) gm/dL Hct (34.0-46.0) % RDW (11.5-15.5) % Sodium (137-145) mmol/L Carbon Dioxide (22-30) mmol/L BUN (7-17) mg/dL Creatinine (0.52-1.04) mg/dL Glucose (74-99) mg/dL POC Glucose (mg/dL) 136 H 144 H (75-99) mg/dL Iron 12 L (50-170) ug/dL TIBC 177 L (228-460) ug/dL Iron Saturation 6.78 L (12.00-45.00) 01/03/19 01/04/19 01/04/19 Range/Units 20:40 06:03 06:03 RBC 2.35 L (3.80-5.40) m/uL Hgb 7.5 L (11.4-16.0) gm/dL Hct 23.2 L (34.0-46.0) % RDW 16.2 H (11.5-15.5) % Sodium 128 L (137-145) mmol/L Carbon Dioxide 19 L (22-30) mmol/L BUN 41 H (7-17) mg/dL Creatinine 2.09 H (0.52-1.04) mg/dL Glucose 105 H (74-99) mg/dL POC Glucose (mg/dL) 207 H (75-99) mg/dL Iron (50-170) ug/dL TIBC (228-460) ug/dL Iron Saturation (12.00-45.00) 01/04/19 01/04/19 Range/Units 06:12 07:55 RBC (3.80-5.40) m/uL Hgb (11.4-16.0) gm/dL Hct (34.0-46.0) % RDW (11.5-15.5) % Sodium (137-145) mmol/L Carbon Dioxide (22-30) mmol/L BUN (7-17) mg/dL Creatinine (0.52-1.04) mg/dL Glucose (74-99) mg/dL POC Glucose (mg/dL) 137 H 146 H (75-99) mg/dL Iron (50-170) ug/dL TIBC (228-460) ug/dL Iron Saturation (12.00-45.00) Assessment and Plan Plan: 1. Left intertrochanteric fracture of the left hip secondary to fall. Orthopedics planning for intertrochanteric nail of the left hip this afternoon. Continue current pain management 2. Acute kidney injury with hyperkalemia secondary to diuretic use and poor oral intake. Consult with Dr. Casper appreciated. One dose of IV Lasix. IV fluids on hold. 3. Acute metabolic encephalopathy. Consult with neurology appreciated. Op iates were discontinued and continue Tylenol for pain. 4. Chronic kidney disease stage IIIB/4. Continue as in #2. 5. Elevated troponin. Acute coronary syndrome has been ruled out by cardiology. Cardiology consult appreciated. 6. Anemia of chronic kidney disease and acute blood loss anemia status post 2 units of packed RBCs. 7. Hypertension, hypertensive cardiovascular disease. Continue Coreg 25 mg twice daily, Norvasc 10 mg daily, hydralazine 50 mg twice daily. Hold spironolactone, chlorthalidone. 8. Diabetes mellitus type 2. Continue insulin scale. 9. Hyperlipidemia. Continue Lipitor 40 mg at bedtime. 10. Gastroesophageal reflux disease and GI prophylaxis. Continue Pepcid. 11. Gout. Continue allopurinol 100 mg daily. 12. Hyperparathyroidism. Continue Sensipar 30 mg daily. 13. Recurrent depression. Discontinue citalopram 20 mg daily. Start Wellbutrin. 14. History of hydrocephalus status post shunt, stable. 15. Mild hyponatremia, patient is being followed closely by nephrology, on 0.9 saline 16. Bilateral lower extremity weakness. Consult with Dr. Randhawa. Discharge plan: Return to [facility] on Thursday. Impression and plan of care have been directed as dictated by the signing physician. Tiffani Corrigan nurse practitioner acting as scribe for signing physician.
[2019-01-04 17:00] LABS: Glucose,Whole Blood 165 mg/dL (75-99)
--- NOTE | 2019-01-04 17:36 | PN ---
PROGRESS NOTE Patient is seen for followup for acute kidney injury. Her renal function continues to improve, serum creatinine down to 2.0 from 5.6 on initial admission. Patient is also hyponatremic. Her oral intake is not the best. There is no ongoing diarrhea, nausea, vomiting. Currently she is having an echocardiogram done. On examination today, blood pressure was 156/72, heart rate 81 per minute. She is afebrile. EXAMINATION OF THE HEART: S1 and S2. EXAMINATION OF LUNGS: Bilateral breath sounds are heard. ABDOMEN: Soft, non-tender. Examination of lower extremities shows trace edema bilaterally. COMMERCIAL ASSISTANT exam is grossly intact. Labs show sodium 128, potassium 4.8, BUN 41, serum creatinine 2.09. Hemoglobin was 7.5 g/dL today. ASSESSMENT: 1. Acute kidney injury, currently improving. Patient is not on any IV fluids. Continue off of IV fluids for now. Continue to encourage increased oral intake. She is not on any nephrotoxic medications. 2. Hyponatremia. Appears to be hypervolemic. I will give her a dose of IV Lasix today. Maintain off of normal saline. 3. Anemia with evidence of severe iron deficiency, status post one dose of IV iron. I will maintain the patient on IV iron for at least 3 days. 4. 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 Baseline creatinine 2 to 2.5 mg/dL. 5. Hyperkalemia on initial admission, currently resolved. PLAN: Lasix IV x1. Repeat sodium this evening. Maintain off of normal saline. I will add at least 2 more doses of IV iron, given the significant iron deficiency. MMODL / IJN: [id number] /
[2019-01-04] MEDS: FERROUS SULFATE 325 MG TAB PO SCH (17:46)
[2019-01-04] MEDS: MULTIVITAMINS, THERA 1 EACH TAB PO SCH (17:46)
--- NOTE | 2019-01-04 19:00 | XR ---
EXAMINATION TYPE: XR Hip LT and AP Pelvis DATE OF EXAM: 01/04/2019 COMPARISON: 12/31/2018 HISTORY: Pain TECHNIQUE: A single AP view of the pelvis is obtained. Two views of the left hip are obtained. FINDINGS: The pelvic ring appears intact. There is a left hip intramedullary behzad in the proximal left femur and transverse screw fixing the intertrochanteric fracture of the left femur in reasonable trevon tomic position. Sacroiliac joints appear normal. There is vascular calcification. There are lateral s kin simone. IMPRESSION: Left hip surgery without change in fragment position compared to last exam. No complicating process s een.
[2019-01-04] MEDS ORDERED: SODIUM CHLORIDE TAB 1 GM TAB PO STA (20:22)
[2019-01-04] MEDS: SENNOSIDES-DOCUSATE SODIUM 1 EACH TAB PO SCH (20:32)
[2019-01-04] MEDS: ATORVASTATIN 40 MG TAB PO SCH (20:33)
[2019-01-04 20:45] LABS: Glucose,Whole Blood 202 mg/dL (75-99)
[2019-01-05] MEDS: HYDROmorphone 0.5 MG/0.5 ML SYRINGE IVP PRN (03:02)
[2019-01-05 06:25] LABS: Glucose,Whole Blood 114 mg/dL (75-99)
[2019-01-05] MEDS: INSULIN ASPART (NovoLOG) 100 UNIT/ML VIAL SQ SCH ×4 (06:29→21:38)
[2019-01-05] MEDS: FAMOTIDINE 20 MG TAB PO SCH (06:29)
[2019-01-05] MEDS: ACETAMINOPHEN TAB 500 MG TAB PO SCH ×3 (06:29→17:08)
[2019-01-05 07:51] LABS: Basophils % (A) 0 %; Eosinophils # (A) 0.3 k/uL (0-0.7); Eosinophils % (A) 5 %; HCT 22.5 % (34.0-46.0); HGB 7.4 gm/dL (11.4-16.0); Lymphocytes # (A) 0.9 k/uL (1.0-4.8); Lymphocytes % (A) 13 %; MCH 32.3 pg (25.0-35.0); MCHC 33.1 g/dL (31.0-37.0); MCV 97.8 fL (80.0-100.0); Mean Platelet Volume 7.6; Monocytes # (A) 0.7 k/uL (0-1.0); Monocytes % (A) 10 %; Neutrophils # (A) 4.5 k/uL (1.3-7.7); Neutrophils % (A) 69 %; Platelet Count 233 k/uL (150-450); RDW 15.9 % (11.5-15.5); WBC 6.6 k/uL (3.8-10.6)
[2019-01-05 07:58] LABS: Albumin 2.8 g/dL (3.5-5.0); Calcium 9.5 mg/dL (8.4-10.2); Potassium 5.4 mmol/L (3.5-5.1); Total Bilirubin 0.5 mg/dL (0.2-1.3); Total Protein 5.3 g/dL (6.3-8.2)
[2019-01-05] MEDS: amLODIPine 10 MG TAB PO SCH (09:45)
[2019-01-05] MEDS: CARVEDILOL 12.5 MG TAB PO SCH ×2 (09:45→21:38)
[2019-01-05] MEDS: CLOPIDOGREL 75 MG TAB PO SCH (09:45)
[2019-01-05] MEDS: ONDANSETRON 4 MG/2 ML VIAL IVP PRN (09:45)
[2019-01-05] MEDS: CYANOCOBALAMIN 500 MCG TAB PO SCH (09:46)
[2019-01-05] MEDS: ALLOPURINOL 100 MG TAB PO SCH (09:46)
[2019-01-05] MEDS: CHOLECALCIFEROL 1,000 UNIT TAB PO SCH (09:46)
[2019-01-05] MEDS: HYDROcodone/APAP 5-325MG 1 EACH TAB PO PRN ×3 (09:47→21:47)
[2019-01-05] MEDS: MAGNESIUM HYDROXIDE 2,400 MG/10 ML CUP PO PRN (09:47)
[2019-01-05] MEDS: buPROPion 100 MG TAB PO SCH (09:48)
[2019-01-05] MEDS: CINACALCET 30 MG TAB PO SCH (09:48)
[2019-01-05] MEDS: hydrALAZINE HCL 50 MG TAB PO SCH ×2 (09:50→21:38)
[2019-01-05] MEDS: HEPARIN SODIUM,PORCINE 5,000 UNIT/ML 1 ML VIAL SQ SCH ×2 (09:50→21:38)
--- NOTE | 2019-01-05 10:21 | XR ---
EXAMINATION TYPE: XR KUB portable DATE OF EXAM: 01/05/2019 COMPARISON: NONE HISTORY: Pain TECHNIQUE: Single supine KUB image of the abdomen is obtained FINDINGS: Distended small and large bowel. Moderate fecal stasis. No evidence for obstruction at this time. No convincing evidence for pneumoperitoneum. No unusual calcifications. The lung bases are clear. The osseous structures are intact. IMPRESSION: 1. Distended small and large bowel. Moderate fecal stasis. No evidence for obstruction at this time.
--- NOTE | 2019-01-05 10:42 | P.PN ---
Subjective Progress Note Date: 01/05/19 Principal diagnosis: AMS Patient more awake and alert this am. No new neuro c/o. Objective - Vital Signs Vital signs: Vital Signs Temp 98.6 F 01/04/19 20:00 Pulse 72 01/05/19 03:42 Resp 15 01/05/19 03:42 BP 156/70 01/05/19 03:42 Pulse Ox 100 01/05/19 03:42 Intake & Output 01/04/19 01/05/19 01/05/19 18:59 06:59 18:59 Intake Total 940 237 Output Total 1000 1130 200 Balance -60 -1130 37 Weight 74 kg Intake: Oral 940 237 Output: Urine 1000 1130 200 Other: Voiding Method Indwelling Catheter Indwelling Catheter # Bowel Movements 2 1 - Exam Gen NAD Pleasant and cooperative MS Awake and alert to self and hospital Able to follow one-step commands more consistently Socially appropriate answers CN II-XII grossly intact no nystagmus Motor Normal bulk/tone No tremors MCKENZIE x4 Sens Intact to LT x4 Coord Not tested DTRs 2+/4 sym throughout Gait Deferred - Labs CBC & Chem 7: 01/05/19 06:22 01/05/19 06:22 Labs: Abnormal Lab Results - Last 24 Hours (Table) 01/04/19 01/04/19 01/04/19 Range/Units 11:56 16:39 19:49 RBC (3.80-5.40) m/uL Hgb (11.4-16.0) gm/dL Hct (34.0-46.0) % RDW (11.5-15.5) % Lymphocytes # (1.0-4.8) k/uL Sodium 127 L (137-145) mmol/L Potassium (3.5-5.1) mmol/L BUN (7-17) mg/dL Creatinine (0.52-1.04) mg/dL POC Glucose (mg/dL) 173 H 165 H (75-99) mg/dL Total Protein (6.3-8.2) g/dL Albumin (3.5-5.0) g/dL 01/04/19 01/05/19 01/05/19 Range/Units 20:44 06:22 06:22 RBC 2.30 L (3.80-5.40) m/uL Hgb 7.4 L (11.4-16.0) gm/dL Hct 22.5 L (34.0-46.0) % RDW 15.9 H (11.5-15.5) % Lymphocytes # 0.9 L (1.0-4.8) k/uL Sodium 131 L (137-145) mmol/L Potassium 5.4 H (3.5-5.1) mmol/L BUN 42 H (7-17) mg/dL Creatinine 2.01 H (0.52-1.04) mg/dL POC Glucose (mg/dL) 202 H (75-99) mg/dL Total Protein 5.3 L (6.3-8.2) g/dL Albumin 2.8 L (3.5-5.0) g/dL 01/05/19 Range/Units 06:23 RBC (3.80-5.40) m/uL Hgb (11.4-16.0) gm/dL Hct (34.0-46.0) % RDW (11.5-15.5) % Lymphocytes # (1.0-4.8) k/uL Sodium (137-145) mmol/L Potassium (3.5-5.1) mmol/L BUN (7-17) mg/dL Creatinine (0.52-1.04) mg/dL POC Glucose (mg/dL) 114 H (75-99) mg/dL Total Protein (6.3-8.2) g/dL Albumin (3.5-5.0) g/dL Assessment and Plan Assessment: AMS- clinical presentation is consistent with metabolic encephalopathy. 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 Plan: -EEG findings consistent with metabolic encephalopathy. -CT and CTA Head/Neck reviewed. -Given she does have large vessel atherosclerotic disease, agree with aspirin and statin therapy. -May treat BP to normotensive range. -Goals BP <130, hga1c <7.0 and LDL <70 -TSH and vitamin B12 WNL -PT/OT/SP per protocol -DVT prophylaxis: Heparin SC Thank you again for this consultation. Please call with ?. Time with Patient: Less than 30 (Time spent in direct patient care, greater than 50% of which was spent in [id number] counseling and coordination of care: 25 minutes.)
--- NOTE | 2019-01-05 11:03 | P.PN ---
Subjective Progress Note Date: 01/05/19 Principal diagnosis: Intertrochanteric fracture left hip. Anemia. Multiple medical comorbidities. Encephalopathy. This is an 88-year-old female who we're following regarding her in tertrochanteric fracture left hip. She has been seen by neurology who suspects an encephalopathy. Her vital signs are stable. She is complaining of abdominal pain today. Objective - Vital Signs Vital signs: Vital Signs Temp 98.6 F 01/04/19 20:00 Pulse 72 01/05/19 03:42 Resp 15 01/05/19 03:42 BP 156/70 01/05/19 03:42 Pulse Ox 100 01/05/19 03:42 Intake & Output 01/04/19 01/05/19 01/05/19 18:59 06:59 18:59 Intake Total 940 237 Output Total 1000 1130 200 Balance -60 -1130 37 Weight 74 kg Intake: Oral 940 237 Output: Urine 1000 1130 200 Other: Voiding Method Indwelling Catheter Indwelling Catheter # Bowel Movements 2 1 - Exam This is an 88-year-old female in no acute distress. She is alert but confused. She will follow verbal commands on exam. Exam of the left hip reveals that her dressing is clean, dry and intact. She holds her hip in internal rotation. Minimal drainage from incisions. Minimal swelling. She is able to wiggle toes. Pedal pulses are +1/4 bilaterally. Neurovascular status to the lower ext remities is intact. - Labs CBC & Chem 7: 01/05/19 06:22 01/05/19 06:22 Labs: Abnormal Lab Results - Last 24 Hours (Table) 01/04/19 01/04/19 01/04/19 Range/Units 11:56 16:39 19:49 RBC (3.80-5.40) m/uL Hgb (11.4-16.0) gm/dL Hct (34.0-46.0) % RDW (11.5-15.5) % Lymphocytes # (1.0-4.8) k/uL Sodium 127 L (137-145) mmol/L Potassium (3.5-5.1) mmol/L BUN (7-17) mg/dL Creatinine (0.52-1.04) mg/dL POC Glucose (mg/dL) 173 H 165 H (75-99) mg/dL Total Protein (6.3-8.2) g/dL Albumin (3.5-5.0) g/dL 01/04/19 01/05/19 01/05/19 Range/Units 20:44 06:22 06:22 RBC 2.30 L (3.80-5.40) m/uL Hgb 7.4 L (11.4-16.0) gm/dL Hct 22.5 L (34.0-46.0) % RDW 15.9 H (11.5-15.5) % Lymphocytes # 0.9 L (1.0-4.8) k/uL Sodium 131 L (137-145) mmol/L Potassium 5.4 H (3.5-5.1) mmol/L BUN 42 H (7-17) mg/dL Creatinine 2.01 H (0.52-1.04) mg/dL POC Glucose (mg/dL) 202 H (75-99) mg/dL Total Protein 5.3 L (6.3-8.2) g/dL Albumin 2.8 L (3.5-5.0) g/dL 01/05/19 Range/Units 06:23 RBC (3.80-5.40) m/uL Hgb (11.4-16.0) gm/dL Hct (34.0-46.0) % RDW (11.5-15.5) % Lymphocytes # (1.0-4.8) k/uL Sodium (137-145) mmol/L Potassium (3.5-5.1) mmol/L BUN (7-17) mg/dL Creatinine (0.52-1.04) mg/dL POC Glucose (mg/dL) 114 H (75-99) mg/dL Total Protein (6.3-8.2) g/dL Albumin (3.5-5.0) g/dL Assessment and Plan (1) Acute renal failure Current Visit: Yes Status: Acute Code(s): N17.9 - ACUTE KIDNEY FAILURE, UNSPECIFIED SNOMED Code(s): 52862267 (2) Anemia Current Visit: Yes Status: Acute Code(s): D64.9 - ANEMIA, UNSPECIFIED SNOMED Code(s): 515645863 (3) Fall Current Visit: Yes Status: Acute Code(s): W19.XXXA - UNSPECIFIED FALL, INITIAL ENCOUNTER SNOMED Code(s): 7467802 (4) Hyperkalemia Current Visit: Yes Status: Acute Code(s): E87.5 - HYPERKALEMIA SNOMED Code(s): 94234876 (5) Trochanteric fracture of left femur Current Visit: Yes Status: Acute Code(s): S72.102A - UNSP TROCHANTERIC FRACTURE OF LEFT FEMUR, INIT FOR CLOS FX SNOMED Code(s): 18328770 Plan: The clinical findings are discussed with the patient and her nurse. I have transferred attending to internal medicine. Xrays of the hip show IT nail and fracture in satisfactory position and alignment. Keep regular pillow between knees. She may be discharged from an orthopedic standpoint. She is to follow-up in 3 weeks for x-ray and evaluation. Skin clips may be removed 2 weeks postoperatively. She is toe-touch weightbearing to the left lower extremity.
[2019-01-05] MEDS: SODIUM FERRIC GLUCONAT-SUCROSE 125 MG in SODIUM CHLORIDE 0.9% 100 ML IVPB SCH (12:06)
[2019-01-05 12:48] LABS: Glucose,Whole Blood 133 mg/dL (75-99)
--- NOTE | 2019-01-05 13:43 | P.PN ---
Subjective Progress Note Date: 01/05/19 This is an 88-year-old female patient residing at [facility] is a long-term resident under the care of Dr. Guzmán with past mental history of diabetes mellitus type 2, chronic kidney disease stage III, gastroesophageal reflux disease, anemia of chronic disease, gout, hyper parathyroidism, hypertension, hyperlipidemia, recurrent depression, hydrocephalus status post shunt. Patient had a fall while in the bathroom at [facility] and developed pain in the left hip and head pain. She was transferred to [facility] emergency center for evaluation. CAT scan of the brain and C-spine showed shunted ventricles without hydrocephalus. Ventricles appear stable from comparison. No acute intracranial process. No acute osseous abnormality of the cervical spine. Chest x-ray shows mild cardiomegaly and chronic appearing changes. No definite acute process. Hip and pelvic x-ray showed angulated and mildly comminuted intratrochanteric fracture proximal left femur with lateral wall disruption. Initial lab work revealed sodium 128, potassium 7.1, BUN 67 creatinine 5.6 to, hemoglobin 8. The patient was admitted to the cardiac stepdown unit. We have subsequently added on consult for nephrology. 12/31: Patient has just undergone Hibiclens scrub for surgery which is scheduled for this afternoon. She is moaning in pain and an additional dose of IV Dilaudid will be given. Magnesium is 1.6 and will be replaced today. Blood sugars running between 153 and 234. Sodium 129, potassium 5.2, chloride 95, BUN 59 creatinine 3.73. Patient is been afebrile, blood pressure 140/64, heart rate 96, blood pressure 99% on room air. Patient has been seen by Dr. Casper and started bicarbonate drip yesterday which was ordered to be discontinued today and start normal saline at 75 mL per hour. Diuretics remain on hold. Iron studies in progress as well as serum osmolality, urine osmolality and urine sodium. Patient will be transferred to [facility] floor following surgery. Anticipate return to [facility] on Monday 01/01: Patient had left hip closed reduction and IM nailing for left intertrochanteric fracture estimated blood loss 100 mL through spinal anesthesia yesterday by Dr. Hernandez, hemoglobin dropped down to 5.2, 2 units of packed red blood cells ordered to be given lindsey, patient has chronic anemia,blood losses are most likely secondary to hematoma formation in the left hip, Hemoccult is negative, iron studies has been obtained, patient might need iron infusion, depending on iron studies 01/02:, Nursing staff was concerned about patient's condition, since midnight, patient is requiring more assistance including feedings, which is new compared to her baseline which is independent to feedings, and 1 person standby on ambulation. Nursing staff has spoken to me early these afternoon around 1 p.m. today, that the patient requires a dysphagia 2 diet, which is new compared to her baseline at [facility]. Patient was there after monitored through a cold stroke, consults were done with telemetry neurology, with no recommendations for TPA, CAT scan of the brain will be done along with carotid imaging studies. Creatinine is elevated, precludes to study using contrast dye. Upon my evaluation, patient can follow verbal commands, has limited verbal responses, can answer to name and date of , and can follow commands, however patient cannot lift lower extremities bilaterally. Patient has good strength in chief specialist leed and upper extremities. Cranial nerves are okay without any ocular deficits, no facial symmetry, speech is clear, patient oriented 1. 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 Soto with acute mental status changes consistent with metabolic encephalopathy. EEG is mildly abnormal without epileptiform discharges. He recommends aspirin and statin therapy and treatment of hypertension. TSH and vitamin B12. Patient has been evaluated by cardiology for mild troponin elevation without acute coronary event. Patient was cleared for discharge by cardiology. No beta william due to sinus bradycardia. Patient is also followed by Dr. Hawkins for acute kidney injury with ischemic acute tubular necrosis she is recommending stopping saline IV fluids and encourage oral intake. Iron studies. Orthopedics has changed admission over to medical services. 01/04: The patient states that her pain is not bad today. She was changed yesterday to scheduled Tylenol. Ferrlecit ordered. Vitamin D and B12 added. IV fluids currently running at 75 which will be discontinued. Hemoglobin is 7.5. Patient has abdominal distention secondary to constipation for which a suppository will be given. She did have a bowel movement this morning after milk of magnesia. Maalox plus still be added. Munguia catheter will be discontinued today in anticipation of discharge to [facility] tomorrow. 01/05: Patient remains on the cardiac stepdown unit. Patient is noted to have abdominal distention and KUB will be ordered. KUB revealed distended small and large bowel. Moderate fecal stasis. No evidence of obstruction at this time. Patient's sister states the patient has been having watery stools. Munguia catheter is leaking on the floor and nursing updated. Munguia catheter to be removed. Patient is more awake and alert this morning. No changes to plan from Dr. Randhawa. Orthopedics has reevaluated left hip and obtain hip x-rays that found no acute findings. IT nail and fracture in satisfactory position and alignment. Patient is to keep a regular pillow between her legs. Patient has been cleared for orthopedics for discharge home with plan for follow-up in 3 weeks for x-ray and reevaluation. Skin clips to be removed in 2 weeks postop. Patient is to be toe-touch weightbearing on the left lower extremity. Repeat hemoglobin is 7.4, BUN 42, creatinine 2.01, sodium 131 and potassium 5.4. Anticipate discharge back to [facility] on Thursday. Objective - Vital Signs Vital signs: Vital Signs Temp 98.6 F 01/04/19 20:00 Pulse 72 01/05/19 03:42 Resp 15 01/05/19 03:42 BP 156/70 01/05/19 03:42 Pulse Ox 100 01/05/19 03:42 Intake & Output 01/04/19 01/05/19 01/05/19 18:59 06:59 18:59 Intake Total 940 237 Output Total 1000 1130 200 Balance -60 -1130 37 Weight 74 kg Intake: Oral 940 237 Output: Urine 1000 1130 200 Other: Voiding Method Indwelling Catheter Indwelling Catheter # Bowel Movements 2 1 - Exam Review of Systems Constitutional: Denies chills, reports fatigue, Denies fever, Denies malaise, reports poor appetite, reports weakness Eyes: denies blurred vision, denies pain Ears, nose, mouth and throat: Denies dysphagia, Denies headache, Denies sore t hroat, Denies vertigo Cardiovascular: Denies chest pain, Denies dyspnea on exertion, Denies edema, Denies leg edema, Denies lightheadedness, Denies orthopnea, Denies shortness of breath, Denies syncope Respiratory: Denies cough, Denies cough with sputum, Denies dyspnea, Denies excessive sputum, Denies hemoptysis, Denies home oxygen, Denies wheezing Gastrointestinal: Denies abdominal pain, Denies diarrhea, Denies nausea, Denies vomiting Genitourinary: Denies dysuria, Denies hematuria, Denies urinary frequency Musculoskeletal: Reports muscle weakness, Denies frequent falls, Denies gait dysfunction, Denies myalgias, reports pain left hip is controlled Integumentary: Denies pruritus, Denies rash, Denies wounds Neurological: reports change in mentation, Denies change in speech, Denies numbness, Denies seizures, Denies weakness Psychiatric: Denies anxiety, Denies depression Endocrine: Denies fatigue, Denies weight change Physical exam: - Constitutional General appearance: Present: cooperative, no acute distress - EENT Eyes: Present: anicteric sclerae, EOMI, poor dentition, normal appearance ENT: Present: NA/AT - Neck Neck: Present: normal ROM - Respiratory Respiratory: bilateral: CTA, negative: diminished, dullness - Cardiovascular Rhythm: regular Heart sounds: normal: S1, S2 Abnormal Heart Sounds: Absent: systolic murmur, diastolic murmur, rub, S3 Gallop, S4 Gallop, click, other - Gastrointestinal General gastrointestinal: Present: soft - Musculoskeletal Musculoskeletal: Present: strength equal bilaterally (Upper extremity unable to elevate lower extremity on command) - Psychiatric Psychiatric Comment(s): Oriented 1 speech is clear, simple sentences to his sentences, no facial droop, patient able to follow commands. - Labs CBC & Chem 7: 01/05/19 06:22 01/05/19 06:22 Labs: Abnormal Lab Results - Last 24 Hours (Table) 01/04/19 01/04/19 01/04/19 Range/Units 11:56 16:39 19:49 RBC (3.80-5.40) m/uL Hgb (11.4-16.0) gm/dL Hct (34.0-46.0) % RDW (11.5-15.5) % Lymphocytes # (1.0-4.8) k/uL Sodium 127 L (137-145) mmol/L Potassium (3.5-5.1) mmol/L BUN (7-17) mg/dL Creatinine (0.52-1.04) mg/dL POC Glucose (mg/dL) 173 H 165 H (75-99) mg/dL Total Protein (6.3-8.2) g/dL Albumin (3.5-5.0) g/dL 01/04/19 01/05/19 01/05/19 Range/Units 20:44 06:22 06:22 RBC 2.30 L (3.80-5.40) m/uL Hgb 7.4 L (11.4-16.0) gm/dL Hct 22.5 L (34.0-46.0) % RDW 15.9 H (11.5-15.5) % Lymphocytes # 0.9 L (1.0-4.8) k/uL Sodium 131 L (137-145) mmol/L Potassium 5.4 H (3.5-5.1) mmol/L BUN 42 H (7-17) mg/dL Creatinine 2.01 H (0.52-1.04) mg/dL POC Glucose (mg/dL) 202 H (75-99) mg/dL Total Protein 5.3 L (6.3-8.2) g/dL Albumin 2.8 L (3.5-5.0) g/dL 01/05/19 Range/Units 06:23 RBC (3.80-5.40) m/uL Hgb (11.4-16.0) gm/dL Hct (34.0-46.0) % RDW (11.5-15.5) % Lymphocytes # (1.0-4.8) k/uL Sodium (137-145) mmol/L Potassium (3.5-5.1) mmol/L BUN (7-17) mg/dL Creatinine (0.52-1.04) mg/dL POC Glucose (mg/dL) 114 H (75-99) mg/dL Total Protein (6.3-8.2) g/dL Albumin (3.5-5.0) g/dL Assessment and Plan Plan: 1. Left intertrochanteric fracture of the left hip secondary to fall. Orthopedics planning for intertrochanteric nail of the left hip this afternoon. Continue current pain management. Avoid narcotics. Reevaluation by orthopedics is appreciated. 2. Acute kidney injury with hyperkalemia secondary to diuretic use and poor o ral intake. Consult with Dr. Casper appreciated. IV fluids on hold. 3. Acute metabolic encephalopathy. Consult with neurology appreciated. Opiates were discontinued and continue Tylenol for pain. 4. Chronic kidney disease stage IIIB/4. Continue as in #2. 5. Elevated troponin. Acute coronary syndrome has been ruled out by cardiology. Cardiology consult appreciated. 6. Anemia of chronic kidney disease and acute blood loss anemia status post 2 units of packed RBCs without sign of hematoma. Status post Ferrlecit infusions. 7. Hypertension, hypertensive cardiovascular disease. Continue Coreg 25 mg twice daily, Norvasc 10 mg daily, hydralazine 50 mg twice daily. Hold spironolactone, chlorthalidone. 8. Diabetes mellitus type 2. Continue insulin scale. 9. Hyperlipidemia. Continue Lipitor 40 mg at bedtime. 10. Gastroesophageal reflux disease and GI prophylaxis. Continue Pepcid. 11. Gout. Continue allopurinol 100 mg daily. 12. Hyperparathyroidism. Continue Sensipar 30 mg daily. 13. Recurrent depression. Discontinue citalopram 20 mg daily. Start Wellbutrin. 14. History of hydrocephalus status post shunt, stable. 15. Mild hyponatremia, patient is being followed closely by nephrology, on 0.9 saline 16. Bilateral lower extremity weakness. Consult with Dr. Randhawa. Discharge plan: Return to [facility] on Thursday. Impression and plan of care have been directed as dictated by the signing physician. Tiffani Corrigan nurse practitioner acting as scribe for signing physician.
[2019-01-05 14:04] VITALS: BMI 28.9
[2019-01-05] MEDS: FERROUS SULFATE 325 MG TAB PO SCH (16:33)
[2019-01-05] MEDS: MULTIVITAMINS, THERA 1 EACH TAB PO SCH (16:33)
[2019-01-05 17:21] LABS: Glucose,Whole Blood 136 mg/dL (75-99)
--- NOTE | 2019-01-05 17:38 | PN ---
PROGRESS NOTE Patient is seen for followup for acute kidney injury. Her renal function continues to improve. Currently patient is off of IV fluids. She has been hyponatremic, for which she received a dose of Lasix yesterday. I also gave her a g of sodium chloride. Her sodium is up to 131 today. The patient denies any significant complaints this morning. On examination this morning, blood pressure was 179/75, heart rate 74 per minute. She is afebrile. Examination of the heart S1, S2. Examination of the lungs, bilateral breath sounds are heard. Abdomen is soft, nontender. Examination lower extremities shows edema 1+ bilaterally. DIGITAL ADVERTISING ANALYST exam is grossly intact. LABS: Show sodium 131, potassium 5.4, chloride 99, BUN of 42, serum creatinine 2.01, hemoglobin 7.4 g/dL. ASSESSMENT: 1. Acute kidney injury, acute tubular necrosis, currently significantly improved. Patient is off of IV fluids. Continue to encourage increased oral intake. Maintain patient off of nephrotoxic medications. 2. Hyponatremia which is hypervolemic status post Lasix yesterday. Patient also received a dose of sodium chloride tablets. I will hold off on giving her another sodium load given her hypervolemic status. Continue with some degree of free water restriction. We can repeat Lasix if her sodium drops again. 3. Anemia with severe iron deficiency, maintained on IV iron. 4. 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 Baseline creatinine 2-2.5 mg/dL. 5. Hyperkalemia on initial admission, currently improved. PLAN: Repeat labs in a.m. Encourage increased oral intake and can add Lasix if serum sodium drops again. This will also help with the mild hyperkalemia which is present currently. MMODL / IJN: [id number] /
[2019-01-05 21:03] LABS: Glucose,Whole Blood 165 mg/dL (75-99)
[2019-01-05] MEDS: SENNOSIDES-DOCUSATE SODIUM 1 EACH TAB PO SCH (21:38)
[2019-01-05] MEDS: ATORVASTATIN 40 MG TAB PO SCH (21:38)
[2019-01-06] MEDS: ACETAMINOPHEN TAB 500 MG TAB PO SCH ×4 (00:46→13:07)
[2019-01-06 06:47] LABS: Glucose,Whole Blood 109 mg/dL (75-99)
[2019-01-06] MEDS: INSULIN ASPART (NovoLOG) 100 UNIT/ML VIAL SQ SCH ×4 (07:25→22:18)
[2019-01-06 07:37] LABS: HCT 23.7 % (34.0-46.0); HGB 7.6 gm/dL (11.4-16.0); MCH 31.4 pg (25.0-35.0); MCHC 32.1 g/dL (31.0-37.0); MCV 97.7 fL (80.0-100.0); Mean Platelet Volume 7.2; Platelet Count 245 k/uL (150-450); RBC 2.42 m/uL (3.80-5.40); RDW 15.2 % (11.5-15.5); WBC 6.9 k/uL (3.8-10.6)
[2019-01-06 07:52] LABS: Calcium 9.9 mg/dL (8.4-10.2); Potassium 5.6 mmol/L (3.5-5.1)
[2019-01-06] MEDS: HEPARIN SODIUM,PORCINE 5,000 UNIT/ML 1 ML VIAL SQ SCH ×2 (09:21→22:18)
[2019-01-06] MEDS: buPROPion 100 MG TAB PO SCH (09:21)
[2019-01-06] MEDS: CARVEDILOL 12.5 MG TAB PO SCH ×2 (09:21→22:17)
[2019-01-06] MEDS: amLODIPine 10 MG TAB PO SCH (09:22)
[2019-01-06] MEDS: CYANOCOBALAMIN 500 MCG TAB PO SCH (09:22)
[2019-01-06] MEDS: CINACALCET 30 MG TAB PO SCH (09:22)
[2019-01-06] MEDS: CHOLECALCIFEROL 1,000 UNIT TAB PO SCH (09:22)
[2019-01-06] MEDS: hydrALAZINE HCL 50 MG TAB PO SCH ×2 (09:22→22:17)
[2019-01-06] MEDS: CLOPIDOGREL 75 MG TAB PO SCH (09:22)
[2019-01-06] MEDS: ALLOPURINOL 100 MG TAB PO SCH (09:22)
[2019-01-06] MEDS: FAMOTIDINE 20 MG TAB PO SCH (09:22)
[2019-01-06] MEDS: SODIUM FERRIC GLUCONAT-SUCROSE 125 MG in SODIUM CHLORIDE 0.9% 100 ML IVPB SCH (09:26)
--- NOTE | 2019-01-06 10:11 | P.PN ---
Subjective Progress Note Date: 01/06/19 Principal diagnosis: Metabolic encephalopathy Patient more awake and alert this am. No new neuro c/o. Objective - Vital Signs Vital signs: Vital Signs Temp 98.5 F 01/06/19 07:24 Pulse 78 01/06/19 07:24 Resp 15 01/06/19 07:24 BP 174/65 01/06/19 07:24 Pulse Ox 100 01/06/19 07:24 Intake & Output 01/05/19 01/06/19 01/06/19 18:59 06:59 18:59 Intake Total 1167 50 Output Total 800 Balance 367 50 Weight 74 kg 76 kg Intake: IV 10 Invasive Line 3 10 Oral 1157 50 Output: Urine 500 Post Void Residual 300 Other: Voiding Method Indwelling Catheter # Voids 3 2 # Bowel Movements 1 - Exam Gen NAD Pleasant and cooperative MS Awake and alert to self and hospital Able to state her birthdate this am Able to follow one-step commands more consistently Socially appropriate answers CN II-XII grossly intact no nystagmus Motor Normal bulk/tone No tremors MCKENZIE x4 Sens Intact to LT x4 Coord Not tested DTRs 2+/4 sym throughout Gait Deferred - Labs CBC & Chem 7: 01/06/19 07:12 01/06/19 07:12 Labs: Abnormal Lab Results - Last 24 Hours (Table) 01/05/19 01/05/19 01/05/19 Range/Units 11:56 17:20 21:01 RBC (3.80-5.40) m/uL Hgb (11.4-16.0) gm/dL Hct (34.0-46.0) % Sodium (137-145) mmol/L Potassium (3.5-5.1) mmol/L BUN (7-17) mg/dL Creatinine (0.52-1.04) mg/dL Glucose (74-99) mg/dL POC Glucose (mg/dL) 133 H 136 H 165 H (75-99) mg/dL 01/06/19 01/06/19 01/06/19 Range/Units 06:45 07:12 07:12 RBC 2.42 L (3.80-5.40) m/uL Hgb 7.6 L (11.4-16.0) gm/dL Hct 23.7 L (34.0-46.0) % Sodium 130 L (137-145) mmol/L Potassium 5.6 H (3.5-5.1) mmol/L BUN 38 H (7-17) mg/dL Creatinine 2.06 H (0.52-1.04) mg/dL Glucose 100 H (74-99) mg/dL POC Glucose (mg/dL) 109 H (75-99) mg/dL Assessment and Plan Assessment: AMS- clinical presentation is consistent with metabolic encephalopathy. 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 Plan: -EEG findings consistent with metabolic encephalopathy. -CT and CTA Head/Neck reviewed. -Given she does have large vessel atherosclerotic disease, agree with aspirin and statin therapy. -May treat BP to normotensive range. -Goals BP <130, hga1c <7.0 and LDL <70 -TSH and vitamin B12 WNL -PT/OT/SP per protocol -DVT prophylaxis: Heparin SC -Patient continues to improve neurologically. No other inpatient neuro recs at this time regarding her metabolic encephalopathy. Will revisit patient on an as needed basis. d/w primary team Dr. Roe who feels comfortable with plan. Please call with new questions. Thank you again for this consultation. Time with Patient: Less than 30 (Time spent in direct patient care, greater than 50% of which was spent in [id number] counseling and coordination of care: 25 minutes.)
[2019-01-06 11:57] LABS: Glucose,Whole Blood 181 mg/dL (75-99)
--- NOTE | 2019-01-06 13:00 | P.PN ---
Subjective Progress Note Date: 01/06/19 This is an 88-year-old female patient residing at [facility] is a long-term resident under the care of Dr. Guzmán with past mental history of diabetes mellitus type 2, chronic kidney disease stage III, gastroesophageal reflux disease, anemia of chronic disease, gout, hyper parathyroidism, hypertension, hyperlipidemia, recurrent depression, hydrocephalus status post shunt. Patient had a fall while in the bathroom at [facility] and developed pain in the left hip and head pain. She was transferred to [facility] emergency center for evaluation. CAT scan of the brain and C-spine showed shunted ventricles without hydrocephalus. Ventricles appear stable from comparison. No acute intracranial process. No acute osseous abnormality of the cervical spine. Chest x-ray shows mild cardiomegaly and chronic appearing changes. No definite acute process. Hip and pelvic x-ray showed angulated and mildly comminuted intratrochanteric fracture proximal left femur with lateral wall disruption. Initial lab work revealed sodium 128, potassium 7.1, BUN 67 creatinine 5.6 to, hemoglobin 8. The patient was admitted to the cardiac stepdown unit. We have subsequently added on consult for nephrology. 12/31: Patient has just undergone Hibiclens scrub for surgery which is scheduled for this afternoon. She is moaning in pain and an additional dose of IV Dilaudid will be given. Magnesium is 1.6 and will be replaced today. Blood sugars running between 153 and 234. Sodium 129, potassium 5.2, chloride 95, BUN 59 creatinine 3.73. Patient is been afebrile, blood pressure 140/64, heart rate 96, blood pressure 99% on room air. Patient has been seen by Dr. Casper and started bicarbonate drip yesterday which was ordered to be discontinued today and start normal saline at 75 mL per hour. Diuretics remain on hold. Iron studies in progress as well as serum osmolality, urine osmolality and urine sodium. Patient will be transferred to [facility] floor following surgery. Anticipate return to [facility] on Monday 01/01: Patient had left hip closed reduction and IM nailing for left intertrochan teric fracture estimated blood loss 100 mL through spinal anesthesia yesterday by Dr. Hernandez, hemoglobin dropped down to 5.2, 2 units of packed red blood cells ordered to be given lindsey, patient has chronic anemia,blood losses are most likely secondary to hematoma formation in the left hip, Hemoccult is negative, iron studies has been obtained, patient might need iron infusion, depending on iron studies 01/02:, Nursing staff was concerned about patient's condition, since midnight, patient is requiring more assistance including feedings, which is new compared to her baseline which is independent to feedings, and 1 person standby on ambulation. Nursing staff has spoken to me early these afternoon around 1 p.m. today, that the patient requires a dysphagia 2 diet, which is new compared to her baseline at [facility]. Patient was there after monitored through a cold stroke, consults were done with telemetry neurology, with no recommendations for TPA, CAT scan of the brain will be done along with carotid imaging studies. Creatinine is elevated, precludes to study using contrast dye. Upon my evaluation, patient can follow verbal commands, has limited verbal responses, can answer to name and date of , and can follow commands, however patient cannot lift lower extremities bilaterally. 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 Cranial nerves are okay without any ocular deficits, no facial symmetry, speech is clear, patient oriented 1. There is no neurology overnight houseperson for this weekend except for tele-neurology patient started on aspirin, statin, troponins to be done, carotid Dopplers EEG of the brain, we will discontinue all narcotics, use Tylenol for pain, unable to get NSAIDs 01/03: Patient has been evaluated by Dr. Soto with acute mental status changes consistent with metabolic encephalopathy. EEG is mildly abnormal without epileptiform discharges. He recommends aspirin and statin therapy and treatment of hypertension. TSH and vitamin B12. Patient has been evaluated by cardiology for mild troponin elevation without acute coronary event. Patient was cleared for discharge by cardiology. No beta william due to sinus bradycardia. Patient is also followed by Dr. Hawkins for acute kidney injury with ischemic acute tubular necrosis she is recommending stopping saline IV fluids and encourage oral intake. Iron studies. Orthopedics has changed admission over to medical services. 01/04: The patient states that her pain is not bad today. She was changed yesterday to scheduled Tylenol. Ferrlecit ordered. Vitamin D and B12 added. IV fluids currently running at 75 which will be discontinued. Hemoglobin is 7.5. Patient has abdominal distention secondary to constipation for which a suppository will be given. She did have a bowel movement this morning after milk of magnesia. Maalox plus still be added. Munguia catheter will be discontinued today in anticipation of discharge to ECF tomorrow. 01/05: Patient remains on the cardiac stepdown unit. Patient is noted to have abdominal distention and KUB will be ordered. KUB revealed distended small and large bowel. Moderate fecal stasis. No evidence of obstruction at this time. Patient's sister states the patient has been having watery stools. Munguia catheter is leaking on the floor and nursing updated. Munguia catheter to be removed. Patient is more awake and alert this morning. No changes to plan from Dr. Randhawa. Orthopedics has reevaluated left hip and obtain hip x-rays that found no acute findings. IT nail and fracture in satisfactory position and alignment. Patient is to keep a regular pillow between her legs. Patient has been cleared for orthopedics for discharge home with plan for follow-up in 3 weeks for x-ray and reevaluation. Skin clips to be removed in 2 weeks postop. Patient is to be toe-touch weightbearing on the left lower extremity. Repeat hemoglobin is 7.4, BUN 42, creatinine 2.01, sodium 131 and potassium 5.4. Anticipate discharge back to [facility] on Thursday. 01/06, patient's x-ray shows fecal retention without an obstruction, with giving her soapsuds enema today, continue on bowel program, no complaints of chest pain palpitations, patient continues to improve mentation solitario, neurology would be signing out and would be seen as needed,most likely transferred to skilled ECF in the morning once insurance approvaland bed is available Review of Systems Constitutional: Denies chills, reports fatigue, Denies fever, Denies malaise, reports poor appetite, reports weakness Eyes: denies blurred vision, denies pain Ears, nose, mouth and throat: Denies dysphagia, Denies headache, Denies sore throat, Denies vertigo Cardiovascular: Denies chest pain, Denies dyspnea on exertion, Denies edema, Denies leg edema, Denies lightheadedness, Denies orthopnea, Denies shortness of breath, Denies syncope Respiratory: Denies cough, Denies cough with sputum, Denies dyspnea, Denies excessive sputum, Denies hemoptysis, Denies home oxygen, Denies wheezing Gastrointestinal: Denies abdominal pain, Denies diarrhea, Denies nausea, Denies vomiting Genitourinary: Denies dysuria, Denies hematuria, Denies urinary frequency Musculoskeletal: Reports muscle weakness, Denies frequent falls, Denies gait dysfunction, Denies myalgias, reports pain left hip is controlled Integumentary: Denies pruritus, Denies rash, Denies wounds Neurological: reports change in mentation, Denies change in speech, Denies numbness, Denies seizures, Denies weakness Psychiatric: Denies anxiety, Denies depression Endocrine: Denies fatigue, Denies weight change Objective - Vital Signs Vital signs: Vital Signs Temp 98.5 F 01/06/19 07:24 Pulse 78 01/06/19 07:24 Resp 15 01/06/19 07:24 BP 174/65 01/06/19 07:24 Pulse Ox 100 01/06/19 07:24 Intake & Output 01/05/19 01/06/19 01/06/19 18:59 06:59 18:59 Intake Total 1167 50 50 Output Total 800 Balance 367 50 50 Weight 74 kg 76 kg Intake: IV 10 Invasive Line 3 10 Oral 1157 50 50 Output: Urine 500 Post Void Residual 300 Other: Voiding Method Indwelling Catheter # Voids 3 2 # Bowel Movements 1 - Labs CBC & Chem 7: 01/06/19 07:12 01/06/19 07:12 Labs: Abnormal Lab Results - Last 24 Hours (Table) 01/05/19 01/05/19 01/06/19 Range/Units 17:20 21:01 06:45 RBC (3.80-5.40) m/uL Hgb (11.4-16.0) gm/dL Hct (34.0-46.0) % Sodium (137-145) mmol/L Potassium (3.5-5.1) mmol/L BUN (7-17) mg/dL Creatinine (0.52-1.04) mg/dL Glucose (74-99) mg/dL POC Glucose (mg/dL) 136 H 165 H 109 H (75-99) mg/dL 01/06/19 01/06/19 01/06/19 Range/Units 07:12 07:12 11:56 RBC 2.42 L (3.80-5.40) m/uL Hgb 7.6 L (11.4-16.0) gm/dL Hct 23.7 L (34.0-46.0) % Sodium 130 L (137-145) mmol/L Potassium 5.6 H (3.5-5.1) mmol/L BUN 38 H (7-17) mg/dL Creatinine 2.06 H (0.52-1.04) mg/dL Glucose 100 H (74-99) mg/dL POC Glucose (mg/dL) 181 H (75-99) mg/dL Assessment and Plan Plan: 1. Left intertrochanteric fracture of the left hip secondary to fall. Orthopedics planning for intertrochanteric nail of the left hip this afternoon. Continue current pain management. Avoid narcotics. Reevaluation by orthopedics is appreciated. 2. Acute kidney injury with hyperkalemia secondary to diuretic use and poor oral intake. Consult with Dr. Casper appreciated. IV fluids on hold. 3. Acute metabolic encephalopathy. Consult with neurology appreciated. Opiates were discontinued and continue Tylenol for pain. 4. Chronic kidney disease stage IIIB/4. Continue as in #2. 5. Elevated troponin. Acute coronary syndrome has been ruled out by cardiology. Cardiology consult appreciated. 6. Anemia of chronic kidney disease and acute blood loss anemia status post 2 units of packed RBCs without sign of hematoma. Status post Ferrlecit infusions. 7. Hypertension, hypertensive cardiovascular disease. Continue Coreg 25 mg twice daily, Norvasc 10 mg daily, hydralazine 50 mg twice daily. Hold spironolactone, chlorthalidone. 8. Diabetes mellitus type 2. Continue insulin scale. 9. Hyperlipidemia. Continue Lipitor 40 mg at bedtime. 10. Gastroesophageal reflux disease and GI prophylaxis. Continue Pepcid. 11. Gout. Continue allopurinol 100 mg daily. 12. Hyperparathyroidism. Continue Sensipar 30 mg daily. 13. Recurrent depression. Discontinue citalopram 20 mg daily. Start Wellbutrin. 14. History of hydrocephalus status post shunt, stable. 15. Mild hyponatremia, patient is being followed closely by nephrology, on 0.9 saline 16. Bilateral lower extremity weakness. Consult with Dr. Randhawa. 17. Fecal retention with constipation, no bowel obstruction, subsets N amount January 06, on Ana-Colace 2 tablets daily Discharge plan: Return to [facility] on Thursday.
[2019-01-06] MEDS: HYDROcodone/APAP 5-325MG 1 EACH TAB PO PRN ×2 (13:09→16:55)
--- NOTE | 2019-01-06 14:13 | P.PN ---
Subjective Progress Note Date: 01/06/19 Seen and examined for the follow-up of acute kidney injury. No acute issues. Objective - Vital Signs Vital signs: Vital Signs Temp 98.5 F 01/06/19 07:24 Pulse 78 01/06/19 07:24 Resp 15 01/06/19 07:24 BP 174/65 01/06/19 07:24 Pulse Ox 100 01/06/19 07:24 Intake & Output 01/05/19 01/06/19 01/06/19 18:59 06:59 18:59 Intake Total 1167 50 50 Output Total 800 Balance 367 50 50 Weight 74 kg 76 kg Intake: IV 10 Invasive Line 3 10 Oral 1157 50 50 Output: Urine 500 Post Void Residual 300 Other: Voiding Method Indwelling Catheter # Voids 3 2 # Bowel Movements 1 - Exam No acute distress S1-S2 heard Lungs clear Munguia catheter No edema - Labs CBC & Chem 7: 01/06/19 07:12 01/06/19 07:12 Labs: Abnormal Lab Results - Last 24 Hours (Table) 01/05/19 01/05/19 01/06/19 Range/Units 17:20 21:01 06:45 RBC (3.80-5.40) m/uL Hgb (11.4-16.0) gm/dL Hct (34.0-46.0) % Sodium (137-145) mmol/L Potassium (3.5-5.1) mmol/L BUN (7-17) mg/dL Creatinine (0.52-1.04) mg/dL Glucose (74-99) mg/dL POC Glucose (mg/dL) 136 H 165 H 109 H (75-99) mg/dL 01/06/19 01/06/19 01/06/19 Range/Units 07:12 07:12 11:56 RBC 2.42 L (3.80-5.40) m/uL Hgb 7.6 L (11.4-16.0) gm/dL Hct 23.7 L (34.0-46.0) % Sodium 130 L (137-145) mmol/L Potassium 5.6 H (3.5-5.1) mmol/L BUN 38 H (7-17) mg/dL Creatinine 2.06 H (0.52-1.04) mg/dL Glucose 100 H (74-99) mg/dL POC Glucose (mg/dL) 181 H (75-99) mg/dL Assessment and Plan Assessment: #1 acute kidney injury secondary to ischemic ATN. Creatinine stable at baseline #2 chronic kidney disease stage IIIB/4 secondary to nephrosclerosis with a basel ine creatinine of 2-2.5 MG per DL. #3 hyperkalemia, check bladder scan to rule out retention #4 status post intertrochanteric fracture with surgery #5 acute blood loss anemia #6 hypertension with chronic kidney disease Plan: #1 creatinine currently at baseline #2 maintain hemoglobin more than 8. Add IV iron and KATERINA. #3 check bladder scan to rule out urinary retention #4 add Lasix 40 mg IV daily. #5 avoid nephrotoxic agents and hypotensive episodes
[2019-01-06] MEDS ORDERED: DARBEPOETIN ALFA 40 MCG/0.4 ML SYRINGE SQ SCH (14:30)
[2019-01-06] MEDS: FUROSEMIDE 10 MG/ML 4 ML VIAL IV SCH (15:34)
[2019-01-06 16:38] LABS: Glucose,Whole Blood 158 mg/dL (75-99)
[2019-01-06] MEDS: MULTIVITAMINS, THERA 1 EACH TAB PO SCH (16:55)
[2019-01-06 21:36] LABS: Glucose,Whole Blood 193 mg/dL (75-99)
[2019-01-06] MEDS: ATORVASTATIN 40 MG TAB PO SCH (22:17)
[2019-01-06] MEDS: SENNOSIDES-DOCUSATE SODIUM 1 EACH TAB PO SCH (22:17)
[2019-01-07] MEDS: ACETAMINOPHEN TAB 500 MG TAB PO SCH ×2 (05:18→05:59)
[2019-01-07 07:20] LABS: Glucose,Whole Blood 143 mg/dL (75-99)
[2019-01-07 07:39] VITALS: BP 187/68; PULSE 80; RESP 22; TEMP 98.1
--- NOTE | 2019-01-07 07:39 | CDI ---
Documentation Clarification Form Date: 01/04/2019 10:41:00 AM From: Karmen McintyreMaloneANANT luke, CCDS Admit Date: 12/29/2018 3:46:00 PM Patient Name: Anabelle Villar Visit Number: [id number] Discharge Date: ATTENTION: The Clinical Documentation Specialists (CDI) and [facility] Coding Staff appreciate your assistance in clarifying documentation. Please respond to the clarification below the line at the bottom and electronically sign. The CDI & [facility] Coding staff will review the response and follow-up if needed. Please note: Queries are made part of the Legal Health Record. If you have any questions, please contact the author of this message via ITS. Dr. Jen Roe: 01/02 Attending PN (Jyothi): "Patient had left hip closed reduction and IM nailing for left intertrochanteric fracture estimated blood loss 100 mL through spinal anesthesia yesterday by Dr. Hernandez, hemoglobin dropped down to 5.2, 2 units of packed red blood cells ordered to be given today, patient has chronic anemia, blood losses are most likely secondary to hematoma formation in the left hip, Hemoccult is negative, iron studies has been obtained, patient might need iron infusion, depending on iron studies." Patients Admitting Diagnosis: Fall & IT [facility] Diagnosis: Same & Left hip IT fracture closed reduction & IT nailing using Synthes IT nail. History/Risk Factors: Hypertension, CKD III, Anemia of CKD. Clinical Indicators: Presented after fall as above status post hip surgery, Hgb dropped 8.0 - 7.2 - 5.2. Transfused 2 units PRBCs, Hgb up to 8.3 - 8.2 - 7.5*. Treatment: Blood transfusion, IV Ms, IV Zofran, IV fluid bolus, IV Protonix, IV fl 75, INH Albuterol, IV Dextrose/Water, IV Insulin, IV MagSulf. IV Cefazolin Na In order to accurately reflect this patients severity of illness, please clarify if the post-operative diagnosis of acute blood loss anemia is a complication of the patient's surgery: ____ Yes ____ No ____ Undetermined or unknown ____ Other, please explain (Last Revision: October 2018) MTDD
[2019-01-07] MEDS: INSULIN ASPART (NovoLOG) 100 UNIT/ML VIAL SQ SCH (07:42)
--- NOTE | 2019-01-07 07:42 | CDI ---
Documentation Clarification Form Date: 01/04/2019 10:53:00 AM From: Karmen Malone CCS, CCDS Admit Date: 12/29/2018 3:46:00 PM Patient Name: Anabelle Villar Visit Number: [id number] Discharge Date: ATTENTION: The Clinical Documentation Specialists (CDI) and [facility] Coding Staff appreciate your assistance in clarifying documentation. Please respond to the clarification below the line at the bottom and electronically sign. The CDI & [facility] Coding staff will review the response and follow-up if needed. Please note: Queries are made part of the Legal Health Record. If you have any questions, please contact the author of this message via ITS. Dr. Jen Roe: Per the attending documentation: "Patient had left hip closed reduction and IM nailing for left intertrochanteric fracture estimated blood loss 100 mL through spinal anesthesia yesterday by Dr. Hernandez, hemoglobin dropped down to 5.2, 2 units of packed red blood cells ordered to be given lindsey, patient has chronic anemia,blood losses are most likely secondary to hematoma formation in the left hip, Hemoccult is negative, iron studies has been obtained, patient might need iron infusion, depending on iron studies.: Patients Admitting Diagnosis: Fall with IT fracture of left hip. Post-Operative Diagnosis: Same with documented hematoma & ABLA. Procedure performed: Lt IT fracture closed reduction & nailing. History/Risk Factors: Hypertension, CKD III, anemia of CKD. Clinical Indicators: Presented with fall as above status post hip surgery & development of hematoma postoperatively. Treatment: Blood transfusion for drop in hgb to 5.2, IV pain meds, IV antibiotics, IV fluids. In order to accurately reflect this patients severity of illness, please clarify if the hematoma to left hip is the result of the surgical procedure? ___ Yes ___ No ___ Other, please specify ___ Unable to determine (Last Revision: October 2017) JAMESD
--- NOTE | 2019-01-07 07:57 | P.DS ---
Providers Date of admission: 12/29/18 15:46 Expected date of discharge: 01/07/19 Attending physician: Chad Guzmán Consults: 12/29/18 16:53 Consult Physician Stat Consulting Provider: Frandy Kline Consult Reason/Comments: Acute renal failure, hyperkalemia, surgical clearance Do you want consulting provider notified?: Yes 12/30/18 10:19 Consult Physician Routine Consulting Provider: Mauro Casper Consult Reason/Comments: AMARIS, CKD, preop clearance Do you want consulting provider notified?: Yes 01/02/19 15:55 Consult Physician Routine Consulting Provider: Patel Erwin Consult Reason/Comments: elevated Do you want consulting provider notified?: Yes, Notify in am 01/02/19 15:59 Consult Physician Routine Consulting Provider: Nayeli Randhawa Consult Reason/Comments: altered level of consciousness Do you want consulting provider notified?: Yes, Notify in am Primary care physician: Chad Guzmán [facility] Course: This is an 88-year-old female patient residing at [facility] is a long-term resident under the care of Dr. Guzmán with past mental history of diabetes mellitus type 2, chronic kidney disease stage III, gastroesophageal reflux disease, anemia of chronic disease, gout, hyper parathyroidism, hypertension, hyperlipidemia, recurrent depression, hydrocephalus status post shunt. Patient had a fall while in the bathroom at [facility] and developed pain in the left hip and head pain. She was transferred to [facility] emergency center for evaluation. CAT scan of the brain and C-spine showed shunted ventricles without hydrocephalus. Ventricles appear stable from comparison. No acute intracranial process. No acute osseous abnormality of the cervical spine. Chest x-ray shows mild cardiomegaly and chronic appearing changes. No definite acute process. Hip and pelvic x-ray showed angulated and mildly comminuted intratrochanteric fracture proximal left femur with lateral wall disruption. Initial lab work revealed sodium 128, potassium 7.1, BUN 67 creatinine 5.6 to, hemoglobin 8. The patient was admitted to the cardiac stepdown unit. We have subsequently added on consult for nephrology. 12/31: Patient has just undergone Hibiclens scrub for surgery which is scheduled for this afternoon. She is moaning in pain and an additional dose of IV Dilaudid will be given. Magnesium is 1.6 and will be replaced today. Blood sugars running between 153 and 234. Sodium 129, potassium 5.2, chloride 95, BUN 59 creatinine 3.73. Patient is been afebrile, blood pressure 140/64, heart rate 96, blood pressure 99% on room air. Patient has been seen by Dr. Casper and started bicarbonate drip yesterday which was ordered to be discontinued today and start normal saline at 75 mL per hour. Diuretics remain on hold. Iron studies in progress as well as serum osmolality, urine osmolality and urine sodium. Patient will be transferred to [facility] floor following surgery. Anticipate return to [facility] on Monday 01/01: Patient had left hip closed reduction and IM nailing for left intertrochanteric fracture estimated blood loss 100 mL through spinal anesthesia yesterday by Dr. Hernandez, hemoglobin dropped down to 5.2, 2 units of packed red blood cells ordered to be given lindsey, patient has chronic anemia,blood losses are most likely secondary to hematoma formation in the left hip, Hemoccult is negative, iron studies has been obtained, patient might need iron infusion, depending on iron studies 01/02:, Nursing staff was concerned about patient's condition, since midnight, patient is requiring more assistance including feedings, which is new compared to her baseline which is independent to feedings, and 1 person standby on ambulation. Nursing staff has spoken to me early these afternoon around 1 p.m. today, that the patient requires a dysphagia 2 diet, which is new compared to her baseline at [facility]. Patient was there after monitored through a cold stroke, consults were done with telemetry neurology, with no recommendations for TPA, CAT scan of the brain will be done along with carotid imaging studies. Creatinine is elevated, precludes to study using contrast dye. Upon my evaluation, patient can follow verbal commands, has limited verbal responses, can answer to name and date of , and can follow commands, however patient cannot lift lower extremities bilaterally. 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 Cranial nerves are okay without any ocular deficits, no facial symmetry, speech is clear, patient oriented 1. 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 Soto with acute mental status changes consistent with metabolic encephalopathy. EEG is mildly abnormal without epileptiform discharges. He recommends aspirin and statin therapy and treatment of hypertension. TSH and vitamin B12. Patient has been evaluated by cardiology for mild troponin elevation without acute coronary event. Patient was cleared for discharge by cardiology. No beta william due to sinus bradycardia. Patient is also followed by Dr. Hawkins for acute kidney injury with ischemic acute tubular necrosis she is recommending stopping saline IV fluids and encourage oral intake. Iron studies. Orthopedics has changed admission over to medical services. 01/04: The patient states that her pain is not bad today. She was changed yesterday to scheduled Tylenol. Ferrlecit ordered. Vitamin D and B12 added. IV fluids currently running at 75 which will be discontinued. Hemoglobin is 7.5. Patient has abdominal distention secondary to constipation for which a suppository will be given. She did have a bowel movement this morning after milk of magnesia. Maalox plus still be added. Munguia catheter will be discontinued today in anticipation of discharge to [facility] tomorrow. 01/05: Patient remains on the cardiac stepdown unit. Patient is noted to have abdominal distention and KUB will be ordered. KUB revealed distended small and large bowel. Moderate fecal stasis. No evidence of obstruction at this time. Patient's sister states the patient has been having watery stools. Munguia catheter is leaking on the floor and nursing updated. Munguia catheter to be removed. Patient is more awake and alert this morning. No changes to plan from Dr. Randhawa. Orthopedics has reevaluated left hip and obtain hip x-rays that found no acute findings. IT nail and fracture in satisfactory position and alignment. Patient is to keep a regular pillow between her legs. Patient has been cleared for orthopedics for discharge home with plan for follow-up in 3 weeks for x-ray and reevaluation. Skin clips to be removed in 2 weeks postop. Patient is to be toe-touch weightbearing on the left lower extremity. Repeat hemoglobin is 7.4, BUN 42, creatinine 2.01, sodium 131 and potassium 5.4. Anticipate discharge back to [facility] on Thursday. 01/06, patient's x-ray shows fecal retention without an obstruction, with giving her soapsuds enema today, continue on bowel program, no complaints of chest pain palpitations, patient continues to improve mentation solitario, neurology would be signing out and would be seen as needed,most likely transferred to skilled ECF in the morning once insurance approvaland bed is available 01/07: Hemoglobin yesterday was 7.6, BUN 38, creatinine 2.06, sodium 130, potassium 5.6. Patient remains afebrile, heart rate 80, blood pressure 187/68, pulse ox 100% on room air. Hydralazine increased to 75 mg twice daily. Patient did receive a soapsuds enema yesterday with results. We will plan to continue MiraLAX for 3 day schedule and then resume her usual bowel regime. Patient has had no consultations overnight and will be transferred to [facility] today in stable condition. Discharge diagnoses: 1. Left intertrochanteric fracture of the left hip secondary to fall s/p intertrochanteric nail of the left hip. 2. Acute kidney injury with hyperkalemia secondary to diuretic use and poor oral intake. 3. Acute metabolic encephalopathy possibly related to medication effects from surgery and illness. 4. Chronic kidney disease stage IIIB/4. 5. Elevated troponin. Acute coronary syndrome has been ruled out by cardiolog y. 6. Anemia of chronic kidney disease and acute blood loss anemia status post 2 units of packed RBCs without sign of hematoma. 7. Hypertension, hypertensive cardiovascular disease. 8. Diabetes mellitus type 2. 9. Hyperlipidemia. 10. Gastroesophageal reflux disease. 11. Gout,chronic. 12. Hyperparathyroidism. 13. Recurrent depression. 14. History of hydrocephalus status post shunt, stable. 15. Mild hyponatremia. 16. Bilateral lower extremity weakness. 17. Fecal retention with constipation, no bowel obstruction. 18. Acute blood loss anemia secondary to hip fracture and surgical intervention, expected. Discharge plan: Return to [facility]. Impression and plan of care have been directed as dictated by the signing physician. Tiffani Corrigan nurse practitioner acting as scribe for signing physician. Patient Condition at Discharge: Good Plan - Discharge Summary Discharge Rx Participant: No New Discharge Prescriptions: New HYDROcodone/APAP 5-325MG [[place] 5-325] 1 - 2 each PO Q4-6H PRN #50 tab PRN Reason: Pain Aspirin EC [Ecotrin Low Dose] 81 mg PO BID #60 tablet. Furosemide [Lasix] 40 mg PO DAILY #30 tablet Polyethylene Glycol 3350 [Miralax] 17 gm PO DAILY #3 packet Sennosides-Docusate Sodium [Senokot-S] 2 each PO HS tab buPROPion [Wellbutrin] 100 mg PO DAILY tab Continue amLODIPine BESYLATE [Norvasc] 10 mg PO DAILY@0800 Multivitamins, Thera [Multivitamin (formulary)] 1 tab PO DAILY@1700 Na Phos,M-B/Na Phos,Di-Ba [Fleet Adult] 133 ml RECTAL DAILY PRN PRN Reason: Constipation Bisacodyl [Dulcolax] 10 mg RECTAL DAILY PRN PRN Reason: Constipation Acetaminophen Tab [Tylenol] 650 mg PO Q4H PRN PRN Reason: Pain INSULIN LISPRO (HumaLOG) [humaLOG] See Protocol SQ ACHS Carvedilol [Coreg] 25 mg PO BID@0800,2100 Menthol-Zinc Oxide Oint [Calmoseptine Oint] 1 applic TOPICAL Q12H PRN PRN Reason: Rash Ferrous Sulfate [Iron (65 MG Elemental)] 325 mg PO DAILY@1700 Cinacalcet [Sensipar] 30 mg PO DAILY@0800 Famotidine 20 mg PO DAILY@0700 Lactose-Reduced Food [Ensure Plus] 1 can PO DAILY@0800 Atorvastatin [Lipitor] 40 mg PO HS@2100 Allopurinol [Zyloprim] 100 mg PO DAILY@0800 Magnesium Hydroxide [Milk of Magnesia] 2,400 mg PO DAILY PRN PRN Reason: Constipation Changed hydrALAZINE HCL [Apresoline] 75 mg PO BID@0800,2100 #0 Discontinued Citalopram Hydrobromide [CeleXA] 20 mg PO DAILY@0800 Oxybutynin Chloride [Ditropan] 5 mg PO HS Lisinopril [Zestril] 20 mg PO BID@0800,2100 Spironolactone 50 mg PO DAILY@0800 Chlorthalidone 25 mg PO DAILY@0800 Discharge Medication List amLODIPine BESYLATE [Norvasc] 10 mg PO DAILY@0800 02/21/15 [History] Multivitamins, Thera [Multivitamin (formulary)] 1 tab PO DAILY@1700 01/23/16 [History] Acetaminophen Tab [Tylenol] 650 mg PO Q4H PRN 12/29/18 [History] Allopurinol [Zyloprim] 100 mg PO DAILY@0800 06/26/19 [History] Atorvastatin [Lipitor] 40 mg PO HS@2100 12/29/18 [History] Bisacodyl [Dulcolax] 10 mg RECTAL DAILY PRN 12/29/18 [History] Carvedilol [Coreg] 25 mg PO BID@0800,2100 12/29/18 [History] Cinacalcet [Sensipar] 30 mg PO DAILY@0800 12/29/18 [History] Famotidine 20 mg PO DAILY@0700 12/29/18 [History] Ferrous Sulfate [Iron (65 MG Elemental)] 325 mg PO DAILY@1700 12/29/18 [History] INSULIN LISPRO (HumaLOG) [humaLOG] See Protocol SQ ACHS 12/29/18 [History] Lactose-Reduced Food [Ensure Plus] 1 can PO DAILY@0800 12/29/18 [History] Magnesium Hydroxide [Milk of Magnesia] 2,400 mg PO DAILY PRN 12/29/18 [History] Menthol-Zinc Oxide Oint [Calmoseptine Oint] 1 applic TOPICAL Q12H PRN 12/29/18 [History] Na Phos,M-B/Na Phos,Di-Ba [Fleet Adult] 133 ml RECTAL DAILY PRN 12/29/18 [History] HYDROcodone/APAP 5-325MG [[place] 5-325] 1 - 2 each PO Q4-6H PRN #50 tab 01/03/19 [Rx] Aspirin EC [Ecotrin Low Dose] 81 mg PO BID #60 tablet. 01/07/19 [Rx] Furosemide [Lasix] 40 mg PO DAILY #30 tablet 01/07/19 [Rx] Polyethylene Glycol 3350 [Miralax] 17 gm PO DAILY #3 packet 01/07/19 [Rx] Sennosides-Docusate Sodium [Senokot-S] 2 each PO HS tab 01/07/19 [Rx] buPROPion [Wellbutrin] 100 mg PO DAILY tab 01/07/19 [Rx] hydrALAZINE HCL [Apresoline] 75 mg PO BID@0800,2100 #0 01/07/19 [Rx] Follow up Appointment(s)/Referral(s): Amelia Jolly PAC [PHYSICIAN DOG OR ANIMAL SITTER] - 3 Weeks Chad Guzmán MD [Primary Care Provider] - 1 Week (at [facility]) Activity/Diet/Wound Care/Special Instructions: Toe-touch weightbearing left lower extremity with walker. May remove skin clips to weeks postoperatively. [facility]. Discharge Disposition: TRANSFER TO SNF/ECF
[2019-01-07] MEDS ORDERED: SODIUM FERRIC GLUCONAT-SUCROSE 125 MG in SODIUM CHLORIDE 0.9% 100 ML IVPB SCH (09:00)
[2019-01-07] MEDS ORDERED: hydrALAZINE HCL 50 MG TAB PO SCH (09:00)
[2019-01-07] MEDS: ALLOPURINOL 100 MG TAB PO SCH (09:01)
[2019-01-07] MEDS: CARVEDILOL 12.5 MG TAB PO SCH (09:01)
[2019-01-07] MEDS: CLOPIDOGREL 75 MG TAB PO SCH (09:02)
[2019-01-07] MEDS: amLODIPine 10 MG TAB PO SCH (09:02)
[2019-01-07] MEDS: CHOLECALCIFEROL 1,000 UNIT TAB PO SCH (09:02)
[2019-01-07] MEDS: CINACALCET 30 MG TAB PO SCH (09:02)
[2019-01-07] MEDS: HYDROcodone/APAP 5-325MG 1 EACH TAB PO PRN (09:02)
[2019-01-07] MEDS: CYANOCOBALAMIN 500 MCG TAB PO SCH (09:02)
[2019-01-07] MEDS: buPROPion 100 MG TAB PO SCH (09:02)
[2019-01-07] MEDS: FAMOTIDINE 20 MG TAB PO SCH (09:02)
[2019-01-07] MEDS: HEPARIN SODIUM,PORCINE 5,000 UNIT/ML 1 ML VIAL SQ SCH (09:03)
[2019-01-07] MEDS: FUROSEMIDE 10 MG/ML 4 ML VIAL IV SCH (09:03)
[2019-01-07] MEDS: hydrALAZINE HCL 50 MG TAB PO SCH (09:15)
--- NOTE | 2019-01-07 11:30 | P.PN ---
Subjective Progress Note Date: 01/07/19 Seen and examined for the follow-up of acute kidney injury. Tender belly+. No new labs today. Objective - Vital Signs Vital signs: Vital Signs Temp 98.1 F 01/07/19 07:38 Pulse 80 01/07/19 07:38 Resp 22 01/07/19 07:38 BP 187/68 01/07/19 07:38 Pulse Ox 100 01/07/19 07:38 Intake & Output 01/06/19 01/07/19 01/07/19 18:59 06:59 18:59 Intake Total 420 Output Total 300 Balance 420 -300 Weight 77.5 kg Intake: Oral 420 Output: Urine 300 Other: Voiding Method Indwelling Catheter Indwelling Catheter # Voids 1 - Exam No acute distress S1-S2 heard Lungs clear Tender belly, distended bladder No edema - Labs CBC & Chem 7: 01/06/19 07:12 01/06/19 07:12 Labs: Abnormal Lab Results - Last 24 Hours (Table) 01/06/19 01/06/19 01/06/19 Range/Units 11:56 16:36 20:52 POC Glucose (mg/dL) 181 H 158 H 193 H (75-99) mg/dL 01/07/19 Range/Units 07:11 POC Glucose (mg/dL) 143 H (75-99) mg/dL Assessment and Plan Assessment: #1 acute kidney injury secondary to ischemic ATN. Creatinine stable at baseline. No labs today #2 chronic kidney disease stage IIIB/4 secondary to nephrosclerosis with a baseline creatinine of 2-2.5 MG per DL. #3 hyperkalemia, check bladder scan to rule out retention #4 status post intertrochanteric fracture with surgery #5 acute blood loss anemia #6 hypertension with chronic kidney disease Plan: #1 creatinine currently at baseline. Requested the nurse to do bladder scan today. If more than [address] Munguia catheter #2 maintain hemoglobin more than 8. On IV iron and KATERINA. #3 continue with Lasix 40 mg IV daily. #4 avoid nephrotoxic agents and hypotensive episodes #5 check labs tomorrow
== END 2019-01-07 12:35 | DRG 480 ==
LOC: EC 13:12 → 3SCARD 15:46 → 3NMEDONC 01-01 19:21 → 3SCARD 01-02 16:48 → 4SSUR 01-05 16:46
PROVIDERS: ADMIT Internal Medicine Geriatric Medicine; ATTEND Internal Medicine Geriatric Medicine
PROC: 0QS734Z Reposition Left Upper Femur with Internal Fixation Device, Percutaneous Approach (ICD-10-PCS; principal; 2018-12-31 14:40)
PROC: 30233N1 Transfusion of Nonautologous Red Blood Cells into Peripheral Vein, Percutaneous Approach (ICD-10-PCS; principal; 2018-12-31 14:40)
DX: S72.142A Displaced intertrochanteric fracture of left femur, initial encounter for closed fracture (principal); N17.0 Acute kidney failure with tubular necrosis; G93.41 Metabolic encephalopathy; F33.9 Major depressive disorder, recurrent, unspecified; E87.2 Acidosis; E87.1 Hypo-osmolality and hyponatremia; D62 Acute posthemorrhagic anemia; I13.0 Hypertensive heart and chronic kidney disease with heart failure and stage 1 through stage 4 chronic kidney disease, or unspecified chronic kidney disease; G91.9 Hydrocephalus, unspecified; K59.00 Constipation, unspecified; R00.1 Bradycardia, unspecified; E87.5 Hyperkalemia; T50.2X5A Adverse effect of carbonic-anhydrase inhibitors, benzothiadiazides and other diuretics, initial encounter; W19.XXXA Unspecified fall, initial encounter; E11.22 Type 2 diabetes mellitus with diabetic chronic kidney disease; D63.1 Anemia in chronic kidney disease; N18.3 Chronic kidney disease, stage 3 (moderate); I50.9 Heart failure, unspecified; T83.031A Leakage of indwelling urethral catheter, initial encounter; Y73.8 Miscellaneous gastroenterology and urology devices associated with adverse incidents, not elsewhere classified; D50.9 Iron deficiency anemia, unspecified; E78.5 Hyperlipidemia, unspecified; E21.3 Hyperparathyroidism, unspecified; I27.20 Pulmonary hypertension, unspecified; K21.9 Gastro-esophageal reflux disease without esophagitis; M10.9 Gout, unspecified; H35.30 Unspecified macular degeneration; I08.1 Rheumatic disorders of both mitral and tricuspid valves; R74.8 Abnormal levels of other serum enzymes; F03.90 Unspecified dementia, unspecified severity, without behavioral disturbance, psychotic disturbance, mood disturbance, and anxiety; Z95.828 Presence of other vascular implants and grafts; Z79.899 Other long term (current) drug therapy; Z79.4 Long term (current) use of insulin; Z87.891 Personal history of nicotine dependence; Z98.2 Presence of cerebrospinal fluid drainage device; Q65.89 Other specified congenital deformities of hip; Z88.8 Allergy status to other drugs, medicaments and biological substances; Z91.011 Allergy to milk products; Z82.49 Family history of ischemic heart disease and other diseases of the circulatory system
CPT/HCPCS: 36415; 70450; 70496; 70498; 71045; 72125; 73501; 73502; 74018; 80048; 80053; 81003; 82272; 82550; 82607; 83540; 83550; 83690; 83735; 83930; 83935; 84132; 84295; 84300; 84443; 84484; 85025; 85027; 85610; 85730; 86850; 86900; 86901; 86920; 93306; 94640; 95816; 96361; 96374; 96375; 99291

== ENCOUNTER 2020-05-27 12:09 | Inpatient (IN) | payer MEDICARE, OTHER ==
--- NOTE | 2020-05-27 12:39 | ED ---
General Adult HPI - General Chief complaint: Shortness of Breath Stated complaint: SOB Time Seen by Provider: 05/27/20 12:10 Source: patient, EMS, RN notes reviewed, old records reviewed Mode of arrival: EMS Limitations: no limitations - History of Present Illness Initial comments: This is an 89-year-old female who presents emergency Department from a detention for shortness of breath. Patient is alert and oriented 1 and is unable to give me any other information. No other information is available this time nursing will call and ask about fevers oxygen requirements and if any other problems exist. We spoke with the detention and detention stated that she had been treated for pneumonia for 9 days ago more day of treatment but she ap peared short of breath today so they sent her to the emergency department. - Related Data Home Medications Medication Instructions Recorded Confirmed amLODIPine BESYLATE [Norvasc] 10 mg PO DAILY 02/21/15 05/27/20 Multivitamins, Thera [Multivitamin 1 tab PO DAILY 01/23/16 05/27/20 (formulary)] Acetaminophen Tab [Tylenol] 650 mg PO Q4H PRN 12/29/18 05/27/20 Atorvastatin [Lipitor] 40 mg PO HS 12/29/18 05/27/20 Carvedilol [Coreg] 25 mg PO BID 12/29/18 05/27/20 Cinacalcet [Sensipar] 30 mg PO DAILY 12/29/18 05/27/20 Famotidine 20 mg PO DAILY 12/29/18 05/27/20 Ferrous Sulfate [Iron (65 MG 325 mg PO DAILY 12/29/18 05/27/20 Elemental)] Na Phos,M-B/Na Phos,Di-Ba [Fleet 133 ml RECTAL DAILY PRN 12/29/18 05/27/20 Adult] allopurinoL [Zyloprim] 100 mg PO DAILY@0800 12/29/18 05/27/20 bisacodyL [Dulcolax] 10 mg RECTAL DAILY PRN 12/29/18 05/27/20 Acetaminophen-Codeine 300-30mg 1 tab PO Q6H PRN 05/27/20 05/27/20 [Tylenol w/codeine #3] Albuterol Nebulized [Ventolin 2.5 mg INHALATION RT-Q4H PRN 05/27/20 05/27/20 Nebulized] Albuterol Nebulized [Ventolin 2.5 mg INHALATION RT-QID 05/27/20 05/27/20 Nebulized] Aspirin EC [Ecotrin Low Dose] 81 mg PO DAILY 05/27/20 05/27/20 Cholecalciferol [Vitamin D3 (25 2,000 unit PO DAILY 05/27/20 05/27/20 Mcg = 1000 Iu)] Doxycycline Hyclate 100 mg PO BID 05/27/20 05/27/20 INSULIN ASPART (NovoLOG) [NovoLOG See Protocol SQ ACHS 05/27/20 05/27/20 (formulary)] Magnesium Hydroxide [Milk of 7,200 mg PO Q48H PRN 05/27/20 05/27/20 Magnesia Concentrate] Menthol [Biofreeze] 1 applic TOPICAL BID PRN 05/27/20 05/27/20 Menthol [Biofreeze] 1 applic TOPICAL HS 05/27/20 05/27/20 Sennosides-Docusate Sodium 2 tab PO HS 05/27/20 05/27/20 [Senokot-S] Sodium Bicarbonate Tab 650 mg PO BID 05/27/20 05/27/20 guaiFENesin [Mucinex] 600 mg PO BID 05/27/20 05/27/20 hydrALAZINE HCL [Apresoline] 75 mg PO DAILY 05/27/20 05/27/20 Previous Rx's Medication Instructions Recorded buPROPion [Wellbutrin] 100 mg PO DAILY tab 01/07/19 polyethylene glycoL 3350 [Miralax] 17 gm PO DAILY #3 packet 01/07/19 Allergies Allergy/AdvReac Type Severity Reaction Status Date / Time aspirin Allergy Unknown Verified 05/27/20 15:32 lactose Allergy Unknown Verified 05/27/20 15:32 Review of Systems ROS Statement: Those systems with pertinent positive or pertinent negative responses have been documented in the HPI. ROS Other: All systems not noted in ROS Statement are negative. Past Medical History Past Medical History: Heart Failure, Dementia, Diabetes Mellitus, Eye Disorder, GERD/Reflux, Hypertension, Memory Impairment, Renal Disease Additional Past Medical History / Comment(s): macular degeneration, incont of urine wears a depends, occ gout, past fall, concussion History of Any Multi-Drug Resistant Organisms: None Reported Past Surgical History: Orthopedic Surgery Additional Past Surgical History / Comment(s): Rt Shoulder, "brain shunt", lesion on labia removed. Past Anesthesia/Blood Transfusion Reactions: No Reported Reaction Past Psychological History: No Psychological Hx Reported Smoking Status: Former smoker Past Alcohol Use History: None Reported Past Drug Use History: None Reported - Past Family History Mother History Unknown: Yes Additional Family Medical History / Comment(s): Patient does not know her mother's medical history. Father Additional Family Medical History / Comment(s): " young- had heart disease Brother(s) Additional Family Medical History / Comment(s): Patient has one brother and patient does not know his history. Patient does not have any sisters. Patient has 2 children. General Exam - General Exam Comments Initial Comments: GENERAL: Patient is well-developed and well-nourished. Patient is nontoxic and well- hydrated and is in mild distress. ENT: Neck is soft and supple. No significant lymphadenopathy is noted. Oropharynx is clear. Moist mucous membranes. Neck has full range of motion without el iciting any pain. EYES: The sclera were anicteric and conjunctiva were pink and moist. Extraocular movements were intact and pupils were equal round and reactive to light. Eyelids were unremarkable. PULMONARY: Unlabored respirations. Good breath sounds bilaterally. No audible rales rhonchi or wheezing was noted. CARDIOVASCULAR: There is a regular rate and rhythm without any murmurs gallops or rubs. ABDOMEN: Soft and nontender with normal bowel sounds. SKIN: Skin is clear with no lesions or rashes and otherwise unremarkable. NEUROLOGIC: Patient is alert and oriented 1. Cranial nerves II through XII are grossly intact. Motor and sensory are also intact. Normal speech, volume and content. Symmetrical smile. MUSCULOSKELETAL: Normal extremities with adequate strength and full range of motion. No lower extremity swelling or edema. No calf tenderness. LYMPHATICS: No significant lymphadenopathy is noted PSYCHIATRIC: Unable to assess since the patient is alert and oriented 1 only. This is her baseline Limitations: no limitations Course Vital Signs 05/27/20 05/27/20 05/27/20 12:11 12:15 12:17 Temperature 97.6 F Pulse Rate 78 77 Respiratory 22 20 22 Rate Blood Pressure 142/76 O2 Sat by Pulse 82 L 100 Oximetry 05/27/20 05/27/20 05/27/20 12:42 14:41 15:39 Temperature Pulse Rate 79 81 Respiratory 18 18 Rate Blood Pressure 171/75 166/83 O2 Sat by Pulse 97 95 97 Oximetry Medical Decision Making - Medical Decision Making Chest x-ray shows mild pulmonary edema. Patient's d-dimer was elevated however cracking was 2.19 so I was unable to CT scanner. I started her on heparin. I spoke with Dr. Boyle and he agreed to admit the patient admitted the patient wrote admitting orders. - Lab Data Result diagrams: 05/27/20 12:45 05/27/20 12:45 Lab Results 05/27/20 05/27/20 05/27/20 Range/Units 12:45 12:45 12:45 WBC 5.7 (3.8-10.6) k/uL RBC 2.68 L (3.80-5.40) m/uL Hgb 8.8 L (11.4-16.0) gm/dL Hct 26.8 L (34.0-46.0) % MCV 100.0 (80.0-100.0) fL MCH 32.8 (25.0-35.0) pg MCHC 32.8 (31.0-37.0) g/dL RDW 16.7 H (11.5-15.5) % Plt Count 155 (150-450) k/uL MPV 7.4 Neutrophils % 70 % Lymphocytes % 16 % Monocytes % 6 % Eosinophils % 6 % Basophils % 1 % Neutrophils # 4.0 (1.3-7.7) k/uL Lymphocytes # 0.9 L (1.0-4.8) k/uL Monocytes # 0.4 (0-1.0) k/uL Eosinophils # 0.3 (0-0.7) k/uL Basophils # 0.0 (0-0.2) k/uL Hypochromasia Slight Anisocytosis Slight Macrocytosis Slight PT 10.8 (9.0-12.0) sec INR 1.0 (<1.2) APTT 22.1 (22.0-30.0) sec D-Dimer 1.69 H (<0.60) mg/L FEU VBG pH (7.31-7.41) VBG pCO2 (37-51) mmHg VBG HCO3 (24-28) mmol/L Sodium 143 (137-145) mmol/L Potassium 4.9 (3.5-5.1) mmol/L Chloride 112 H (98-107) mmol/L Carbon Dioxide 22 (22-30) mmol/L Anion Gap 9 mmol/L BUN 33 H (7-17) mg/dL Creatinine 2.19 H (0.52-1.04) mg/dL Est GFR (CKD-EPI)AfAm 22 (>60 ml/min/1.73 sqM) Est GFR (CKD-EPI)NonAf 19 (>60 ml/min/1.73 sqM) Glucose 104 H (74-99) mg/dL Plasma Lactic Acid Daniel (0.7-2.0) mmol/L Calcium 10.0 (8.4-10.2) mg/dL Magnesium 1.8 (1.6-2.3) mg/dL Total Bilirubin 0.5 (0.2-1.3) mg/dL AST 23 (14-36) U/L ALT 15 (4-34) U/L Alkaline Phosphatase 118 (38-126) U/L Troponin I (0.000-0.034) ng/mL NT-Pro-B Natriuret Pep pg/mL Total Protein 7.0 (6.3-8.2) g/dL Albumin 3.9 (3.5-5.0) g/dL Coronavirus (PCR) (Not Detectd) 05/27/20 05/27/20 05/27/20 Range/Units 12:45 12:45 12:45 WBC (3.8-10.6) k/uL RBC (3.80-5.40) m/uL Hgb (11.4-16.0) gm/dL Hct (34.0-46.0) % MCV (80.0-100.0) fL MCH (25.0-35.0) pg MCHC (31.0-37.0) g/dL RDW (11.5-15.5) % Plt Count (150-450) k/uL MPV Neutrophils % % Lymphocytes % % Monocytes % % Eosinophils % % Basophils % % Neutrophils # (1.3-7.7) k/uL Lymphocytes # (1.0-4.8) k/uL Monocytes # (0-1.0) k/uL Eosinophils # (0-0.7) k/uL Basophils # (0-0.2) k/uL Hypochromasia Anisocytosis Macrocytosis PT (9.0-12.0) sec INR (<1.2) APTT (22.0-30.0) sec D-Dimer (<0.60) mg/L FEU VBG pH (7.31-7.41) VBG pCO2 (37-51) mmHg VBG HCO3 (24-28) mmol/L Sodium (137-145) mmol/L Potassium (3.5-5.1) mmol/L Chloride (98-107) mmol/L Carbon Dioxide (22-30) mmol/L Anion Gap mmol/L BUN (7-17) mg/dL Creatinine (0.52-1.04) mg/dL Est GFR (CKD-EPI)AfAm (>60 ml/min/1.73 sqM) Est GFR (CKD-EPI)NonAf (>60 ml/min/1.73 sqM) Glucose (74-99) mg/dL Plasma Lactic Acid Daniel 0.9 (0.7-2.0) mmol/L Calcium (8.4-10.2) mg/dL Magnesium (1.6-2.3) mg/dL Total Bilirubin (0.2-1.3) mg/dL AST (14-36) U/L ALT (4-34) U/L Alkaline Phosphatase (38-126) U/L Troponin I 0.040 H* (0.000-0.034) ng/mL NT-Pro-B Natriuret Pep 7710 pg/mL Total Protein (6.3-8.2) g/dL Albumin (3.5-5.0) g/dL Coronavirus (PCR) (Not Detectd) 05/27/20 05/27/20 Range/Units 13:00 13:10 WBC (3.8-10.6) k/uL RBC (3.80-5.40) m/uL Hgb (11.4-16.0) gm/dL Hct (34.0-46.0) % MCV (80.0-100.0) fL MCH (25.0-35.0) pg MCHC (31.0-37.0) g/dL RDW (11.5-15.5) % Plt Count (150-450) k/uL MPV Neutrophils % % Lymphocytes % % Monocytes % % Eosinophils % % Basophils % % Neutrophils # (1.3-7.7) k/uL Lymphocytes # (1.0-4.8) k/uL Monocytes # (0-1.0) k/uL Eosinophils # (0-0.7) k/uL Basophils # (0-0.2) k/uL Hypochromasia Anisocytosis Macrocytosis PT (9.0-12.0) sec INR (<1.2) APTT (22.0-30.0) sec D-Dimer (<0.60) mg/L FEU VBG pH 7.51 H (7.31-7.41) VBG pCO2 28 L (37-51) mmHg VBG HCO3 22 L (24-28) mmol/L Sodium (137-145) mmol/L Potassium (3.5-5.1) mmol/L Chloride (98-107) mmol/L Carbon Dioxide (22-30) mmol/L Anion Gap mmol/L BUN (7-17) mg/dL Creatinine (0.52-1.04) mg/dL Est GFR (CKD-EPI)AfAm (>60 ml/min/1.73 sqM) Est GFR (CKD-EPI)NonAf (>60 ml/min/1.73 sqM) Glucose (74-99) mg/dL Plasma Lactic Acid Daniel (0.7-2.0) mmol/L Calcium (8.4-10.2) mg/dL Magnesium (1.6-2.3) mg/dL Total Bilirubin (0.2-1.3) mg/dL AST (14-36) U/L ALT (4-34) U/L Alkaline Phosphatase (38-126) U/L Troponin I (0.000-0.034) ng/mL NT-Pro-B Natriuret Pep pg/mL Total Protein (6.3-8.2) g/dL Albumin (3.5-5.0) g/dL Coronavirus (PCR) Not Detected (Not Detectd) Critical Care Time Critical Care Time: Yes Total Critical Care Time: 35 Disposition Clinical Impression: Pulmonary edema, Elevated d-dimer, Chronic anemia Disposition: ADMITTED IP TO THIS [facility] Time of Disposition: 14:07
[2020-05-27 12:59] LABS: Anisocytosis Slight; Basophils % (A) 1 %; Eosinophils # (A) 0.3 k/uL (0-0.7); Eosinophils % (A) 6 %; HCT 26.8 % (34.0-46.0); HGB 8.8 gm/dL (11.4-16.0); Hypochromasia Slight; Lymphocytes # (A) 0.9 k/uL (1.0-4.8); Lymphocytes % (A) 16 %; MCH 32.8 pg (25.0-35.0); MCHC 32.8 g/dL (31.0-37.0); Macrocytosis Slight; Mean Platelet Volume 7.4; Monocytes # (A) 0.4 k/uL (0-1.0); Monocytes % (A) 6 %; Neutrophils % (A) 70 %; Platelet Count 155 k/uL (150-450); RBC 2.68 m/uL (3.80-5.40); RDW 16.7 % (11.5-15.5); WBC 5.7 k/uL (3.8-10.6)
[2020-05-27 13:10] LABS: Albumin 3.9 g/dL (3.5-5.0); Magnesium 1.8 mg/dL (1.6-2.3); Potassium 4.9 mmol/L (3.5-5.1); Total Bilirubin 0.5 mg/dL (0.2-1.3)
[2020-05-27 13:24] LABS: Partial Thromboplastin Time 22.1 sec (22.0-30.0); Prothrombin Time 10.8 sec (9.0-12.0)
[2020-05-27 13:34] LABS: D-Dimer 1.69 mg/L FEU (<0.60)
[2020-05-27 13:40] LABS: VBG PH 7.51 (7.31-7.41)
--- NOTE | 2020-05-27 13:47 | XR ---
EXAMINATION TYPE: XR chest 2V DATE OF EXAM: 05/27/2020 COMPARISON: 12/29/2018. HISTORY: Shortness of breath. TECHNIQUE: Frontal and lateral views of the chest are obtained. FINDINGS: There is moderate interstitial edema with superimposed hazy opacity and small left pleural effusion. No pneumothorax. Cardiomegaly and right-sided [employer] shunt noted. The osseous structures are intact. IMPRESSION: Moderate CHF with small left pleural effusion and adjacent atelectasis.
[2020-05-27] MEDS ORDERED: FUROSEMIDE 10 MG/ML 4 ML VIAL IV STA (14:08)
[2020-05-27] MEDS ORDERED: HEPARIN SODIUM,PORCINE 10,000 UNIT/ML 1 ML VIAL IV ONE (14:09)
[2020-05-27] MEDS ORDERED: HEPARIN SOD,PORK IN 0.45% NACL 25,000 UNIT in 0.45% NACL 1 250ML.BAG IV SCH (14:15)
[2020-05-27 16:39] LABS: Glucose,Whole Blood 113 mg/dL (75-99)
[2020-05-27] MEDS ORDERED: ACETAMINOPHEN TAB 325 MG TAB PO PRN (17:30)
[2020-05-27] MEDS ORDERED: ALBUTEROL NEBULIZED 2.5 MG/3 ML INHALATION PRN (17:30)
[2020-05-27] MEDS ORDERED: bisacodyL 10 MG SUPP RECTAL PRN (17:30)
[2020-05-27] MEDS ORDERED: NA PHOS,M-B/NA PHOS,DI-BA 133 ML ENEMA RECTAL PRN (17:30)
[2020-05-27] MEDS ORDERED: Acetaminophen-Codeine 300-30mg TAB PO PRN (17:30)
[2020-05-27] MEDS ORDERED: MAGNESIUM HYDROXIDE 2,400 MG/10 ML CUP PO PRN (17:30)
[2020-05-27] MEDS ORDERED: VANCOMYCIN IV PER PHARMACY 1 EACH MISC MISCELLANE PRN (17:38)
[2020-05-27] MEDS: INSULIN ASPART (NovoLOG) 100 UNIT/ML VIAL SQ SCH ×2 (18:13→21:10)
[2020-05-27] MEDS: FUROSEMIDE 10 MG/ML 2 ML VIAL IV SCH ×2 (18:13→23:05)
[2020-05-27] MEDS: NITROGLYCERIN OINT 1 INCH/GM PACKET TOPICAL SCH ×2 (18:58→21:06)
[2020-05-27] MEDS: VANCOMYCIN 1,000 MG in SODIUM CHLORIDE 0.9% 250 ML IVPB ONE ×2 (18:58→19:52)
[2020-05-27 20:31] LABS: Glucose,Whole Blood 196 mg/dL (75-99)
[2020-05-27] MEDS: ALBUTEROL NEBULIZED 2.5 MG/3 ML INHALATION SCH (20:33)
[2020-05-27] MEDS ORDERED: CEFEPIME 1 GM in SODIUM CHLORIDE 0.9% 50 ML IVPB ONE (21:00)
[2020-05-27] MEDS: guaiFENesin 600 MG TABLET.ER PO SCH (21:09)
[2020-05-27] MEDS: carvediloL 12.5 MG TAB PO SCH (21:09)
[2020-05-27] MEDS: SODIUM BICARBONATE TAB 650 MG TAB PO SCH (21:10)
[2020-05-27] MEDS: SENNOSIDES-DOCUSATE SODIUM 1 EACH TAB PO SCH (21:10)
[2020-05-27] MEDS: ATORVASTATIN 40 MG TAB PO SCH (21:10)
[2020-05-28 06:09] LABS: Glucose,Whole Blood 104 mg/dL (75-99)
[2020-05-28] MEDS: INSULIN ASPART (NovoLOG) 100 UNIT/ML VIAL SQ SCH ×4 (06:11→20:54)
[2020-05-28] MEDS: ALBUTEROL NEBULIZED 2.5 MG/3 ML INHALATION SCH ×4 (07:14→20:35)
[2020-05-28] MEDS: carvediloL 12.5 MG TAB PO SCH ×2 (08:16→20:53)
[2020-05-28] MEDS: CHOLECALCIFEROL 1,000 UNIT TAB PO SCH (08:16)
[2020-05-28] MEDS: buPROPion 100 MG TAB PO SCH (08:16)
[2020-05-28] MEDS: MULTIVITAMINS, THERA 1 EACH TAB PO SCH (08:16)
[2020-05-28] MEDS: FERROUS SULFATE 325 MG TAB PO SCH (08:17)
[2020-05-28] MEDS: ASPIRIN 81 MG PO SCH (08:17)
[2020-05-28] MEDS: FUROSEMIDE 10 MG/ML 2 ML VIAL IV SCH ×2 (08:17→20:53)
[2020-05-28] MEDS: amLODIPine 10 MG TAB PO SCH (08:17)
[2020-05-28] MEDS: SODIUM BICARBONATE TAB 650 MG TAB PO SCH ×2 (08:17→20:54)
[2020-05-28] MEDS: guaiFENesin 600 MG TABLET.ER PO SCH ×2 (08:17→20:54)
[2020-05-28] MEDS: CEFEPIME 1 GM in SODIUM CHLORIDE 0.9% 50 ML IVPB SCH ×2 (08:17→20:54)
[2020-05-28] MEDS: allopurinoL 100 MG TAB PO SCH (08:17)
[2020-05-28] MEDS: hydrALAZINE HCL 25 MG TAB PO SCH (08:17)
[2020-05-28] MEDS: polyethylene glycoL 3350 17 GM POWD.PACK PO SCH (08:17)
[2020-05-28] MEDS: CINACALCET 30 MG TAB PO SCH (08:17)
[2020-05-28] MEDS: FAMOTIDINE 20 MG TAB PO SCH (08:17)
[2020-05-28] MEDS: NITROGLYCERIN OINT 1 INCH/GM PACKET TOPICAL SCH (08:18)
[2020-05-28] MEDS ORDERED: FUROSEMIDE 10 MG/ML 2 ML VIAL IV SCH (09:00)
[2020-05-28] MEDS: ISOSORBIDE MONONITRATE ER 30 MG TAB.ER.24H PO SCH (09:40)
--- NOTE | 2020-05-28 11:12 | P.HPIM ---
History of Present Illness H&P Date: 05/28/20 HISTORY OF PRESENT ILLNESS This is an 89-year-old black female patient of Dr. Ramirez otero at [facility] with past medical history of diabetes mellitus type 2, chronic kidney disease stage IV, gastroesophageal reflux disease, anemia of chronic disease, chronic gout, hyperparathyroidism, hypertension, hyperlipidemia, recurrent depression, hydrocephalus status post shunt. Patient has had shortness of breath on and off. No cough or sputum production. She denies any nausea, vomiting or diarrhea. Patient was recently treated for pneumonia. On presentation, patient had a pulse ox of 82% on room air placed on a nonrebreather 15 L initially. Heart rate was 78, respiratory rate 22, blood pressure 142/76. Patient is now back on room air with pulse ox of 97%. Chest x-ray reveals moderate heart failure with small left pleural effusion and adjacent atelectasis. WBC 5.7, hemoglobin 8.8, platelet count 155. D-dimer 1.69 venous pH 7.51, CO2 28 and bicarbonate 22. BUN 33 and creatinine 2.19, potassium 4.9. Liver function tests normal. Troponin elevated at 0.040. COVID-19 not detected. Patient was started on cefepime and vancomycin for possible pneumonia and admitted to the cardiac stepdown unit, cardiology consult, echocardiogram, repeat troponins. REVIEW OF SYSTEMS Constitutional: No fever, no chills, no night sweats. No weight change. No weakness, fatigue or lethargy. No daytime sleepiness. EENT: No headache. No blurred vision or double vision, no loss of vision. No nasal drainage or congestion. No epistaxis. No sore throat. Lungs: Reported shortness of breath, denies cough, no sputum production. No wheezing. Cardiovascular: No chest pain, no lower extremity edema. No palpitations. No paroxysmal nocturnal dyspnea. No orthopnea. No lightheadedness or dizziness. No syncopal episodes. Abdominal: No abdominal pain. No nausea, vomiting. No diarrhea. No constipation. No bloody or tarry stools. No loss of appetite. Genitourinary: No dysuria, increased frequency, urgency. Musculoskeletal: No myalgias. Reports generalized muscle weakness, no gait dysfunction, no frequent falls. No back pain. No neck pain. Integumentary: No wounds, no lesions. No rash or pruritus. No unusual bruising. No change in hair or nails. Neurologic: No aphasia. No facial droop. No change in mentation. No head injury. No headache. Psychiatric: No depression. No anxiety. Endocrine: No abnormal blood sugars. SOCIAL HISTORY Patient started smoking at age 17 and quit in 2014 at 1 pack per week. No alcohol use. Patient is and resides as long-term resident at [facility]. FAMILY HISTORY Patient does not know her mother's medical history. Father young from possibly heart disease. Patient has one brother and does not know his history. She does not have any sisters. PHYSICAL EXAMINATION Gen: This is an 10-year-old black female. She is resting in bed with head of bed elevated, she appears to be in no acute distress. No respiratory distress is noted. HEENT: Head is atraumatic, normocephalic. Pupils equal, round. Sclerae is anicteric. NECK: Supple. No JVD. No lymphadenopathy. No thyromegaly. LUNGS: Clear to auscultation. No wheezes or rhonchi. No intercostal retractions. HEART: Regular rate and rhythm. No murmur. ABDOMEN: Soft. Bowel sounds are present. No masses. No tenderness. EXTREMITIES: No pedal edema. No calf tenderness. NEUROLOGICAL: Patient is awake, alert and oriented x3. Cranial nerves 2 through 12 are grossly intact. ASSESSMENT AND PLAN 1. Acute hypoxic respiratory failure secondary to acute pulmonary edema, possible pulmonary embolism with elevated d-dimer, possible gram-negative pneumonia, failed outpatient treatment. Continue to monitor oxygen needs closely, VQ scan, heparin drip, IV Lasix, IV cefepime and vancomycin, Ventolin nebulizer treatment 4 times daily and as needed. 2. Elevated troponin. Cardiology consult, echocardiogram, repeat troponins. Continue Imdur 30 mg daily, aspirin 81 mg daily. 3. Elevated d-dimer, rule out pulmonary embolism. VQ scan ordered. Continue heparin drip. 4. Chronic kidney disease stage IV. Sodium bicarb 650 mg twice daily 5. Anemia of chronic kidney disease. 6. Hypertension, hypertensive cardio vascular disease. Continue amlodipine 10 mg daily, Coreg 25 mg twice daily, hydralazine 75 mg daily. 7. Diabetes mellitus type 2. 8. Hyperlipidemia. Continue Lipitor 40 mg at bedtime 9. Chronic gout. Continue allopurinol 100 mg daily. 10. History of hydrocephalus status post shunt, stable. 11. Gastroesophageal reflux disease, GI prophylaxis. Pepcid 20 mg daily. 12. Recurrent depression. Continue Wellbutrin 100 mg daily. 13 DVT prophylaxis. Heparin drip. CODE STATUS: No code Patient will be admitted to the hospital for a minimum of 2 night stay. DISCHARGE PLAN Return to [facility] and 24-48 hours. Impression and plan of care have been directed as dictated by the signing physician. Tiffani Corrigan nurse practitioner acting as scribe for signing physician. Past Medical History Past Medical History: Heart Failure, Dementia, Diabetes Mellitus, Eye Disorder, GERD/Reflux, Hypertension, Memory Impairment, Renal Disease Additional Past Medical History / Comment(s): macular degeneration, incont of urine wears a depends, occ gout, past fall, concussion, CKD stage 4, left femur FX with no surgical History of Any Multi-Drug Resistant Organisms: None Reported Past Surgical History: Orthopedic Surgery Additional Past Surgical History / Comment(s): Rt Shoulder, "brain shunt", lesion on labia removed, hip surgery on recent admission. Past Anesthesia/Blood Transfusion Reactions: No Reported Reaction Past Psychological History: No Psychological Hx Reported Additional Psychological History / Comment(s): Patient lives at [facility]. Ana does not ambulate and recieves total care. Smoking Status: Former smoker Past Alcohol Use History: None Reported Additional Past Alcohol Use History / Comment(s): started smoking at age 17, quit 2014. a pack would last 1 week. no alcohol now. Past Drug Use History: None Reported - Past Family History Mother History Unknown: Yes Additional Family Medical History / Comment(s): Patient does not know her mother's medical history. Father Additional Family Medical History / Comment(s): " young- had heart disease Brother(s) Additional Family Medical History / Comment(s): Patient has one brother and patient does not know his history. Patient does not have any sisters. Patient has 2 children. Medications and Allergies Home Medications Medication Instructions Recorded Confirmed Type amLODIPine BESYLATE [Norvasc] 10 mg PO DAILY 02/21/15 05/27/20 History Multivitamins, Thera [Multivitamin 1 tab PO DAILY 01/23/16 05/27/20 History (formulary)] Acetaminophen Tab [Tylenol] 650 mg PO Q4H PRN 12/29/18 05/27/20 History Atorvastatin [Lipitor] 40 mg PO HS 12/29/18 05/27/20 History Carvedilol [Coreg] 25 mg PO BID 12/29/18 05/27/20 History Cinacalcet [Sensipar] 30 mg PO DAILY 12/29/18 05/27/20 History Famotidine 20 mg PO DAILY 12/29/18 05/27/20 History Ferrous Sulfate [Iron (65 MG 325 mg PO DAILY 12/29/18 05/27/20 History Elemental)] Na Phos,M-B/Na Phos,Di-Ba [Fleet 133 ml RECTAL DAILY PRN 12/29/18 05/27/20 History Adult] allopurinoL [Zyloprim] 100 mg PO DAILY@0800 12/29/18 05/27/20 History bisacodyL [Dulcolax] 10 mg RECTAL DAILY PRN 12/29/18 05/27/20 History buPROPion [Wellbutrin] 100 mg PO DAILY tab 01/07/19 05/27/20 Rx polyethylene glycoL 3350 [Miralax] 17 gm PO DAILY #3 packet 01/07/19 05/27/20 Rx Acetaminophen-Codeine 300-30mg 1 tab PO Q6H PRN 05/27/20 05/27/20 History [Tylenol w/codeine #3] Albuterol Nebulized [Ventolin 2.5 mg INHALATION RT-Q4H PRN 05/27/20 05/27/20 History Nebulized] Albuterol Nebulized [Ventolin 2.5 mg INHALATION RT-QID 05/27/20 05/27/20 History Nebulized] Aspirin EC [Ecotrin Low Dose] 81 mg PO DAILY 05/27/20 05/27/20 History Cholecalciferol [Vitamin D3 (25 2,000 unit PO DAILY 05/27/20 05/27/20 History Mcg = 1000 Iu)] Doxycycline Hyclate 100 mg PO BID 05/27/20 05/27/20 History INSULIN ASPART (NovoLOG) [NovoLOG See Protocol SQ ACHS 05/27/20 05/27/20 History (formulary)] Magnesium Hydroxide [Milk of 7,200 mg PO Q48H PRN 05/27/20 05/27/20 History Magnesia Concentrate] Menthol [Biofreeze] 1 applic TOPICAL BID PRN 05/27/20 05/27/20 History Menthol [Biofreeze] 1 applic TOPICAL HS 05/27/20 05/27/20 History Sennosides-Docusate Sodium 2 tab PO HS 05/27/20 05/27/20 History [Senokot-S] Sodium Bicarbonate Tab 650 mg PO BID 05/27/20 05/27/20 History guaiFENesin [Mucinex] 600 mg PO BID 05/27/20 05/27/20 History hydrALAZINE HCL [Apresoline] 75 mg PO DAILY 05/27/20 05/27/20 History Allergies Allergy/AdvReac Type Severity Reaction Status Date / Time aspirin Allergy Unknown Verified 05/27/20 15:32 lactose Allergy Unknown Verified 05/27/20 15:32 Physical Exam Vitals: Vital Signs Temp Pulse Pulse Resp BP BP Pulse Ox 05/28/20 07:29 80 05/28/20 07:14 80 05/28/20 03:45 98.4 F 80 17 165/81 95 05/28/20 00:00 98.5 F 75 17 149/67 97 05/27/20 20:39 88 05/27/20 20:34 85 05/27/20 20:00 98.9 F 72 18 176/77 95 05/27/20 16:00 97.7 F 85 18 176/79 95 05/27/20 15:39 81 18 166/83 97 05/27/20 14:41 79 18 171/75 95 05/27/20 12:42 97 05/27/20 12:17 77 22 100 05/27/20 12:15 20 05/27/20 12:11 97.6 F 78 22 142/76 82 L Intake and Output 05/27/20 05/28/20 05/28/20 22:59 06:59 14:59 Intake Total 73.56 Output Total 1 Balance 72.56 Intake: Intake, IV Titration 73.56 Amount Heparin Sod,Pork in 0.45% 73.56 NaCl 25,000 unit In 0.45 % NaCl 1 250ml.bag @ 18 UNITS/KG/HR 9.896 mls/hr IV .Q24H [facility] Rx#: [id number] Output: Urine 1 Other: Voiding Method Diaper Diaper Incontinent Incontinent # Voids 1 1 Weight 54.975 kg 56 kg Results CBC & Chem 7: 05/27/20 12:45 05/27/20 12:45 Labs: Abnormal Lab Results - Last 24 Hours (Table) 05/27/20 05/27/20 05/27/20 Range/Units 12:45 12:45 12:45 RBC 2.68 L (3.80-5.40) m/uL Hgb 8.8 L (11.4-16.0) gm/dL Hct 26.8 L (34.0-46.0) % RDW 16.7 H (11.5-15.5) % Lymphocytes # 0.9 L (1.0-4.8) k/uL APTT (22.0-30.0) sec D-Dimer 1.69 H (<0.60) mg/L FEU VBG pH (7.31-7.41) VBG pCO2 (37-51) mmHg VBG HCO3 (24-28) mmol/L Chloride 112 H (98-107) mmol/L BUN 33 H (7-17) mg/dL Creatinine 2.19 H (0.52-1.04) mg/dL Glucose 104 H (74-99) mg/dL POC Glucose (mg/dL) (75-99) mg/dL Troponin I (0.000-0.034) ng/mL 05/27/20 05/27/20 05/27/20 Range/Units 12:45 13:10 16:37 RBC (3.80-5.40) m/uL Hgb (11.4-16.0) gm/dL Hct (34.0-46.0) % RDW (11.5-15.5) % Lymphocytes # (1.0-4.8) k/uL APTT (22.0-30.0) sec D-Dimer (<0.60) mg/L FEU VBG pH 7.51 H (7.31-7.41) VBG pCO2 28 L (37-51) mmHg VBG HCO3 22 L (24-28) mmol/L Chloride (98-107) mmol/L BUN (7-17) mg/dL Creatinine (0.52-1.04) mg/dL Glucose (74-99) mg/dL POC Glucose (mg/dL) 113 H (75-99) mg/dL Troponin I 0.040 H* (0.000-0.034) ng/mL 05/27/20 05/27/20 05/28/20 Range/Units 20:29 22:10 06:07 RBC (3.80-5.40) m/uL Hgb (11.4-16.0) gm/dL Hct (34.0-46.0) % RDW (11.5-15.5) % Lymphocytes # (1.0-4.8) k/uL APTT 93.4 H (22.0-30.0) sec D-Dimer (<0.60) mg/L FEU VBG pH (7.31-7.41) VBG pCO2 (37-51) mmHg VBG HCO3 (24-28) mmol/L Chloride (98-107) mmol/L BUN (7-17) mg/dL Creatinine (0.52-1.04) mg/dL Glucose (74-99) mg/dL POC Glucose (mg/dL) 196 H 104 H (75-99) mg/dL Troponin I (0.000-0.034) ng/mL Thrombosis Risk Factor Assmnt - Choose All That Apply Each Factor Represents 1 point: Medical pt on bed rest Each Risk Factor Represents 2 Points: Patient confined to bed Each Risk Factor Represents 3 Points: Age 75 years or older Other congenital or acquired thrombophilia - If yes, enter type in comment: No Thrombosis Risk Factor Assessment Total Risk Factor Score: 6 Thrombosis Risk Factor Assessment Level: High Risk
--- NOTE | 2020-05-28 12:21 | P.CRDCN ---
<Jackie Blount - Last Filed: 05/28/20 12:15> History of Present Illness Consult date: 05/28/20 History of present illness: CHIEF COMPLAINT: Pulmonary edema HISTORY OF PRESENT ILLNESS: This is a 89-year old female with a past medical history significant for hypertension, hyperlipidemia, diabetes mellitus, GERD, chronic kidney disease, and anemia. Patient does not follow with a general agent. We have been asked to see the patient in consultation for pulmonary edema. Patient is a poor historian. She lives at [facility] and was apparently brought to the hospital by EMS because the staff thought the patient appeared short of breath. The ER physician noted that the patient was recently treated for pneumonia. The patient denies shortness of breath. She denies chest pain or pressure. DIAGNOSTICS: EKG reveals sinus mechanism. Chest xray moderate CHF with small left pleural effusion and adjacent atelectasis Laboratory data: WBC 5.7. Hemoglobin 8.8. Platelet count 155. D-dimer 1.69. Sodium 143. Potassium 4.9. Troponin 0.040. BNP 7710. Current home cardiac medications include hydralazine 75 mg daily, Norvasc 10 mg daily, Coreg 25 mg twice a day, Lipitor 40 mg daily, aspirin 81 mg daily REVIEW OF SYSTEMS: At the time of my exam: CONSTITUTIONAL: Denies fever or chills. HEENT: Denies blurred vision, vision changes, or eye pain. Denies hemoptysis CARDIOVASCULAR: Denies chest pain, orthopnea, PND or palpitations RESPIRATORY: No shortness of breath. GASTROINTESTINAL: Denies abdominal pain. Denies nausea or vomiting. HEMATOLOGIC: Denies bleeding disorders. GENITOURINARY: Denies any blood in urine. SKIN: Denies pruitis. Denies rash. PHYSICAL EXAM: VITAL SIGNS: Reviewed. GENERAL: Well-developed in no acute distress. HEENT: Head is normocephalic. Pupils are equal, round. Sclerae anicteric. Mucous membranes of the mouth are moist. Neck supple. No JVD or thyromegaly LUNGS: Respirations even and unlabored. Lungs diminished with fine rales to the bases HEART: Regular rate and rhythm. S1 and S2 heard. ABDOMEN: Soft. Nondistended. Nontender. EXTREMITIES: Normal range of motion. No clubbing or cyanosis. Peripheral pulses intact. No lower extremity edema NEUROLOGIC: Awake and alert. Oriented x 2. ASSESSMENT: Shortness of breath, possible pneumonia Possible acute diastolic congestive heart failure, BNP 7710, patient appears at her baseline Abnormal troponin, suspect either due to CKD or type II OH secondary to oxygen supply and demand mismatch, no signs of ACS Chronic kidney disease Hypertension Hyperlipidemia PLAN: Resume home cardiac medications Decrease lasix to 20mg IV q 12 hours. Likely transition to oral tomorrow Monitor kidney function Accurate I&O Discontinue IV heparin Obtain 2D echo to assess cardiac structure and function Further recommendations pending patient course Nurse practitioner note has been reviewed by physician. Signing provider agrees with the documented findings, assessment, and plan of care. Past Medical History Past Medical History: Heart Failure, Dementia, Diabetes Mellitus, Eye Disorder, GERD/Reflux, Hypertension, Memory Impairment, Renal Disease Additional Past Medical History / Comment(s): macular degeneration, incont of urine wears a depends, occ gout, past fall, concussion, CKD stage 4, left femur FX with no surgical History of Any Multi-Drug Resistant Organisms: None Reported Past Surgical History: Orthopedic Surgery Additional Past Surgical History / Comment(s): Rt Shoulder, "brain shunt", lesion on labia removed, hip surgery on recent admission. Past Anesthesia/Blood Transfusion Reactions: No Reported Reaction Past Psychological History: No Psychological Hx Reported Additional Psychological History / Comment(s): Patient lives at [facility]. Ana does not ambulate and recieves total care. Smoking Status: Former smoker Past Alcohol Use History: None Reported Additional Past Alcohol Use History / Comment(s): started smoking at age 17, quit 2014. a pack would last 1 week. no alcohol now. Past Drug Use History: None Reported - Past Family History Mother History Unknown: Yes Additional Family Medical History / Comment(s): Patient does not know her mother's medical history. Father Additional Family Medical History / Comment(s): " young- had heart disease Brother(s) Additional Family Medical History / Comment(s): Patient has one brother and patient does not know his history. Patient does not have any sisters. Patient has 2 children. Medications and Allergies Home Medications Medication Instructions Recorded Confirmed Type amLODIPine BESYLATE [Norvasc] 10 mg PO DAILY 02/21/15 05/27/20 History Multivitamins, Thera [Multivitamin 1 tab PO DAILY 01/23/16 05/27/20 History (formulary)] Acetaminophen Tab [Tylenol] 650 mg PO Q4H PRN 12/29/18 05/27/20 History Atorvastatin [Lipitor] 40 mg PO HS 12/29/18 05/27/20 History Carvedilol [Coreg] 25 mg PO BID 12/29/18 05/27/20 History Cinacalcet [Sensipar] 30 mg PO DAILY 12/29/18 05/27/20 History Famotidine 20 mg PO DAILY 12/29/18 05/27/20 History Ferrous Sulfate [Iron (65 MG 325 mg PO DAILY 12/29/18 05/27/20 History Elemental)] Na Phos,M-B/Na Phos,Di-Ba [Fleet 133 ml RECTAL DAILY PRN 12/29/18 05/27/20 History Adult] allopurinoL [Zyloprim] 100 mg PO DAILY@0800 12/29/18 05/27/20 History bisacodyL [Dulcolax] 10 mg RECTAL DAILY PRN 12/29/18 05/27/20 History buPROPion [Wellbutrin] 100 mg PO DAILY tab 01/07/19 05/27/20 Rx polyethylene glycoL 3350 [Miralax] 17 gm PO DAILY #3 packet 01/07/19 05/27/20 Rx Acetaminophen-Codeine 300-30mg 1 tab PO Q6H PRN 05/27/20 05/27/20 History [Tylenol w/codeine #3] Albuterol Nebulized [Ventolin 2.5 mg INHALATION RT-Q4H PRN 05/27/20 05/27/20 History Nebulized] Albuterol Nebulized [Ventolin 2.5 mg INHALATION RT-QID 05/27/20 05/27/20 History Nebulized] Aspirin EC [Ecotrin Low Dose] 81 mg PO DAILY 05/27/20 05/27/20 History Cholecalciferol [Vitamin D3 (25 2,000 unit PO DAILY 05/27/20 05/27/20 History Mcg = 1000 Iu)] Doxycycline Hyclate 100 mg PO BID 05/27/20 05/27/20 History INSULIN ASPART (NovoLOG) [NovoLOG See Protocol SQ ACHS 05/27/20 05/27/20 History (formulary)] Magnesium Hydroxide [Milk of 7,200 mg PO Q48H PRN 05/27/20 05/27/20 History Magnesia Concentrate] Menthol [Biofreeze] 1 applic TOPICAL BID PRN 05/27/20 05/27/20 History Menthol [Biofreeze] 1 applic TOPICAL HS 05/27/20 05/27/20 History Sennosides-Docusate Sodium 2 tab PO HS 05/27/20 05/27/20 History [Senokot-S] Sodium Bicarbonate Tab 650 mg PO BID 05/27/20 05/27/20 History guaiFENesin [Mucinex] 600 mg PO BID 05/27/20 05/27/20 History hydrALAZINE HCL [Apresoline] 75 mg PO DAILY 05/27/20 05/27/20 History Allergies Allergy/AdvReac Type Severity Reaction Status Date / Time aspirin Allergy Unknown Verified 05/27/20 15:32 lactose Allergy Unknown Verified 05/27/20 15:32 Physical Exam Vitals: Vital Signs Temp Pulse Pulse Resp BP BP Pulse Ox 05/28/20 11:24 76 05/28/20 11:11 75 05/28/20 08:00 98.6 F 74 20 184/75 97 05/28/20 07:29 80 05/28/20 07:14 80 05/28/20 03:45 98.4 F 80 17 165/81 95 05/28/20 00:00 98.5 F 75 17 149/67 97 05/27/20 20:39 88 05/27/20 20:34 85 05/27/20 20:00 98.9 F 72 18 176/77 95 05/27/20 16:00 97.7 F 85 18 176/79 95 05/27/20 15:39 81 18 166/83 97 05/27/20 14:41 79 18 171/75 95 05/27/20 12:42 97 05/27/20 12:17 77 22 100 05/27/20 12:15 20 05/27/20 12:11 97.6 F 78 22 142/76 82 L Intake and Output 05/27/20 05/28/20 05/28/20 22:59 06:59 14:59 Intake Total 73.56 180 Output Total 1 Balance 72.56 180 Intake: Intake, IV Titration 73.56 Amount Heparin Sod,Pork in 0.45% 73.56 NaCl 25,000 unit In 0.45 % NaCl 1 250ml.bag @ 18 UNITS/KG/HR 9.896 mls/hr IV .Q24H [facility] Rx#: [id number] Oral 180 Output: Urine 1 Other: Voiding Method Diaper Diaper Diaper Incontinent Incontinent Incontinent # Voids 1 1 Weight 54.975 kg 56 kg Results 05/27/20 12:45 05/27/20 12:45 Cardiac Enzymes 05/27/20 05/27/20 Range/Units 12:45 12:45 AST 23 (14-36) U/L Troponin I 0.040 H* (0.000-0.034) ng/mL Coagulation 05/27/20 05/27/20 Range/Units 12:45 22:10 PT 10.8 (9.0-12.0) sec APTT 22.1 93.4 H (22.0-30.0) sec CBC 05/27/20 Range/Units 12:45 WBC 5.7 (3.8-10.6) k/uL RBC 2.68 L (3.80-5.40) m/uL Hgb 8.8 L (11.4-16.0) gm/dL Hct 26.8 L (34.0-46.0) % Plt Count 155 (150-450) k/uL Comprehensive Metabolic Panel 05/27/20 Range/Units 12:45 Sodium 143 (137-145) mmol/L Potassium 4.9 (3.5-5.1) mmol/L Chloride 112 H (98-107) mmol/L Carbon Dioxide 22 (22-30) mmol/L BUN 33 H (7-17) mg/dL Creatinine 2.19 H (0.52-1.04) mg/dL Glucose 104 H (74-99) mg/dL Calcium 10.0 (8.4-10.2) mg/dL AST 23 (14-36) U/L ALT 15 (4-34) U/L Alkaline Phosphatase 118 (38-126) U/L Total Protein 7.0 (6.3-8.2) g/dL Albumin 3.9 (3.5-5.0) g/dL Current Medications Generic Name Dose Route Start Last Admin Trade Name Freq PRN Reason Stop Dose Admin Acetaminophen 650 mg 05/27/20 17:30 Acetaminophen Tab 325 Mg Tab PO Q4H PRN Fever and/ or Pain Acetaminophen/Codeine Phosphate 1 each 05/27/20 17:30 Acetaminophen-Codeine 300-30mg Tab PO Q6H PRN Mild to Moderate Pain Albuterol Sulfate 2.5 mg 05/27/20 17:30 Albuterol Nebulized 2.5 Mg/3 Ml INHALATION RT-Q4H PRN Shortness Of Breath Albuterol Sulfate 2.5 mg 05/27/20 20:00 05/28/20 11:11 Albuterol Nebulized 2.5 Mg/3 Ml INHALATION 2.5 mg RT-QID [facility] Administration Allopurinol 100 mg 05/28/20 08:00 05/28/20 08:17 Allopurinol 100 Mg Tab PO 100 mg DAILY@0800 [facility] Administration Amlodipine Besylate 10 mg 05/28/20 09:00 05/28/20 08:17 Amlodipine 10 Mg Tab PO 10 mg DAILY [facility] Administration Aspirin 81 mg 05/28/20 09:00 05/28/20 08:17 Aspirin 81 Mg PO 81 mg DAILY [facility] Administration Atorvastatin Calcium 40 mg 05/27/20 21:00 05/27/20 21:10 Atorvastatin 40 Mg Tab PO 40 mg HS [facility] Administration Bisacodyl 10 mg 05/27/20 17:30 Bisacodyl 10 Mg Supp RECTAL DAILY PRN Constipation Bupropion HCl 100 mg 05/28/20 09:00 05/28/20 08:16 Bupropion 100 Mg Tab PO 100 mg DAILY [facility] Administration Carvedilol 25 mg 05/27/20 21:00 05/28/20 08:16 Carvedilol 12.5 Mg Tab PO 25 mg BID [facility] Administration Cholecalciferol 2,000 unit 05/28/20 09:00 05/28/20 08:16 Cholecalciferol 1,000 Unit Tab PO 2,000 unit DAILY [facility] Administration Cinacalcet 30 mg 05/28/20 09:00 05/28/20 08:17 Cinacalcet 30 Mg Tab PO 30 mg DAILY [facility] Administration Famotidine 20 mg 05/28/20 09:00 05/28/20 08:17 Famotidine 20 Mg Tab PO 20 mg DAILY [facility] Administration Ferrous Sulfate 325 mg 05/28/20 09:00 05/28/20 08:17 Ferrous Sulfate 325 Mg Tab PO 325 mg DAILY [facility] Administration Furosemide 20 mg 05/28/20 21:00 Furosemide 10 Mg/Ml 2 Ml Vial IV Q12HR [facility] Guaifenesin 600 mg 05/27/20 21:00 05/28/20 08:17 Guaifenesin 600 Mg Tablet.Er PO 600 mg BID [facility] Administration Hydralazine HCl 75 mg 05/28/20 09:00 05/28/20 08:17 Hydralazine Hcl 25 Mg Tab PO 75 mg DAILY [facility] Administration Cefepime HCl 1 gm/ Sodium 50 mls @ 12.5 mls/hr 05/28/20 09:00 05/28/20 08:17 Chloride IVPB 12.5 mls/hr Q12HR [facility] Administration Vancomycin HCl 1,000 mg/ 250 mls @ 125 mls/hr 05/28/20 13:00 Sodium Chloride IVPB 05/28/20 14:59 ONCE ONE Insulin Aspart 0 unit 05/27/20 17:30 05/28/20 06:11 Insulin Aspart (Novolog) 100 Unit/Ml Vial SQ Not Given ACHS [facility] Protocol Isosorbide Mononitrate 30 mg 05/28/20 09:00 05/28/20 09:40 Isosorbide Mononitrate Er 30 Mg Tab.Er.24h PO 30 mg DAILY [facility] Administration Magnesium Hydroxide 2,400 mg 05/27/20 17:30 Magnesium Hydroxide 2,400 Mg/10 Ml Cup PO Q48H PRN Constipation Miscellaneous Information 1 each 05/27/20 17:38 Vancomycin Iv Per Pharmacy 1 Each Misc MISCELLANE DIRECTED PRN Per Protocol Protocol Multivitamins 1 each 05/28/20 09:00 05/28/20 08:16 Multivitamins, Thera 1 Each Tab PO 1 each DAILY [facility] Administration Polyethylene Glycol 17 gm 05/28/20 09:00 05/28/20 08:17 Polyethylene Glycol 3350 17 Gm Powd.Pack PO 17 gm DAILY [facility] Administration Senna/Docusate Sodium 2 each 05/27/20 21:00 05/27/20 21:10 Sennosides-Docusate Sodium 1 Each Tab PO 2 each HS [facility] Administration Sodium Bicarbonate 650 mg 05/27/20 21:00 05/28/20 08:17 Sodium Bicarbonate Tab 650 Mg Tab PO 650 mg BID [facility] Administration Sodium Biphosphate/Sodium Phosphate 133 ml 05/27/20 17:30 Na Phos,M-B/Na Phos,Di-Ba 133 Ml Enema RECTAL DAILY PRN Constipation Intake and Output 05/27/20 05/28/20 05/28/20 22:59 06:59 14:59 Intake Total 73.56 180 Output Total 1 Balance 72.56 180 Intake: Intake, IV Titration 73.56 Amount Heparin Sod,Pork in 0.45% 73.56 NaCl 25,000 unit In 0.45 % NaCl 1 250ml.bag @ 18 UNITS/KG/HR 9.896 mls/hr IV .Q24H [facility] Rx#: [id number] Oral 180 Output: Urine 1 Other: Voiding Method Diaper Diaper Diaper Incontinent Incontinent Incontinent # Voids 1 1 Weight 54.975 kg 56 kg 05/27/20 12:45 05/27/20 12:45 <Don Garcia - Last Filed: 05/28/20 16:07> Physical Exam Vitals: Vital Signs Temp Pulse Pulse Resp BP Pulse Ox 05/28/20 11:24 76 05/28/20 11:11 75 05/28/20 08:00 98.6 F 74 20 184/75 97 05/28/20 07:29 80 05/28/20 07:14 80 05/28/20 03:45 98.4 F 80 17 165/81 95 05/28/20 00:00 98.5 F 75 17 149/67 97 05/27/20 20:39 88 05/27/20 20:34 85 05/27/20 20:00 98.9 F 72 18 176/77 95 Intake and Output 05/28/20 05/28/20 05/28/20 06:59 14:59 22:59 Intake Total 73.56 360 Output Total 1 Balance 72.56 360 Intake: Intake, IV Titration 73.56 Amount Heparin Sod,Pork in 0.45% 73.56 NaCl 25,000 unit In 0.45 % NaCl 1 250ml.bag @ 18 UNITS/KG/HR 9.896 mls/hr IV .Q24H [facility] Rx#: [id number] Oral 360 Output: Urine 1 Other: Voiding Method Diaper Diaper Incontinent Incontinent # Voids 1 2 2 Weight 56 kg 56 kg Results 05/27/20 12:45 05/27/20 12:45 Cardiac Enzymes 05/28/20 Range/Units 13:12 Troponin I 0.044 H* (0.000-0.034) ng/mL Coagulation 05/27/20 05/28/20 Range/Units 22:10 13:12 APTT 93.4 H 30.7 H (22.0-30.0) sec Current Medications Generic Name Dose Route Start Last Admin Trade Name Freq PRN Reason Stop Dose Admin Acetaminophen 650 mg 05/27/20 17:30 Acetaminophen Tab 325 Mg Tab PO Q4H PRN Fever and/ or Pain Acetaminophen/Codeine Phosphate 1 each 05/27/20 17:30 Acetaminophen-Codeine 300-30mg Tab PO Q6H PRN Mild to Moderate Pain Albuterol Sulfate 2.5 mg 05/27/20 17:30 Albuterol Nebulized 2.5 Mg/3 Ml INHALATION RT-Q4H PRN Shortness Of Breath Albuterol Sulfate 2.5 mg 05/27/20 20:00 05/28/20 11:11 Albuterol Nebulized 2.5 Mg/3 Ml INHALATION 2.5 mg RT-QID [facility] Administration Allopurinol 100 mg 05/28/20 08:00 05/28/20 08:17 Allopurinol 100 Mg Tab PO 100 mg DAILY@0800 [facility] Administration Amlodipine Besylate 10 mg 05/28/20 09:00 05/28/20 08:17 Amlodipine 10 Mg Tab PO 10 mg DAILY [facility] Administration Aspirin 81 mg 05/28/20 09:00 05/28/20 08:17 Aspirin 81 Mg PO 81 mg DAILY [facility] Administration Atorvastatin Calcium 40 mg 05/27/20 21:00 05/27/20 21:10 Atorvastatin 40 Mg Tab PO 40 mg HS [facility] Administration Bisacodyl 10 mg 05/27/20 17:30 Bisacodyl 10 Mg Supp RECTAL DAILY PRN Constipation Bupropion HCl 100 mg 05/28/20 09:00 05/28/20 08:16 Bupropion 100 Mg Tab PO 100 mg DAILY [facility] Administration Carvedilol 25 mg 05/27/20 21:00 05/28/20 08:16 Carvedilol 12.5 Mg Tab PO 25 mg BID [facility] Administration Cholecalciferol 2,000 unit 05/28/20 09:00 05/28/20 08:16 Cholecalciferol 1,000 Unit Tab PO 2,000 unit DAILY [facility] Administration Cinacalcet 30 mg 05/28/20 09:00 05/28/20 08:17 Cinacalcet 30 Mg Tab PO 30 mg DAILY [facility] Administration Famotidine 20 mg 05/28/20 09:00 05/28/20 08:17 Famotidine 20 Mg Tab PO 20 mg DAILY [facility] Administration Ferrous Sulfate 325 mg 05/28/20 09:00 05/28/20 08:17 Ferrous Sulfate 325 Mg Tab PO 325 mg DAILY [facility] Administration Furosemide 20 mg 05/28/20 21:00 Furosemide 10 Mg/Ml 2 Ml Vial IV Q12HR [facility] Guaifenesin 600 mg 05/27/20 21:00 05/28/20 08:17 Guaifenesin 600 Mg Tablet.Er PO 600 mg BID [facility] Administration Heparin Sodium (Porcine) 0 unit 05/28/20 15:10 Heparin Sodium,Porcine 5,000 Unit/Ml 1 Ml Vial IV PER PROTOCOL PRN Low PTT Protocol Hydralazine HCl 75 mg 05/28/20 09:00 05/28/20 08:17 Hydralazine Hcl 25 Mg Tab PO 75 mg DAILY [facility] Administration Cefepime HCl 1 gm/ Sodium 50 mls @ 12.5 mls/hr 05/28/20 09:00 05/28/20 08:17 Chloride IVPB 12.5 mls/hr Q12HR [facility] Administration Heparin Sodium/Sodium Chloride 250 mls @ 6.72 mls/hr 05/28/20 15:15 05/28/20 15:17 25,000 unit/ Sodium Chloride IV 12 units/kg/hr .Q24H [facility] 6.72 mls/hr Administration Protocol 12 UNITS/KG/HR Insulin Aspart 0 unit 05/27/20 17:30 05/28/20 13:17 Insulin Aspart (Novolog) 100 Unit/Ml Vial SQ Not Given ACHS [facility] Protocol Isosorbide Mononitrate 30 mg 05/28/20 09:00 05/28/20 09:40 Isosorbide Mononitrate Er 30 Mg Tab.Er.24h PO 30 mg DAILY [facility] Administration Magnesium Hydroxide 2,400 mg 05/27/20 17:30 Magnesium Hydroxide 2,400 Mg/10 Ml Cup PO Q48H PRN Constipation Miscellaneous Information 1 each 05/27/20 17:38 Vancomycin Iv Per Pharmacy 1 Each Misc MISCELLANE DIRECTED PRN Per Protocol Protocol Multivitamins 1 each 05/28/20 09:00 05/28/20 08:16 Multivitamins, Thera 1 Each Tab PO 1 each DAILY [facility] Administration Polyethylene Glycol 17 gm 05/28/20 09:00 05/28/20 08:17 Polyethylene Glycol 3350 17 Gm Powd.Pack PO 17 gm DAILY [facility] Administration Senna/Docusate Sodium 2 each 05/27/20 21:00 05/27/20 21:10 Sennosides-Docusate Sodium 1 Each Tab PO 2 each HS [facility] Administration Sodium Bicarbonate 650 mg 05/27/20 21:00 05/28/20 08:17 Sodium Bicarbonate Tab 650 Mg Tab PO 650 mg BID [facility] Administration Sodium Biphosphate/Sodium Phosphate 133 ml 05/27/20 17:30 Na Phos,M-B/Na Phos,Di-Ba 133 Ml Enema RECTAL DAILY PRN Constipation Intake and Output 05/28/20 05/28/20 05/28/20 06:59 14:59 22:59 Intake Total 73.56 360 Output Total 1 Balance 72.56 360 Intake: Intake, IV Titration 73.56 Amount Heparin Sod,Pork in 0.45% 73.56 NaCl 25,000 unit In 0.45 % NaCl 1 250ml.bag @ 18 UNITS/KG/HR 9.896 mls/hr IV .Q24H [facility] Rx#: [id number] Oral 360 Output: Urine 1 Other: Voiding Method Diaper Diaper Incontinent Incontinent # Voids 1 2 2 Weight 56 kg 56 kg Patient Weight 05/29/20 06:59 Weight 56 kg 05/27/20 12:45 05/27/20 12:45
--- NOTE | 2020-05-28 12:27 | NM ---
EXAMINATION TYPE: NM pul vent and perfuse DATE OF EXAM: 05/28/2020 COMPARISON: Radiograph 05/27/2020 HISTORY: 89-year-old female shortness of breath and pneumonia TECHNIQUE: Utilizing inhalation of 68.7 mCi Tc 99m DTPA aerosol and intravenous injection of 4.53 mC i of Tc 99m MAA, ventilation and perfusion images are acquired post injection in multiple projections . FINDINGS: There is a triple matched defect at the left base. This is explained well by the patient's pleural ef fusion. Otherwise, no discrete perfusion abnormality seen. IMPRESSION: Triple matched ventilation/perfusion defect at the left base with corresponding small left pleural ef fusion translates to an intermediate probability for pulmonary embolus based on modified PIOPED 2 cri teria.
[2020-05-28 12:46] LABS: Glucose,Whole Blood 104 mg/dL (75-99)
[2020-05-28] MEDS ORDERED: VANCOMYCIN 1,000 MG in SODIUM CHLORIDE 0.9% 250 ML IVPB ONE (13:00)
--- NOTE | 2020-05-28 13:00 | ECHOF ---
Referral Reason:LVF MEASUREMENTS -------- HEIGHT: 160.0 cm WEIGHT: 55.8 kg BP: IVSd: 1.7 cm (0.6 - 1.1) LVIDd: 5.0 cm (3.9 - 5.3) LVPWd: 1.6 cm (0.6 - 1.1) EDV(Teich): 116 ml IVSs: 1.8 cm LVIDs: 4.1 cm LVPWs: 2.4 cm %IVS Thck: 10 % ESV(Teich): 76 ml EF(Teich): 35 % %FS: 17 % SV(Teich): 41 ml LA Diam: 3.9 cm (2.7 - 3.8) RVIDd: 3.1 cm (< 3.3) LALs A4C: 5.2 cm LAAs A4C: 20.4 cm LAESV A-L A4C: 68 ml LAESV MOD A4C: 67 ml LALs A2C: 5.0 cm LAAs A2C: 15.9 cm LAESV A-L A2C: 43 ml LAESV MOD A2C: 43 ml LAESV(A-L): 55 ml LAESV Index (A-L): 35.33 ml/m HR_4Ch_Q: 69 bpm LVVED_4Ch_Q: 106 ml LVVES_4Ch_Q: 70 ml LVEF_4Ch_Q: 33 % LVSV_4Ch_Q: 35 ml LVCO_4Ch_Q: 2.4 l/min LVLs_4Ch_Q: 7.1 cm LVLd_4Ch_Q: 8.0 cm Ao Diam: 2.9 cm (2.0 - 3.7) AV Cusp: 2.0 cm (1.5 - 2.6) EPSS: 1.5 cm MV E Johnathan: 0.78 m/s MV DecT: 268 ms MV Dec [place]: 2.9 m/s MV A Johnathan: 1.23 m/s MV E/A Ratio: 0.64 MV PHT: 78 ms AV Vmax: 1.49 m/s AV maxP.84 mmHg MV EF SLOPE: 41.40 mm/s (70 - 150) MV EXCURSION: 16.92 mm (> 18.000) FINDINGS -------- Sinus rhythm. This was a technically good study. The left ventricular size is normal. There is severe concentric left ventricular hypertrophy. Ove rall left ventricular systolic function is moderately impaired with, an EF between 35 - 40 %. The right ventricle is normal in size. LA is moderately dilated 34-39 ml/m2 The right atrium is normal in size. Interatrial and interventricular septum intact. There is mild aortic valve sclerosis. The mitral valve leaflets are mildly thickened. Mild mitral annular calcification present. Mild m itral regurgitation is present. The tricuspid valve appears structurally normal. Trace/mild (physiologic) pulmonic regurgitation. The aortic root size is normal. Normal inferior vena cava with normal inspiratory collapse consistent with estimated right atrial pre ssure of 5 mmHg. There is no pericardial effusion. CONCLUSIONS -------- 1. The left ventricular size is normal. 2. There is severe concentric left ventricular hypertrophy. 3. Overall left ventricular systolic function is moderately impaired with, an EF between 35 - 40 %. 4. LA is moderately dilated 34-39 ml/m2 5. There is mild aortic valve sclerosis. 6. The mitral valve leaflets are mildly thickened. 7. Mild mitral annular calcification present. 8. Mild mitral regurgitation is present. 9. Trace/mild (physiologic) pulmonic regurgitation. 10. There is no pericardial effusion. PRODUCT DEVELOPMENT SPECIALIST: Kyleigh Newton RDCS
[2020-05-28 14:05] VITALS: BMI 21.9
[2020-05-28] MEDS ORDERED: HEPARIN SODIUM,PORCINE 5,000 UNIT/ML 1 ML VIAL IV ONE (15:10)
[2020-05-28] MEDS ORDERED: HEPARIN SODIUM,PORCINE 5,000 UNIT/ML 1 ML VIAL IV PRN (15:10)
[2020-05-28] MEDS ORDERED: HEPARIN SOD,PORK IN 0.45% NACL 25,000 UNIT in 0.45% NACL 1 250ML.BAG IV SCH (15:15)
[2020-05-28 16:55] LABS: Glucose,Whole Blood 99 mg/dL (75-99)
[2020-05-28 20:15] LABS: Glucose,Whole Blood 153 mg/dL (75-99)
[2020-05-28] MEDS: SENNOSIDES-DOCUSATE SODIUM 1 EACH TAB PO SCH (20:54)
[2020-05-28] MEDS: ATORVASTATIN 40 MG TAB PO SCH (20:54)
--- NOTE | 2020-05-28 21:11 | US ---
EXAMINATION TYPE: US chest DATE OF EXAM: 05/28/2020 COMPARISON: XR CLINICAL HISTORY: Markings for thoracentesis by pulmonary staff. Pleural effusion. TECHNIQUE: Targeted ultrasound of the posterior lower bilateral hemithoraces EXAM MEASUREMENTS: Right Pleural Effusion pocket size: No fluid seen at this time. Left Pleural Effusion pocket size: 4.72 cm Left skin surface to fluid distance: 2.40 cm -Complex fluid with septations seen left posterior chest. Right side not marked for possible thoracentesis outside the dept. No fluid seen. Left side not marked for possible thoracentesis outside the dept. Pulmonologists are able to review the images in the patient?s EMR. No sign of right pleural effusion. IMPRESSIONS: Septated left pleural effusion is demonstrated.
[2020-05-29 06:04] LABS: Glucose,Whole Blood 101 mg/dL (75-99)
[2020-05-29] MEDS: INSULIN ASPART (NovoLOG) 100 UNIT/ML VIAL SQ SCH ×4 (06:33→21:14)
[2020-05-29] MEDS: amLODIPine 10 MG TAB PO SCH (07:55)
[2020-05-29] MEDS: carvediloL 12.5 MG TAB PO SCH ×2 (07:55→21:13)
[2020-05-29] MEDS: CEFEPIME 1 GM in SODIUM CHLORIDE 0.9% 50 ML IVPB SCH (07:55)
[2020-05-29] MEDS: ASPIRIN 81 MG PO SCH (07:55)
[2020-05-29] MEDS: buPROPion 100 MG TAB PO SCH (07:55)
[2020-05-29] MEDS: CHOLECALCIFEROL 1,000 UNIT TAB PO SCH (07:55)
[2020-05-29] MEDS: allopurinoL 100 MG TAB PO SCH (07:55)
[2020-05-29] MEDS: FAMOTIDINE 20 MG TAB PO SCH (07:56)
[2020-05-29] MEDS: MULTIVITAMINS, THERA 1 EACH TAB PO SCH (07:56)
[2020-05-29] MEDS: guaiFENesin 600 MG TABLET.ER PO SCH ×2 (07:56→21:13)
[2020-05-29] MEDS: CINACALCET 30 MG TAB PO SCH (07:56)
[2020-05-29] MEDS: ISOSORBIDE MONONITRATE ER 30 MG TAB.ER.24H PO SCH (07:56)
[2020-05-29] MEDS: FERROUS SULFATE 325 MG TAB PO SCH (07:56)
[2020-05-29] MEDS: FUROSEMIDE 10 MG/ML 2 ML VIAL IV SCH (07:56)
[2020-05-29] MEDS: hydrALAZINE HCL 25 MG TAB PO SCH (07:56)
[2020-05-29] MEDS: SODIUM BICARBONATE TAB 650 MG TAB PO SCH ×2 (07:57→21:13)
[2020-05-29] MEDS: polyethylene glycoL 3350 17 GM POWD.PACK PO SCH (07:58)
[2020-05-29] MEDS: ALBUTEROL NEBULIZED 2.5 MG/3 ML INHALATION SCH ×4 (09:03→21:23)
[2020-05-29 11:36] LABS: Glucose,Whole Blood 109 mg/dL (75-99)
--- NOTE | 2020-05-29 11:56 | P.PN ---
Subjective Progress Note Date: 05/29/20 HISTORY OF PRESENT ILLNESS This is an 89-year-old black female patient of Dr. Ramirez otero at [facility] with past medical history of diabetes mellitus type 2, chronic kidney disease stage IV, gastroesophageal reflux disease, anemia of chronic disease, chronic gout, hyperparathyroidism, hypertension, hyperlipidemia, recurrent depression, hydrocephalus status post shunt. Patient has had shortness of breath on and off. No cough or sputum production. She denies any nausea, vomiting or diarrhea. Patient was recently treated for pneumonia. On presentation, patient had a pulse ox of 82% on room air placed on a nonrebreather 15 L initially. Heart rate was 78, respiratory rate 22, blood pressure 142/76. Patient is now back on room air with pulse ox of 97%. Chest x-ray reveals moderate heart failure with small left pleural effusion and adjacent atelectasis. WBC 5.7, he moglobin 8.8, platelet count 155. D-dimer 1.69 venous pH 7.51, CO2 28 and bicarbonate 22. BUN 33 and creatinine 2.19, potassium 4.9. Liver function tests normal. Troponin elevated at 0.040. COVID-19 not detected. Patient was started on cefepime and vancomycin for possible pneumonia and admitted to the cardiac stepdown unit, cardiology consult, echocardiogram, repeat troponins. 05/29: VQ scan reveals intermediate probability for PE and pulmonary on consult. Pulmonary medicine has ordered a chest ultrasound which revealed septated left pleural effusion. No right pleural effusion. Left pleural effusion pocket was 4.72 cm. patient remains on heparin drip until her embolism has been ruled out. Echocardiogram reveals EF 3540 percent, severe concentric left ventricular hypertrophy, mild mitral regurgitation. She has been afebrile, heart rate 77, blood pressure 171/69, pulse ox 99% on room air. Repeat troponin 0.044 and 0.038. Anticipate possible discharge back to [facility] tomorrow. REVIEW OF SYSTEMS Constitutional: No fever, no chills, no night sweats. No weight change. No weakness, fatigue or lethargy. No daytime sleepiness. EENT: No headache. No blurred vision or double vision, no loss of vision. No nasal drainage or congestion. No epistaxis. No sore throat. Lungs: Denies shortness of breath, denies cough, no sputum production. No wheez ing. Cardiovascular: No chest pain, no lower extremity edema. No palpitations. No paroxysmal nocturnal dyspnea. No orthopnea. No lightheadedness or dizziness. No syncopal episodes. Abdominal: No abdominal pain. No nausea, vomiting. No diarrhea. No constipation. No bloody or tarry stools. No loss of appetite. Genitourinary: No dysuria, increased frequency, urgency. Musculoskeletal: No myalgias. Reports generalized muscle weakness, no gait dysfunction, no frequent falls. No back pain. No neck pain. Integumentary: No wounds, no lesions. No rash or pruritus. No unusual bruising. No change in hair or nails. Neurologic: No aphasia. No facial droop. No change in mentation. No head injury. No headache. Psychiatric: No depression. No anxiety. Endocrine: No abnormal blood sugars. PHYSICAL EXAMINATION Gen: This is an 10-year-old black female. She is resting in bed with head of bed elevated, she appears to be in no acute distress. No respiratory distress is noted. HEENT: Head is atraumatic, normocephalic. Pupils equal, round. Sclerae is anicteric. NECK: Supple. No JVD. No lymphadenopathy. No thyromegaly. LUNGS: Clear to auscultation. No wheezes or rhonchi. No intercostal retractions. HEART: Regular rate and rhythm. No murmur. ABDOMEN: Soft. Bowel sounds are present. No masses. No tenderness. EXTREMITIES: No pedal edema. No calf tenderness. NEUROLOGICAL: Patient is awake, alert and oriented x3. Cranial nerves 2 through 12 are grossly intact. ASSESSMENT AND PLAN 1. Acute hypoxic respiratory failure secondary to acute pulmonary edema, possible pulmonary embolism with elevated d-dimer, pleural effusion, possible gram-negative pneumonia-doubtful, failed outpatient treatment. Continue to monitor oxygen needs closely, VQ scan, heparin drip, IV Lasix transitioned to oral, IV cefepime x1 and vancomycin, Ventolin nebulizer treatment 4 times daily and as needed. 2. Elevated troponin, acute coronary syndrome ruled out. Cardiology consult, echocardiogram, repeat troponins. Continue Imdur 30 mg daily, aspirin 81 mg daily. 3. Elevated d-dimer, rule out pulmonary embolism. VQ scan reveals intermediate probability. Continue heparin drip. 4. Chronic kidney disease stage IV. Sodium bicarb 650 mg twice daily 5. Anemia of chronic kidney disease. 6. Hypertension, hypertensive cardio vascular disease. Continue amlodipine 10 mg daily, Coreg 25 mg twice daily, hydralazine 75 mg daily. 7. Diabetes mellitus type 2. 8. Hyperlipidemia. Continue Lipitor 40 mg at bedtime 9. Chronic gout. Continue allopurinol 100 mg daily. 10. History of hydrocephalus status post shunt, stable. 11. Gastroesophageal reflux disease, GI prophylaxis. Pepcid 20 mg daily. 12. Recurrent depression. Continue Wellbutrin 100 mg daily. 13 DVT prophylaxis. Heparin drip. CODE STATUS: No code DISCHARGE PLAN Return to [facility] on Thursday. Impression and plan of care have been directed as dictated by the signing physician. Tiffani Corrigan nurse practitioner acting as scribe for signing physician. Objective - Vital Signs Vital signs: Vital Signs Temp 98.6 F 05/29/20 07:52 Pulse 77 05/29/20 07:52 Resp 18 05/29/20 07:52 BP 171/69 05/29/20 07:52 Pulse Ox 99 05/29/20 07:52 Intake & Output 05/28/20 05/29/20 05/29/20 18:59 06:59 18:59 Intake Total 540 Balance 540 Weight 56 kg 58 kg Intake: Oral 540 Other: Voiding Method Diaper Diaper Incontinent Incontinent # Voids 2 2 - Labs CBC & Chem 7: 05/27/20 12:45 05/27/20 12:45 Labs: Abnormal Lab Results - Last 24 Hours (Table) 05/28/20 05/28/20 05/28/20 Range/Units 12:45 13:12 13:12 APTT 30.7 H (22.0-30.0) sec POC Glucose (mg/dL) 104 H (75-99) mg/dL Troponin I 0.044 H* (0.000-0.034) ng/mL 05/28/20 05/28/20 05/28/20 Range/Units 15:50 15:50 20:13 APTT 50.6 H (22.0-30.0) sec POC Glucose (mg/dL) 153 H (75-99) mg/dL Troponin I 0.038 H* (0.000-0.034) ng/mL 05/28/20 05/29/20 Range/Units 23:28 06:03 APTT 51.8 H (22.0-30.0) sec POC Glucose (mg/dL) 101 H (75-99) mg/dL Troponin I (0.000-0.034) ng/mL Microbiology - Last 24 Hours (Table) 05/27/20 13:03 Blood Culture - Preliminary Blood No Growth after 24 hours
--- NOTE | 2020-05-29 12:04 | P.PN ---
Subjective Progress Note Date: 05/29/20 CHIEF COMPLAINT: Pulmonary edema HISTORY OF PRESENT ILLNESS: Patient examined this morning at the bedside. She denies chest pain or pressure. She reports mild shortness of breath. However, she appears to be very comfortable and in no acute distress. Patient had a VQ scan performed yesterday which revealed possibility of pulmonary emboli. She remains on IV heparin. Echocardiogram completed reveals EF 35-40% and mild mitral regurgitation PHYSICAL EXAM: VITAL SIGNS: Reviewed. GENERAL: Well-developed in no acute distress. HEENT: Head is normocephalic. Pupils are equal, round. Sclerae anicteric. Mucous membranes of the mouth are moist. Neck supple. No JVD or thyromegaly LUNGS: Respirations even and unlabored. Lungs diminished. HEART: Regular rate and rhythm. S1 and S2 heard. EXTREMITIES: Normal range of motion. No clubbing or cyanosis. Peripheral pulses intact. No lower extremity edema NEUROLOGIC: Awake and alert. Oriented x 2. ASSESSMENT: Shortness of breath, possible pneumonia Possible acute systolic congestive heart failure, BNP 7710, patient appears at her baseline Possible pulmonary emboli Abnormal troponin, suspect either due to CKD or type II TN secondary to oxygen supply and demand mismatch, no signs of ACS Chronic kidney disease Hypertension Hyperlipidemia PLAN: Pulmonary consulted for possible PE. Await evaluation. Change lasix to oral dosinmg daily Monitor kidney function Accurate I&O Patient is stable from a cardiac standpoint Nurse practitioner note has been reviewed by physician. Signing provider agrees with the documented findings, assessment, and plan of care. Objective - Vital Signs Vital signs: Vital Signs Temp 98.6 F 05/29/20 07:52 Pulse 72 05/29/20 09:21 Resp 18 05/29/20 08:00 BP 171/69 05/29/20 07:52 Pulse Ox 99 05/29/20 07:52 Intake & Output 05/28/20 05/29/20 05/29/20 18:59 06:59 18:59 Intake Total 540 Balance 540 Weight 56 kg 58 kg Intake: Oral 540 Other: Voiding Method Diaper Diaper Diaper Incontinent Incontinent Incontinent # Voids 2 2 - Labs CBC & Chem 7: 05/27/20 12:45 05/27/20 12:45 Labs: Abnormal Lab Results - Last 24 Hours (Table) 05/28/20 05/28/20 05/28/20 Range/Units 12:45 13:12 13:12 APTT 30.7 H (22.0-30.0) sec POC Glucose (mg/dL) 104 H (75-99) mg/dL Troponin I 0.044 H* (0.000-0.034) ng/mL 05/28/20 05/28/20 05/28/20 Range/Units 15:50 15:50 20:13 APTT 50.6 H (22.0-30.0) sec POC Glucose (mg/dL) 153 H (75-99) mg/dL Troponin I 0.038 H* (0.000-0.034) ng/mL 05/28/20 05/29/20 05/29/20 Range/Units 23:28 06:03 11:34 APTT 51.8 H (22.0-30.0) sec POC Glucose (mg/dL) 101 H 109 H (75-99) mg/dL Troponin I (0.000-0.034) ng/mL Microbiology - Last 24 Hours (Table) 05/27/20 13:03 Blood Culture - Preliminary Blood No Growth after 24 hours
[2020-05-29 12:30] LABS: Anisocytosis Slight; Basophils % (A) 1 %; Eosinophils # (A) 0.4 k/uL (0-0.7); Eosinophils % (A) 8 %; HCT 21.3 % (34.0-46.0); Lymphocytes % (A) 20 %; MCH 32.6 pg (25.0-35.0); MCHC 32.8 g/dL (31.0-37.0); MCV 99.4 fL (80.0-100.0); Macrocytosis Slight; Mean Platelet Volume 8.1; Monocytes # (A) 0.4 k/uL (0-1.0); Monocytes % (A) 8 %; Neutrophils # (A) 3.1 k/uL (1.3-7.7); Neutrophils % (A) 61 %; Platelet Count 137 k/uL (150-450); RBC 2.14 m/uL (3.80-5.40); RDW 16.5 % (11.5-15.5); WBC 5.1 k/uL (3.8-10.6)
[2020-05-29 12:37] LABS: Vancomycin,Random 15.7 ug/mL
[2020-05-29] MEDS ORDERED: FUROSEMIDE 10 MG/ML 4 ML VIAL IV PRN (13:26)
[2020-05-29] MEDS ORDERED: SODIUM FERRIC GLUCONAT-SUCROSE 125 MG in SODIUM CHLORIDE 0.9% 100 ML IVPB ONE (14:30)
--- NOTE | 2020-05-29 14:48 | US ---
EXAMINATION TYPE: US venous doppler duplex LE DATE OF EXAM: 05/29/2020 2:10 PM COMPARISON: NONE CLINICAL HISTORY: rule out DVT. Elevated D dimer, Probable PE. SIDE PERFORMED: Bilateral TECHNIQUE: The lower extremity deep venous system is examined utilizing real time linear array sonog justin with graded compression, doppler sonography and color-flow sonography. VESSELS IMAGED: Common Femoral Vein Deep Femoral Vein Greater Saphenous Vein * Femoral Vein Popliteal Vein Small Saphenous Vein * Proximal Calf Veins (* superficial vessels) Right Leg: Negative for DVT Left Leg: Negative for DVT IMPRESSION: No evidence for DVT at this time.
[2020-05-29 16:39] LABS: Glucose,Whole Blood 133 mg/dL (75-99)
--- NOTE | 2020-05-29 17:59 | P.CNPUL ---
History of Present Illness Consult date: 05/29/20 Requesting physician: Justin Boyle Reason for consult: pleural effusion Chief complaint: Shortness of breath History of present illness: This is an 89-year-old female, poor historian, patient is a resident of [facility], known history of chronic kidney disease stage IV, chronic anemia, type 2 diabetes, hypertension, hyperparathyroidism, previous history of hydrocephalus and previous shunt placement. Patient was brought in mostly with symptoms of shortness of breath, her pulse oximetry on room air on presentation was 82%. Patient had a chest x-ray which showed moderate congestive heart failure and small left-sided pleural effusion. I was asked to see the patient for pleural effusion, however ultrasound of the chest failed to show significant pleural effusion to consider diagnostic or therapeutic thoracentesis. The amount of the effusion was so small, and I did not feel the patient had any symptoms to suggest pneumonia. I recommended mostly conservative measures, and she was seen by cardiology, patient is placed on diuretics. Review of Systems ROS unobtainable: due to mental status Past Medical History Past Medical History: Heart Failure, Dementia, Diabetes Mellitus, Eye Disorder, GERD/Reflux, Hypertension, Memory Impairment, Renal Disease Additional Past Medical History / Comment(s): macular degeneration, incont of urine wears a depends, occ gout, past fall, concussion History of Any Multi-Drug Resistant Organisms: None Reported Past Surgical History: Orthopedic Surgery Additional Past Surgical History / Comment(s): Rt Shoulder, "brain shunt", lesion on labia removed. Past Anesthesia/Blood Transfusion Reactions: No Reported Reaction Past Psychological History: No Psychological Hx Reported Smoking Status: Former smoker Past Alcohol Use History: None Reported Past Drug Use History: None Reported - Past Family History Mother History Unknown: Yes Additional Family Medical History / Comment(s): Patient does not know her mother's medical history. Father Additional Family Medical History / Comment(s): " young- had heart disease Brother(s) Additional Family Medical History / Comment(s): Patient has one brother and patient does not know his history. Patient does not have any sisters. Patient has 2 children. Medications and Allergies Home Medications Medication Instructions Recorded Confirmed Type amLODIPine BESYLATE [Norvasc] 10 mg PO DAILY 02/21/15 05/27/20 History Multivitamins, Thera [Multivitamin 1 tab PO DAILY 01/23/16 05/27/20 History (formulary)] Acetaminophen Tab [Tylenol] 650 mg PO Q4H PRN 12/29/18 05/27/20 History Atorvastatin [Lipitor] 40 mg PO HS 12/29/18 05/27/20 History Carvedilol [Coreg] 25 mg PO BID 12/29/18 05/27/20 History Cinacalcet [Sensipar] 30 mg PO DAILY 12/29/18 05/27/20 History Famotidine 20 mg PO DAILY 12/29/18 05/27/20 History Ferrous Sulfate [Iron (65 MG 325 mg PO DAILY 12/29/18 05/27/20 History Elemental)] Na Phos,M-B/Na Phos,Di-Ba [Fleet 133 ml RECTAL DAILY PRN 12/29/18 05/27/20 History Adult] allopurinoL [Zyloprim] 100 mg PO DAILY@0800 12/29/18 05/27/20 History bisacodyL [Dulcolax] 10 mg RECTAL DAILY PRN 12/29/18 05/27/20 History buPROPion [Wellbutrin] 100 mg PO DAILY tab 01/07/19 05/27/20 Rx polyethylene glycoL 3350 [Miralax] 17 gm PO DAILY #3 packet 01/07/19 05/27/20 Rx Acetaminophen-Codeine 300-30mg 1 tab PO Q6H PRN 05/27/20 05/27/20 History [Tylenol w/codeine #3] Albuterol Nebulized [Ventolin 2.5 mg INHALATION RT-Q4H PRN 05/27/20 05/27/20 History Nebulized] Albuterol Nebulized [Ventolin 2.5 mg INHALATION RT-QID 05/27/20 05/27/20 History Nebulized] Aspirin EC [Ecotrin Low Dose] 81 mg PO DAILY 05/27/20 05/27/20 History Cholecalciferol [Vitamin D3 (25 2,000 unit PO DAILY 05/27/20 05/27/20 History Mcg = 1000 Iu)] Doxycycline Hyclate 100 mg PO BID 05/27/20 05/27/20 History INSULIN ASPART (NovoLOG) [NovoLOG See Protocol SQ ACHS 05/27/20 05/27/20 History (formulary)] Magnesium Hydroxide [Milk of 7,200 mg PO Q48H PRN 05/27/20 05/27/20 History Magnesia Concentrate] Menthol [Biofreeze] 1 applic TOPICAL BID PRN 05/27/20 05/27/20 History Menthol [Biofreeze] 1 applic TOPICAL HS 05/27/20 05/27/20 History Sennosides-Docusate Sodium 2 tab PO HS 05/27/20 05/27/20 History [Senokot-S] Sodium Bicarbonate Tab 650 mg PO BID 05/27/20 05/27/20 History guaiFENesin [Mucinex] 600 mg PO BID 05/27/20 05/27/20 History hydrALAZINE HCL [Apresoline] 75 mg PO DAILY 05/27/20 05/27/20 History Furosemide [Lasix] 20 mg PO DAILY #30 tab 05/29/20 Rx Allergies Allergy/AdvReac Type Severity Reaction Status Date / Time aspirin Allergy Unknown Verified 05/27/20 15:32 lactose Allergy Unknown Verified 05/27/20 15:32 Physical Exam Vitals: Vital Signs Temp Pulse Pulse Resp BP Pulse Ox 05/29/20 16:03 72 05/29/20 15:50 72 05/29/20 15:21 97.4 F L 64 16 142/70 99 05/29/20 12:21 76 05/29/20 12:10 76 05/29/20 12:00 98.5 F 71 16 143/70 99 05/29/20 09:21 72 05/29/20 09:03 68 05/29/20 08:00 77 18 05/29/20 07:52 98.6 F 77 18 171/69 99 05/29/20 03:22 98.4 F 80 18 157/68 98 05/28/20 23:35 98.5 F 71 17 152/81 96 05/28/20 20:52 76 05/28/20 20:35 80 05/28/20 19:32 98.6 F 74 16 165/71 95 Intake and Output 05/29/20 05/29/20 05/29/20 06:59 14:59 22:59 Intake Total 240 Output Total 375 Balance 240 -375 Intake: Oral 240 Output: Urine 375 Other: Voiding Method Diaper Diaper Diaper Incontinent Incontinent Incontinent # Voids 2 3 Weight 58 kg Gen: Revealed 89-year-old female, slightly confused, in no distress. Head: Atraumatic, normocephalic. HEENT: PERRLA, EOMI, neck discomfort neck masses, no JVD. Chest: Diminished breath sounds at the bases no crackles or rhonchi or wheezes. HEART: normal S1 and S2, no S3 gallop. ABDOMEN: Soft. Bowel sounds are present. No masses. No tenderness. EXTREMITIE: no clubbing edema or cyanosis Neurologic:: Patient is awake, confused, unable to give adequate history but her symptoms. Results - Laboratory Findings CBC and BMP: 05/29/20 11:25 05/29/20 11:25 PT/INR, D-dimer PT 10.8 sec (9.0-12.0) 05/27/20 12:45 INR 1.0 (<1.2) 05/27/20 12:45 D-Dimer 1.69 mg/L FEU (<0.60) H 05/27/20 12:45 Abnormal lab findings: Abnormal Labs 05/27/20 05/27/20 05/27/20 12:45 12:45 12:45 RBC 2.68 L Hgb 8.8 L Hct 26.8 L RDW 16.7 H Plt Count Lymphocytes # 0.9 L APTT D-Dimer 1.69 H VBG pH VBG pCO2 VBG HCO3 Chloride 112 H BUN 33 H Creatinine 2.19 H Glucose 104 H POC Glucose (mg/dL) Troponin I Crossmatch 05/27/20 05/27/20 05/27/20 12:45 13:10 16:37 RBC Hgb Hct RDW Plt Count Lymphocytes # APTT D-Dimer VBG pH 7.51 H VBG pCO2 28 L VBG HCO3 22 L Chloride BUN Creatinine Glucose POC Glucose (mg/dL) 113 H Troponin I 0.040 H* Crossmatch 05/27/20 05/27/20 05/28/20 20:29 22:10 06:07 RBC Hgb Hct RDW Plt Count Lymphocytes # APTT 93.4 H D-Dimer VBG pH VBG pCO2 VBG HCO3 Chloride BUN Creatinine Glucose POC Glucose (mg/dL) 196 H 104 H Troponin I Crossmatch 05/28/20 05/28/20 05/28/20 12:45 13:12 13:12 RBC Hgb Hct RDW Plt Count Lymphocytes # APTT 30.7 H D-Dimer VBG pH VBG pCO2 VBG HCO3 Chloride BUN Creatinine Glucose POC Glucose (mg/dL) 104 H Troponin I 0.044 H* Crossmatch 05/28/20 05/28/20 05/28/20 15:50 15:50 20:13 RBC Hgb Hct RDW Plt Count Lymphocytes # APTT 50.6 H D-Dimer VBG pH VBG pCO2 VBG HCO3 Chloride BUN Creatinine Glucose POC Glucose (mg/dL) 153 H Troponin I 0.038 H* Crossmatch 05/28/20 05/29/20 05/29/20 23:28 06:03 11:25 RBC Hgb Hct RDW Plt Count Lymphocytes # APTT 51.8 H D-Dimer VBG pH VBG pCO2 VBG HCO3 Chloride BUN Creatinine 2.50 H Glucose POC Glucose (mg/dL) 101 H Troponin I Crossmatch 05/29/20 05/29/20 05/29/20 11:25 11:25 11:34 RBC 2.14 L Hgb 7.0 L D Hct 21.3 L RDW 16.5 H Plt Count 137 L Lymphocytes # APTT 49.4 H D-Dimer VBG pH VBG pCO2 VBG HCO3 Chloride BUN Creatinine Glucose POC Glucose (mg/dL) 109 H Troponin I Crossmatch 05/29/20 05/29/20 14:38 16:37 RBC Hgb Hct RDW Plt Count Lymphocytes # APTT D-Dimer VBG pH VBG pCO2 VBG HCO3 Chloride BUN Creatinine Glucose POC Glucose (mg/dL) 133 H Troponin I Crossmatch See Detail - Diagnostic Findings Chest x-ray: image reviewed (As noted in HPI.) Additional studies: Ultrasound of the chest was reviewed, not safe to perform thoracentesis considering the amount of the fluid and it seems to be a bit septated, possibly chronic. Assessment and Plan Assessment: Impression: Acute hypoxic respiratory failure secondary to acute diastolic congestive heart failure with elevated BNP level. No clear-cut evidence of pneumonia based on chest x-ray findings and based on the clinical history. Not to mention the patient has a relatively normal WBC count. And no documented fever since admission. Suspect the left pleural effusion is rather chronic. Could be postinflammatory in nature, but not accessible easily to perform diagnostic thoracentesis. No evidence clinically to suggest pulmonary embolism, and a VQ scan by itself is nondiagnostic. Recommendation: Suggest discontinuing antibiotics. Continue diuretics. Discontinue heparin. Titrate oxygen to keep O2 saturation above 90% Will reevaluate in a.m. Venous Doppler was ordered. Time with Patient: Greater than 30
[2020-05-29 20:50] LABS: Glucose,Whole Blood 168 mg/dL (75-99)
[2020-05-29] MEDS ORDERED: FUROSEMIDE 10 MG/ML 4 ML VIAL ONE (21:09)
[2020-05-29] MEDS: SENNOSIDES-DOCUSATE SODIUM 1 EACH TAB PO SCH (21:13)
[2020-05-29] MEDS: ATORVASTATIN 40 MG TAB PO SCH (21:13)
[2020-05-30 00:29] VITALS: RESP 16
[2020-05-30 06:03] LABS: Glucose,Whole Blood 98 mg/dL (75-99)
[2020-05-30] MEDS: INSULIN ASPART (NovoLOG) 100 UNIT/ML VIAL SQ SCH ×2 (06:10→11:50)
[2020-05-30] MEDS: ALBUTEROL NEBULIZED 2.5 MG/3 ML INHALATION SCH ×2 (07:27→11:04)
--- NOTE | 2020-05-30 08:44 | P.DS ---
Providers Date of admission: 05/27/20 14:08 Expected date of discharge: 05/30/20 Attending physician: Justin Boyle Consults: 05/27/20 14:26 Consult Physician Urgent Consulting Provider: [facility] Consult Reason/Comments: Pulmonary edema Do you want consulting provider notified?: Yes 05/28/20 12:54 Consult Physician Routine Consulting Provider: Diana Colvin Consult Reason/Comments: intermediate probabitlity for PE Do you want consulting provider notified?: Yes Primary care physician: [facility] Course: HISTORY OF PRESENT ILLNESS This is an 89-year-old black female patient of Dr. Guzmán resigning at [facility] with past medical history of diabetes mellitus type 2, chronic kidney disease stage IV, gastroesophageal reflux disease, anemia of chronic disease, chronic gout, hyperparathyroidism, hypertension, hyperlipidemia, recurrent depression, hydrocephalus status post shunt. Patient has had shortness of breath on and off. No cough or sputum production. She denies any nausea, vomiting or diarrhea. Patient was recently treated for pneumonia. On presentation, patient had a pulse ox of 82% on room air placed on a nonrebreather 15 L initially. Heart rate was 78, respiratory rate 22, blood pressure 142/76. Patient is now back on room air with pulse ox of 97%. Chest x-ray reveals moderate heart failure with small left pleural effusion and adjacent atelectasis. WBC 5.7, hemoglobin 8.8, platelet count 155. D-dimer 1.69 venous pH 7.51, CO2 28 and bicarbonate 22. BUN 33 and creatinine 2.19, potassium 4.9. Liver function tests normal. Troponin elevated at 0.040. COVID-19 not detected. Patient was started on cefepime and vancomycin for possible pneumonia and admitted to the cardiac stepdown unit, cardiology consult, echocardiogram, repeat troponins. 05/29: VQ scan reveals intermediate probability for PE and pulmonary on consult. Pulmonary medicine has ordered a chest ultrasound which revealed septated left pleural effusion. No right pleural effusion. Left pleural effusion pocket was 4.72 cm. patient remains on heparin drip until her embolism has been ruled out. Echocardiogram reveals EF 3540 percent, severe concentric left ventricular hypertrophy, mild mitral regurgitation. She has been afebrile, heart rate 77, blood pressure 171/69, pulse ox 99% on room air. Repeat troponin 0.044 and 0 .038. Anticipate possible discharge back to [facility] tomorrow. 05/30: Patient has been cleared by cardiology for discharge home. Patient denies any new complaints. No chest pain or shortness of breath. She is currently on oral Lasix. She is seen by pulmonary medicine with no plan for thoracentesis, pneumonia has been ruled out. Patient will be prepared for discharge back to [facility] today once cleared by pulmonary medicine. COVID-19 testing negative on May 27. ASSESSMENT AND PLAN 1. Acute hypoxic respiratory failure secondary to unstable angina causing acute flash pulmonary edema as well as left pleural effusion, ruled out pulmonary embolism and ruled out pneumonia. 2. Elevated troponin, acute coronary syndrome ruled out. 3. Elevated d-dimer, ruled out pulmonary embolism. 4. Chronic kidney disease stage IV. 5. Anemia of chronic kidney disease. 6. Hypertension, hypertensive cardio vascular disease. 7. Diabetes mellitus type 2. 8. Hyperlipidemia. 9. Chronic gout. 10. History of hydrocephalus status post shunt, stable. 11. Gastroesophageal reflux disease. 12. Recurrent depression. DISCHARGE PLAN Return to [facility] under the care of Dr. Guzmán. Impression and plan of care have been directed as dictated by the signing physician. Tiffani Corrigan nurse practitioner acting as scribe for signing physician. Patient Condition at Discharge: Good Plan - Discharge Summary Discharge Rx Participant: No New Discharge Prescriptions: New Furosemide [Lasix] 20 mg PO DAILY #30 tab Isosorbide Mononitrate ER [Imdur] 30 mg PO DAILY tab.er.24h Continue amLODIPine BESYLATE [Norvasc] 10 mg PO DAILY Multivitamins, Thera [Multivitamin (formulary)] 1 tab PO DAILY Na Phos,M-B/Na Phos,Di-Ba [Fleet Adult] 133 ml RECTAL DAILY PRN PRN Reason: Constipation bisacodyL [Dulcolax] 10 mg RECTAL DAILY PRN PRN Reason: Constipation Acetaminophen Tab [Tylenol] 650 mg PO Q4H PRN PRN Reason: Fever And/ Or Pain Carvedilol [Coreg] 25 mg PO BID Ferrous Sulfate [Iron (65 MG Elemental)] 325 mg PO DAILY Cinacalcet [Sensipar] 30 mg PO DAILY Famotidine 20 mg PO DAILY Atorvastatin [Lipitor] 40 mg PO HS allopurinoL [Zyloprim] 100 mg PO DAILY@0800 polyethylene glycoL 3350 [Miralax] 17 gm PO DAILY #3 packet buPROPion [Wellbutrin] 100 mg PO DAILY tab Albuterol Nebulized [Ventolin Nebulized] 2.5 mg INHALATION RT-Q4H PRN PRN Reason: Shortness Of Breath Albuterol Nebulized [Ventolin Nebulized] 2.5 mg INHALATION RT-QID Cholecalciferol [Vitamin D3 (25 Mcg = 1000 Iu)] 2,000 unit PO DAILY guaiFENesin [Mucinex] 600 mg PO BID hydrALAZINE HCL [Apresoline] 75 mg PO DAILY INSULIN ASPART (NovoLOG) [NovoLOG (formulary)] See Protocol SQ ACHS Magnesium Hydroxide [Milk of Magnesia Concentrate] 7,200 mg PO Q48H PRN PRN Reason: Constipation Menthol [Biofreeze] 1 applic TOPICAL BID PRN PRN Reason: BILATERAL KNEE PAIN Menthol [Biofreeze] 1 applic TOPICAL HS Sodium Bicarbonate Tab 650 mg PO BID Aspirin EC [Ecotrin Low Dose] 81 mg PO DAILY Sennosides-Docusate Sodium [Senokot-S] 2 tab PO HS Acetaminophen-Codeine 300-30mg [Tylenol w/codeine #3] 1 tab PO Q6H PRN #12 tab PRN Reason: Mild To Moderate Pain Discontinued Doxycycline Hyclate 100 mg PO BID Discharge Medication List amLODIPine BESYLATE [Norvasc] 10 mg PO DAILY 02/21/15 [History] Multivitamins, Thera [Multivitamin (formulary)] 1 tab PO DAILY 01/23/16 [History] Acetaminophen Tab [Tylenol] 650 mg PO Q4H PRN 12/29/18 [History] Atorvastatin [Lipitor] 40 mg PO HS 12/29/18 [History] Carvedilol [Coreg] 25 mg PO BID 12/29/18 [History] Cinacalcet [Sensipar] 30 mg PO DAILY 12/29/18 [History] Famotidine 20 mg PO DAILY 12/29/18 [History] Ferrous Sulfate [Iron (65 MG Elemental)] 325 mg PO DAILY 12/29/18 [History] Na Phos,M-B/Na Phos,Di-Ba [Fleet Adult] 133 ml RECTAL DAILY PRN 12/29/18 [History] allopurinoL [Zyloprim] 100 mg PO DAILY@0800 12/29/18 [History] bisacodyL [Dulcolax] 10 mg RECTAL DAILY PRN 12/29/18 [History] buPROPion [Wellbutrin] 100 mg PO DAILY tab 01/07/19 [Rx] polyethylene glycoL 3350 [Miralax] 17 gm PO DAILY #3 packet 01/07/19 [Rx] Albuterol Nebulized [Ventolin Nebulized] 2.5 mg INHALATION RT-Q4H PRN 05/27/20 [History] Albuterol Nebulized [Ventolin Nebulized] 2.5 mg INHALATION RT-QID 05/27/20 [History] Aspirin EC [Ecotrin Low Dose] 81 mg PO DAILY 05/27/20 [History] Cholecalciferol [Vitamin D3 (25 Mcg = 1000 Iu)] 2,000 unit PO DAILY 05/27/20 [History] INSULIN ASPART (NovoLOG) [NovoLOG (formulary)] See Protocol SQ ACHS 05/27/20 [History] Magnesium Hydroxide [Milk of Magnesia Concentrate] 7,200 mg PO Q48H PRN 05/27/20 [History] Menthol [Biofreeze] 1 applic TOPICAL BID PRN 05/27/20 [History] Menthol [Biofreeze] 1 applic TOPICAL HS 05/27/20 [History] Sennosides-Docusate Sodium [Senokot-S] 2 tab PO HS 05/27/20 [History] Sodium Bicarbonate Tab 650 mg PO BID 05/27/20 [History] guaiFENesin [Mucinex] 600 mg PO BID 05/27/20 [History] hydrALAZINE HCL [Apresoline] 75 mg PO DAILY 05/27/20 [History] Furosemide [Lasix] 20 mg PO DAILY #30 tab 05/29/20 [Rx] Acetaminophen-Codeine 300-30mg [Tylenol w/codeine #3] 1 tab PO Q6H PRN #12 tab 05/30/20 [Rx] Isosorbide Mononitrate ER [Imdur] 30 mg PO DAILY tab.er.24h 05/30/20 [Rx] Follow up Appointment(s)/Referral(s): Don Garcia DO [STAFF PHYSICIAN] - 1 Week Chad Guzmán MD [Primary Care Provider] - 1 Week (at [facility]) Activity/Diet/Wound Care/Special Instructions: pt will need rapid COVID test -return to [place] Discharge Disposition: TRANSFER TO SNF/ECF
[2020-05-30] MEDS ORDERED: FUROSEMIDE 20 MG TAB PO SCH (09:00)
[2020-05-30] MEDS: polyethylene glycoL 3350 17 GM POWD.PACK PO SCH (09:21)
[2020-05-30] MEDS: ASPIRIN 81 MG PO SCH (09:22)
[2020-05-30] MEDS: ISOSORBIDE MONONITRATE ER 30 MG TAB.ER.24H PO SCH (09:23)
[2020-05-30] MEDS: hydrALAZINE HCL 25 MG TAB PO SCH (09:23)
[2020-05-30] MEDS: amLODIPine 10 MG TAB PO SCH (09:23)
[2020-05-30] MEDS: CINACALCET 30 MG TAB PO SCH (09:23)
[2020-05-30] MEDS: SODIUM BICARBONATE TAB 650 MG TAB PO SCH (09:23)
[2020-05-30] MEDS: carvediloL 12.5 MG TAB PO SCH (09:23)
[2020-05-30] MEDS: guaiFENesin 600 MG TABLET.ER PO SCH (10:14)
[2020-05-30] MEDS: MULTIVITAMINS, THERA 1 EACH TAB PO SCH (10:14)
[2020-05-30] MEDS: FAMOTIDINE 20 MG TAB PO SCH (10:14)
[2020-05-30] MEDS: CHOLECALCIFEROL 1,000 UNIT TAB PO SCH (10:15)
[2020-05-30 10:17] VITALS: BP 150/75; TEMP 98.7
[2020-05-30 10:23] LABS: Anisocytosis Slight; Basophils % (A) 0 %; Eosinophils # (A) 0.6 k/uL (0-0.7); Eosinophils % (A) 9 %; HCT 29.3 % (34.0-46.0); Lymphocytes # (A) 0.9 k/uL (1.0-4.8); Lymphocytes % (A) 14 %; MCH 31.5 pg (25.0-35.0); MCHC 32.3 g/dL (31.0-37.0); MCV 97.6 fL (80.0-100.0); Macrocytosis Slight; Mean Platelet Volume 7.5; Monocytes # (A) 0.5 k/uL (0-1.0); Monocytes % (A) 7 %; Neutrophils # (A) 4.4 k/uL (1.3-7.7); Neutrophils % (A) 68 %; Platelet Count 136 k/uL (150-450); Poikilocytosis Slight; RDW 17.5 % (11.5-15.5); WBC 6.4 k/uL (3.8-10.6)
[2020-05-30 10:25] LABS: HGB 9.5 gm/dL (11.4-16.0)
[2020-05-30 11:15] VITALS: PULSE 74
[2020-05-30 11:47] LABS: Glucose,Whole Blood 154 mg/dL (75-99)
[2020-05-30] MEDS: allopurinoL 100 MG TAB PO SCH ×2 (11:58→12:02)
[2020-05-30] MEDS: buPROPion 100 MG TAB PO SCH ×2 (11:58→12:02)
[2020-05-30] MEDS: FERROUS SULFATE 325 MG TAB PO SCH (11:59)
[2020-05-30] MEDS ORDERED: MAG HYDROX/AL HYDROX/SIMETH 30 ML CUP PO PRN (12:06)
[2020-05-30] MEDS ORDERED: PANTOPRAZOLE 40 MG/10 ML VIAL IVP SCH (12:15)
[2020-05-30] MEDS ORDERED: VANCOMYCIN 1,000 MG in SODIUM CHLORIDE 0.9% 250 ML IVPB ONE (14:00)
--- NOTE | 2020-05-30 14:38 | P.PN ---
Subjective Progress Note Date: 05/30/20 Principal diagnosis: Acute hypoxic respiratory failure secondary to acute diastolic congestive heart failure This is an 89-year-old female, poor historian, patient is a resident of [facility], known history of chronic kidney disease stage IV, chronic anemia, type 2 diabetes, hypertension, hyperparathyroidism, previous history of hydrocephalus and previous shunt placement. Patient was brought in mostly with symptoms of shortness of breath, her pulse oximetry on room air on presentation was 82%. Patient had a chest x-ray which showed moderate congestive heart angel lure and small left-sided pleural effusion. I was asked to see the patient for pleural effusion, however ultrasound of the chest failed to show significant pleural effusion to consider diagnostic or therapeutic thoracentesis. The amount of the effusion was so small, and I did not feel the patient had any symptoms to suggest pneumonia. I recommended mostly conservative measures, and she was seen by cardiology, patient is placed on diuretics. The patient is seen today 05/30/2020 in follow-up on the selective care unit. She is currently resting comfortably in bed. Obtain good O2 saturation in the mid 90s on room air. She's been afebrile. She did receive 1 unit of packed red blood cells this admission. Current hemoglobin 9.5. Blood culture reveals no growth to date. White count 6.4. Creatinine 2.61. She's been converted to oral diuretics. Currently on bronchodilators. Objective - Vital Signs Vital signs: Vital Signs Temp 98.7 F 05/30/20 09:15 Pulse 74 05/30/20 11:15 Resp 16 05/30/20 09:15 BP 150/75 05/30/20 09:15 Pulse Ox 97 05/30/20 09:15 Intake & Output 05/29/20 05/30/20 05/30/20 18:59 06:59 18:59 Intake Total 420 310 Output Total 375 1575 800 Balance 45 1265 -800 Weight 60 kg Intake: Oral 420 Blood Product 0 310 Rc As-1 Unit 0 310 [id number] Output: Urine 375 1575 800 Other: Voiding Method Diaper Diaper Diaper Incontinent Incontinent Incontinent # Voids 3 # Bowel Movements 0 - Exam Gen: Revealed 89-year-old female, slightly confused, in no distress. On room air. Head: Atraumatic, normocephalic. HEENT: PERRLA, EOMI, neck discomfort neck masses, no JVD. Chest: Diminished breath sounds at the bases no crackles or rhonchi or wheezes. HEART: normal S1 and S2, no S3 gallop. ABDOMEN: Soft. Bowel sounds are present. No masses. No tenderness. EXTREMITIE: no clubbing edema or cyanosis Neurologic:: Patient is awake, confused, unable to give adequate history but her symptoms. - Labs CBC & Chem 7: 05/30/20 09:35 05/30/20 09:35 Labs: Abnormal Lab Results - Last 24 Hours (Table) 05/29/20 05/29/20 05/29/20 Range/Units 14:38 16:37 20:47 RBC (3.80-5.40) m/uL Hgb (11.4-16.0) gm/dL Hct (34.0-46.0) % RDW (11.5-15.5) % Plt Count (150-450) k/uL Lymphocytes # (1.0-4.8) k/uL Creatinine (0.52-1.04) mg/dL POC Glucose (mg/dL) 133 H 168 H (75-99) mg/dL Crossmatch See Detail 05/30/20 05/30/20 05/30/20 Range/Units 09:35 09:35 11:46 RBC 3.00 L (3.80-5.40) m/uL Hgb 9.5 L D (11.4-16.0) gm/dL Hct 29.3 L (34.0-46.0) % RDW 17.5 H (11.5-15.5) % Plt Count 136 L (150-450) k/uL Lymphocytes # 0.9 L (1.0-4.8) k/uL Creatinine 2.61 H (0.52-1.04) mg/dL POC Glucose (mg/dL) 154 H (75-99) mg/dL Crossmatch Microbiology - Last 24 Hours (Table) 05/27/20 13:03 Blood Culture - Preliminary Blood No Growth after 48 hours Assessment and Plan Assessment: Acute hypoxic respiratory failure secondary to acute diastolic congestive heart failure with elevated BNP level. No clear-cut evidence of pneumonia based on chest x-ray findings and based on the clinical history. Not to mention the patient has a relatively normal WBC count. And no documented fever since admission. Suspect the left pleural effusion is rather chronic. Could be postinflammatory in nature, but not accessible easily to perform diagnostic thoracentesis. No evidence clinically to suggest pulmonary embolism, and a VQ scan by itself is nondiagnostic. History of dementia Macular degeneration Gastroesophageal reflux disease Hypertension Renal disease Former smoker Plan: The patient was seen and evaluated by Dr. Colvin She is cleared for discharge to the [facility] on room air I, the cosigning physician, performed a history & physical examination of the patient. Lungs sounds diminished in the bases. Maintaining good O2 saturations in the 90s on room air. I discussed the assessment and plan of care with my nurse practitioner, Hillary Vallejo. I attest to the above note as dictated by her.
--- NOTE | 2020-06-01 14:36 | CDI ---
Documentation Clarification Form Date: 06/01/20 From: Che Floyd CCS Phone: If you have a question about this query, please contact Angeline Mcintyre, Coal Screener at [phone] between 8am and 5pm. Admit Date: 05/27/20 Discharge Date:05/30/20 Patient Name: Anabelle Villar Visit Number: [id number] ATTENTION: The Clinical Documentation Specialists (CDI) and [facility] Coding Staff appreciate your assistance in clarifying documentation. Please respond to the clarification below the line at the bottom and electronically sign. The CDI & [facility] Coding staff will review the response and follow-up if needed. Please note: Queries are made part of the Legal Health Record. If you have any questions, please contact the author of this message via ITS. Dear Dr. Boyle, Conflicting documentation has been found in the medical record: Consult 05/29, PN 05/30 document: Acute hypoxic respiratory failure secondary to acute diastolic congestive heart failure with elevated BNP level. DS documents: Acute hypoxic respiratory failure secondary to unstable angina causing acute flash pulmonary edema as well as left pleural effusion, ruled out pulmonary embolism and ruled out pneumonia. History/Risk Factors: HTN, CKD, Anemia, DM, Valve disease Clinical Indicators: Pulmonary edema, Pleural effusion, Elevated BNP, Shortness of breath Labs: BNP 7710 C-Xray: Moderate CHF with small left pleural effusion and adjacent atelectasis. ECHO: There is severe concentric left ventricular hypertrophy.Overall left ventricular systolic function is moderately impaired with, an EF between 35 - 40 % Treatment: Lasix 40 mg IV, Lasix 20 mg IV, Heparin IV per protocol In your opinion, what is the most clinically appropriate diagnosis for this patient? Acute diastolic CHF Unstable angina due to acute pulmonary edema Other explanation of clinical findings Unable to determine (no explanation for clinical findings) possible acute systolic heart failure MTDD
--- NOTE | 2020-06-01 14:46 | CDI ---
Documentation Clarification Form Date: 06/01/20 From: Che Floyd CCS Phone: If you have a question about this query, please contact Angeline Mcintyre, Convenience Store Manager at [phone] between 8am and 5pm. Admit Date: 05/27/20 Discharge Date:05/30/20 Patient Name: Anabelle Villar Visit Number: [id number] ATTENTION: The Clinical Documentation Specialists (CDI) and [facility] Coding Staff appreciate your assistance in clarifying documentation. Please respond to the clarification below the line at the bottom and electronically sign. The CDI & [facility] Coding staff will review the response and follow-up if needed. Please note: Queries are made part of the Legal Health Record. If you have any questions, please contact the author of this message via ITS. Dear Dr. Boyle, Patient presented with troponin of: 0.040, 0.044, 0.038 Consult 05/28, PN 05/29 document: Abnormal troponin, suspect either due to CKD or type II [place] secondary to oxygen supply and demand mismatch, no signs of ACS DS documents: Elevated troponin, acute coronary syndrome ruled out. Patient history/risk factors: HTN, DM, CKD, Anemia Clinical indicators: Elevated troponin, Acute resp failure, pulmonary edema Treatment: Heparin IV protocol In your professional opinion, can you please specify the diagnosis, if any, indicated by the above clinical indicators and treatment? Type II [place] Unstable Angina Elevated troponin Other, please specify Unable to determine Elevated troponin d/t ckd, no ACS MTDD
== END 2020-05-30 12:49 | DRG 291 ==
LOC: EC 12:09 → 3SCARD 14:08
PROVIDERS: ADMIT Internal Medicine; ATTEND Internal Medicine
PROC: 30233N1 Transfusion of Nonautologous Red Blood Cells into Peripheral Vein, Percutaneous Approach (ICD-10-PCS; principal; 2020-05-29)
DX: I13.0 Hypertensive heart and chronic kidney disease with heart failure and stage 1 through stage 4 chronic kidney disease, or unspecified chronic kidney disease (principal); J96.01 Acute respiratory failure with hypoxia; I50.21 Acute systolic (congestive) heart failure; F33.9 Major depressive disorder, recurrent, unspecified; N18.4 Chronic kidney disease, stage 4 (severe); D63.1 Anemia in chronic kidney disease; E11.22 Type 2 diabetes mellitus with diabetic chronic kidney disease; F03.90 Unspecified dementia, unspecified severity, without behavioral disturbance, psychotic disturbance, mood disturbance, and anxiety; K21.9 Gastro-esophageal reflux disease without esophagitis; Z66 Do not resuscitate; E21.3 Hyperparathyroidism, unspecified; Z20.828 Contact with and (suspected) exposure to other viral communicable diseases; H35.30 Unspecified macular degeneration; R32 Unspecified urinary incontinence; R77.8 Other specified abnormalities of plasma proteins; E78.5 Hyperlipidemia, unspecified; M1A.9XX0 Chronic gout, unspecified, without tophus (tophi); I34.0 Nonrheumatic mitral (valve) insufficiency; Z71.3 Dietary counseling and surveillance; Z87.01 Personal history of pneumonia (recurrent); Z79.899 Other long term (current) drug therapy; Z79.82 Long term (current) use of aspirin; Z91.81 History of falling; Z87.891 Personal history of nicotine dependence; Z98.2 Presence of cerebrospinal fluid drainage device; Z87.81 Personal history of (healed) traumatic fracture; Z88.6 Allergy status to analgesic agent; Z88.8 Allergy status to other drugs, medicaments and biological substances
CPT/HCPCS: 36415; 71046; 76604; 78582; 80053; 80202; 82565; 82803; 83605; 83735; 83880; 84484; 85025; 85379; 85610; 85730; 86850; 86900; 86901; 86920; 87040; 87635; 93306; 93970; 94640; 96374; 96375; 99291